=== PATIENT | female | born 1955 | race Caucasian/White ===

== ENCOUNTER 2016-02-17 03:49 | Inpatient (IN) | payer MEDICARE, OTHER ==
[~2016-02-17] VITALS: Ht 162.6 cm; Wt 79.1 kg
[~2016-02-17 03:49] MED LIST: ACET500T68 PO; ALBU0.63 IH; AMLO10TA2 PO; AMLO5TAB2 PO; ASPI-252 PO; ASPI325T82 PO; ASPI81TA2 PO; BACL10TA PO; BREO ELLIPTA 11 EACH IH; BUSP5TAB PO; Buspirone Hcl PO; CIPR500T PO; CIPR500T94 PO; DOXY100T PO; ERGO500012 PO; FLUT1DIS3 INH; FLUT1DIS5 IH; FURO-68 PO; GABA-586 PO; HYDR-2678 PO; HYDR-971 PO; IPRA14.7 IH; IRBE150T PO; LEVO125T PO; LEVO125T5 PO; LEVO175T5 PO; LEVO500T38 PO; LEVO500T8 PO; LEVO750T31 PO; LISI10TA2 PO; ONDA8TAB15 PO; OXYC-244 PO; OXYC-323 PO; Oxycodone Hcl/Acetaminophen PO; PANT40GR PO; PANT40TA3 PO; PARO25TA9 PO; POTA10TA12 PO; POTA10TA31 PO; POTA20TA82 PO; PRAM0.255 PO; PRAS10TA4 PO; PRED-220 PO; PRED20TA PO; TIOT18CA IH; TRIA1CAP3 PO; VENTOLIN HFA18 GM IH; [UNRECOGNIZED DRUG - CODE] PO
[2016-02-17 04:30] LABS: BASO # 0.1 x10^3/uL (0.0-0.2); BASO % 1 % (0-3); EOS % 4 % (0-3); HEMATOCRIT 38.3 % (36.0-47.0); HEMOGLOBIN 11.9 g/dL (12.0-15.5); LYMPH # 0.8 x10^3/uL (1.0-4.8); LYMPH % 17 % (24-48); MEAN CORPUSCULAR HEMOGLOBIN 23 pg (25-35); MEAN CORPUSCULAR HGB CONC 31 g/dL (31-37); MEAN CORPUSCULAR VOLUME 74 fL (79-100); MONO % 8 % (0-9); NEUT % 69 % (31-73); PLATELET COUNT 256 x10^3/uL (140-400); RED CELL DISTRIBUTION WIDTH 21.9 % (11.5-14.5); WHITE BLOOD COUNT 4.7 x10^3/uL (4.0-11.0)
--- NOTE | 2016-02-17 04:32 | PHYS DOC ---
Past Medical History Past Medical History: Angina, CAD, CHF, COPD, Heart Disease, [place] Additional Past Medical Histor: PAD, Chronic back pain, emphysema, MULTIPLE CODE BLUE, CARD. CATH Past Surgical History: Angioplasty, Cholecystectomy, Hysterectomy Additional Past Surgical Histo: bilat leg stents, trach, aortic stent, ivc filter, feeding tube w/ removal Alcohol Use: None Drug Use: None Adult General Chief Complaint Chief Complaint: LOWER EXTREMITY SWELLING [facility] HPI Patient is a 60 year old female who presents with gradually worsening bilateral lower extremity edema and now with bilateral lower extremity pain due to severe swelling. She saw her primary care doctor on 02/14/16 and has been increasing her Lasix dose over the past week from daily dosing to twice a day dosing. She does not have improvement in her swelling. She states she sits in a recliner most of the day with a pillow underneath her knees. She has not been wearing compressive leg stockings. She denies dyspnea, cough, chest pain, orthopnea, abdominal pain, palpitations, lightheadedness, fever or chills. States she feels well on her chronic 10 L trach shield. She states she has been able to ambulate throughout her household with her walker without difficulty other than leg pains. She notes a 12 lb weight gain over the past week. She also asked for a dose of pain medicine for chronic low back pain. Review of Systems Review of Systems Constitutional: Denies fever or chills [] Eyes: Denies change in visual acuity, redness, or eye pain [] HENT: Denies nasal congestion or sore throat [] Respiratory: Denies cough or shortness of breath [] Cardiovascular: No additional information not addressed in HPI [] GI: Denies abdominal pain, nausea, vomiting, bloody stools or diarrhea [] : Denies dysuria or hematuria [] Musculoskeletal: Denies back pain or joint pain [] Integument: Denies rash or skin lesions [] Neurologic: Denies headache, focal weakness or sensory changes [] Endocrine: Denies polyuria or polydipsia [] Current Medications Current Medications Current Medications Medications (Trade) Dose Ordered Sig/Emmett Start Time Stop Time Status Last Admin Dose Admin Albuterol/ Ipratropium (Duoneb) 3 ml RTQID 02/17/16 06:00 02/18/16 05:59 Morphine Sulfate 5 mg 1X ONCE 02/17/16 05:00 02/17/16 05:01 DC 02/17/16 04:48 5 MG Ondansetron HCl (Zofran) 4 mg PRN Q8HRS PRN 02/17/16 05:30 02/18/16 05:29 Allergies Allergies Allergies Coded Allergies Type Severity Reaction Last Updated Verified Penicillins Allergy Intermediate can tolerate cefepime 06/04/15 Yes barium sulfate Adverse Reaction Intermediate Nausea 06/04/15 Yes Physical Exam Physical Exam Constitutional: Well developed, well nourished, no acute distress, non-toxic appearance. [] HENT: Normocephalic, atraumatic, bilateral external ears normal, oropharynx moist, no oral exudates, nose normal. Trach in place with trach shield covering [] Eyes: PERRLA, EOMI. [] Neck: Normal range of motion, supple. [] Cardiovascular:Heart rate regular rhythm [] Lungs & Thorax: Bilateral breath sounds clear to auscultation [] Abdomen: Bowel sounds normal, soft, no tenderness. [] Skin: Warm, dry, no erythema, no rash. [] Back: Normal range of motion. [] Extremities: ROM intact, bilateral 3+ lower extremity edema, appropriate tenderness throughout right and left leg distal to the knee, no warmth/ crepitance/fluctuance/induration. [] Neurologic: Alert and oriented X 3, normal motor function, normal sensory function, no focal deficits noted. [] Psychologic: Affect normal, judgement normal, mood normal. [] Current Patient Data Vital Signs Vital Signs Date Time Temp Pulse Resp B/P Pulse Ox O2 Delivery O2 Flow Rate FiO2 02/17/16 04:48 30 87 Tracheal Collar 10.0 02/17/16 03:49 97.8 81 130/85 97.8 Lab Values Laboratory Tests Test 02/17/16 04:08 White Blood Count 4.7x10^3/uL (4.0-11.0) Red Blood Count 5.20x10^6/uL (3.50-5.40) Hemoglobin 11.9g/dL (12.0-15.5) L Hematocrit 38.3% (36.0-47.0) Mean Corpuscular Volume 74fL (79-100) L Mean Corpuscular Hemoglobin 23pg (25-35) L Mean Corpuscular Hemoglobin Concent 31g/dL (31-37) Red Cell Distribution Width 21.9% (11.5-14.5) H Platelet Count 256x10^3/uL (140-400) Neutrophils (%) (Auto) 69% (31-73) Lymphocytes (%) (Auto) 17% (24-48) L Monocytes (%) (Auto) 8% (0-9) Eosinophils (%) (Auto) 4% (0-3) H Basophils (%) (Auto) 1% (0-3) Neutrophils # (Auto) 3.3x10^3uL (1.8-7.7) Lymphocytes # (Auto) 0.8x10^3/uL (1.0-4.8) L Monocytes # (Auto) 0.4x10^3/uL (0.0-1.1) Eosinophils # (Auto) 0.2x10^3/uL (0.0-0.7) Basophils # (Auto) 0.1x10^3/uL (0.0-0.2) Platelet Estimate Pending Sodium Level 138mmol/L (136-145) Potassium Level 3.3mmol/L (3.5-5.1) L Chloride Level 99mmol/L (98-107) Carbon Dioxide Level 30mmol/L (21-32) Anion Gap 9 (6-14) Blood Urea Nitrogen 14mg/dL (7-20) Creatinine 1.0mg/dL (0.6-1.0) Estimated GFR (Cockcroft-Gault) 56.2 Glucose Level 103mg/dL (70-99) H Calcium Level 8.4mg/dL (8.5-10.1) L AG-[id number]-[id number]-Type Natriuretic Peptide 49473db/mL (0-124) H Laboratory Tests 02/17/16 04:08 Laboratory Tests 02/17/16 04:08 Radiology/Procedures Radiology/Procedures Chest x-ray as interpreted by me showing worsening bilateral pulmonary edema compared to prior studies Course & Med Decision Making Course & Med Decision Making Pertinent Labs and Imaging studies reviewed. (See chart for details) ProBNP is elevated from prior exam, but laboratory evaluation is otherwise unremarkable. She has O2 sat in low 80s on her chronic 10 L, so has a higher O2 requirement. Recommended admission for CHF exacerbation, and she agrees with plan. Discussed case with Dr. Blackburn, who agrees with plan. Cardiology and pulmonology consultations placed. Claudine Disclaimer Dragon Disclaimer This electronic medical record was generated, in whole or in part, using a voice recognition dictation system. Departure Departure Impression: Primary Impression: CHF exacerbation Disposition: ADMITTED INPATIENT Condition: STABLE Referrals: ALEK BLACKBURN MD (PCP) Problem Qualifiers Primary Impression: CHF exacerbation Congestive heart failure type: unspecified congestive heart failure type Qualified Code: I50.9 - Heart failure, unspecified Edilson KUMAR MD Feb 17, 2016 04:32
[2016-02-17 04:38] LABS: CALCIUM 8.4 mg/dL (8.5-10.1); GFR 56.2; POTASSIUM 3.3 mmol/L (3.5-5.1)
[2016-02-17] MEDS ORDERED: MORPHINE SULFATE 10 MG/ML VIAL. IV ONE (05:00)
[2016-02-17] MEDS ORDERED: ONDANSETRON PF 4 MG/2 ML VIAL. IV PRN (05:30)
[2016-02-17 05:36] LABS: ANISOCYTOSIS MOD; HYPOCHROMIA SLIGHT; MICROCYTOSIS SLIGHT; PLT ESTIMATE ADEQUATE (ADEQUATE); POIKILOCYTOSIS SLIGHT; SPHEROCYTES OCC
--- NOTE | 2016-02-17 05:36 | ACF ---
Admission Forms Criteria HEART FAILURE: COMMON COMPLICATIONS Clinical Indications for Inpatient Care (Place 'X' for any and all applicable criteria): Ongoing inpatient care may be indicated for heart failure with ANY ONE of the following (1)(2)(3)(4)(5): [ ]I. Ongoing need for care for primary condition requiring frequent therapy adjustments because of changes in cardiac function (eg, drug dosage changes for drugs that are renally metabolized) [ ]II. New-onset heart failure [ ]III. Heart failure with decreased urine output not responsive to attempts to optimize volume status [ ]IV. Acute cardiac ischemia causing or associated with failure [X]V. Complications of heart failure, including ANY ONE of the following: [ ]a) Pericardial effusion [ ]b) Symptomatic pleural effusion [X]c) O2 saturation <90% or PO2 < 60 mm Hg (8.0 kPa) on room air or require baseline supplemental O2 [ ]d) Tachypnea [ ]e) Dyspnea [ ]f) Syncope [ ]g) Change in mental status [ ]h) Acute renal insufficiency that is severe (reduction of more than 50% in estimated glomerular filtration rate from baseline) or progressive reduction of more than 25% in estimated glomerular filtration rate from baseline, with creatinine continuing to rise) [ ]i) Hemodynamic instability [ ]j) Anasarca [ ]k) Clinically significant metabolic abnormalities due to heart failure (eg, new-onset metabolic acidosis) Extended stay beyond goal length of stay for primary condition may be needed until ALL of the following are present(1)(3): [ ]a) Stable and effective diuretic regimen established (or patient on stable dialysis regimen if in chronic renal failure) [ ]b) Breathing comfortably at rest [ ]c) Saturation of arterial oxygen greater than 90% or at acceptable baseline [ ]d) Pulmonary edema absent or improved [ ]e) Hemodynamic stability [ ]f) Volume status acceptable on oral medication [ ]g) Peripheral or sacral edema absent or improved [ ]h) Renal function stable and manageable at a lower level of care [ ]i) Complications (eg, pleural effusion) resolved or manageable at a lower level of care [ ]j) Patient or caregiver has received written discharge instructions or educational material addressing activity level, diet, discharge medications, follow-up appointment, weight monitoring, and what to do if symptoms worsen The original [email or web address] content created by [employer] has been revised. The portions of the content which have been revised are identified through the use of italic text or in bold, and [facility] has neither reviewed nor approved the modified material.All other unmodified content is copyright [facility]. Please see references footnoted in the original [facility] edition 2016 Admission Criteria Met?: Yes LIONEL CHA Feb 17, 2016 05:36
[2016-02-17] MEDS: IPRATRPIUM/ALBUTEROL 0.5/2.5MG 3 ML NEBU. NEB SCH ×4 (05:48→19:50)
[2016-02-17] MEDS ORDERED: FUROSEMIDE 40 MG/4 ML VIAL IVP ONE (06:00)
[2016-02-17] MEDS ORDERED: OXYCODONE/APAP 7.5/325 TABLET. PO ONE (06:30)
--- NOTE | 2016-02-17 08:17 | RAD ---
EXAM: Chest, single view. HISTORY: Wheezing. COMPARISON: 01/25/2016. FINDINGS: A frontal view of the chest is obtained. There is increased interstitial opacity secondary to pulmonary congestion. There are small pleural effusions. There is stable cardiomegaly. There is a tracheostomy device overlying expected position. There is no pneumothorax. IMPRESSION: 1. Slight interval increase in pulmonary congestion. 2. Stable suspected trace to small pleural effusions or basilar pleural-parenchymal scarring. 3. Stable cardiomegaly.
[2016-02-17] MEDS ORDERED: LISINOPRIL 10 MG TABLET PO SCH (09:00)
[2016-02-17] MEDS ORDERED: FUROSEMIDE INJ 100 MG in IV NORMAL SALINE 100ML 100 ML IV PRN (09:00)
--- NOTE | 2016-02-17 09:00 | PDOC ---
Provider Note Provider Note [id number] ALEK HANLEY MD Feb 17, 2016 09:00
--- NOTE | 2016-02-17 10:46 | RAD ---
EXAM: Bilateral lower extremity venous Doppler sonogram. HISTORY: Swelling. TECHNIQUE: Grayscale and color Doppler sonographic imaging of the lower extremity veins was spectral waveform analysis was performed. COMPARISON: None. FINDINGS: The peroneal veins are not well seen. However, the peroneal veins compress normally. There is normal color flow, normal compressible the and there are normal spectral waveforms within the remainder of the lower extremity veins. There is a prominent right inguinal lymph node measuring 3.0 x 0.6 x 1.9 cm. There is bilateral calf soft tissue edema. IMPRESSION: 1. No Doppler evidence of lower extremity venous thrombosis, with limited evaluation of the bilateral peroneal veins. 2. Calf soft tissue edema. 3. Prominent right inguinal lymph node, possibly reactive in etiology.
[2016-02-17 11:00] VITALS: BP 125/82
[2016-02-17] MEDS: PANTOPRAZOLE 40 MG TABLET. PO SCH ×2 (11:15→21:30)
[2016-02-17] MEDS: LEVOTHYROXINE 100 MCG TABLET PO SCH (11:16)
[2016-02-17] MEDS: GABAPENTIN 300 MG CAPSULE. PO SCH ×2 (11:16→21:29)
[2016-02-17] MEDS: ASPIRIN 81 MG TAB.CHEW PO SCH (11:16)
[2016-02-17] MEDS: AMLODIPINE BESYLATE 10 MG TABLET PO SCH (11:17)
[2016-02-17] MEDS: ENOXAPARIN 40 MG/0.4 ML DISP.SYRIN. SQ SCH (11:17)
[2016-02-17] MEDS: PAROXETINE ER 12.5 MG TAB.ER.24H. PO SCH (11:17)
[2016-02-17] MEDS: POTASSIUM CHLORIDE 20 MEQ TABLET.ER. PO SCH ×2 (11:43→21:30)
[2016-02-17] MEDS: OXYCODONE/APAP 7.5/325 TABLET. PO PRN ×2 (11:44→21:34)
--- NOTE | 2016-02-17 13:39 | HP ---
ADMIT DATE: 02/17/2016 CHIEF COMPLAINT: Leg swelling. HISTORY OF PRESENT ILLNESS: A 60-year-old white female with end-stage COPD with tracheostomy and high flow oxygen, also has a history of coronary artery disease, status post stents placed about 2-3 months ago. She was seen in the office 3 days prior to admission with increasing leg edema, but no real orthopnea or much dyspnea, more than normal and no cough. Lasix was doubled to 40 twice a day, but continued to have swelling and shortness of breath, so came to the ER. Chest x-ray showed mild pulmonary vascular congestion. She received a dose of IV Lasix and is sleeping at this time. PAST MEDICAL HISTORY: Well documented in the old record. ALLERGIES: Listed to penicillins. MEDICATIONS: Multiple meds listed per the chart. SOCIAL HISTORY: Continues to smoke heavily, lives alone, has family in the area. Nondrinker, unemployed. FAMILY HISTORY: Unremarkable. REVIEW OF SYSTEMS: No other known problems. OBJECTIVE: ENT: All within normal limits. NECK: Tracheostomy in place. JVD is difficult to assess because of wrappings. No thyroid enlargement was palpable. LUNGS: Decreased breath sounds, bilateral coarse crackles. CARDIOVASCULAR: Regular rate, rate is about 100. No murmurs heard. No S3 is heard. ABDOMEN: Soft, obese, benign and nontender. EXTREMITIES: 3+ edema of the lower extremities below the knees bilaterally. Pedal pulses diminished, 3+ clubbing is noted. Mild cyanosis is noted. NEUROLOGIC: Physiologic and nonfocal. ASSESSMENT: Chronic lower extremity edema, multifactorial in nature. She has a history of severe coronary artery disease and severe chronic obstructive pulmonary disease with pulmonary hypertension, all of which could contribute. She still smokes heavily, moderate salt intake all contribute as well. PLAN: IV Lasix, echo and Doppler studies for the legs. ALEK HANLEY MD DR: LYNETTE/annie JOB#: [id number] / [id number]
[2016-02-17] MEDS: ALBUMIN HUMAN 25% 100 ML IV SCH ×2 (13:40→21:00)
--- NOTE | 2016-02-17 14:16 | PDOC2 ---
CONSULT Date of Consult Date of Consult DATE: 02/17/16 TIME: 14:01 Reason for Consult Reason for Consult: CHF exacerbation Referring Physician Referring Physician: Dr. Blackburn Identification/Chief Complaint Chief Complaint Bilateral leg swelling, CHF exacerbation History of Present Illness Reason for Visit: This patient is a very pleasant 60 year old female who presented with 4-5 days of bilateral lower extremity edema and pain. She also notes a 12 lb weight gain over the past week. Her PCP had increased her Lasix from once daily to twice daily on Wednesday, 02/13 in the office, of which she had done for 3 days. PCP also started Lisinopril 10mg daily but patient has not picked up that prescription yet. Thinks PCP also discontinued her Spironolactone 25mg daily. Noted having increased difficulty ambulating at home due to the swelling and pain. Usually sleeps with 2-3 pillows due to orthopnea. Denies previous hospitalizations for CHF or LE swelling. Denies dyspnea, cough, chest pain, or palpitations. Past Medical History Cardiovascular: CAD, CHF, HTN, Pulmonary hypertension Pulmonary: COPD GI: GERD Psych: Depression Endocrine: Diabetes, Hypothyroidism Past Surgical History Past Surgical History: Cholecystectomy, Hysterectomy, Other Family History Family History: Coronary Artery Disease, Heart Disease, Family History Unknown , Other Social History ALCOHOL: none Drugs: None Lives: with Family Domestic Violence: Neg Current Problem List Problem List Problems Medical Problems: (1) CHF exacerbation Status: Acute Current Medications Current Medications Current Medications Morphine Sulfate 5 mg 1X ONCE IV Last administered on 02/17/16 04:48; Start at 05:00; Stop 02/17/16 at 05:01; Status DC Ondansetron HCl (Zofran) 4 mg PRN Q8HRS PRN IV NAUSEA/VOMITING; Start 02/17/16 at 05:30; Stop 02/18/16 at 05:29 Albuterol/ Ipratropium (Duoneb) 3 ml RTQID NEB Last administered on 02/17/16 11 :28; Start 02/17/16 at 06:00; Stop 02/18/16 at 05:59 Furosemide (Lasix) 40 mg 1X ONCE IVP Last administered on 02/17/16 06:24; Start 02/17/16 at 06:00; Stop 02/17/16 at 06:01; Status DC Oxycodone/ Acetaminophen (Percocet 7.5/ 325) 1 tab 1X ONCE PO Last administered on 02/17/16 06:23; Start 02/17/16 at 06:30; Stop 02/17/16 at 06:31; Status DC Acetaminophen (Tylenol) 500 mg PRN Q6HRS PRN PO PAIN; Start 02/17/16 at 09:00 Amlodipine Besylate (Norvasc) 10 mg DAILY PO Last administered on 02/17/16 11: 17; Start 02/17/16 at 09:00 Aspirin (Children'S Aspirin) 81 mg DAILYWBKFT PO Last administered on 02/17/16 11:16; Start 02/17/16 at 09:00 Baclofen (Lioresal) 10 mg QHS PO ; Start 02/17/16 at 21:00 Gabapentin (Neurontin) 300 mg BID PO Last administered on 02/17/16 11:16; Start 02/17/16 at 09:00 Levothyroxine Sodium (Synthroid) 100 mcg DAILY07 PO Last administered on 11:16; Start 02/17/16 at 09:00 Lisinopril (Prinivil) 10 mg DAILY PO Last administered on 02/17/16 11:16; Start 02/17/16 at 09:00 Oxycodone/ Acetaminophen (Percocet 7.5/ 325) 1 tab PRN TID PRN PO PAIN Last administered on 02/17/16 11:44; Start 02/17/16 at 09:00 Pantoprazole Sodium (Protonix) 40 mg BIDAC PO Last administered on 02/17/16 11: 15; Start 02/17/16 at 09:00 Paroxetine HCl 25 mg 25 mg DAILY PO Last administered on 02/17/16 11:17; Start 02/17/16 at 09:00 Furosemide/Sodium Chloride (Lasix Drip/Iv Sodium Chloride 0.9% 100ml) 100 ml @ 0 mls/hr CONT PRN IV SEE I/O RECORD Last administered on 02/17/16 11:48; Start 02/17/16 at 09:00 Potassium Chloride (Klor-Con) 20 meq BIDAFTMEAL PO Last administered on 11:43; Start 02/17/16 at 09:00 Enoxaparin Sodium 40 mg 40 mg Q24H SQ Last administered on 02/17/16 11:17; Start 02/17/16 at 10:00 Albumin Human (Albuminar) 100 ml @ 100 mls/hr Q12HR IV Last administered on 13:40; Start 02/17/16 at 13:00; Stop 02/20/16 at 01:00 Furosemide (Lasix) 80 mg BID@10,22 IVP ; Start 02/17/16 at 14:00 Active Scripts Active Lortab 5-325 mg Tablet (Hydrocodone/Acetaminophen) 1 Each Tablet 1 Tab PO PRN Q6HRS PRN Levothyroxine Sodium 175 Mcg Tablet 1 Tab PO DAILY Paxil Cr (Paroxetine Hcl) 12.5 Mg Tab.er.24h 25 Mg PO DAILY Protonix (Pantoprazole Sodium) 40 Mg Tablet 40 Mg PO BIDAC Neurontin (Gabapentin) 300 Mg Capsule 300 Mg PO BID Vitamin D2 (Ergocalciferol (Vitamin D2)) 50,000 Unit Capsule 50,000 Unit PO FR [Buspirone Hcl] 5 MG Tablet 5 Mg PO TID Spiriva (Tiotropium Eldena) 18 Mcg Cap.w.dev 2 Inh IH DAILY Indication: shortness of breath Next dose: 09/20/14 am Reported Prednisone 20 Mg Tablet 20 Mg PO DAILY Aspirin 81 Mg Tab.chew 1 Tab PO DAILY Potassium Chloride 20 Meq Tablet.er 20 Meq PO DAILY Lisinopril 10 Mg Tablet 1 Tab PO DAILY Levofloxacin 500 Mg Tablet 1 Tab PO DAILY Amlodipine Besylate 10 Mg Tablet 10 Mg PO DAILY Acetaminophen 500 Mg Tablet 1 Tab PO PRN Q6HRS PRN Breo Ellipta 100-25 Mcg Inh (Fluticasone/Vilanterol) 1 Each Aer.pow.ba 1 Puff IH DAILY Percocet 7.5-325 Mg Tablet (Oxycodone/Acetaminophen) 1 Each Tablet 1 Tab PO PRN TID PRN Baclofen 10 Mg Tablet 10 Mg PO QHS Triamterene-Hctz 37.5-25 Mg Cp (Triamterene/Hydrochlorothiazid) 1 Each Capsule 1 Cap PO DAILY Allergies Allergies: Coded Allergies: Penicillins (Verified Allergy, Intermediate, can tolerate cefepime, ) barium sulfate (Verified Adverse Reaction, Intermediate, Nausea, 4/26/16) Physical Exam Physical Exam General: no acute distress, AAOx3 Lungs: mild crackles bilaterally, normal air movement Heart: regular rate, normal S1, normal S2 Abdomen: soft, bowel sounds present Extremities: +2 pitting edema bilateral lower extremities with chronic stasis skin changes, dorsalis pedis pulses +1/4 bilaterally Vitals VITALS Vital Signs Date Time Temp Pulse Resp B/P Pulse Ox O2 Delivery O2 Flow Rate FiO2 02/17/16 11:44 89 Tracheal Collar 10.0 02/17/16 11:17 88 136/82 02/17/16 11:00 97.6 20 97.6 Labs Labs Laboratory Tests Test 02/17/16 04:08 White Blood Count 4.7x10^3/uL (4.0-11.0) Red Blood Count 5.20x10^6/uL (3.50-5.40) Hemoglobin 11.9g/dL (12.0-15.5) Hematocrit 38.3% (36.0-47.0) Mean Corpuscular Volume 74fL (79-100) Mean Corpuscular Hemoglobin 23pg (25-35) Mean Corpuscular Hemoglobin Concent 31g/dL (31-37) Red Cell Distribution Width 21.9% (11.5-14.5) Platelet Count 256x10^3/uL (140-400) Neutrophils (%) (Auto) 69% (31-73) Lymphocytes (%) (Auto) 17% (24-48) Monocytes (%) (Auto) 8% (0-9) Eosinophils (%) (Auto) 4% (0-3) Basophils (%) (Auto) 1% (0-3) Neutrophils # (Auto) 3.3x10^3uL (1.8-7.7) Lymphocytes # (Auto) 0.8x10^3/uL (1.0-4.8) Monocytes # (Auto) 0.4x10^3/uL (0.0-1.1) Eosinophils # (Auto) 0.2x10^3/uL (0.0-0.7) Basophils # (Auto) 0.1x10^3/uL (0.0-0.2) Platelet Estimate Adequate (ADEQUATE) Hypochromasia Slight Poikilocytosis Slight Anisocytosis Mod Microcytosis Slight Spherocytes Occ Sodium Level 138mmol/L (136-145) Potassium Level 3.3mmol/L (3.5-5.1) Chloride Level 99mmol/L (98-107) Carbon Dioxide Level 30mmol/L (21-32) Anion Gap 9 (6-14) Blood Urea Nitrogen 14mg/dL (7-20) Creatinine 1.0mg/dL (0.6-1.0) Estimated GFR (Cockcroft-Gault) 56.2 Glucose Level 103mg/dL (70-99) Calcium Level 8.4mg/dL (8.5-10.1) MP-Kmg-Z-Type Natriuretic Peptide 72651kf/mL (0-124) Laboratory Tests Test 02/17/16 04:08 White Blood Count 4.7x10^3/uL (4.0-11.0) Red Blood Count 5.20x10^6/uL (3.50-5.40) Hemoglobin 11.9g/dL (12.0-15.5) Hematocrit 38.3% (36.0-47.0) Mean Corpuscular Volume 74fL (79-100) Mean Corpuscular Hemoglobin 23pg (25-35) Mean Corpuscular Hemoglobin Concent 31g/dL (31-37) Red Cell Distribution Width 21.9% (11.5-14.5) Platelet Count 256x10^3/uL (140-400) Neutrophils (%) (Auto) 69% (31-73) Lymphocytes (%) (Auto) 17% (24-48) Monocytes (%) (Auto) 8% (0-9) Eosinophils (%) (Auto) 4% (0-3) Basophils (%) (Auto) 1% (0-3) Neutrophils # (Auto) 3.3x10^3uL (1.8-7.7) Lymphocytes # (Auto) 0.8x10^3/uL (1.0-4.8) Monocytes # (Auto) 0.4x10^3/uL (0.0-1.1) Eosinophils # (Auto) 0.2x10^3/uL (0.0-0.7) Basophils # (Auto) 0.1x10^3/uL (0.0-0.2) Platelet Estimate Adequate (ADEQUATE) Hypochromasia Slight Poikilocytosis Slight Anisocytosis Mod Microcytosis Slight Spherocytes Occ Sodium Level 138mmol/L (136-145) Potassium Level 3.3mmol/L (3.5-5.1) Chloride Level 99mmol/L (98-107) Carbon Dioxide Level 30mmol/L (21-32) Anion Gap 9 (6-14) Blood Urea Nitrogen 14mg/dL (7-20) Creatinine 1.0mg/dL (0.6-1.0) Estimated GFR (Cockcroft-Gault) 56.2 Glucose Level 103mg/dL (70-99) Calcium Level 8.4mg/dL (8.5-10.1) ML-Yho-U-Type Natriuretic Peptide 04092he/mL (0-124) Assessment/Plan Assessment/Plan Patient in CHF exacerbation. Will continue diuresis. Discontinue Lasix drip. Infuse Albumin 25% 100cc/1 hour immediately followed by Lasix 80mg IV push every 12 hours for 5 doses for effective diuresis. Will consider Dobutamine drip if diuresis protocol is not sufficient. Thank you very much for allowing me to participate in the care of this patient. MELO LARIOS MD Feb 17, 2016 14:16
[2016-02-17 14:58] VITALS: BP 117/74
--- NOTE | 2016-02-17 15:40 | PDOC ---
Provider Note Provider Note dictated MARGOT MATTSON MD Feb 17, 2016 15:40
[2016-02-17 19:52] VITALS: BP 109/68
[2016-02-17] MEDS: BACLOFEN 10 MG TABLET PO SCH (21:30)
[2016-02-17 22:27] VITALS: BP 120/78
[2016-02-18] MEDS: FUROSEMIDE 20 MG/2 ML VIAL IVP SCH ×2 (01:30→01:32)
[2016-02-18 03:09] VITALS: BP 115/78
--- NOTE | 2016-02-18 03:31 | CONS ---
DATE OF CONSULTATION: ATTENDING PHYSICIAN: Dr. Prakash Blackburn. REASON FOR CONSULTATION: Acute on chronic respiratory failure, abnormal chest x-ray, leg edema. HISTORY OF PRESENT ILLNESS: The patient is very well-known to us. She is a 60-year-old female, who has history of end-stage COPD with tracheostomy and on home oxygen of 10 liters. She has history of coronary artery disease, history of a stent placed in the past. The patient was seen in the office, has increasing leg edema. She had no significant fever. She has a mild cough with light yellow sputum production. Oral Lasix was increased, but without any improvement, but she had increased shortness of breath. As a result, she was hospitalized. Her chest x-ray consistent with increased CHF than her baseline. She was seen by Cardiology and she was initially on Lasix. Now, she is getting Lasix and albumin. Her last echocardiogram has shown EF of 50% with left ventricular diastolic dysfunction grade 1. PAST MEDICAL HISTORY: Significant for: 1. History of end-stage COPD with still ongoing tobaccoism. 2. History of 10 liters of oxygen requirement chronic respiratory failure. 3. Tracheostomy. 4. History of diastolic dysfunction. PAST SURGICAL HISTORY: Tracheostomy. ALLERGIES: PENICILLIN AND BARIUM SULFATE. MEDICATIONS: Reviewed as listed in the MRAD. REVIEW OF SYSTEMS: Twelve-point system review was obtained. Pertinent positives discussed in my history of present illness, otherwise noncontributory. All systems that were negative were reviewed as well. SOCIAL HISTORY: Still smokes cigarettes, has been smoking for 40+ years. FAMILY HISTORY: Noncontributory to lungs. PHYSICAL EXAMINATION: VITAL SIGNS: Blood pressure 117/74, afebrile, pulse ox is 85% to 89% on 10 liters. HEENT: Sclerae nonicteric. NECK: Supple. LUNGS: With crackles posteriorly. CARDIOVASCULAR: Regular rate. ABDOMEN: Soft. EXTREMITIES: With 2+ pitting edema bilaterally. LABORATORY DATA: Reviewed. White cell count 4.7, hemoglobin 11.9, platelets are 256. BUN 14, creatinine 1.0. ProBNP is 20,000. IMPRESSION: 1. Acute on chronic hypoxic respiratory failure, now requiring up to 12 liters of oxygen. This is secondary to acute diastolic heart failure. 2. Increasing leg edema secondary to acute on chronic diastolic heart failure. 3. Underlying chronic obstructive pulmonary disease with chronic hypoxic respiratory failure, on home oxygen of 10 liters. 4. Chronic tracheostomy. 5. SEVERE copd RECOMMENDATIONS: 1. Continue with diuresis per Cardiology. 2. Repeat chest x-ray in few days. 3. Smoking cessation counseling provided. 4. Lovenox for DVT prophylaxis. 5. Continue nebulizer treatment. MARGOT MATTSON MD DR: NIDHI/annie JOB#: [id number] / [id number] MILENA
[2016-02-18 07:00] VITALS: BP 141/89
[2016-02-18] MEDS: IPRATRPIUM/ALBUTEROL 0.5/2.5MG 3 ML NEBU. NEB SCH ×4 (07:28→19:49)
--- NOTE | 2016-02-18 07:57 | PDOC ---
Provider Note Provider Note good diuresis, vss, no new sxs- K+ pending- echo 01/23 was 38 % ef, mod mitral regurg, - she is off aldactone in error, resumed, as she needs re chf/cad- follow K+ while on higher dose lasix- ALEK HANLEY MD Feb 18, 2016 07:57
[2016-02-18] MEDS: LEVOTHYROXINE 100 MCG TABLET PO SCH (09:02)
[2016-02-18] MEDS: PAROXETINE ER 12.5 MG TAB.ER.24H. PO SCH (09:03)
[2016-02-18] MEDS: POTASSIUM CHLORIDE 20 MEQ TABLET.ER. PO SCH ×2 (09:03→20:21)
[2016-02-18] MEDS: GABAPENTIN 300 MG CAPSULE. PO SCH ×2 (09:04→20:22)
[2016-02-18] MEDS: AMLODIPINE BESYLATE 10 MG TABLET PO SCH (09:04)
[2016-02-18] MEDS: PANTOPRAZOLE 40 MG TABLET. PO SCH ×2 (09:04→18:46)
[2016-02-18] MEDS: LISINOPRIL 20 MG TABLET PO SCH (09:04)
[2016-02-18] MEDS: ASPIRIN 81 MG TAB.CHEW PO SCH (09:04)
[2016-02-18] MEDS: SPIRONOLACTONE 25 MG TABLET PO SCH (09:04)
[2016-02-18] MEDS: OXYCODONE/APAP 7.5/325 TABLET. PO PRN ×2 (10:00→20:26)
[2016-02-18] MEDS: ALBUMIN HUMAN 25% 100 ML IV SCH ×2 (10:02→20:22)
[2016-02-18 10:43] VITALS: BP 129/81
--- NOTE | 2016-02-18 11:15 | PDOC ---
PROGRESS NOTES Subjective Subjective Patient feels better today and feels legs are less swollen. Denies dyspnea or chest pain. Objective Objective Vital Signs Date Time Temp Pulse Resp B/P Pulse Ox O2 Delivery O2 Flow Rate FiO2 02/18/16 11:03 100 11.0 02/18/16 10:43 97.5 98 16 129/81 Room Air 97.5 Intake and Output 02/18/16 07:00 Intake Total 900 ml Output Total 4900 ml Balance -4000 ml Intake Oral 900 ml Output Urine Total 4900 ml # Voids 2 Physical Exam Physical Exam No significant changes in cardiac exam. Less LE edema. Assessment Assessment Problems Medical Problems: (1) CHF exacerbation Status: Acute Plan Plan of Care Continue current regimen of diuresis with albumin and Lasix. Will consider Dobutamine if diuresis not sufficient. Comment Review of Relevant I have reviewed the following items jasmin (where applicable) has been applied. Labs Laboratory Tests Test 02/17/16 04:08 02/18/16 08:50 White Blood Count 4.7x10^3/uL (4.0-11.0) Red Blood Count 5.20x10^6/uL (3.50-5.40) Hemoglobin 11.9g/dL (12.0-15.5) Hematocrit 38.3% (36.0-47.0) Mean Corpuscular Volume 74fL (79-100) Mean Corpuscular Hemoglobin 23pg (25-35) Mean Corpuscular Hemoglobin Concent 31g/dL (31-37) Red Cell Distribution Width 21.9% (11.5-14.5) Platelet Count 256x10^3/uL (140-400) Neutrophils (%) (Auto) 69% (31-73) Lymphocytes (%) (Auto) 17% (24-48) Monocytes (%) (Auto) 8% (0-9) Eosinophils (%) (Auto) 4% (0-3) Basophils (%) (Auto) 1% (0-3) Neutrophils # (Auto) 3.3x10^3uL (1.8-7.7) Lymphocytes # (Auto) 0.8x10^3/uL (1.0-4.8) Monocytes # (Auto) 0.4x10^3/uL (0.0-1.1) Eosinophils # (Auto) 0.2x10^3/uL (0.0-0.7) Basophils # (Auto) 0.1x10^3/uL (0.0-0.2) Platelet Estimate Adequate (ADEQUATE) Hypochromasia Slight Poikilocytosis Slight Anisocytosis Mod Microcytosis Slight Spherocytes Occ Sodium Level 138mmol/L (136-145) Potassium Level 3.3mmol/L (3.5-5.1) 3.1mmol/L (3.5-5.1) Chloride Level 99mmol/L (98-107) Carbon Dioxide Level 30mmol/L (21-32) Anion Gap 9 (6-14) Blood Urea Nitrogen 14mg/dL (7-20) Creatinine 1.0mg/dL (0.6-1.0) Estimated GFR (Cockcroft-Gault) 56.2 Glucose Level 103mg/dL (70-99) Calcium Level 8.4mg/dL (8.5-10.1) QI-Vlv-Z-Type Natriuretic Peptide 38140sl/mL (0-124) Albumin 3.0g/dL (3.4-5.0) Laboratory Tests Test 02/18/16 08:50 Potassium Level 3.1mmol/L (3.5-5.1) Albumin 3.0g/dL (3.4-5.0) Medications Current Medications Morphine Sulfate 5 mg 1X ONCE IV Last administered on 02/17/16 04:48; Start at 05:00; Stop 02/17/16 at 05:01; Status DC Ondansetron HCl (Zofran) 4 mg PRN Q8HRS PRN IV NAUSEA/VOMITING; Start 02/17/16 at 05:30; Stop 02/18/16 at 05:29; Status DC Albuterol/ Ipratropium (Duoneb) 3 ml RTQID NEB Last administered on 02/18/16 07:28; Start 02/17/16 at 06:00; Stop 02/18/16 at 05:59; Status DC Furosemide (Lasix) 40 mg 1X ONCE IVP Last administered on 02/17/16 06:24; Start 02/17/16 at 06:00; Stop 02/17/16 at 06:01; Status DC Oxycodone/ Acetaminophen (Percocet 7.5/ 325) 1 tab 1X ONCE PO Last administered on 02/17/16 06:23; Start 02/17/16 at 06:30; Stop 02/17/16 at 06:31; Status DC Acetaminophen (Tylenol) 500 mg PRN Q6HRS PRN PO PAIN; Start 02/17/16 at 09:00 Amlodipine Besylate (Norvasc) 10 mg DAILY PO Last administered on 02/18/16 09: 04; Start 02/17/16 at 09:00 Aspirin (Children'S Aspirin) 81 mg DAILYWBKFT PO Last administered on 09:04; Start 02/17/16 at 09:00 Baclofen (Lioresal) 10 mg QHS PO Last administered on 02/17/16 21:30; Start 02/17/16 at 21:00 Gabapentin (Neurontin) 300 mg BID PO Last administered on 02/18/16 09:04; Start 02/17/16 at 09:00 Levothyroxine Sodium (Synthroid) 100 mcg DAILY07 PO Last administered on 09:02; Start 02/17/16 at 09:00 Lisinopril (Prinivil) 10 mg DAILY PO Last administered on 02/17/16 11:16; Start 02/17/16 at 09:00; Stop 02/18/16 at 08:00; Status DC Oxycodone/ Acetaminophen (Percocet 7.5/ 325) 1 tab PRN TID PRN PO PAIN Last administered on 02/18/16 10:00; Start 02/17/16 at 09:00 Pantoprazole Sodium (Protonix) 40 mg BIDAC PO Last administered on 02/18/16 09 :04; Start 02/17/16 at 09:00 Paroxetine HCl 25 mg 25 mg DAILY PO Last administered on 02/18/16 09:03; Start 02/17/16 at 09:00 Furosemide/Sodium Chloride (Lasix Drip/Iv Sodium Chloride 0.9% 100ml) 100 ml @ 0 mls/hr CONT PRN IV SEE I/O RECORD Last administered on 02/17/16 11:48; Start 02/17/16 at 09:00; Stop 02/17/16 at 21:47; Status DC Potassium Chloride (Klor-Con) 20 meq BIDAFTMEAL PO Last administered on 09:03; Start 02/17/16 at 09:00 Enoxaparin Sodium 40 mg 40 mg Q24H SQ Last administered on 02/17/16 11:17; Start 02/17/16 at 10:00 Albumin Human (Albuminar) 100 ml @ 100 mls/hr Q12HR IV Last administered on 10:02; Start 02/17/16 at 13:00; Stop 02/20/16 at 01:00 Furosemide (Lasix) 80 mg BID@10,22 IVP Last administered on 02/18/16 01:30; Start 02/17/16 at 14:00; Stop 02/18/16 at 10:55; Status DC Spironolactone (Aldactone) 25 mg DAILY PO Last administered on 02/18/16 09:04 ; Start 02/18/16 at 09:00 Lisinopril (Prinivil) 20 mg DAILY PO Last administered on 02/18/16 09:04; Start 02/18/16 at 09:00 Albuterol/ Ipratropium (Duoneb) 3 ml RTQID NEB ; Start 02/18/16 at 12:00 Furosemide (Lasix) 80 mg BID@10,22 IVP ; Start 02/18/16 at 22:00 Active Scripts Active Lortab 5-325 mg Tablet (Hydrocodone/Acetaminophen) 1 Each Tablet 1 Tab PO PRN Q6HRS PRN Levothyroxine Sodium 175 Mcg Tablet 1 Tab PO DAILY Paxil Cr (Paroxetine Hcl) 12.5 Mg Tab.er.24h 25 Mg PO DAILY Protonix (Pantoprazole Sodium) 40 Mg Tablet 40 Mg PO BIDAC Neurontin (Gabapentin) 300 Mg Capsule 300 Mg PO BID Vitamin D2 (Ergocalciferol (Vitamin D2)) 50,000 Unit Capsule 50,000 Unit PO FR [Buspirone Hcl] 5 MG Tablet 5 Mg PO TID Spiriva (Tiotropium [place]) 18 Mcg Cap.w.dev 2 Inh IH DAILY Indication: shortness of breath Next dose: 09/20/14 am Reported Prednisone 20 Mg Tablet 20 Mg PO DAILY Aspirin 81 Mg Tab.chew 1 Tab PO DAILY Potassium Chloride 20 Meq Tablet.er 20 Meq PO DAILY Lisinopril 10 Mg Tablet 1 Tab PO DAILY Levofloxacin 500 Mg Tablet 1 Tab PO DAILY Amlodipine Besylate 10 Mg Tablet 10 Mg PO DAILY Acetaminophen 500 Mg Tablet 1 Tab PO PRN Q6HRS PRN Breo Ellipta 100-25 Mcg Inh (Fluticasone/Vilanterol) 1 Each Aer.pow.ba 1 Puff IH DAILY Percocet 7.5-325 Mg Tablet (Oxycodone/Acetaminophen) 1 Each Tablet 1 Tab PO PRN TID PRN Baclofen 10 Mg Tablet 10 Mg PO QHS Triamterene-Hctz 37.5-25 Mg Cp (Triamterene/Hydrochlorothiazid) 1 Each Capsule 1 Cap PO DAILY Vitals/I & O Vital Sign - Last 24 Hours 02/17/16 02/17/16 02/17/16 02/17/16 11:16 11:17 11:28 11:44 Pulse 88 88 B/P 136/82 136/82 Pulse Ox 85 89 O2 Delivery AP NEB Tracheal Collar O2 Flow Rate 10.0 10.0 02/17/16 02/17/16 02/17/16 02/17/16 14:58 16:14 19:27 19:50 Temp 97.4 97.4 Pulse 84 Resp 20 B/P 117/74 Pulse Ox 85 86 O2 Delivery AP NEB Trach Collar AP NEB O2 Flow Rate 10.0 10.0 10.0 02/17/16 02/17/16 02/17/16 02/18/16 19:52 20:00 22:27 03:09 Temp 97.9 97.7 98.3 97.9 97.7 98.3 Pulse 80 81 81 Resp 14 16 18 B/P 109/68 120/78 115/78 Pulse Ox 85 85 83 O2 Delivery Tracheal Collar Trach Collar Tracheal Collar Tracheal Collar O2 Flow Rate 10.0 02/18/16 02/18/16 02/18/16 02/18/16 07:00 07:01 07:26 08:00 Temp 97.9 97.9 Pulse 93 B/P 141/89 Pulse Ox 85 92 93 O2 Delivery Tracheal Collar AP NEB Trach Collar O2 Flow Rate 10.0 10.0 11.0 02/18/16 02/18/16 02/18/16 02/18/16 09:04 09:04 10:00 10:43 Temp 97.5 97.5 Pulse 93 93 98 Resp 16 B/P 141/89 141/89 129/81 Pulse Ox 93 88 O2 Delivery Room Air O2 Flow Rate 10.0 02/18/16 11:03 Pulse Ox 100 O2 Flow Rate 11.0 Intake and Output 02/17/16 02/17/16 02/18/16 15:00 23:00 07:00 Intake Total 500 ml 400 ml Output Total 1000 ml 3900 ml Balance -500 ml -3500 ml MELO LARIOS MD Feb 18, 2016 11:15
[2016-02-18] MEDS: FUROSEMIDE 100 MG/10 ML VIAL IVP SCH ×2 (11:48→21:58)
[2016-02-18] MEDS: ENOXAPARIN 40 MG/0.4 ML DISP.SYRIN. SQ SCH (12:00)
--- NOTE | 2016-02-18 13:11 | PDOC ---
PULMONARY PROGRESS NOTES Subjective feels better Vitals Vital Signs Date Time Temp Pulse Resp B/P Pulse Ox O2 Delivery O2 Flow Rate FiO2 02/18/16 12:05 88 AP NEB 10.0 02/18/16 10:43 97.5 98 16 129/81 97.5 General: Alert, Oriented X4, No acute distress HEENT: Other Lungs: Other (decrease bs) Cardiovascular: S1, S2, Other Abdomen: Soft, Non-tender Extremities: Other (1+edema) Labs Laboratory Tests Test 02/17/16 04:08 02/18/16 08:50 White Blood Count 4.7x10^3/uL (4.0-11.0) Red Blood Count 5.20x10^6/uL (3.50-5.40) Hemoglobin 11.9g/dL (12.0-15.5) Hematocrit 38.3% (36.0-47.0) Mean Corpuscular Volume 74fL (79-100) Mean Corpuscular Hemoglobin 23pg (25-35) Mean Corpuscular Hemoglobin Concent 31g/dL (31-37) Red Cell Distribution Width 21.9% (11.5-14.5) Platelet Count 256x10^3/uL (140-400) Neutrophils (%) (Auto) 69% (31-73) Lymphocytes (%) (Auto) 17% (24-48) Monocytes (%) (Auto) 8% (0-9) Eosinophils (%) (Auto) 4% (0-3) Basophils (%) (Auto) 1% (0-3) Neutrophils # (Auto) 3.3x10^3uL (1.8-7.7) Lymphocytes # (Auto) 0.8x10^3/uL (1.0-4.8) Monocytes # (Auto) 0.4x10^3/uL (0.0-1.1) Eosinophils # (Auto) 0.2x10^3/uL (0.0-0.7) Basophils # (Auto) 0.1x10^3/uL (0.0-0.2) Platelet Estimate Adequate (ADEQUATE) Hypochromasia Slight Poikilocytosis Slight Anisocytosis Mod Microcytosis Slight Spherocytes Occ Sodium Level 138mmol/L (136-145) Potassium Level 3.3mmol/L (3.5-5.1) 3.1mmol/L (3.5-5.1) Chloride Level 99mmol/L (98-107) Carbon Dioxide Level 30mmol/L (21-32) Anion Gap 9 (6-14) Blood Urea Nitrogen 14mg/dL (7-20) Creatinine 1.0mg/dL (0.6-1.0) Estimated GFR (Cockcroft-Gault) 56.2 Glucose Level 103mg/dL (70-99) Calcium Level 8.4mg/dL (8.5-10.1) GC-Bch-Z-Type Natriuretic Peptide 43901ez/mL (0-124) Albumin 3.0g/dL (3.4-5.0) Laboratory Tests Test 02/18/16 08:50 Potassium Level 3.1mmol/L (3.5-5.1) Albumin 3.0g/dL (3.4-5.0) Medications Active Scripts Medications Dose Route/Sig Days Date Category Dose Instructions Prednisone 20 Mg Tablet 20 Mg PO DAILY 01/27/16 Reported Aspirin 81 Mg Tab.chew 1 Tab PO DAILY 01/27/16 Reported Potassium Chloride 20 Meq Tablet.er 20 Meq PO DAILY 01/27/16 Reported Lisinopril 10 Mg Tablet 1 Tab PO DAILY 01/27/16 Reported Levofloxacin 500 Mg Tablet 1 Tab PO DAILY 01/27/16 Reported Lortab 5-325 mg Tablet (Hydrocodone/Acetaminophen) 1 Each Tablet 1 Tab PO PRN Q6HRS PRN 01/17/16 Rx Amlodipine Besylate 10 Mg Tablet 10 Mg PO DAILY 09/22/15 Reported Acetaminophen 500 Mg Tablet 1 Tab PO PRN Q6HRS PRN 09/15/15 Reported Breo Ellipta 100-25 Mcg Inh (Fluticasone/Vilanterol) 1 Each Aer.pow.ba 1 Puff IH DAILY 09/15/15 Reported Percocet 7.5-325 Mg Tablet (Oxycodone/Acetaminophen) 1 Each Tablet 1 Tab PO PRN TID PRN 09/15/15 Reported Baclofen 10 Mg Tablet 10 Mg PO QHS 07/13/15 Reported Triamterene-Hctz 37.5-25 Mg Cp (Triamterene/Hydrochlorothiazid) 1 Each Capsule 1 Cap PO DAILY 07/13/15 Reported Levothyroxine Sodium 175 Mcg Tablet 1 Tab PO DAILY 03/03/15 Rx Paxil Cr (Paroxetine Hcl) 12.5 Mg Tab.er.24h 25 Mg PO DAILY 10/31/14 Rx Protonix (Pantoprazole Sodium) 40 Mg Tablet 40 Mg PO BIDAC 10/31/14 Rx Neurontin (Gabapentin) 300 Mg Capsule 300 Mg PO BID 10/31/14 Rx Vitamin D2 (Ergocalciferol (Vitamin D2)) 50,000 Unit Capsule 50,000 Unit PO FR 10/31/14 Rx [Buspirone Hcl] 5 MG Tablet 5 Mg PO TID 10/31/14 Rx Spiriva (Tiotropium [place]) 18 Mcg Cap.w.dev 2 Inh IH DAILY 10/31/14 Rx Indication: shortness of breath Next dose: 09/20/14 am Impression . . Acute on chronic hypoxic respiratory failure, now requiring up to 12 liters of oxygen. This is secondary to acute diastolic heart failure. 2. Increasing leg edema secondary to acute on chronic diastolic heart failure. 3. Underlying chronic obstructive pulmonary disease with chronic hypoxic respiratory failure, on home oxygen of 10 liters. 4. Chronic tracheostomy. 5. severe COPD Plan . 1. Continue with diuresis per Cardiology. 2. Repeat chest x-ray in few days. 3. Smoking cessation counseling provided. 4. Lovenox for DVT prophylaxis. 5. Continue nebulizer treatment. MARGOT MATTSON MD Feb 18, 2016 13:11
[2016-02-18 15:00] VITALS: BP 94/59
[2016-02-18] MEDS ORDERED: LOPERAMIDE 2 MG CAPSULE PO PRN (19:30)
[2016-02-18 19:57] VITALS: BP 123/73
[2016-02-18] MEDS: BACLOFEN 10 MG TABLET PO SCH (20:22)
[2016-02-18] MEDS ORDERED: FUROSEMIDE 100 MG/10 ML VIAL IVP SCH (22:00)
[2016-02-18 22:07] VITALS: BP 125/78
[2016-02-19] VITALS (7 sets, daily range): BP systolic 99–127; BP diastolic 65–91
[2016-02-19] MEDS: LEVOTHYROXINE 100 MCG TABLET PO SCH (05:41)
[2016-02-19] MEDS: IPRATRPIUM/ALBUTEROL 0.5/2.5MG 3 ML NEBU. NEB SCH ×4 (06:55→19:24)
[2016-02-19] MEDS: PANTOPRAZOLE 40 MG TABLET. PO SCH ×2 (07:56→16:57)
[2016-02-19] MEDS: ASPIRIN 81 MG TAB.CHEW PO SCH (07:56)
--- NOTE | 2016-02-19 08:35 | PDOC ---
Provider Note Provider Note vss, good output, K+ 3.0- edema less, no orthopnea, hr reg- back on aldactone for low ef, acei higher as she cannot tolerate beta johanna- likely dc in am ALEK AHNLEY MD Feb 19, 2016 08:35
[2016-02-19] MEDS: GABAPENTIN 300 MG CAPSULE. PO SCH ×2 (09:44→21:12)
[2016-02-19] MEDS: LISINOPRIL 20 MG TABLET PO SCH (09:44)
[2016-02-19] MEDS: ALBUMIN HUMAN 25% 100 ML IV SCH ×2 (09:44→21:12)
[2016-02-19] MEDS: PAROXETINE ER 12.5 MG TAB.ER.24H. PO SCH (09:44)
[2016-02-19] MEDS: AMLODIPINE BESYLATE 10 MG TABLET PO SCH (09:45)
[2016-02-19] MEDS: POTASSIUM CHLORIDE 20 MEQ TABLET.ER. PO SCH ×3 (09:45→19:14)
[2016-02-19] MEDS: SPIRONOLACTONE 25 MG TABLET PO SCH (09:45)
[2016-02-19] MEDS: ENOXAPARIN 40 MG/0.4 ML DISP.SYRIN. SQ SCH (09:46)
[2016-02-19] MEDS: FUROSEMIDE 100 MG/10 ML VIAL IVP SCH ×2 (09:46→22:42)
--- NOTE | 2016-02-19 10:31 | PDOC ---
PROGRESS NOTES Subjective Subjective denies chest pain or shortness of breath. Complains of 1+ edema bilat lower ext with pain on palpation Objective Objective Vital Signs Date Time Temp Pulse Resp B/P Pulse Ox O2 Delivery O2 Flow Rate FiO2 02/19/16 09:45 87 127/83 02/19/16 07:00 98.4 20 84 Tracheal Collar 98.4 02/19/16 06:56 10.0 Intake and Output 02/19/16 07:00 Intake Total 1320 ml Output Total 3500 ml Balance -2180 ml Intake Oral 1320 ml Output Urine Total 3500 ml Physical Exam Abdomen: Normal bowel sounds, Soft, No tenderness, No hepatosplenomegaly, No masses Heart: Regular rate, Normal S1, Normal S2, No murmurs, Gallops Extremities: Other (1+ bilat lower ext) General: Alert, Oriented X3, Cooperative, No acute distress Lungs: Clear to auscultation, Normal air movement Neck: Supple, No JVD, No thyromegaly Assessment Assessment Problems Medical Problems: (1) CHF exacerbation Status: Acute Plan Plan of Care Continue with current treatment plan. Pt stable at this time Comment Review of Relevant I have reviewed the following items jasmin (where applicable) has been applied. Labs Laboratory Tests Test 02/18/16 08:50 Potassium Level 3.1mmol/L (3.5-5.1) Albumin 3.0g/dL (3.4-5.0) Medications Current Medications Morphine Sulfate 5 mg 1X ONCE IV Last administered on 02/17/16 04:48; Start at 05:00; Stop 02/17/16 at 05:01; Status DC Ondansetron HCl (Zofran) 4 mg PRN Q8HRS PRN IV NAUSEA/VOMITING; Start 02/17/16 at 05:30; Stop 02/18/16 at 05:29; Status DC Albuterol/ Ipratropium (Duoneb) 3 ml RTQID NEB Last administered on 02/18/16 07:28; Start 02/17/16 at 06:00; Stop 02/18/16 at 05:59; Status DC Furosemide (Lasix) 40 mg 1X ONCE IVP Last administered on 02/17/16 06:24; Start 02/17/16 at 06:00; Stop 02/17/16 at 06:01; Status DC Oxycodone/ Acetaminophen (Percocet 7.5/ 325) 1 tab 1X ONCE PO Last administered on 02/17/16 06:23; Start 02/17/16 at 06:30; Stop 02/17/16 at 06:31; Status DC Acetaminophen (Tylenol) 500 mg PRN Q6HRS PRN PO PAIN; Start 02/17/16 at 09:00 Amlodipine Besylate (Norvasc) 10 mg DAILY PO Last administered on 02/19/16 09: 45; Start 02/17/16 at 09:00 Aspirin (Children'S Aspirin) 81 mg DAILYWBKFT PO Last administered on 07:56; Start 02/17/16 at 09:00 Baclofen (Lioresal) 10 mg QHS PO Last administered on 02/18/16 20:22; Start at 21:00 Gabapentin (Neurontin) 300 mg BID PO Last administered on 02/19/16 09:44; Start 02/17/16 at 09:00 Levothyroxine Sodium (Synthroid) 100 mcg DAILY07 PO Last administered on 05:41; Start 02/17/16 at 09:00 Lisinopril (Prinivil) 10 mg DAILY PO Last administered on 02/17/16 11:16; Start 02/17/16 at 09:00; Stop 02/18/16 at 08:00; Status DC Oxycodone/ Acetaminophen (Percocet 7.5/ 325) 1 tab PRN TID PRN PO PAIN Last administered on 02/18/16 20:26; Start 02/17/16 at 09:00 Pantoprazole Sodium (Protonix) 40 mg BIDAC PO Last administered on 02/19/16 07 :56; Start 02/17/16 at 09:00 Paroxetine HCl 25 mg 25 mg DAILY PO Last administered on 02/19/16 09:44; Start 02/17/16 at 09:00 Furosemide/Sodium Chloride (Lasix Drip/Iv Sodium Chloride 0.9% 100ml) 100 ml @ 0 mls/hr CONT PRN IV SEE I/O RECORD Last administered on 02/17/16 11:48; Start 02/17/16 at 09:00; Stop 02/17/16 at 21:47; Status DC Potassium Chloride (Klor-Con) 20 meq BIDAFTMEAL PO Last administered on 20:21; Start 02/17/16 at 09:00; Stop 02/19/16 at 08:31; Status DC Enoxaparin Sodium 40 mg 40 mg Q24H SQ Last administered on 02/19/16 09:46; Start 02/17/16 at 10:00 Albumin Human (Albuminar) 100 ml @ 100 mls/hr Q12HR IV Last administered on 09:44; Start 02/17/16 at 13:00; Stop 02/20/16 at 01:00 Furosemide (Lasix) 80 mg BID@,22 IVP Last administered on 02/18/16 01:30; Start 02/17/16 at 14:00; Stop 02/18/16 at 10:55; Status DC Spironolactone (Aldactone) 25 mg DAILY PO Last administered on 02/19/16 09:45 ; Start 02/18/16 at 09:00 Lisinopril (Prinivil) 20 mg DAILY PO Last administered on 02/19/16 09:44; Start 02/18/16 at 09:00 Albuterol/ Ipratropium (Duoneb) 3 ml RTQID NEB Last administered on 02/19/16 06:55; Start 02/18/16 at 12:00 Furosemide (Lasix) 80 mg BID@,22 IVP ; Start 02/18/16 at 22:00; Stop 02/18/16 at 22:00; Status DC Furosemide (Lasix) 80 mg BID@,22 IVP Last administered on 02/19/16 09:46; Start 02/18/16 at 11:41 Loperamide HCl (Imodium) 2 mg PRN Q15MIN PRN PO DIARRHEA Last administered on 20:21; Start 02/18/16 at 19:30 Potassium Chloride (Klor-Con) 20 meq TIDAFTMEAL PO Last administered on 09:45; Start 02/19/16 at 09:00 Active Scripts Active Lortab 5-325 mg Tablet (Hydrocodone/Acetaminophen) 1 Each Tablet 1 Tab PO PRN Q6HRS PRN Levothyroxine Sodium 175 Mcg Tablet 1 Tab PO DAILY Paxil Cr (Paroxetine Hcl) 12.5 Mg Tab.er.24h 25 Mg PO DAILY Protonix (Pantoprazole Sodium) 40 Mg Tablet 40 Mg PO BIDAC Neurontin (Gabapentin) 300 Mg Capsule 300 Mg PO BID Vitamin D2 (Ergocalciferol (Vitamin D2)) 50,000 Unit Capsule 50,000 Unit PO FR [Buspirone Hcl] 5 MG Tablet 5 Mg PO TID Spiriva (Tiotropium [place]) 18 Mcg Cap.w.dev 2 Inh IH DAILY Indication: shortness of breath Next dose: 09/20/14 am Reported Prednisone 20 Mg Tablet 20 Mg PO DAILY Aspirin 81 Mg Tab.chew 1 Tab PO DAILY Potassium Chloride 20 Meq Tablet.er 20 Meq PO DAILY Lisinopril 10 Mg Tablet 1 Tab PO DAILY Levofloxacin 500 Mg Tablet 1 Tab PO DAILY Amlodipine Besylate 10 Mg Tablet 10 Mg PO DAILY Acetaminophen 500 Mg Tablet 1 Tab PO PRN Q6HRS PRN Breo Ellipta 100-25 Mcg Inh (Fluticasone/Vilanterol) 1 Each Aer.pow.ba 1 Puff IH DAILY Percocet 7.5-325 Mg Tablet (Oxycodone/Acetaminophen) 1 Each Tablet 1 Tab PO PRN TID PRN Baclofen 10 Mg Tablet 10 Mg PO QHS Triamterene-Hctz 37.5-25 Mg Cp (Triamterene/Hydrochlorothiazid) 1 Each Capsule 1 Cap PO DAILY Vitals/I & O Vital Sign - Last 24 Hours 02/18/16 02/18/16 02/18/16 02/18/16 10:43 11:03 12:05 15:00 Temp 97.5 98.0 97.5 98.0 Pulse 98 87 Resp 16 16 B/P 129/81 94/59 Pulse Ox 88 100 88 82 O2 Delivery Room Air AP NEB Room Air O2 Flow Rate 11.0 10.0 02/18/16 02/18/16 02/18/16 02/18/16 15:58 19:47 19:57 20:00 Temp 98.3 98.3 Pulse 87 Resp 20 B/P 123/73 Pulse Ox 90 89 89 O2 Delivery AP NEB AP NEB Tracheal Collar Trach Collar O2 Flow Rate 10.0 10.0 11.0 02/18/16 02/19/16 02/19/1617 22:07 02:19 06:56 07:00 Temp 98.7 97.9 98.4 98.7 97.9 98.4 Pulse 90 80 87 Resp 18 20 20 B/P 125/78 122/75 127/83 Pulse Ox 89 90 89 84 O2 Delivery Tracheal Collar Tracheal Collar AP NEB Tracheal Collar O2 Flow Rate 10.0 02/19/16 02/19/16 09:44 09:45 Pulse 87 87 B/P 127/83 127/83 Intake and Output 02/18/16 02/18/16 02/19/16 15:00 23:00 07:00 Intake Total 400 ml 220 ml 700 ml Output Total 1000 ml 800 ml 1700 ml Balance -600 ml -580 ml -1000 ml MELO LARIOS MD Feb 19, 2016 10:31
[2016-02-19] MEDS: OXYCODONE/APAP 7.5/325 TABLET. PO PRN (11:16)
--- NOTE | 2016-02-19 12:11 | PDOC ---
PULMONARY PROGRESS NOTES Subjective feels better OXYGEN REQUIREMENT IMPROVING Vitals Vital Signs Date Time Temp Pulse Resp B/P Pulse Ox O2 Delivery O2 Flow Rate FiO2 02/19/16 11:44 91 AP NEB 10.0 02/19/16 11:16 20 02/19/16 11:00 98.6 85 122/72 98.6 General: Alert, Oriented X4, No acute distress HEENT: Other Lungs: Other (decrease bs) Cardiovascular: S1, S2, Other Abdomen: Soft, Non-tender Extremities: Other (1+edema, improving) Labs Laboratory Tests Test 02/18/16 08:50 Potassium Level 3.1mmol/L (3.5-5.1) Albumin 3.0g/dL (3.4-5.0) Medications Active Scripts Medications Dose Route/Sig Days Date Category Dose Instructions Prednisone 20 Mg Tablet 20 Mg PO DAILY 01/27/16 Reported Aspirin 81 Mg Tab.chew 1 Tab PO DAILY 01/27/16 Reported Potassium Chloride 20 Meq Tablet.er 20 Meq PO DAILY 01/27/16 Reported Lisinopril 10 Mg Tablet 1 Tab PO DAILY 01/27/16 Reported Levofloxacin 500 Mg Tablet 1 Tab PO DAILY 01/27/16 Reported Lortab 5-325 mg Tablet (Hydrocodone/Acetaminophen) 1 Each Tablet 1 Tab PO PRN Q6HRS PRN 01/17/16 Rx Amlodipine Besylate 10 Mg Tablet 10 Mg PO DAILY 09/22/15 Reported Acetaminophen 500 Mg Tablet 1 Tab PO PRN Q6HRS PRN 09/15/15 Reported Breo Ellipta 100-25 Mcg Inh (Fluticasone/Vilanterol) 1 Each Aer.pow.ba 1 Puff IH DAILY 09/15/15 Reported Percocet 7.5-325 Mg Tablet (Oxycodone/Acetaminophen) 1 Each Tablet 1 Tab PO PRN TID PRN 09/15/15 Reported Baclofen 10 Mg Tablet 10 Mg PO QHS 07/13/15 Reported Triamterene-Hctz 37.5-25 Mg Cp (Triamterene/Hydrochlorothiazid) 1 Each Capsule 1 Cap PO DAILY 07/13/15 Reported Levothyroxine Sodium 175 Mcg Tablet 1 Tab PO DAILY 03/03/15 Rx Paxil Cr (Paroxetine Hcl) 12.5 Mg Tab.er.24h 25 Mg PO DAILY 10/31/14 Rx Protonix (Pantoprazole Sodium) 40 Mg Tablet 40 Mg PO BIDAC 10/31/14 Rx Neurontin (Gabapentin) 300 Mg Capsule 300 Mg PO BID 10/31/14 Rx Vitamin D2 (Ergocalciferol (Vitamin D2)) 50,000 Unit Capsule 50,000 Unit PO FR 10/31/14 Rx [Buspirone Hcl] 5 MG Tablet 5 Mg PO TID 10/31/14 Rx Spiriva (Tiotropium [place]) 18 Mcg Cap.w.dev 2 Inh IH DAILY 10/31/14 Rx Indication: shortness of breath Next dose: 09/20/14 am Impression . . Acute on chronic hypoxic respiratory failure, This is secondary to acute diastolic heart failure. 2. Increasing leg edema secondary to acute on chronic diastolic heart failure. improving on lasix 3. Underlying chronic obstructive pulmonary disease with chronic hypoxic respiratory failure, on home oxygen of 10 liters. 4. Chronic tracheostomy. 5. severe COPD Plan . 1. Continue with diuresis per Cardiology. 2. Repeat chest x-ray in am. 3. Smoking cessation counseling provided. 4. Lovenox for DVT prophylaxis. 5. Continue nebulizer treatment. 6. replace K per PCP MARGOT MATTSON MD Feb 19, 2016 12:11
[2016-02-19] MEDS: ACETAMINOPHEN 500 MG TABLET PO PRN ×2 (15:04→22:49)
[2016-02-19] MEDS ORDERED: ALPRAZOLAM 0.25 MG TABLET PO PRN (15:45)
[2016-02-19] MEDS: BACLOFEN 10 MG TABLET PO SCH (21:12)
[2016-02-20] MEDS: OXYCODONE/APAP 7.5/325 TABLET. PO PRN ×2 (01:20→13:38)
[2016-02-20 03:30] VITALS: BP 110/73
[2016-02-20] MEDS: LEVOTHYROXINE 100 MCG TABLET PO SCH (06:03)
[2016-02-20] MEDS: IPRATRPIUM/ALBUTEROL 0.5/2.5MG 3 ML NEBU. NEB SCH ×2 (07:43→11:41)
[2016-02-20 07:55] VITALS: BP 125/86
--- NOTE | 2016-02-20 08:10 | RAD ---
EXAM: Chest, single view. HISTORY: Congestive heart failure. COMPARISON: 02/17/2016. FINDINGS: A frontal view of the chest is obtained. There is stable diffuse increased interstitial opacity likely due to congestion. There is stable hilar atelectasis. There are stable suspected trace pleural effusions. There is stable cardiomegaly. There is a tracheostomy device overlying expected position. There is no pneumothorax. IMPRESSION: 1. Stable suspected pulmonary congestion with basilar atelectasis and trace effusions. 2. Stable cardiomegaly.
[2016-02-20] MEDS: GABAPENTIN 300 MG CAPSULE. PO SCH (08:33)
[2016-02-20] MEDS: LISINOPRIL 20 MG TABLET PO SCH (08:34)
[2016-02-20] MEDS: POTASSIUM CHLORIDE 20 MEQ TABLET.ER. PO SCH ×2 (08:34→13:38)
[2016-02-20] MEDS: ASPIRIN 81 MG TAB.CHEW PO SCH (08:34)
[2016-02-20] MEDS: SPIRONOLACTONE 25 MG TABLET PO SCH (08:34)
[2016-02-20] MEDS: PANTOPRAZOLE 40 MG TABLET. PO SCH (08:34)
[2016-02-20] MEDS: ENOXAPARIN 40 MG/0.4 ML DISP.SYRIN. SQ SCH (08:35)
[2016-02-20] MEDS: FUROSEMIDE 100 MG/10 ML VIAL IVP SCH (08:35)
[2016-02-20] MEDS: AMLODIPINE BESYLATE 10 MG TABLET PO SCH (08:35)
[2016-02-20] MEDS: PAROXETINE ER 12.5 MG TAB.ER.24H. PO SCH (08:35)
--- NOTE | 2016-02-20 09:16 | DISCH ---
DISCHARGE INSTRUCTIONS Condition on Discharge Condition on Discharge: Stable Activity After Discharge Activity Instructions for Disc: No restrictions Diet after Discharge Diet after Discharge: Low Sodium 2 gm Follow-Up Follow up with: as scheduled ALEK HANLEY MD Feb 20, 2016 09:16
[2016-02-20] MEDS ORDERED: FURO80TA3 PO (09:19)
[2016-02-20] MEDS ORDERED: SPIR25TA3 PO (09:19)
[2016-02-20] MEDS ORDERED: LISI-334 PO (09:19)
--- NOTE | 2016-02-20 09:22 | PDOC ---
Provider Note Provider Note [id number] ALEK HANLEY MD Feb 20, 2016 09:22
[2016-02-20 10:46] VITALS: BP 98/69
--- NOTE | 2016-02-20 12:20 | PDOC ---
PROGRESS NOTES Subjective Subjective A & O X3, cooperative. Pt states that she is feeling good. Denies any chest pain or SOB. No concerns at this time Objective Objective Vital Signs Date Time Temp Pulse Resp B/P Pulse Ox O2 Delivery O2 Flow Rate FiO2 02/20/16 11:41 90 AP NEB 10.0 02/20/16 10:46 98.0 85 22 98/69 98.0 Intake and Output 02/20/16 07:00 Intake Total 1700 ml Output Total 7100 ml Balance -5400 ml Intake Oral 1700 ml Output Urine Total 7100 ml Physical Exam Abdomen: Normal bowel sounds, Soft, No tenderness, No hepatosplenomegaly, No masses Heart: Regular rate, Normal S1, Normal S2, No murmurs, Gallops General: Alert, Oriented X3, Cooperative, No acute distress Lungs: Other (Decreased breath sounds throughout) Assessment Assessment Problems Medical Problems: (1) CHF exacerbation Status: Acute Plan Plan of Care Patient may go home. Comment Review of Relevant I have reviewed the following items jasmin (where applicable) has been applied. Labs Laboratory Tests Test 02/20/16 10:15 Potassium Level 3.8mmol/L (3.5-5.1) Laboratory Tests Test 02/20/16 10:15 Potassium Level 3.8mmol/L (3.5-5.1) Medications Current Medications Morphine Sulfate 5 mg 1X ONCE IV Last administered on 02/17/16 04:48; Start at 05:00; Stop 02/17/16 at 05:01; Status DC Ondansetron HCl (Zofran) 4 mg PRN Q8HRS PRN IV NAUSEA/VOMITING; Start 02/17/16 at 05:30; Stop 02/18/16 at 05:29; Status DC Albuterol/ Ipratropium (Duoneb) 3 ml RTQID NEB Last administered on 02/18/16 07:28; Start 02/17/16 at 06:00; Stop 02/18/16 at 05:59; Status DC Furosemide (Lasix) 40 mg 1X ONCE IVP Last administered on 02/17/16 06:24; Start 02/17/16 at 06:00; Stop 02/17/16 at 06:01; Status DC Oxycodone/ Acetaminophen (Percocet 7.5/ 325) 1 tab 1X ONCE PO Last administered on 02/17/16 06:23; Start 02/17/16 at 06:30; Stop 02/17/16 at 06:31; Status DC Acetaminophen (Tylenol) 500 mg PRN Q6HRS PRN PO PAIN Last administered on 22:49; Start 02/17/16 at 09:00 Amlodipine Besylate (Norvasc) 10 mg DAILY PO Last administered on 02/20/16 08: 35; Start 02/17/16 at 09:00 Aspirin (Children'S Aspirin) 81 mg [id number] PO Last administered on 08:34; Start 02/17/16 at 09:00 Baclofen (Lioresal) 10 mg QHS PO Last administered on 02/19/16 21:12; Start at 21:00 Gabapentin (Neurontin) 300 mg BID PO Last administered on 02/20/16 08:33; Start 02/17/16 at 09:00 Levothyroxine Sodium (Synthroid) 100 mcg DAILY07 PO Last administered on 06:03; Start 02/17/16 at 09:00 Lisinopril (Prinivil) 10 mg DAILY PO Last administered on 02/17/16 11:16; Start 02/17/16 at 09:00; Stop 02/18/16 at 08:00; Status DC Oxycodone/ Acetaminophen (Percocet 7.5/ 325) 1 tab PRN TID PRN PO PAIN Last administered on 02/20/16 01:20; Start 02/17/16 at 09:00 Pantoprazole Sodium (Protonix) 40 mg BIDAC PO Last administered on 02/20/16 08 :34; Start 02/17/16 at 09:00 Paroxetine HCl 25 mg 25 mg DAILY PO Last administered on 02/20/16 08:35; Start 02/17/16 at 09:00 Furosemide/Sodium Chloride (Lasix Drip/Iv Sodium Chloride 0.9% 100ml) 100 ml @ 0 mls/hr CONT PRN IV SEE I/O RECORD Last administered on 02/17/16 11:48; Start 02/17/16 at 09:00; Stop 02/17/16 at 21:47; Status DC Potassium Chloride (Klor-Con) 20 meq BIDAFTMEAL PO Last administered on 20:21; Start 02/17/16 at 09:00; Stop 02/19/16 at 08:31; Status DC Enoxaparin Sodium 40 mg 40 mg Q24H SQ Last administered on 02/20/16 08:35; Start 02/17/16 at 10:00 Albumin Human (Albuminar) 100 ml @ 100 mls/hr Q12HR IV Last administered on 21:12; Start 02/17/16 at 13:00; Stop 02/20/16 at 01:00; Status DC Furosemide (Lasix) 80 mg BID@10,22 IVP Last administered on 02/18/16 01:30; Start 02/17/16 at 14:00; Stop 02/18/16 at 10:55; Status DC Spironolactone (Aldactone) 25 mg DAILY PO Last administered on 02/20/16 08:34 ; Start 02/18/16 at 09:00 Lisinopril (Prinivil) 20 mg DAILY PO Last administered on 02/20/16 08:34; Start 02/18/16 at 09:00 Albuterol/ Ipratropium (Duoneb) 3 ml RTQID NEB Last administered on 02/20/16 11:41; Start 02/18/16 at 12:00 Furosemide (Lasix) 80 mg BID@10,22 IVP ; Start 02/18/16 at 22:00; Stop 02/18/16 at 22:00; Status DC Furosemide (Lasix) 80 mg BID@10,22 IVP Last administered on 02/20/16 08:35; Start 02/18/16 at 11:41 Loperamide HCl (Imodium) 2 mg PRN Q15MIN PRN PO DIARRHEA Last administered on 20:21; Start 02/18/16 at 19:30 Potassium Chloride (Klor-Con) 20 meq TIDAFTMEAL PO Last administered on 08:34; Start 02/19/16 at 09:00 Alprazolam (Xanax) 0.25 mg PRN Q8HRS PRN PO ANXIETY / AGITATION Last administered on 1/11/17at 16:57; Start 02/19/16 at 15:45 Active Scripts Active Lortab 5-325 mg Tablet (Hydrocodone/Acetaminophen) 1 Each Tablet 1 Tab PO PRN Q6HRS PRN Levothyroxine Sodium 175 Mcg Tablet 1 Tab PO DAILY Paxil Cr (Paroxetine Hcl) 12.5 Mg Tab.er.24h 25 Mg PO DAILY Protonix (Pantoprazole Sodium) 40 Mg Tablet 40 Mg PO BIDAC Neurontin (Gabapentin) 300 Mg Capsule 300 Mg PO BID Vitamin D2 (Ergocalciferol (Vitamin D2)) 50,000 Unit Capsule 50,000 Unit PO FR [Buspirone Hcl] 5 MG Tablet 5 Mg PO TID Spiriva (Tiotropium [place]) 18 Mcg Cap.w.dev 2 Inh IH DAILY Indication: shortness of breath Next dose: 09/20/14 am Reported Prednisone 20 Mg Tablet 20 Mg PO DAILY Aspirin 81 Mg Tab.chew 1 Tab PO DAILY Potassium Chloride 20 Meq Tablet.er 20 Meq PO DAILY Lisinopril 10 Mg Tablet 1 Tab PO DAILY Levofloxacin 500 Mg Tablet 1 Tab PO DAILY Amlodipine Besylate 10 Mg Tablet 10 Mg PO DAILY Acetaminophen 500 Mg Tablet 1 Tab PO PRN Q6HRS PRN Breo Ellipta 100-25 Mcg Inh (Fluticasone/Vilanterol) 1 Each Aer.pow.ba 1 Puff IH DAILY Percocet 7.5-325 Mg Tablet (Oxycodone/Acetaminophen) 1 Each Tablet 1 Tab PO PRN TID PRN Baclofen 10 Mg Tablet 10 Mg PO QHS Triamterene-Hctz 37.5-25 Mg Cp (Triamterene/Hydrochlorothiazid) 1 Each Capsule 1 Cap PO DAILY Vitals/I & O Vital Sign - Last 24 Hours 02/19/16 02/19/16 02/19/16 02/19/16 15:00 15:21 19:25 19:55 Temp 98.1 98.1 98.1 98.1 Pulse 88 87 Resp 18 22 B/P 109/91 99/65 Pulse Ox 83 87 91 88 O2 Delivery Tracheal Collar AP NEB AP NEB Tracheal Collar O2 Flow Rate 10.0 10.0 10.0 02/19/16 02/19/16 02/19/16 02/20/16 20:00 21:11 23:41 01:20 Temp 98.1 98.1 Pulse 80 Resp 24 20 B/P 106/69 112/68 Pulse Ox 89 90 O2 Delivery Trach Collar Tracheal Collar Tracheal Collar O2 Flow Rate 11.0 11.0 11.0 02/20/16 02/20/16 02/20/16 02/20/16 02:20 03:30 07:43 07:54 Temp 97.4 97.4 Pulse 76 Resp 22 22 B/P 110/73 Pulse Ox 92 87 O2 Delivery Tracheal Collar AP NEB Trach Collar O2 Flow Rate 11.0 10.0 11.0 02/20/16 02/20/16 02/20/16 02/20/16 07:55 08:34 08:35 10:46 Temp 97.5 98.0 97.5 98.0 Pulse 82 76 76 85 Resp 22 B/P 125/86 110/73 98/69 Pulse Ox 84 85 O2 Delivery Tracheal Collar Tracheal Collar O2 Flow Rate 11.0 11.0 02/20/16 11:41 Pulse Ox 90 O2 Delivery AP NEB O2 Flow Rate 10.0 Intake and Output 02/19/16 02/19/16 02/20/16 15:00 23:00 07:00 Intake Total 1000 ml 700 ml Output Total 4400 ml 2700 ml Balance -3400 ml -2000 ml MELO LARIOS MD Feb 20, 2016 12:20
--- NOTE | 2016-02-20 12:33 | PDOC ---
PULMONARY PROGRESS NOTES Subjective feels better OXYGEN REQUIREMENT IMPROVING Vitals Vital Signs Date Time Temp Pulse Resp B/P Pulse Ox O2 Delivery O2 Flow Rate FiO2 02/20/16 11:41 90 AP NEB 10.0 02/20/16 10:46 98.0 85 22 98/69 98.0 General: Alert, Oriented X4, No acute distress HEENT: Other Lungs: Other (decrease bs) Cardiovascular: S1, S2, Other Abdomen: Soft, Non-tender Extremities: Other (1+edema, improving) Labs Laboratory Tests Test 02/20/16 10:15 Potassium Level 3.8mmol/L (3.5-5.1) Laboratory Tests Test 02/20/16 10:15 Potassium Level 3.8mmol/L (3.5-5.1) Medications Active Scripts Medications Dose Route/Sig Days Date Category Dose Instructions Prednisone 20 Mg Tablet 20 Mg PO DAILY 01/27/16 Reported Aspirin 81 Mg Tab.chew 1 Tab PO DAILY 01/27/16 Reported Potassium Chloride 20 Meq Tablet.er 20 Meq PO DAILY 01/27/16 Reported Lisinopril 10 Mg Tablet 1 Tab PO DAILY 01/27/16 Reported Levofloxacin 500 Mg Tablet 1 Tab PO DAILY 01/27/16 Reported Lortab 5-325 mg Tablet (Hydrocodone/Acetaminophen) 1 Each Tablet 1 Tab PO PRN Q6HRS PRN 01/17/16 Rx Amlodipine Besylate 10 Mg Tablet 10 Mg PO DAILY 09/22/15 Reported Acetaminophen 500 Mg Tablet 1 Tab PO PRN Q6HRS PRN 09/15/15 Reported Breo Ellipta 100-25 Mcg Inh (Fluticasone/Vilanterol) 1 Each Aer.pow.ba 1 Puff IH DAILY 09/15/15 Reported Percocet 7.5-325 Mg Tablet (Oxycodone/Acetaminophen) 1 Each Tablet 1 Tab PO PRN TID PRN 09/15/15 Reported Baclofen 10 Mg Tablet 10 Mg PO QHS 07/13/15 Reported Triamterene-Hctz 37.5-25 Mg Cp (Triamterene/Hydrochlorothiazid) 1 Each Capsule 1 Cap PO DAILY 07/13/15 Reported Levothyroxine Sodium 175 Mcg Tablet 1 Tab PO DAILY 03/03/15 Rx Paxil Cr (Paroxetine Hcl) 12.5 Mg Tab.er.24h 25 Mg PO DAILY 10/31/14 Rx Protonix (Pantoprazole Sodium) 40 Mg Tablet 40 Mg PO BIDAC 10/31/14 Rx Neurontin (Gabapentin) 300 Mg Capsule 300 Mg PO BID 10/31/14 Rx Vitamin D2 (Ergocalciferol (Vitamin D2)) 50,000 Unit Capsule 50,000 Unit PO FR 10/31/14 Rx [Buspirone Hcl] 5 MG Tablet 5 Mg PO TID 10/31/14 Rx Spiriva (Tiotropium [place] [address]) 18 Mcg Cap.w.dev 2 Inh IH DAILY 10/31/14 Rx Indication: shortness of breath Next dose: 09/20/14 am Impression . . Acute on chronic hypoxic respiratory failure, This is secondary to acute diastolic heart failure. 2. Increasing leg edema secondary to acute on chronic diastolic heart failure. improving on lasix 3. Underlying chronic obstructive pulmonary disease with chronic hypoxic respiratory failure, on home oxygen of 10 liters. 4. Chronic tracheostomy. 5. severe COPD Plan . 1. Continue with diuresis per Cardiology. 2. Repeat chest x-ray stable 3. Smoking cessation counseling provided. 4. Lovenox for DVT prophylaxis. 5. Continue nebulizer treatment. 6. ok with dc home on 10 litres MARGOT MATTSON MD Feb 20, 2016 12:33
--- NOTE | 2016-02-20 20:10 | DS ---
DATE OF DISCHARGE: 02/20/2016 HOSPITAL SUMMARY: A 60-year-old white female with an ischemic cardiomyopathy along with COPD, who came in with intractable edema, unresponsive to outpatient diuretic therapy. Chest x-ray showed minimal vascular congestion. CBC and chemistry profile show a potassium low at 3.3, otherwise unremarkable. BNP was high at 20,000, albumin mildly low at 3.0. Venous Doppler studies of both lower extremities were negative for clots. She was treated with IV Lasix 80 mg twice a day with diuresis, probably about 10 or more liters and loss of 15-20 pounds and significant subjective improvement. She is comfortable to be followed as an outpatient at this point. FINAL DIAGNOSES: 1. Congestive heart failure secondary to ischemic cardiomyopathy, ejection fraction 38%. 2. Hypokalemia secondary to diuretic use. OPERATIONS, PROCEDURES, COMPLICATIONS: None. CONSULTATIONS: Dr. Marte, Dr. Johnson. DISPOSITION: Note that echocardiogram from October had shown an ejection fraction of 38% with moderate mitral regurgitation. We will change her Lasix from 40 twice a day to 80 mg once a day, to resume the spironolactone 25 mg daily with potassium twice a day and increased lisinopril to 20 mg daily as she does not tolerate beta blockers regarding her lung disease. Low sodium diet. Complete tobacco avoidance. Her prognosis is extremely guarded given her severe lung and heart disease. ALEK HANLEY MD DR: LYNETTE/nts JOB#: [id number] / [id number]
== END 2016-02-20 15:14 | disposition home or self-care (01) | DRG 291 ==
LOC: ER 03:53 → 2 SOUTH 05:10
PROVIDERS: ADMIT Family Medicine; ATTEND Family Medicine
PROC: 05H933Z Insertion of Infusion Device into Right Brachial Vein, Percutaneous Approach (ICD-10-PCS; principal; 2016-02-17)
DX: I50.33 Acute on chronic diastolic (congestive) heart failure (principal); J96.21 Acute and chronic respiratory failure with hypoxia; E03.9 Hypothyroidism, unspecified; E11.9 Type 2 diabetes mellitus without complications; E87.6 Hypokalemia; F17.210 Nicotine dependence, cigarettes, uncomplicated; G89.29 Other chronic pain; I25.10 Atherosclerotic heart disease of native coronary artery without angina pectoris; I25.5 Ischemic cardiomyopathy; I11.0 Hypertensive heart disease with heart failure; I27.2 Other secondary pulmonary hypertension; J44.9 Chronic obstructive pulmonary disease, unspecified; K21.9 Gastro-esophageal reflux disease without esophagitis; T50.2X5A Adverse effect of carbonic-anhydrase inhibitors, benzothiadiazides and other diuretics, initial encounter; Z82.49 Family history of ischemic heart disease and other diseases of the circulatory system; Z93.0 Tracheostomy status; Z95.5 Presence of coronary angioplasty implant and graft; Z88.0 Allergy status to penicillin; Z88.8 Allergy status to other drugs, medicaments and biological substances; Z99.81 Dependence on supplemental oxygen
CPT/HCPCS: 36415; 71010; 80048; 82040; 83880; 84132; 85007; 85027; 93970; 94250; 94640; 94760; 96374; 96375; J1650; J1940; J2270; J7620; P9046; 99285-25

== ENCOUNTER 2016-03-02 15:48 | Inpatient (IN) | payer MEDICARE, OTHER ==
[~2016-03-02] VITALS: Ht 162.6 cm; Wt 86.8 kg
[~2016-03-02 15:48] MED LIST changes: +FURO80TA3 PO; +LISI-334 PO; +SPIR25TA3 PO
--- NOTE | 2016-03-02 16:19 | RAD ---
Indication: Correlation is made with prior chest from 02/20/2016. The heart is enlarged but stable. There are mild interstitial changes throughout both lungs. There is some more consolidative parenchymal density in the left base, similar to prior. No pleural fluid is seen. No pneumothorax. Impression: Cardiomegaly and interstitial changes as well as left basilar infiltrate. The overall appearance is similar to the exam from 02/20/2016.
--- NOTE | 2016-03-02 16:22 | PHYS DOC ---
Past Medical History Past Medical History: Angina, CAD, CHF, COPD, Heart Disease, [place] Additional Past Medical Histor: PAD, Chronic back pain, emphysema, MULT CODE BLUE, CARD. CATH Past Surgical History: Angioplasty, Cholecystectomy, Hysterectomy Additional Past Surgical Histo: bilat leg stents, trach, aortic stent, ivc filter, feeding tube w/ removal Alcohol Use: None Drug Use: None Adult General Chief Complaint Chief Complaint: CHEST PAIN HPI HPI Patient is a 60 year old female who presents with chest pain. Patient states Sx started 10 AM today , onset of right anterior chest pressure that does not radiate. Symptoms of been intermittent. No change in her chronic shortness of breath. She did not take any sublingual nitroglycerin at home. Patient has a past medical history of COPD for which she has a trach. Past medical history of coronary artery disease ([place] back in November 2016). Patient still smokes about half pack cigarettes a day. Review of Systems Review of Systems Constitutional: Denies fever or chills Eyes: Denies change in visual acuity, redness, or eye pain HENT: Denies nasal congestion or sore throat Respiratory: Positive cough and shortness of breath Cardiovascular: Right-sided chest pressure that is intermittent. GI: Denies abdominal pain, nausea, vomiting, bloody stools or diarrhea : Denies dysuria or hematuria Musculoskeletal: Denies new back pain or joint pain Integument: Erythema bilateral lower extremities and 1+ edema Neurologic: Denies focal weakness or sensory changes. Positive headache. Endocrine: Denies polyuria or polydipsia Current Medications Current Medications Current Medications Medications (Trade) Dose Ordered Sig/Emmett Start Time Stop Time Status Last Admin Dose Admin Nitroglycerin (Nitrostat) 0.4 mg PRN Q5MIN PRN 03/02/16 17:15 03/02/16 17:44 0.4 MG Ondansetron HCl (Zofran) 4 mg 1X ONCE 03/02/16 17:15 03/02/16 17:16 DC 03/02/16 17:15 4 MG Allergies Allergies Allergies Coded Allergies Type Severity Reaction Last Updated Verified Penicillins Allergy Intermediate can tolerate cefepime 06/04/15 Yes barium sulfate Adverse Reaction Intermediate Nausea 06/04/15 Yes Physical Exam Physical Exam Constitutional: Well developed, well nourished, mild acute distress, non-toxic appearance. HENT: Normocephalic, atraumatic, oropharynx dry, no oral exudates, nose normal. Eyes: PERRLA, EOMI. Neck: Normal range of motion, no tenderness, supple, trach in good position Cardiovascular:Heart rate regular rhythm, no murmur Lungs & Thorax:/Tarry wheezes and minimal bilateral basilar rales. Abdomen: Bowel sounds normal, soft, no tenderness, no masses, no pulsatile masses. Skin: Warm, dry, bilateral lower leg erythema, no rash. Extremities: No tenderness, no cyanosis, 1+ bilateral pedal edema. Neurologic: Alert and oriented X 3, normal motor function, normal sensory function, no focal deficits noted. Psychologic: Affect normal, judgement normal, mood normal. Current Patient Data Vital Signs Vital Signs Date Time Temp Pulse Resp B/P Pulse Ox O2 Delivery O2 Flow Rate FiO2 03/02/16 17:35 72 114/71 03/02/16 15:57 98.5 18 92 Tracheal Collar 98.5 Lab Values Laboratory Tests Test 03/02/16 16:35 White Blood Count 4.7x10^3/uL (4.0-11.0) Red Blood Count 5.38x10^6/uL (3.50-5.40) Hemoglobin 12.0g/dL (12.0-15.5) Hematocrit 39.0% (36.0-47.0) Mean Corpuscular Volume 72fL (79-100) L Mean Corpuscular Hemoglobin 22pg (25-35) L Mean Corpuscular Hemoglobin Concent 31g/dL (31-37) Red Cell Distribution Width 21.0% (11.5-14.5) H Platelet Count 332x10^3/uL (140-400) Neutrophils (%) (Auto) 55% (31-73) Lymphocytes (%) (Auto) 26% (24-48) Monocytes (%) (Auto) 12% (0-9) H Eosinophils (%) (Auto) 4% (0-3) H Basophils (%) (Auto) 3% (0-3) Neutrophils # (Auto) 2.6x10^3uL (1.8-7.7) Lymphocytes # (Auto) 1.2x10^3/uL (1.0-4.8) Monocytes # (Auto) 0.6x10^3/uL (0.0-1.1) Eosinophils # (Auto) 0.2x10^3/uL (0.0-0.7) Basophils # (Auto) 0.1x10^3/uL (0.0-0.2) Platelet Estimate Adequate (ADEQUATE) Hypochromasia Mod Poikilocytosis Slight Anisocytosis Mod Microcytosis Slight D-Dimer (Tete) 1.30ug/mlFEU (0.00-0.50) H Sodium Level 139mmol/L (136-145) Potassium Level 3.9mmol/L (3.5-5.1) Chloride Level 102mmol/L (98-107) Carbon Dioxide Level 28mmol/L (21-32) Anion Gap 9 (6-14) Blood Urea Nitrogen 11mg/dL (7-20) Creatinine 1.2mg/dL (0.6-1.0) H Estimated GFR (Cockcroft-Gault) 45.5 BUN/Creatinine Ratio 9 (6-20) Glucose Level 87mg/dL (70-99) Calcium Level 8.6mg/dL (8.5-10.1) Total Bilirubin 0.4mg/dL (0.2-1.0) Aspartate Amino Transferase (AST) 10U/L (15-37) L Alanine Aminotransferase (ALT) 12U/L (14-59) L Alkaline Phosphatase 66U/L (46-116) Troponin I Quantitative 0.091ng/mL (0.000-0.055) Total Protein 6.8g/dL (6.4-8.2) Albumin 3.2g/dL (3.4-5.0) L Albumin/Globulin Ratio 0.9 (1.0-1.7) L Laboratory Tests 03/02/16 16:35 Laboratory Tests 03/02/16 16:35 EKG EKG Sinus rhythm with a rate of 73. Left axis deviation. No ST segment elevations indicative of acute myocardial infarction Radiology/Procedures Radiology/Procedures [] Course & Med Decision Making Course & Med Decision Making Pertinent Labs and Imaging studies reviewed. (See chart for details) Discussed the patient with Dr. Johnson at 1729, and Dr. Blackburn at 2984. Decision was to admit under observation status. Dragon Disclaimer Dragon Disclaimer This electronic medical record was generated, in whole or in part, using a voice recognition dictation system. Departure Departure Impression: Primary Impression: Angina at rest Disposition: ADMITTED INPATIENT Admitting Physician: Alek Blackburn Condition: STABLE Referrals: ALEK BLACKBURN MD (PCP) CITLALLI CHOI MD Mar 02, 2016 16:22
[2016-03-02 17:02] LABS: BASO # 0.1 x10^3/uL (0.0-0.2); BASO % 3 % (0-3); EOS % 4 % (0-3); LYMPH # 1.2 x10^3/uL (1.0-4.8); LYMPH % 26 % (24-48); MEAN CORPUSCULAR HEMOGLOBIN 22 pg (25-35); MEAN CORPUSCULAR HGB CONC 31 g/dL (31-37); MEAN CORPUSCULAR VOLUME 72 fL (79-100); MONO % 12 % (0-9); NEUT % 55 % (31-73); PLATELET COUNT 332 x10^3/uL (140-400); RED BLOOD COUNT 5.38 x10^6/uL (3.50-5.40); WHITE BLOOD COUNT 4.7 x10^3/uL (4.0-11.0)
[2016-03-02 17:08] LABS: CALCIUM 8.6 mg/dL (8.5-10.1); CREATININE 1.2 mg/dL (0.6-1.0); GFR 45.5; POTASSIUM 3.9 mmol/L (3.5-5.1)
[2016-03-02 17:14] LABS: ALBUMIN 3.2 g/dL (3.4-5.0); ALBUMIN/GLOBULIN RATIO 0.9 (1.0-1.7); TOTAL BILIRUBIN 0.4 mg/dL (0.2-1.0); TOTAL PROTEIN 6.8 g/dL (6.4-8.2)
[2016-03-02] MEDS ORDERED: ONDANSETRON PF 4 MG/2 ML VIAL. IV ONE (17:15)
[2016-03-02 17:22] LABS: HYPOCHROMIA MOD; PLT ESTIMATE ADEQUATE (ADEQUATE)
[2016-03-02 17:23] LABS: ANISOCYTOSIS MOD; MICROCYTOSIS SLIGHT; POIKILOCYTOSIS SLIGHT
[2016-03-02] MEDS: NITROGLYCERIN SUBLINGUAL 0.4 MG BOTTLE OF 25. SL PRN ×3 (17:23→17:44)
[2016-03-02] MEDS ORDERED: HYDROCODONE/APAP 5/325MG TABLET. PO ONE (18:30)
[2016-03-02 18:46] VITALS: BP 113/72
[2016-03-02 19:00] VITALS: BP 112/72
[2016-03-02] MEDS ORDERED: LISI10TA2 (20:52)
[2016-03-02] MEDS ORDERED: PANT40TA5 (20:52)
[2016-03-02] MEDS ORDERED: AMIT25TA (20:52)
[2016-03-02] MEDS ORDERED: LEVO500T8 (20:52)
[2016-03-02] MEDS ORDERED: OXYC1TAB8 (20:52)
[2016-03-02] MEDS ORDERED: ALPR0.254 (20:52)
[2016-03-02] MEDS ORDERED: CYCL10TA2 (20:52)
[2016-03-02] MEDS ORDERED: TRAZ100T12 (20:52)
[2016-03-02] MEDS ORDERED: GABA300C8 (20:52)
[2016-03-02] MEDS ORDERED: ACETAMINOPHEN 500 MG TABLET PO PRN (21:15)
[2016-03-02] MEDS ORDERED: HYDROCODONE/APAP 5/325MG TABLET. PO PRN (21:15)
[2016-03-02] MEDS: BACLOFEN 10 MG TABLET PO SCH (22:34)
[2016-03-02] MEDS: OXYCODONE/APAP 7.5/325 TABLET. PO PRN (22:34)
[2016-03-02] MEDS: GUAIFENESIN DM 200MG/20MG 10 ML SYRUP. PO PRN (22:34)
[2016-03-02 23:08] VITALS: BP 118/77
[2016-03-03] VITALS (7 sets, daily range): BP systolic 85–137; BP diastolic 47–73
[2016-03-03] MEDS ORDERED: AMLO5TAB2 (04:28)
[2016-03-03] MEDS ORDERED: SERT100T8 (04:28)
--- NOTE | 2016-03-03 06:37 | EKG ---
[facility] [address] [place] [address] Test Date: 2016-03-02 Test Time: 15:51:45 Pat Name: RINKU MCCANN Department: Room: 556 1 Gender: Female Acquisition Associate: : [id number] Requested By: ALEK HANLEY Order Number: [id number] Reading MD: Jamey Cordero Measurements Intervals [place] Rate: 73 P: 46 MI: 188 QRS: -17 QRSD: 96 T: -13 QT: 432 QTc: 480 Interpretive Statements SINUS RHYTHM CONSISTENT WITH INFERIOR INFARCT AGE UNDETERMINED Electronically Signed On 03-09-2016 10:04:10 POURER by Jamey Cordero
[2016-03-03] MEDS ORDERED: PANTOPRAZOLE 40 MG TABLET. PO SCH (07:30)
[2016-03-03] MEDS ORDERED: OXYCODONE/APAP 7.5/325 TABLET. PO PRN (08:15)
[2016-03-03] MEDS ORDERED: ALPRAZOLAM 0.5 MG TABLET PO PRN (08:15)
--- NOTE | 2016-03-03 08:15 | PDOC ---
Provider Note Provider Note [id number] ALEK HANLEY MD Mar 03, 2016 08:15
[2016-03-03] MEDS: IPRATRPIUM/ALBUTEROL 0.5/2.5MG 3 ML NEBU. NEB SCH ×4 (08:30→19:36)
[2016-03-03] MEDS: ASPIRIN 81 MG TAB.CHEW PO SCH (08:56)
[2016-03-03] MEDS: LEVOTHYROXINE 175 MCG TABLET PO SCH (08:56)
[2016-03-03] MEDS: DOCUSATE SODIUM 100 MG CAPSULE PO SCH (08:56)
[2016-03-03] MEDS: PAROXETINE ER 12.5 MG TAB.ER.24H. PO SCH (08:56)
[2016-03-03] MEDS: busPIRone 5 MG TABLET. PO SCH ×3 (08:56→20:07)
[2016-03-03] MEDS: FUROSEMIDE 80 MG TABLET PO SCH (08:56)
[2016-03-03] MEDS: SPIRONOLACTONE 25 MG TABLET PO SCH (08:57)
[2016-03-03] MEDS: GABAPENTIN 300 MG CAPSULE. PO SCH ×2 (08:57→20:07)
[2016-03-03] MEDS: POTASSIUM CHLORIDE 20 MEQ TABLET.ER. PO SCH (08:57)
[2016-03-03] MEDS: POLYETHYLENE GLYCOL 3350 17 GM PACKET. PO SCH (08:57)
[2016-03-03] MEDS: traZODone 100 MG TABLET. PO SCH (08:57)
[2016-03-03] MEDS ORDERED: GABAPENTIN 300 MG CAPSULE. PO SCH (09:00)
[2016-03-03] MEDS ORDERED: LISINOPRIL 20 MG TABLET PO SCH (09:00)
[2016-03-03] MEDS ORDERED: AMLODIPINE BESYLATE 10 MG TABLET PO SCH (09:00)
--- NOTE | 2016-03-03 10:03 | HP ---
ADMIT DATE: 03/02/2016 CHIEF COMPLAINT: Right-sided chest pain and cough. HISTORY OF PRESENT ILLNESS: A 60-year-old white female known ischemic heart disease, cardiomyopathy and severe COPD with chronic tobacco use, came in with some right-sided chest pain. This was associated with ongoing nonproductive cough, not associated with diaphoresis, nausea or dyspnea. Chest x-ray was clear. EKG and troponins were unremarkable and she was admitted as she has a long cardiac history. She is feeling better at this time. PAST MEDICAL HISTORY: Well documented in the old records. ALLERGIES: PENICILLIN is noted. MEDICATIONS: Recent additions to medications have been lisinopril and spironolactone for heart benefit. IMMUNIZATIONS: Up-to-date. SOCIAL HISTORY: Ongoing smoker, lives at home. Nondrinker, not employed. FAMILY HISTORY: Unremarkable. REVIEW OF SYSTEMS: No other known problems. OBJECTIVE: ENT: All within normal limits. NECK: Tracheostomy in place. No neck nodes, masses, or thyroid enlargement. LUNGS: Coarse inspiratory crackles and few expiratory wheezes, no acute tachypnea. CARDIOVASCULAR: Regular rate. No irregular beat or murmur. Chest wall is nontender. ABDOMEN: Benign, soft, nontender. EXTREMITIES: 1+ edema only good pedal and radial pulses, 2+ clubbing is noted. NEUROLOGIC: Physiologic. ASSESSMENT: 1. Right-sided chest pain, I think this is structural in nature, perhaps from ongoing cough. No sign of ischemic event at this time. 2. History of coronary artery disease status post stents and some moderate cardiomyopathy. 3. Chronic obstructive pulmonary disease with ongoing tobacco use and high oxygen requirements. PLAN: We will observe further today with resumption of her normal medications. Ongoing cough with basic questionable lisinopril-induced cough, we will continue for now for benefit greater than risk. No steroids are needed at this time. ALEK HANLEY MD DR: LYNETTE/annie JOB#: [id number] / [id number]
[2016-03-03] MEDS: OXYCODONE/APAP 7.5/325 TABLET. PO PRN ×2 (12:08→20:07)
--- NOTE | 2016-03-03 14:55 | EKG ---
[facility] [address] [place] [address] Test Date: 2016-03-03 Test Time: 14:48:18 Pat Name: RINKU MCCANN Department: Room: 556 1 Gender: F Manager Digital: : 1955 Requested By: ALEK HANLEY Order Number: [id number] Reading MD: Shimon Mullins Measurements Intervals [place] Rate: 79 P: 42 [place]: 170 QRS: 3 QRSD: 96 T: -12 QT: 424 QTc: 487 Interpretive Statements SINUS RHYTHM QRS(T) CONTOUR ABNORMALITY CONSISTENT WITH INFERIOR INFARCT PROBABLY OLD ABNORMAL ECG RI6.01 No previous ECG available for comparison Electronically Signed On 03-03-2016 15:43:01 V GROOVE CUTTER by Shimon Mullins
[2016-03-03] MEDS: PANTOPRAZOLE 40 MG TABLET. PO SCH (16:52)
[2016-03-03] MEDS: AMITRIPTYLINE HCL 25 MG TABLET PO SCH (20:07)
[2016-03-03] MEDS: BACLOFEN 10 MG TABLET PO SCH (20:08)
[2016-03-04 02:54] VITALS: BP 92/58
[2016-03-04] MEDS: LEVOTHYROXINE 175 MCG TABLET PO SCH (05:48)
[2016-03-04] MEDS: PANTOPRAZOLE 40 MG TABLET. PO SCH ×2 (05:48→14:24)
[2016-03-04 07:00] VITALS: BP 116/73
[2016-03-04] MEDS: IPRATRPIUM/ALBUTEROL 0.5/2.5MG 3 ML NEBU. NEB SCH ×4 (07:07→20:13)
--- NOTE | 2016-03-04 07:59 | PDOC ---
Provider Note Provider Note EPISODE OF RESP DISTRESS 03/03, RESOLVED W/ SUCTIONING, BETTER SINCE- no temp, bp lower, exam same, cp better- will resume plavix, reduce lis re lower bp, culture sputum, maybe home 03/05 ALEK HANLEY MD Mar 04, 2016 07:59
[2016-03-04] MEDS: ASPIRIN 81 MG TAB.CHEW PO SCH (08:05)
[2016-03-04] MEDS: POLYETHYLENE GLYCOL 3350 17 GM PACKET. PO SCH (08:05)
[2016-03-04] MEDS: SPIRONOLACTONE 25 MG TABLET PO SCH (08:06)
[2016-03-04] MEDS: GABAPENTIN 300 MG CAPSULE. PO SCH ×2 (08:06→20:48)
[2016-03-04] MEDS: PAROXETINE ER 12.5 MG TAB.ER.24H. PO SCH (08:07)
[2016-03-04] MEDS: POTASSIUM CHLORIDE 20 MEQ TABLET.ER. PO SCH (08:08)
[2016-03-04] MEDS: FUROSEMIDE 80 MG TABLET PO SCH (08:08)
[2016-03-04] MEDS: busPIRone 5 MG TABLET. PO SCH ×3 (08:08→20:49)
[2016-03-04] MEDS: DOCUSATE SODIUM 100 MG CAPSULE PO SCH (08:09)
[2016-03-04] MEDS: CLOPIDOGREL BISULFATE 75 MG TABLET PO SCH (08:22)
[2016-03-04] MEDS: LISINOPRIL 10 MG TABLET PO SCH (09:00)
[2016-03-04] MEDS: traZODone 100 MG TABLET. PO SCH ×2 (09:00→20:48)
[2016-03-04 10:59] VITALS: BP 98/70
[2016-03-04 15:38] VITALS: BP 103/67
[2016-03-04] MEDS: OXYCODONE/APAP 7.5/325 TABLET. PO PRN (15:40)
[2016-03-04 19:24] VITALS: BP 93/60
[2016-03-04] MEDS: GUAIFENESIN DM 200MG/20MG 10 ML SYRUP. PO PRN (19:56)
[2016-03-04] MEDS: BACLOFEN 10 MG TABLET PO SCH (20:49)
[2016-03-04] MEDS: AMITRIPTYLINE HCL 25 MG TABLET PO SCH (20:49)
[2016-03-04 23:04] VITALS: BP 87/55
[2016-03-05] MEDS: LEVOTHYROXINE 175 MCG TABLET PO SCH (06:04)
[2016-03-05] MEDS: IPRATRPIUM/ALBUTEROL 0.5/2.5MG 3 ML NEBU. NEB SCH ×3 (06:53→20:38)
[2016-03-05 07:00] VITALS: BP 116/60
[2016-03-05] MEDS: POTASSIUM CHLORIDE 20 MEQ TABLET.ER. PO SCH (08:00)
--- NOTE | 2016-03-05 08:33 | PDOC ---
Provider Note Provider Note vss, no new sxs- labs same, bp still low on less lisinopril- she declines dc today , will see 03/06 ALEK HANLEY MD Mar 05, 2016 08:33
[2016-03-05] MEDS: PAROXETINE ER 12.5 MG TAB.ER.24H. PO SCH (09:01)
[2016-03-05] MEDS: POLYETHYLENE GLYCOL 3350 17 GM PACKET. PO SCH (09:01)
[2016-03-05] MEDS: DOCUSATE SODIUM 100 MG CAPSULE PO SCH (09:01)
[2016-03-05] MEDS: GABAPENTIN 300 MG CAPSULE. PO SCH ×2 (09:01→21:23)
[2016-03-05] MEDS: busPIRone 5 MG TABLET. PO SCH ×3 (09:02→21:24)
[2016-03-05] MEDS: CLOPIDOGREL BISULFATE 75 MG TABLET PO SCH (09:02)
[2016-03-05] MEDS: SPIRONOLACTONE 25 MG TABLET PO SCH (09:02)
[2016-03-05] MEDS: LISINOPRIL 10 MG TABLET PO SCH (09:02)
[2016-03-05] MEDS: FUROSEMIDE 80 MG TABLET PO SCH (09:03)
[2016-03-05] MEDS: ASPIRIN 81 MG TAB.CHEW PO SCH (09:03)
[2016-03-05] MEDS: PANTOPRAZOLE 40 MG TABLET. PO SCH ×2 (09:03→15:24)
[2016-03-05 11:00] VITALS: BP 108/74
[2016-03-05 14:52] VITALS: BP 120/50
[2016-03-05 19:00] VITALS: BP 88/55
[2016-03-05] MEDS: traZODone 100 MG TABLET. PO SCH (21:24)
[2016-03-05] MEDS: BACLOFEN 10 MG TABLET PO SCH (21:24)
[2016-03-05] MEDS: AMITRIPTYLINE HCL 25 MG TABLET PO SCH (21:24)
[2016-03-05 23:07] VITALS: BP 89/55
[2016-03-06 03:32] VITALS: BP 91/62
[2016-03-06] MEDS: LEVOTHYROXINE 175 MCG TABLET PO SCH (05:53)
[2016-03-06 07:00] VITALS: BP 103/72
--- NOTE | 2016-03-06 07:43 | DISCH ---
DISCHARGE INSTRUCTIONS Condition on Discharge Condition on Discharge: Stable Activity After Discharge Activity Instructions for Disc: No restrictions Diet after Discharge Diet after Discharge: Low Sodium 4 gm Follow-Up Follow up with: ALEK Pacheco MD Mar 06, 2016 07:42
--- NOTE | 2016-03-06 07:46 | PDOC ---
Provider Note Provider Note [id number] ALEK HANLEY MD Mar 06, 2016 07:46
[2016-03-06] MEDS: IPRATRPIUM/ALBUTEROL 0.5/2.5MG 3 ML NEBU. NEB SCH ×2 (07:51→11:33)
[2016-03-06] MEDS: POLYETHYLENE GLYCOL 3350 17 GM PACKET. PO SCH (08:45)
[2016-03-06] MEDS: POTASSIUM CHLORIDE 20 MEQ TABLET.ER. PO SCH (08:46)
[2016-03-06] MEDS: DOCUSATE SODIUM 100 MG CAPSULE PO SCH (08:46)
[2016-03-06] MEDS: FUROSEMIDE 80 MG TABLET PO SCH (08:46)
[2016-03-06] MEDS: PAROXETINE ER 12.5 MG TAB.ER.24H. PO SCH (08:46)
[2016-03-06] MEDS: SPIRONOLACTONE 25 MG TABLET PO SCH (08:46)
[2016-03-06] MEDS: CLOPIDOGREL BISULFATE 75 MG TABLET PO SCH (08:46)
[2016-03-06] MEDS: ASPIRIN 81 MG TAB.CHEW PO SCH (08:46)
[2016-03-06] MEDS: busPIRone 5 MG TABLET. PO SCH ×2 (08:46→13:01)
[2016-03-06] MEDS: LISINOPRIL 10 MG TABLET PO SCH (08:47)
[2016-03-06] MEDS: GABAPENTIN 300 MG CAPSULE. PO SCH (08:47)
[2016-03-06] MEDS: PANTOPRAZOLE 40 MG TABLET. PO SCH (08:47)
[2016-03-06 10:47] VITALS: BP 87/64
[2016-03-06] MEDS ORDERED: ERGOCALCIFEROL (VITAMIN D2) 50,000 UNIT CAPSULE PO SCH (16:00)
--- NOTE | 2016-03-06 17:20 | DS ---
DATE OF DISCHARGE: 03/06/2016 HOSPITAL SUMMARY: A 60-year-old white female with COPD and CAD, came in with right-sided atypical chest wall like chest pain. Chest x-ray was clear. CBC and chemistry profile unremarkable. Troponin normal and no other abnormalities on the lab. She was monitored in the hospital and aside from some mild low blood pressure related to lisinopril as well as her general medical state, she was stable and had no further problems. Lisinopril dose was dropped from 20 to 10 mg daily, which she seemed to tolerate a little better and which is still beneficial for coronary artery disease as she cannot tolerate beta-blockers given her COPD. She is comfortable to be discharged and follows as an outpatient. FINAL DIAGNOSES: 1. Chest wall pain. 2. Coronary artery disease. 3. End-stage chronic obstructive pulmonary disease. OPERATIONS, PROCEDURES, COMPLICATIONS, AND CONSULTATIONS: None. DISPOSITION: All meds remain the same except lisinopril dropped from 20 to 10 mg daily. She is still taking spironolactone 25 mg daily for heart benefit as well, but no other blood pressure meds. Prognosis is very guarded, ongoing tobacco use is her main problem. ALEK HANLEY MD DR: LYNETTE/annie JOB#: [id number] / [id number]
== END 2016-03-06 15:08 | disposition home health service (06) | DRG 189 ==
LOC: ER 15:53 → 5 SOUTH 17:41 → OBSVTOIN 03-04 08:20
PROVIDERS: ADMIT Family Medicine; ATTEND Family Medicine
DX: J96.20 Acute and chronic respiratory failure, unspecified whether with hypoxia or hypercapnia (principal); I42.9 Cardiomyopathy, unspecified; R07.89 Other chest pain; I25.119 Atherosclerotic heart disease of native coronary artery with unspecified angina pectoris; J44.9 Chronic obstructive pulmonary disease, unspecified; I50.9 Heart failure, unspecified; F17.210 Nicotine dependence, cigarettes, uncomplicated; Z95.5 Presence of coronary angioplasty implant and graft; Z90.49 Acquired absence of other specified parts of digestive tract; Z90.710 Acquired absence of both cervix and uterus; Z93.0 Tracheostomy status; Z88.0 Allergy status to penicillin; Z91.041 Radiographic dye allergy status
CPT/HCPCS: 31720; 36415; 71010; 80053; 84484; 85007; 85027; 85379; 87070; 87205; 87641; 93005; 94640; 94760; G0378; G0379; J2405; J7620

== ENCOUNTER 2016-03-18 18:37 | Inpatient (IN) | payer MEDICARE, OTHER ==
[~2016-03-18] VITALS: Ht 162.6 cm; Wt 83.0 kg
[~2016-03-18 18:37] MED LIST changes: +ALPR0.254 PO; +AMIT25TA PO; +AMLO5TAB2; +CYCL10TA2 PO; +GABA300C8; +LEVO500T8; +OXYC1TAB8; +PANT40TA5; +SERT100T8; +TRAZ100T12 PO
[2016-03-18] MEDS ORDERED: ONDANSETRON PF 4 MG/2 ML VIAL. IV ONE (20:00)
[2016-03-18] MEDS: MORPHINE SULFATE 4 MG/ML DISP.SYRIN. IV/SQ PRN ×2 (20:13→22:08)
[2016-03-18 20:21] LABS: BASO # 0.1 x10^3/uL (0.0-0.2); BASO % 1 % (0-3); EOS % 6 % (0-3); HEMATOCRIT 37.9 % (36.0-47.0); HEMOGLOBIN 11.5 g/dL (12.0-15.5); LYMPH # 1.3 x10^3/uL (1.0-4.8); LYMPH % 24 % (24-48); MEAN CORPUSCULAR HEMOGLOBIN 22 pg (25-35); MEAN CORPUSCULAR HGB CONC 31 g/dL (31-37); MEAN CORPUSCULAR VOLUME 71 fL (79-100); MONO % 9 % (0-9); NEUT % 60 % (31-73); PLATELET COUNT 246 x10^3/uL (140-400); RED BLOOD COUNT 5.31 x10^6/uL (3.50-5.40); RED CELL DISTRIBUTION WIDTH 20.7 % (11.5-14.5); WHITE BLOOD COUNT 5.2 x10^3/uL (4.0-11.0)
[2016-03-18 20:38] LABS: CALCIUM 8.7 mg/dL (8.5-10.1); CREATININE 1.2 mg/dL (0.6-1.0); GFR 45.5; POTASSIUM 3.8 mmol/L (3.5-5.1)
[2016-03-18 20:44] LABS: ALBUMIN 3.2 g/dL (3.4-5.0); DIRECT BILIRUBIN 0.1 mg/dL (0.0-0.2); TOTAL BILIRUBIN 0.5 mg/dL (0.2-1.0); TOTAL PROTEIN 6.6 g/dL (6.4-8.2)
[2016-03-18 20:50] LABS: ANISOCYTOSIS MOD; HYPOCHROMIA SLIGHT; MICROCYTOSIS MOD; PLT ESTIMATE ADEQUATE (ADEQUATE); POLYCHROMASIA SLIGHT
[2016-03-18 20:53] LABS: CKMB INDEX 3.6 % (0-4); CKMB MASS 1.2 ng/mL (0.0-3.6)
--- NOTE | 2016-03-18 22:50 | PHYS DOC ---
Past Medical History Past Medical History: Angina, CAD, CHF, COPD, Heart Disease, SD Additional Past Medical Histor: PAD, Chronic back pain, emphysema, MULT CODE BLUE, CARD. CATH Past Surgical History: Angioplasty, Cholecystectomy, Hysterectomy Additional Past Surgical Histo: bilat leg stents, trach, aortic stent, ivc filter, feeding tube w/ removal Alcohol Use: None Drug Use: None Adult General Chief Complaint Chief Complaint: MECHANICAL FALL HPI HPI Patient is a 60 year old female who presents with complaint of left-sided pain after suffering a fall. Patient states that she stumbled in her home and fell into furniture, hitting the left side of her chest. Patient states that she has had severe pain ever since. Patient has history of severe peripheral vascular disease and myocardial infarction. The patient was admitted to the hospital in November 2015 where she underwent cardiac arrest on multiple occasions during her hospital stay. The patient states that she is also experiencing chest pain currently. Patient has not had any fevers. Patient has history of chronic respiratory failure and is currently on a trach mask. Patient denies productive cough currently. Patient rates her pain as 10 out of 10. Patient has history of chronic pain and is currently on Percocet therapy which she states is not helping. Review of Systems Review of Systems Constitutional: Denies fever or chills [] Eyes: Denies change in visual acuity, redness, or eye pain [] HENT: Denies nasal congestion or sore throat [] Respiratory: Denies cough or shortness of breath [] Cardiovascular: Chest pain GI: Denies abdominal pain, nausea, vomiting, bloody stools or diarrhea [] : Denies dysuria or hematuria [] Musculoskeletal: Left-sided rib pain [] Integument: Denies rash or skin lesions [] Neurologic: Denies headache, focal weakness or sensory changes [] Current Medications Current Medications Current Medications Medications (Trade) Dose Ordered Sig/Emmett Start Time Stop Time Status Last Admin Dose Admin Morphine Sulfate 4 mg PRN Q15MIN PRN 03/18/16 20:00 03/19/16 19:59 03/18/16 20:13 4 MG Ondansetron HCl (Zofran) 4 mg 1X ONCE 03/18/16 20:00 03/18/16 20:01 DC 03/18/16 20:11 4 MG Allergies Allergies Allergies Coded Allergies Type Severity Reaction Last Updated Verified Penicillins Allergy Intermediate can tolerate cefepime 06/04/15 Yes barium sulfate Adverse Reaction Intermediate Nausea 06/04/15 Yes Physical Exam Physical Exam Constitutional: Alert, afebrile, appears in moderate discomfort [] HENT: Normocephalic, atraumatic, bilateral external ears normal, oropharynx moist, no oral exudates, nose normal. [] Eyes: PERRLA, EOMI, conjunctiva normal, no discharge. [] Neck: Normal range of motion, midline tracheostomy present, no tenderness, supple, no stridor. [] Cardiovascular:Heart rate regular rhythm, no murmur [] Lungs & Thorax: Mild to moderate restriction of air movement bilaterally, no wheezes, no rales, left sided chest wall tenderness to palpation [] Abdomen: Bowel sounds normal, soft, no tenderness, no masses, no pulsatile masses. [] Skin: Warm, dry, no erythema, no rash. [] Back: No tenderness, no CVA tenderness. [] Extremities: No tenderness, no cyanosis, no clubbing, ROM intact, trace pedal edema bilaterally. [] Neurologic: Alert and oriented X 3, normal motor function, normal sensory function, no focal deficits noted. [] Current Patient Data Vital Signs Vital Signs Date Time Temp Pulse Resp B/P Pulse Ox O2 Delivery O2 Flow Rate FiO2 03/18/16 21:11 78 16 102/63 Tracheal Collar 10 03/18/16 20:13 93 03/18/16 18:37 99.0 99.0 Lab Values Laboratory Tests Test 03/18/16 20:10 White Blood Count 5.2x10^3/uL (4.0-11.0) Red Blood Count 5.31x10^6/uL (3.50-5.40) Hemoglobin 11.5g/dL (12.0-15.5) L Hematocrit 37.9% (36.0-47.0) Mean Corpuscular Volume 71fL (79-100) L Mean Corpuscular Hemoglobin 22pg (25-35) L Mean Corpuscular Hemoglobin Concent 31g/dL (31-37) Red Cell Distribution Width 20.7% (11.5-14.5) H Platelet Count 246x10^3/uL (140-400) Neutrophils (%) (Auto) 60% (31-73) Lymphocytes (%) (Auto) 24% (24-48) Monocytes (%) (Auto) 9% (0-9) Eosinophils (%) (Auto) 6% (0-3) H Basophils (%) (Auto) 1% (0-3) Neutrophils # (Auto) 3.1x10^3uL (1.8-7.7) Lymphocytes # (Auto) 1.3x10^3/uL (1.0-4.8) Monocytes # (Auto) 0.5x10^3/uL (0.0-1.1) Eosinophils # (Auto) 0.3x10^3/uL (0.0-0.7) Basophils # (Auto) 0.1x10^3/uL (0.0-0.2) Platelet Estimate Adequate (ADEQUATE) Polychromasia Slight Hypochromasia Slight Anisocytosis Mod Microcytosis Mod Sodium Level 140mmol/L (136-145) Potassium Level 3.8mmol/L (3.5-5.1) Chloride Level 102mmol/L (98-107) Carbon Dioxide Level 29mmol/L (21-32) Anion Gap 9 (6-14) Blood Urea Nitrogen 17mg/dL (7-20) Creatinine 1.2mg/dL (0.6-1.0) H Estimated GFR (Cockcroft-Gault) 45.5 Glucose Level 75mg/dL (70-99) Calcium Level 8.7mg/dL (8.5-10.1) Magnesium Level 2.0mg/dL (1.8-2.4) Total Bilirubin 0.5mg/dL (0.2-1.0) Direct Bilirubin 0.1mg/dL (0.0-0.2) Aspartate Amino Transferase (AST) 9U/L (15-37) L Alanine Aminotransferase (ALT) 9U/L (14-59) L Alkaline Phosphatase 59U/L (46-116) Creatine Kinase 33U/L (26-192) Creatine Kinase MB (Mass) 1.2ng/mL (0.0-3.6) Creatine Kinase MB Relative Index 3.6% (0-4) Troponin I Quantitative 0.023ng/mL (0.000-0.055) LH-Bze-A-Type Natriuretic Peptide 7351pg/mL (0-124) H Total Protein 6.6g/dL (6.4-8.2) Albumin 3.2g/dL (3.4-5.0) L Laboratory Tests 03/18/16 20:10 Laboratory Tests 03/18/16 20:10 EKG EKG Interpreted by me: Heart rate 74, sinus rhythm, leftward axis, no acute ST elevations or depressions [] Radiology/Procedures Radiology/Procedures One view AP chest x-ray interpreted by me: Stable left lower lobe volume loss, no infiltrates, normal cardiac silhouette [] Course & Med Decision Making Course & Med Decision Making Pertinent Labs and Imaging studies reviewed. (See chart for details) Patient was given 1 dose of IV morphine in the emergency department. The patient 's oxygen saturations decreased to 85%. The patient states that she does not feel any better at this time. Patient's oxygen saturation saturations have since improved to 91%. Patient also continues to complain of chest pain. Due to patient's significant past medical history and intractable pain, the patient will be admitted to the hospital for further treatment. I spoke with Dr. Johnson, patient's fitness instructor, and he agreed consult on patient in hospital. Patient was admitted to Dr. James. Dragon Disclaimer Dragon Disclaimer This electronic medical record was generated, in whole or in part, using a voice recognition dictation system. Departure Departure Impression: Primary Impression: Intractable pain Additional Impressions: Chest pain Chronic respiratory failure Peripheral vascular disease Disposition: ADMITTED INPATIENT Admitting Physician: Ann James Condition: STABLE Referrals: ALEK HANLEY MD (PCP) Problem Qualifiers Additional Impressions: Chest pain Chest pain type: unspecified Qualified Code: R07.9 - Chest pain, unspecified Chronic respiratory failure Respiratory failure complication: unspecified whether with hypoxia or hypercapnia Qualified Code: J96.10 - Chronic respiratory failure, unspecified whether with hypoxia or hypercapnia GABRIELLA LOPEZ MD Mar 18, 2016 22:50
[2016-03-18] MEDS ORDERED: ACETAMINOPHEN 325 MG TABLET. PO PRN (23:15)
[2016-03-18] MEDS ORDERED: IV NORMAL SALINE 1000ML BAG 1,000 ML IV SCH (23:30)
[2016-03-18] MEDS ORDERED: ONDANSETRON PF 4 MG/2 ML VIAL. IV PRN (23:30)
[2016-03-18] MEDS ORDERED: IV NORMAL SALINE 500ML BAG 500 ML IV ONE (23:30)
[2016-03-18] MEDS: FENTANYL PF 100 MCG/2 ML VIAL. IV PRN (23:37)
[2016-03-19] VITALS (7 sets, daily range): BP systolic 78–100; BP diastolic 47–70
[2016-03-19] MEDS: FENTANYL PF 100 MCG/2 ML VIAL. IV PRN (05:37)
[2016-03-19 05:54] LABS: BASO # 0.1 x10^3/uL (0.0-0.2); BASO % 2 % (0-3); EOS % 9 % (0-3); HEMATOCRIT 36.9 % (36.0-47.0); LYMPH # 1.1 x10^3/uL (1.0-4.8); LYMPH % 28 % (24-48); MEAN CORPUSCULAR HEMOGLOBIN 22 pg (25-35); MEAN CORPUSCULAR HGB CONC 30 g/dL (31-37); MEAN CORPUSCULAR VOLUME 72 fL (79-100); MONO % 10 % (0-9); NEUT % 52 % (31-73); PLATELET COUNT 228 x10^3/uL (140-400); RED CELL DISTRIBUTION WIDTH 20.8 % (11.5-14.5)
[2016-03-19 06:18] LABS: ALBUMIN 2.7 g/dL (3.4-5.0); ALBUMIN/GLOBULIN RATIO 0.8 (1.0-1.7); CALCIUM 8.5 mg/dL (8.5-10.1); CREATININE 1.1 mg/dL (0.6-1.0); GFR 50.3; POTASSIUM 3.9 mmol/L (3.5-5.1); TOTAL BILIRUBIN 0.6 mg/dL (0.2-1.0); TOTAL PROTEIN 6.3 g/dL (6.4-8.2)
--- NOTE | 2016-03-19 06:24 | EKG ---
[facility] [address] [place] [address] Test Date: 2016-03-18 Test Time: 19:05:21 Pat Name: RINKU MCCANN Department: Room: 526 1 Gender: F Miner: : 1955 Requested By: GABRIELLA LOPEZ Order Number: [id number] Reading MD: Umu Tolliver Measurements Intervals [place] Rate: 74 P: 167 [place]: 154 QRS: -28 QRSD: 94 T: 55 QT: 408 QTc: 453 Interpretive Statements SINUS RHYTHM LEFTWARD AXIS QRS(T) CONTOUR ABNORMALITY CONSISTENT WITH INFERIOR INFARCT PROBABLY OLD Electronically Signed On 03-22-2016 15:40:30 CUSTOMER SERVICE PROFESSIONAL by Umu Tolliver
--- NOTE | 2016-03-19 07:49 | RAD ---
Portable AP upright view CXR: Clinical indications: Fall resulting in left-sided chest pain. Comparison: March 02, 2016.. Findings: Again seen are bilateral interstitial lung infiltrates and left lung base infiltrate. There has been improvement in the left lung base infiltrate. No new lung infiltrate or pleural effusion or pneumothorax is seen. Hiatal hernia is evident. The heart size and mediastinum are stable. Tracheostomy is again noted. Impression: Improvement of left lung base infiltrate. No new finding..
--- NOTE | 2016-03-19 08:08 | EKG ---
[facility] [address] [place] [address] Test Date: 2016-03-19 Test Time: 08:02:30 Pat Name: RINKU MCCANN Department: Room: 526 1 Gender: F Teletype Installer: SR3 : 1955 Requested By: JAZMYN RICK Order Number: [id number] Reading MD: Umu Tolliver Measurements Intervals [place] Rate: 84 P: 57 [place]: 174 QRS: 11 QRSD: 96 T: 29 QT: 408 QTc: 486 Interpretive Statements SINUS RHYTHM QRS(T) CONTOUR ABNORMALITY CONSISTENT WITH INFERIOR INFARCT PROBABLY OLD ABNORMAL ECG RI6.01 Compared to ECG 03/03/2016 14:48:18 No significant changes Electronically Signed On 03-20-2016 9:52:15 BACKPACKERS MANAGER by Umu Tolliver
[2016-03-19] MEDS ORDERED: IPRATRPIUM/ALBUTEROL 0.5/2.5MG 3 ML NEBU. NEB ONE (08:15)
[2016-03-19] MEDS ORDERED: ACETAMINOPHEN 325 MG TABLET. PO PRN (10:45)
[2016-03-19] MEDS ORDERED: SPIRONOLACTONE 25 MG TABLET PO SCH (11:00)
[2016-03-19] MEDS ORDERED: LISINOPRIL 10 MG TABLET PO SCH (11:00)
[2016-03-19] MEDS: LEVOTHYROXINE 175 MCG TABLET PO SCH (11:26)
[2016-03-19] MEDS: PAROXETINE ER 12.5 MG TAB.ER.24H. PO SCH (11:26)
[2016-03-19] MEDS: GABAPENTIN 300 MG CAPSULE. PO SCH ×2 (11:27→21:13)
[2016-03-19] MEDS: PANTOPRAZOLE 40 MG TABLET. PO SCH ×2 (11:27→16:37)
[2016-03-19] MEDS: ASPIRIN 81 MG TAB.CHEW PO SCH (11:27)
[2016-03-19] MEDS: OXYCODONE/APAP 7.5/325 TABLET. PO PRN ×2 (11:28→16:40)
[2016-03-19] MEDS: IPRATRPIUM/ALBUTEROL 0.5/2.5MG 3 ML NEBU. NEB SCH ×3 (11:52→20:12)
--- NOTE | 2016-03-19 12:46 | PDOC ---
OBJECTIVE Vital Signs Vital Signs Date Time Temp Pulse Resp B/P Pulse Ox O2 Delivery O2 Flow Rate FiO2 03/19/16 11:56 96 Tracheal Collar 15.0 03/19/16 11:28 85 Tracheal Collar 13.0 03/19/16 11:00 97.5 80 20 95/61 84 Tracheal Collar 97.5 03/19/16 08:17 96 Tracheal Collar 15.0 03/19/16 07:55 Trach Collar 10.0 03/19/16 07:00 98.1 87 20 80/57 24 Tracheal Collar 98.1 03/19/16 06:03 16 90 Tracheal Collar 10.0 03/19/16 05:37 18 90 Tracheal Collar 10.0 03/19/16 01:09 97.7 77 20 100/70 90 Tracheal Collar 97.7 03/19/16 00:45 Trach Collar 10.0 03/18/16 23:41 73 94/66 90 Tracheal Collar 10 03/18/16 23:37 16 03/18/16 23:11 74 106/71 89 10 03/18/16 22:41 75 96/77 88 Tracheal Collar 10 03/18/16 22:11 77 105/65 89 Tracheal Collar 10 03/18/16 21:41 79 106/64 Tracheal Collar 10 03/18/16 21:11 78 16 102/63 Tracheal Collar 10 03/18/16 20:13 17 93 Tracheal Collar 10.0 03/18/16 20:11 78 21 121/84 94 Tracheal Collar 10 03/18/16 19:11 76 19 125/77 92 Tracheal Collar 10 03/18/16 18:37 99.0 80 19 119/75 92 Tracheal Collar 10 99.0 I & O Intake and Output 03/19/16 07:00 Intake Total 500 ml Balance 500 ml Intake Oral 0 ml IV Total 500 ml ASSESSMENT/PLAN Assessment/Plan [id number] H&P dictated Problems: COMMENT Lab Laboratory Tests Test 03/18/16 20:10 03/19/16 05:10 03/19/16 05:40 White Blood Count 5.2x10^3/uL (4.0-11.0) 4.0x10^3/uL (4.0-11.0) Red Blood Count 5.31x10^6/uL (3.50-5.40) 5.10x10^6/uL (3.50-5.40) Hemoglobin 11.5g/dL (12.0-15.5) 11.0g/dL (12.0-15.5) Hematocrit 37.9% (36.0-47.0) 36.9% (36.0-47.0) Mean Corpuscular Volume 71fL (79-100) 72fL (79-100) Mean Corpuscular Hemoglobin 22pg (25-35) 22pg (25-35) Mean Corpuscular Hemoglobin Concent 31g/dL (31-37) 30g/dL (31-37) Red Cell Distribution Width 20.7% (11.5-14.5) 20.8% (11.5-14.5) Platelet Count 246x10^3/uL (140-400) 228x10^3/uL (140-400) Neutrophils (%) (Auto) 60% (31-73) 52% (31-73) Lymphocytes (%) (Auto) 24% (24-48) 28% (24-48) Monocytes (%) (Auto) 9% (0-9) 10% (0-9) Eosinophils (%) (Auto) 6% (0-3) 9% (0-3) Basophils (%) (Auto) 1% (0-3) 2% (0-3) Neutrophils # (Auto) 3.1x10^3uL (1.8-7.7) 2.1x10^3uL (1.8-7.7) Lymphocytes # (Auto) 1.3x10^3/uL (1.0-4.8) 1.1x10^3/uL (1.0-4.8) Monocytes # (Auto) 0.5x10^3/uL (0.0-1.1) 0.4x10^3/uL (0.0-1.1) Eosinophils # (Auto) 0.3x10^3/uL (0.0-0.7) 0.3x10^3/uL (0.0-0.7) Basophils # (Auto) 0.1x10^3/uL (0.0-0.2) 0.1x10^3/uL (0.0-0.2) Platelet Estimate Adequate (ADEQUATE) Polychromasia Slight Hypochromasia Slight Anisocytosis Mod Microcytosis Mod Sodium Level 140mmol/L (136-145) 141mmol/L (136-145) Potassium Level 3.8mmol/L (3.5-5.1) 3.9mmol/L (3.5-5.1) Chloride Level 102mmol/L (98-107) 105mmol/L (98-107) Carbon Dioxide Level 29mmol/L (21-32) 29mmol/L (21-32) Anion Gap 9 (6-14) 7 (6-14) Blood Urea Nitrogen 17mg/dL (7-20) 14mg/dL (7-20) Creatinine 1.2mg/dL (0.6-1.0) 1.1mg/dL (0.6-1.0) Estimated GFR (Cockcroft-Gault) 45.5 50.3 Glucose Level 75mg/dL (70-99) 72mg/dL (70-99) Calcium Level 8.7mg/dL (8.5-10.1) 8.5mg/dL (8.5-10.1) Magnesium Level 2.0mg/dL (1.8-2.4) Total Bilirubin 0.5mg/dL (0.2-1.0) 0.6mg/dL (0.2-1.0) Direct Bilirubin 0.1mg/dL (0.0-0.2) Aspartate Amino Transf (AST/SGOT) 9U/L (15-37) 14U/L (15-37) Alanine Aminotransferase (ALT/SGPT) 9U/L (14-59) 7U/L (14-59) Alkaline Phosphatase 59U/L (46-116) 48U/L (46-116) Creatine Kinase 33U/L (26-192) Creatine Kinase MB (Mass) 1.2ng/mL (0.0-3.6) Creatine Kinase MB Relative Index 3.6% (0-4) Troponin I Quantitative 0.023ng/mL (0.000-0.055) 0.026ng/mL (0.000-0.055) QE-Wep-Y-Type Natriuretic Peptide 7351pg/mL (0-124) Total Protein 6.6g/dL (6.4-8.2) 6.3g/dL (6.4-8.2) Albumin 3.2g/dL (3.4-5.0) 2.7g/dL (3.4-5.0) BUN/Creatinine Ratio 13 (6-20) Albumin/Globulin Ratio 0.8 (1.0-1.7) JAZMYN RICK MD Mar 19, 2016 12:45
[2016-03-19] MEDS: ALPRAZOLAM 0.25 MG TABLET PO SCH ×2 (13:57→21:13)
--- NOTE | 2016-03-19 14:39 | RAD ---
Chest CT without contrast Clinical indications: Fall last week. Chest wall pain. Comparison: November 18, 2015. Technique: Noncontrast helical CT scanning of the chest was performed. Multiplanar 2-D reconstructions were generated. PQRS Compliance Statement: One or more of the following individualized dose reduction techniques were utilized for this examination: 1. Automated exposure control 2. Adjustment of the mA and/or kV according to patient size 3. Use of iterative reconstruction technique Findings: Calcified atheromatous disease of the thoracic aorta is seen. There is a small saccular aneurysm involving the inferior wall of the aortic arch which measures 17 mm. This is unchanged. Calcified atheromatous disease of the coronary arteries is seen. The heart size is mildly enlarged. No pericardial effusion is seen. Small stable mediastinal lymph nodes are seen. A tracheostomy tube is in place. Tip is located 3 cm above the level of the vito. Bilateral emphysema and interstitial pulmonary fibrosis is seen. Right lower lobe lung infiltrate and left lower lobe lung infiltrate are seen along with peribronchial thickening or bronchitis. No pleural effusion or pneumothorax is seen. The proximal bronchial tree is patent. A small hiatal hernia is present. Small stable left adrenal adenoma is seen. No osteolytic process is seen. Old healed bilateral rib cage fractures are seen. No acute appearing rib fracture is evident. No thoracic spine compression fracture is seen. IMPRESSION: Bilateral lower lobe consolidative lung infiltrates with bilateral bronchitis. COPD and bilateral interstitial pulmonary fibrosis. Mild cardiomegaly with calcified atheromatous disease of the coronary arteries. 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 Small hiatal hernia.
[2016-03-19] MEDS: LIDOCAINE (700MG/PATCH) PATCH. TD SCH (15:17)
[2016-03-19] MEDS ORDERED: ALBUMIN HUMAN 5% 500 ML IV ONE (16:00)
--- NOTE | 2016-03-19 16:44 | PDOC2 ---
CONSULT Date of Consult Date of Consult DATE: 03/19/16 TIME: 16:32 Reason for Consult Reason for Consult: Chest Pain Referring Physician Referring Physician: Dr. James Identification/Chief Complaint Chief Complaint Chest Pain Source Source: Chart review, Patient History of Present Illness Reason for Visit: Patient was seen in the ER last night following a fall in her bathroom in which she says she fell into the wall. She had severe flank pain following this incident. While in the ER she was endorsing L-sided chest pain.This pain radiated to her L shoulder. She describes the pain as sharp and says it would come for 4 seconds and then disappear. She says this type of pain occurs 1-2x/ month and seems to happen particularly when she is stressed. She is also endorsing weakness at this time. She denies fevers, cough, and SOB. She denies chest pain at this time but rather says it was present yesterday while in the ER. 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 Cardiovascular: CAD, CHF, HTN, Pulmonary hypertension Pulmonary: COPD GI: GERD Psych: Depression Endocrine: Diabetes, Hypothyroidism Past Surgical History Past Surgical History Several stents placed in heart and peripherally. Patient most-recently was stented in November. Past Surgical History: Appendectomy, Cholecystectomy, Hysterectomy, Other Family History Family History Emphysema Family History: Coronary Artery Disease, Heart Disease, Family History Unknown Social History ALCOHOL: none Drugs: None Lives: with Family Domestic Violence: Neg Current Problem List Problem List Problems Medical Problems: (1) Chest pain Status: Acute (2) Chronic respiratory failure Status: Acute (3) Flank pain Status: Acute (4) Intractable pain Status: Acute (5) Peripheral vascular disease Status: Acute Current Medications Current Medications Current Medications Morphine Sulfate 4 mg PRN Q15MIN PRN IV/SQ PAIN GREATER THAN 3/10 Last administered on 03/18/16 20:13; Start 03/18/16 at 20:00; Stop 03/19/16 at 15:34; Status DC Ondansetron HCl 4 mg 4 mg 1X ONCE IV Last administered on 03/18/16 20:11; Start 03/18/16 at 20:00; Stop 03/18/16 at 20:01; Status DC Sodium Chloride (Iv Sodium Chloride 0.9% 500ml Bag) 500 ml @ 500 mls/hr 1X ONCE IV Last administered on 03/18/16 23:27; Start 03/18/16 at 23:30; Stop at 00:29; Status DC Ondansetron HCl (Zofran) 4 mg PRN Q8HRS PRN IV NAUSEA/VOMITING; Start 03/18/16 at 23:30; Stop 03/19/16 at 23:29 Fentanyl Citrate 25 mcg 25 mcg PRN Q1HR PRN IV PAIN Last administered on 05:37; Start 03/18/16 at 23:30; Stop 03/19/16 at 23:29 Sodium Chloride (Iv Sodium Chloride 0.9% 1000ml Bag) 1,000 ml @ 0 mls/hr Q0M IV ; Start 03/18/16 at 23:30; Stop 03/19/16 at 23:29 Acetaminophen (Tylenol) 650 mg PRN Q4HRS PRN PO FEVER; Start 03/18/16 at 23:15; Stop 03/19/16 at 15:35; Status DC Albuterol/ Ipratropium (Duoneb) 3 ml 1X ONCE NEB Last administered on 08:17; Start 03/19/16 at 08:15; Stop 03/19/16 at 08:16; Status DC Albuterol/ Ipratropium (Duoneb) 3 ml Q4HRS NEB Last administered on 03/19/16 16 :20; Start 03/19/16 at 12:00 Acetaminophen (Tylenol) 325 mg PRN Q6HRS PRN PO PAIN; Start 03/19/16 at 10:45 Alprazolam (Xanax) 0.25 mg TID PO Last administered on 03/19/16 13:57; Start at 14:00 Amitriptyline HCl (Elavil) 25 mg HS PO ; Start 03/19/16 at 21:00 Aspirin (Children'S Aspirin) 81 mg DAILY PO Last administered on 03/19/16 11:27 ; Start 03/19/16 at 11:00 Baclofen (Lioresal) 10 mg QHS PO ; Start 03/19/16 at 21:00 Gabapentin (Neurontin) 300 mg BID PO Last administered on 03/19/16 11:27; Start 03/19/16 at 11:00 Levothyroxine Sodium (Synthroid) 175 mcg DAILY06 PO Last administered on 11:26; Start 03/19/16 at 11:00 Lisinopril (Prinivil) 10 mg DAILY PO ; Start 03/19/16 at 11:00; Stop 03/19/16 at 12:38; Status DC Oxycodone/ Acetaminophen (Percocet 7.5/ 325) 1 tab PRN TID PRN PO PAIN Last administered on 03/19/16 11:28; Start 03/19/16 at 10:45 Pantoprazole Sodium (Protonix) 40 mg BIDAC PO Last administered on 03/19/16 11: 27; Start 03/19/16 at 11:00 Paroxetine HCl (Paxil Cr) 25 mg DAILY PO Last administered on 03/19/16 11:26; Start 03/19/16 at 11:00 Spironolactone (Aldactone) 25 mg DAILY PO ; Start 03/19/16 at 11:00; Stop at 12:38; Status DC Trazodone HCl (Desyrel) 100 mg HS PO ; Start 03/19/16 at 21:00 Lidocaine 1 patch 1 patch DAILY TD Last administered on 03/19/16 15:17; Start 03/19/16 at 14:50 Albumin Human (Plasmanate) 500 ml @ 125 mls/hr 1X ONCE IV Last administered on 03/19/16 15:56; Start 03/19/16 at 16:00; Stop 03/19/16 at 19:59 Active Scripts Active Furosemide 80 Mg Tablet 1 Tab PO DAILY Spironolactone 25 Mg Tablet 1 Tab PO DAILY Levothyroxine Sodium 175 Mcg Tablet 1 Tab PO DAILY Paxil Cr (Paroxetine Hcl) 12.5 Mg Tab.er.24h 25 Mg PO DAILY Protonix (Pantoprazole Sodium) 40 Mg Tablet 40 Mg PO BIDAC Neurontin (Gabapentin) 300 Mg Capsule 300 Mg PO BID Vitamin D2 (Ergocalciferol (Vitamin D2)) 50,000 Unit Capsule 50,000 Unit PO FR [Buspirone Hcl] 5 MG Tablet 5 Mg PO TID Spiriva (Tiotropium [place]) 18 Mcg Cap.w.dev 2 Inh IH DAILY Indication: shortness of breath Next dose: 8/13/15 am Reported Alprazolam 0.25 Mg Tablet 0.25 Mg PO TID Cyclobenzaprine Hcl 10 Mg Tablet 10 Mg PO BID PRN Lisinopril 10 Mg Tablet 10 Mg PO DAILY Oxycodon-Acetaminophen 7.5-325 (Oxycodone Hcl/Acetaminophen) 1 Each Tablet Trazodone Hcl 100 Mg Tablet 100 Mg PO HS Amitriptyline Hcl 25 Mg Tablet 25 Mg PO HS Aspirin 81 Mg Tab.chew 1 Tab PO DAILY Potassium Chloride 20 Meq Tablet.er 20 Meq PO DAILY Acetaminophen 500 Mg Tablet 1 Tab PO PRN Q6HRS PRN Breo Ellipta 100-25 Mcg Inh (Fluticasone/Vilanterol) 1 Each Aer.pow.ba 1 Puff IH DAILY Percocet 7.5-325 Mg Tablet (Oxycodone/Acetaminophen) 1 Each Tablet 1 Tab PO PRN TID PRN Baclofen 10 Mg Tablet 10 Mg PO QHS Allergies Allergies: Coded Allergies: Penicillins (Verified Allergy, Intermediate, can tolerate cefepime, ) barium sulfate (Verified Adverse Reaction, Intermediate, Nausea, 06/04/15) ROS Review of System Patient endorses generalized weakness at this time. Physical Exam Physical Exam Diffuse crackles b/l on auscultation. Heart: Regular rate, Normal S1, Normal S2, No murmurs Vitals VITALS Vital Signs Date Time Temp Pulse Resp B/P Pulse Ox O2 Delivery O2 Flow Rate FiO2 03/19/16 16:20 90 Tracheal Collar 15.0 03/19/16 15:00 98.0 75 18 80/52 98.0 Labs Labs Laboratory Tests Test 03/18/16 20:10 03/19/16 05:10 03/19/16 05:40 03/19/16 14:45 White Blood Count 5.2x10^3/uL (4.0-11.0) 4.0x10^3/uL (4.0-11.0) Red Blood Count 5.31x10^6/uL (3.50-5.40) 5.10x10^6/uL (3.50-5.40) Hemoglobin 11.5g/dL (12.0-15.5) 11.0g/dL (12.0-15.5) Hematocrit 37.9% (36.0-47.0) 36.9% (36.0-47.0) Mean Corpuscular Volume 71fL (79-100) 72fL (79-100) Mean Corpuscular Hemoglobin 22pg (25-35) 22pg (25-35) Mean Corpuscular Hemoglobin Concent 31g/dL (31-37) 30g/dL (31-37) Red Cell Distribution Width 20.7% (11.5-14.5) 20.8% (11.5-14.5) Platelet Count 246x10^3/uL (140-400) 228x10^3/uL (140-400) Neutrophils (%) (Auto) 60% (31-73) 52% (31-73) Lymphocytes (%) (Auto) 24% (24-48) 28% (24-48) Monocytes (%) (Auto) 9% (0-9) 10% (0-9) Eosinophils (%) (Auto) 6% (0-3) 9% (0-3) Basophils (%) (Auto) 1% (0-3) 2% (0-3) Neutrophils # (Auto) 3.1x10^3uL (1.8-7.7) 2.1x10^3uL (1.8-7.7) Lymphocytes # (Auto) 1.3x10^3/uL (1.0-4.8) 1.1x10^3/uL (1.0-4.8) Monocytes # (Auto) 0.5x10^3/uL (0.0-1.1) 0.4x10^3/uL (0.0-1.1) Eosinophils # (Auto) 0.3x10^3/uL (0.0-0.7) 0.3x10^3/uL (0.0-0.7) Basophils # (Auto) 0.1x10^3/uL (0.0-0.2) 0.1x10^3/uL (0.0-0.2) Platelet Estimate Adequate (ADEQUATE) Polychromasia Slight Hypochromasia Slight Anisocytosis Mod Microcytosis Mod Sodium Level 140mmol/L (136-145) 141mmol/L (136-145) Potassium Level 3.8mmol/L (3.5-5.1) 3.9mmol/L (3.5-5.1) Chloride Level 102mmol/L (98-107) 105mmol/L (98-107) Carbon Dioxide Level 29mmol/L (21-32) 29mmol/L (21-32) Anion Gap 9 (6-14) 7 (6-14) Blood Urea Nitrogen 17mg/dL (7-20) 14mg/dL (7-20) Creatinine 1.2mg/dL (0.6-1.0) 1.1mg/dL (0.6-1.0) Estimated GFR (Cockcroft-Gault) 45.5 50.3 Glucose Level 75mg/dL (70-99) 72mg/dL (70-99) Calcium Level 8.7mg/dL (8.5-10.1) 8.5mg/dL (8.5-10.1) Magnesium Level 2.0mg/dL (1.8-2.4) Total Bilirubin 0.5mg/dL (0.2-1.0) 0.6mg/dL (0.2-1.0) Direct Bilirubin 0.1mg/dL (0.0-0.2) Aspartate Amino Transf (AST/SGOT) 9U/L (15-37) 14U/L (15-37) Alanine Aminotransferase (ALT/SGPT) 9U/L (14-59) 7U/L (14-59) Alkaline Phosphatase 59U/L (46-116) 48U/L (46-116) Creatine Kinase 33U/L (26-192) Creatine Kinase MB (Mass) 1.2ng/mL (0.0-3.6) Creatine Kinase MB Relative Index 3.6% (0-4) Troponin I Quantitative 0.023ng/mL (0.000-0.055) 0.026ng/mL (0.000-0.055) 0.028ng/mL (0.000-0.055) HL-Lvd-M-Type Natriuretic Peptide 7351pg/mL (0-124) Total Protein 6.6g/dL (6.4-8.2) 6.3g/dL (6.4-8.2) Albumin 3.2g/dL (3.4-5.0) 2.7g/dL (3.4-5.0) BUN/Creatinine Ratio 13 (6-20) Albumin/Globulin Ratio 0.8 (1.0-1.7) Laboratory Tests Test 03/18/16 20:10 03/19/16 05:10 03/19/16 05:40 03/19/16 14:45 White Blood Count 5.2x10^3/uL (4.0-11.0) 4.0x10^3/uL (4.0-11.0) Red Blood Count 5.31x10^6/uL (3.50-5.40) 5.10x10^6/uL (3.50-5.40) Hemoglobin 11.5g/dL (12.0-15.5) 11.0g/dL (12.0-15.5) Hematocrit 37.9% (36.0-47.0) 36.9% (36.0-47.0) Mean Corpuscular Volume 71fL (79-100) 72fL (79-100) Mean Corpuscular Hemoglobin 22pg (25-35) 22pg (25-35) Mean Corpuscular Hemoglobin Concent 31g/dL (31-37) 30g/dL (31-37) Red Cell Distribution Width 20.7% (11.5-14.5) 20.8% (11.5-14.5) Platelet Count 246x10^3/uL (140-400) 228x10^3/uL (140-400) Neutrophils (%) (Auto) 60% (31-73) 52% (31-73) Lymphocytes (%) (Auto) 24% (24-48) 28% (24-48) Monocytes (%) (Auto) 9% (0-9) 10% (0-9) Eosinophils (%) (Auto) 6% (0-3) 9% (0-3) Basophils (%) (Auto) 1% (0-3) 2% (0-3) Neutrophils # (Auto) 3.1x10^3uL (1.8-7.7) 2.1x10^3uL (1.8-7.7) Lymphocytes # (Auto) 1.3x10^3/uL (1.0-4.8) 1.1x10^3/uL (1.0-4.8) Monocytes # (Auto) 0.5x10^3/uL (0.0-1.1) 0.4x10^3/uL (0.0-1.1) Eosinophils # (Auto) 0.3x10^3/uL (0.0-0.7) 0.3x10^3/uL (0.0-0.7) Basophils # (Auto) 0.1x10^3/uL (0.0-0.2) 0.1x10^3/uL (0.0-0.2) Platelet Estimate Adequate (ADEQUATE) Polychromasia Slight Hypochromasia Slight Anisocytosis Mod Microcytosis Mod Sodium Level 140mmol/L (136-145) 141mmol/L (136-145) Potassium Level 3.8mmol/L (3.5-5.1) 3.9mmol/L (3.5-5.1) Chloride Level 102mmol/L (98-107) 105mmol/L (98-107) Carbon Dioxide Level 29mmol/L (21-32) 29mmol/L (21-32) Anion Gap 9 (6-14) 7 (6-14) Blood Urea Nitrogen 17mg/dL (7-20) 14mg/dL (7-20) Creatinine 1.2mg/dL (0.6-1.0) 1.1mg/dL (0.6-1.0) Estimated GFR (Cockcroft-Gault) 45.5 50.3 Glucose Level 75mg/dL (70-99) 72mg/dL (70-99) Calcium Level 8.7mg/dL (8.5-10.1) 8.5mg/dL (8.5-10.1) Magnesium Level 2.0mg/dL (1.8-2.4) Total Bilirubin 0.5mg/dL (0.2-1.0) 0.6mg/dL (0.2-1.0) Direct Bilirubin 0.1mg/dL (0.0-0.2) Aspartate Amino Transf (AST/SGOT) 9U/L (15-37) 14U/L (15-37) Alanine Aminotransferase (ALT/SGPT) 9U/L (14-59) 7U/L (14-59) Alkaline Phosphatase 59U/L (46-116) 48U/L (46-116) Creatine Kinase 33U/L (26-192) Creatine Kinase MB (Mass) 1.2ng/mL (0.0-3.6) Creatine Kinase MB Relative Index 3.6% (0-4) Troponin I Quantitative 0.023ng/mL (0.000-0.055) 0.026ng/mL (0.000-0.055) 0.028ng/mL (0.000-0.055) AW-Yjd-T-Type Natriuretic Peptide 7351pg/mL (0-124) Total Protein 6.6g/dL (6.4-8.2) 6.3g/dL (6.4-8.2) Albumin 3.2g/dL (3.4-5.0) 2.7g/dL (3.4-5.0) BUN/Creatinine Ratio 13 (6-20) Albumin/Globulin Ratio 0.8 (1.0-1.7) Assessment/Plan Assessment/Plan 1. CAD 2. S/P stent placement -Recommend that patient continue ASA 81mg PO daily, continue Lisinopril 10mg PO daily, and continue Spironolactone 25mg PO daily. -Will continue to follow. Thank you for giving me the privilege in taking part in the care of this patient. MELO LARIOS MD Mar 19, 2016 16:44
[2016-03-19] MEDS: BACLOFEN 10 MG TABLET PO SCH (21:13)
[2016-03-19] MEDS: AMITRIPTYLINE HCL 25 MG TABLET PO SCH (21:13)
[2016-03-19] MEDS: traZODone 100 MG TABLET. PO SCH (21:13)
[2016-03-20] VITALS (7 sets, daily range): BP systolic 95–129; BP diastolic 61–78
[2016-03-20] MEDS: IPRATRPIUM/ALBUTEROL 0.5/2.5MG 3 ML NEBU. NEB SCH ×6 (00:07→20:22)
[2016-03-20] MEDS: OXYCODONE/APAP 7.5/325 TABLET. PO PRN ×3 (00:18→21:17)
--- NOTE | 2016-03-20 05:41 | PREOP HP ---
DATE OF SERVICE: HISTORY OF PRESENT ILLNESS: The patient is a 60-year-old. Her room number is 526. She presented to the Emergency Room after having a fall. She stated that she was going to the bathroom where she lost her balance and fell against the wall, hitting the left side of her chest. She is complaining of chest pain when she arrived in the Emergency Room. She did not hit the floor and was able to stop herself from falling to the floor. She was complaining of severe pain and required IV fentanyl to help her pain in the Emergency Room. Her x-rays in the Emergency Room did not show any fracture. She was admitted for further evaluation and pain control. She continues to have chest wall pain, rated as 10 on a scale of 10 upon her arrival to the floor. PAST MEDICAL HISTORY: Significant for coronary artery disease, angina, heart murmur, congestive heart failure, cardiomyopathy, even though her last ejection fraction in July 2015 was 55-60%. She does have a history of peripheral vascular disease, history of stents in her lower extremities for peripheral vascular disease. She does have a previous history of DVTs and has inferior vena cava filter. She has history of hypertension, hyperlipidemia, COPD, emphysema. She does have a tracheostomy in place, history of sleep apnea, Mcmahon esophagus, diverticulitis, history of cholecystectomy, appendectomy, gastroesophageal reflux disease, hysterectomy, lumpectomy, UTIs, urinary incontinence, osteoarthritis, chronic back pain, anxiety, hypothyroidism, depression, peripheral neuropathy, and history of TIAs. FAMILY HISTORY: Positive for COPD, heart disease, and heart murmur. SOCIAL HISTORY: She is a smoker. She drinks alcohol occasionally. REVIEW OF SYSTEMS: CONSTITUTIONAL: Denies fever or chills. EYES: Denies visual changes. HENT: Denies nasal congestion or sore throat. RESPIRATORY: She does have a chronic tracheostomy. Denies increasing shortness of breath. CARDIOVASCULAR: She does have chest wall pain mostly on the left side. GASTROINTESTINAL: Denies abdominal pain, nausea, vomiting. GENITOURINARY: She does have incontinence, but no dysuria. MUSCULOSKELETAL: Left-sided chest pain. DERMATOLOGY: No rash. NEUROLOGY: No sensory deficits. PHYSICAL EXAMINATION: GENERAL: She is alert and oriented, in no acute distress, cooperative. HEENT: Tympanic membranes clear. Pharynx clear. No sinus tenderness. NECK: Supple. LUNGS: With a few scattered rales. HEART: Regular rate and rhythm. ABDOMEN: Soft, nontender, no organomegaly. EXTREMITIES: She has no edema at the present time. SKIN: Looks shrunk, although she usually does have more edema. NEUROLOGIC: She denies headaches. No focal deficits. She is alert and oriented x 3. IMPRESSION AND PLAN: 1. Fall with severe chest wall pain. Her x-rays were negative for any fracture. We will obtain CT to rule out hip fracture. The patient is admitted for pain control. 2. Hypotension and probable hypovolemia. We will hold her Lasix, blood pressure medication. She was given some IV fluids in the Emergency Room. Carefully, we will continue to monitor. 3. History of coronary artery disease and angina. Her pain does not seem to be cardiac. Cardiology has been consulted. 4. Chronic respiratory failure. 5. Peripheral vascular disease. JAZMYN RICK MD DR: CECE/annie JOB#: [id number] / [id number]
[2016-03-20] MEDS: LEVOTHYROXINE 175 MCG TABLET PO SCH (05:48)
[2016-03-20] MEDS: PANTOPRAZOLE 40 MG TABLET. PO SCH ×2 (05:48→16:58)
[2016-03-20 07:25] LABS: HEMATOCRIT 35.1 % (36.0-47.0); HEMOGLOBIN 10.4 g/dL (12.0-15.5); RED BLOOD COUNT 4.85 x10^6/uL (3.50-5.40); WHITE BLOOD COUNT 5.5 x10^3/uL (4.0-11.0)
[2016-03-20 07:42] LABS: CALCIUM 8.3 mg/dL (8.5-10.1); CREATININE 1.5 mg/dL (0.6-1.0); GFR 35.2; POTASSIUM 4.3 mmol/L (3.5-5.1)
[2016-03-20] MEDS: GABAPENTIN 300 MG CAPSULE. PO SCH ×2 (08:19→21:15)
[2016-03-20] MEDS: LIDOCAINE (700MG/PATCH) PATCH. TD SCH (08:19)
[2016-03-20] MEDS: ASPIRIN 81 MG TAB.CHEW PO SCH (08:19)
[2016-03-20] MEDS: ALPRAZOLAM 0.25 MG TABLET PO SCH ×3 (08:19→21:15)
[2016-03-20] MEDS: PAROXETINE ER 12.5 MG TAB.ER.24H. PO SCH (08:19)
--- NOTE | 2016-03-20 10:06 | PDOC ---
PROGRESS NOTES Subjective Subjective Patient seen this morning and feeling a little better. She says her pain is currently in her L. flank and L. upper back. She denies chest pain and shortness of breath at this time. She denies any new cardiac complaints. Objective Objective Vital Signs Date Time Temp Pulse Resp B/P Pulse Ox O2 Delivery O2 Flow Rate FiO2 03/20/16 07:56 92 Tracheal Collar 15.0 03/20/16 07:00 98.1 64 18 98/67 98.1 Intake and Output 03/20/16 07:00 Intake Total 700 ml Output Total 350 ml Balance 350 ml Intake Oral 700 ml Output Urine Total 350 ml Physical Exam Physical Exam No change from previous cardiac exam, mild wheezing b/l on auscultation, +edema of b/l lower extremities. Assessment Assessment Problems Medical Problems: (1) Chest pain Status: Acute (2) Chronic respiratory failure Status: Acute (3) Flank pain Status: Acute (4) Intractable pain Status: Acute (5) Peripheral vascular disease Status: Acute Plan Plan of Care Will continue home meds and continue to follow in care of patient. Will defer tx of bronchitis found on CT to recommendations of primary team. Comment Review of Relevant I have reviewed the following items jasmin (where applicable) has been applied. Labs Laboratory Tests Test 03/18/16 20:10 03/19/16 05:10 03/19/16 05:40 03/19/16 14:45 White Blood Count 5.2x10^3/uL (4.0-11.0) 4.0x10^3/uL (4.0-11.0) Red Blood Count 5.31x10^6/uL (3.50-5.40) 5.10x10^6/uL (3.50-5.40) Hemoglobin 11.5g/dL (12.0-15.5) 11.0g/dL (12.0-15.5) Hematocrit 37.9% (36.0-47.0) 36.9% (36.0-47.0) Mean Corpuscular Volume 71fL (79-100) 72fL (79-100) Mean Corpuscular Hemoglobin 22pg (25-35) 22pg (25-35) Mean Corpuscular Hemoglobin Concent 31g/dL (31-37) 30g/dL (31-37) Red Cell Distribution Width 20.7% (11.5-14.5) 20.8% (11.5-14.5) Platelet Count 246x10^3/uL (140-400) 228x10^3/uL (140-400) Neutrophils (%) (Auto) 60% (31-73) 52% (31-73) Lymphocytes (%) (Auto) 24% (24-48) 28% (24-48) Monocytes (%) (Auto) 9% (0-9) 10% (0-9) Eosinophils (%) (Auto) 6% (0-3) 9% (0-3) Basophils (%) (Auto) 1% (0-3) 2% (0-3) Neutrophils # (Auto) 3.1x10^3uL (1.8-7.7) 2.1x10^3uL (1.8-7.7) Lymphocytes # (Auto) 1.3x10^3/uL (1.0-4.8) 1.1x10^3/uL (1.0-4.8) Monocytes # (Auto) 0.5x10^3/uL (0.0-1.1) 0.4x10^3/uL (0.0-1.1) Eosinophils # (Auto) 0.3x10^3/uL (0.0-0.7) 0.3x10^3/uL (0.0-0.7) Basophils # (Auto) 0.1x10^3/uL (0.0-0.2) 0.1x10^3/uL (0.0-0.2) Platelet Estimate Adequate (ADEQUATE) Polychromasia Slight Hypochromasia Slight Anisocytosis Mod Microcytosis Mod Sodium Level 140mmol/L (136-145) 141mmol/L (136-145) Potassium Level 3.8mmol/L (3.5-5.1) 3.9mmol/L (3.5-5.1) Chloride Level 102mmol/L (98-107) 105mmol/L (98-107) Carbon Dioxide Level 29mmol/L (21-32) 29mmol/L (21-32) Anion Gap 9 (6-14) 7 (6-14) Blood Urea Nitrogen 17mg/dL (7-20) 14mg/dL (7-20) Creatinine 1.2mg/dL (0.6-1.0) 1.1mg/dL (0.6-1.0) Estimated GFR (Cockcroft-Gault) 45.5 50.3 Glucose Level 75mg/dL (70-99) 72mg/dL (70-99) Calcium Level 8.7mg/dL (8.5-10.1) 8.5mg/dL (8.5-10.1) Magnesium Level 2.0mg/dL (1.8-2.4) Total Bilirubin 0.5mg/dL (0.2-1.0) 0.6mg/dL (0.2-1.0) Direct Bilirubin 0.1mg/dL (0.0-0.2) Aspartate Amino Transf (AST/SGOT) 9U/L (15-37) 14U/L (15-37) Alanine Aminotransferase (ALT/SGPT) 9U/L (14-59) 7U/L (14-59) Alkaline Phosphatase 59U/L (46-116) 48U/L (46-116) Creatine Kinase 33U/L (26-192) Creatine Kinase MB (Mass) 1.2ng/mL (0.0-3.6) Creatine Kinase MB Relative Index 3.6% (0-4) Troponin I Quantitative 0.023ng/mL (0.000-0.055) 0.026ng/mL (0.000-0.055) 0.028ng/mL (0.000-0.055) RN-Cxi-R-Type Natriuretic Peptide 7351pg/mL (0-124) Total Protein 6.6g/dL (6.4-8.2) 6.3g/dL (6.4-8.2) Albumin 3.2g/dL (3.4-5.0) 2.7g/dL (3.4-5.0) BUN/Creatinine Ratio 13 (6-20) Albumin/Globulin Ratio 0.8 (1.0-1.7) Test 03/20/16 06:58 White Blood Count 5.5x10^3/uL (4.0-11.0) Red Blood Count 4.85x10^6/uL (3.50-5.40) Hemoglobin 10.4g/dL (12.0-15.5) Hematocrit 35.1% (36.0-47.0) Mean Corpuscular Volume 73fL (79-100) Mean Corpuscular Hemoglobin 22pg (25-35) Mean Corpuscular Hemoglobin Concent 30g/dL (31-37) Red Cell Distribution Width 21.0% (11.5-14.5) Platelet Count 217x10^3/uL (140-400) Sodium Level 140mmol/L (136-145) Potassium Level 4.3mmol/L (3.5-5.1) Chloride Level 104mmol/L (98-107) Carbon Dioxide Level 30mmol/L (21-32) Anion Gap 6 (6-14) Blood Urea Nitrogen 20mg/dL (7-20) Creatinine 1.5mg/dL (0.6-1.0) Estimated GFR (Cockcroft-Gault) 35.2 Glucose Level 74mg/dL (70-99) Calcium Level 8.3mg/dL (8.5-10.1) Laboratory Tests Test 03/19/16 14:45 03/20/16 06:58 Troponin I Quantitative 0.028ng/mL (0.000-0.055) White Blood Count 5.5x10^3/uL (4.0-11.0) Red Blood Count 4.85x10^6/uL (3.50-5.40) Hemoglobin 10.4g/dL (12.0-15.5) Hematocrit 35.1% (36.0-47.0) Mean Corpuscular Volume 73fL (79-100) Mean Corpuscular Hemoglobin 22pg (25-35) Mean Corpuscular Hemoglobin Concent 30g/dL (31-37) Red Cell Distribution Width 21.0% (11.5-14.5) Platelet Count 217x10^3/uL (140-400) Sodium Level 140mmol/L (136-145) Potassium Level 4.3mmol/L (3.5-5.1) Chloride Level 104mmol/L (98-107) Carbon Dioxide Level 30mmol/L (21-32) Anion Gap 6 (6-14) Blood Urea Nitrogen 20mg/dL (7-20) Creatinine 1.5mg/dL (0.6-1.0) Estimated GFR (Cockcroft-Gault) 35.2 Glucose Level 74mg/dL (70-99) Calcium Level 8.3mg/dL (8.5-10.1) Medications Current Medications Morphine Sulfate 4 mg PRN Q15MIN PRN IV/SQ PAIN GREATER THAN 3/10 Last administered on 03/18/16 20:13; Start 03/18/16 at 20:00; Stop 03/19/16 at 15:34; Status DC Ondansetron HCl 4 mg 4 mg 1X ONCE IV Last administered on 03/18/16 20:11; Start 03/18/16 at 20:00; Stop 03/18/16 at 20:01; Status DC Sodium Chloride (Iv Sodium Chloride 0.9% 500ml Bag) 500 ml @ 500 mls/hr 1X ONCE IV Last administered on 03/18/16 23:27; Start 03/18/16 at 23:30; Stop at 00:29; Status DC Ondansetron HCl (Zofran) 4 mg PRN Q8HRS PRN IV NAUSEA/VOMITING; Start 03/18/16 at 23:30; Stop 03/19/16 at 23:29; Status DC Fentanyl Citrate 25 mcg 25 mcg PRN Q1HR PRN IV PAIN Last administered on 05:37; Start 03/18/16 at 23:30; Stop 03/19/16 at 23:29; Status DC Sodium Chloride (Iv Sodium Chloride 0.9% 1000ml Bag) 1,000 ml @ 0 mls/hr Q0M IV ; Start 03/18/16 at 23:30; Stop 03/19/16 at 23:29; Status DC Acetaminophen (Tylenol) 650 mg PRN Q4HRS PRN PO FEVER; Start 03/18/16 at 23:15; Stop 03/19/16 at 15:35; Status DC Albuterol/ Ipratropium (Duoneb) 3 ml 1X ONCE NEB Last administered on 08:17; Start 03/19/16 at 08:15; Stop 03/19/16 at 08:16; Status DC Albuterol/ Ipratropium (Duoneb) 3 ml Q4HRS NEB Last administered on 03/20/16 07:56; Start 03/19/16 at 12:00 Acetaminophen (Tylenol) 325 mg PRN Q6HRS PRN PO PAIN; Start 03/19/16 at 10:45 Alprazolam (Xanax) 0.25 mg TID PO Last administered on 03/20/16 08:19; Start 03/19/16 at 14:00 Amitriptyline HCl (Elavil) 25 mg HS PO Last administered on 03/19/16 21:13; Start 03/19/16 at 21:00 Aspirin (Children'S Aspirin) 81 mg DAILY PO Last administered on 03/20/16 08: 19; Start 03/19/16 at 11:00 Baclofen (Lioresal) 10 mg QHS PO Last administered on 03/19/16 21:13; Start 03/19/16 at 21:00 Gabapentin (Neurontin) 300 mg BID PO Last administered on 03/20/16 08:19; Start 03/19/16 at 11:00 Levothyroxine Sodium (Synthroid) 175 mcg DAILY06 PO Last administered on 05:48; Start 03/19/16 at 11:00 Lisinopril (Prinivil) 10 mg DAILY PO ; Start 03/19/16 at 11:00; Stop 03/19/16 at 12:38; Status DC Oxycodone/ Acetaminophen (Percocet 7.5/ 325) 1 tab PRN TID PRN PO PAIN Last administered on 03/20/16 00:18; Start 03/19/16 at 10:45 Pantoprazole Sodium (Protonix) 40 mg BIDAC PO Last administered on 03/20/16 05 :48; Start 03/19/16 at 11:00 Paroxetine HCl (Paxil Cr) 25 mg DAILY PO Last administered on 03/20/16 08:19; Start 03/19/16 at 11:00 Spironolactone (Aldactone) 25 mg DAILY PO ; Start 03/19/16 at 11:00; Stop at 12:38; Status DC Trazodone HCl (Desyrel) 100 mg HS PO Last administered on 03/19/16 21:13; Start 03/19/16 at 21:00 Lidocaine 1 patch 1 patch DAILY TD Last administered on 03/20/16 08:19; Start 03/19/16 at 14:50 Albumin Human (Plasmanate) 500 ml @ 125 mls/hr 1X ONCE IV Last administered on 03/19/16 15:56; Start 03/19/16 at 16:00; Stop 03/19/16 at 19:59; Status DC Active Scripts Active Furosemide 80 Mg Tablet 1 Tab PO DAILY Spironolactone 25 Mg Tablet 1 Tab PO DAILY Levothyroxine Sodium 175 Mcg Tablet 1 Tab PO DAILY Paxil Cr (Paroxetine Hcl) 12.5 Mg Tab.er.24h 25 Mg PO DAILY Protonix (Pantoprazole Sodium) 40 Mg Tablet 40 Mg PO BIDAC Neurontin (Gabapentin) 300 Mg Capsule 300 Mg PO BID Vitamin D2 (Ergocalciferol (Vitamin D2)) 50,000 Unit Capsule 50,000 Unit PO FR [Buspirone Hcl] 5 MG Tablet 5 Mg PO TID Spiriva (Tiotropium [place]) 18 Mcg Cap.w.dev 2 Inh IH DAILY Indication: shortness of breath Next dose: 09/20/14 am Reported Alprazolam 0.25 Mg Tablet 0.25 Mg PO TID Cyclobenzaprine Hcl 10 Mg Tablet 10 Mg PO BID PRN Lisinopril 10 Mg Tablet 10 Mg PO DAILY Oxycodon-Acetaminophen 7.5-325 (Oxycodone Hcl/Acetaminophen) 1 Each Tablet Trazodone Hcl 100 Mg Tablet 100 Mg PO HS Amitriptyline Hcl 25 Mg Tablet 25 Mg PO HS Aspirin 81 Mg Tab.chew 1 Tab PO DAILY Potassium Chloride 20 Meq Tablet.er 20 Meq PO DAILY Acetaminophen 500 Mg Tablet 1 Tab PO PRN Q6HRS PRN Breo Ellipta 100-25 Mcg Inh (Fluticasone/Vilanterol) 1 Each Aer.pow.ba 1 Puff IH DAILY Percocet 7.5-325 Mg Tablet (Oxycodone/Acetaminophen) 1 Each Tablet 1 Tab PO PRN TID PRN Baclofen 10 Mg Tablet 10 Mg PO QHS Vitals/I & O Vital Sign - Last 24 Hours 03/19/16 03/19/16 03/19/16 03/19/16 11:00 11:28 11:56 15:00 Temp 97.5 98.0 97.5 98.0 Pulse 80 75 Resp 20 18 B/P 95/61 80/52 Pulse Ox 84 85 96 87 O2 Delivery Tracheal Collar Tracheal Collar Tracheal Collar Tracheal Collar O2 Flow Rate 13.0 15.0 03/19/16 03/19/16 03/19/16 03/19/16 16:20 16:40 17:48 19:00 Temp 96.8 96.8 Pulse 75 Resp 18 B/P 78/47 Pulse Ox 90 88 O2 Delivery Tracheal Collar Tracheal Collar Tracheal Collar O2 Flow Rate 15.0 13.0 13.0 03/19/16 03/19/16 03/19/16 03/19/16 20:00 20:13 21:10 23:00 Temp 96.8 96.8 Pulse 70 64 Resp 18 B/P 85/57 95/61 Pulse Ox 94 90 O2 Delivery Trach Collar Tracheal Collar Tracheal Collar O2 Flow Rate 10.0 15.0 03/20/16 03/20/16 03/20/16 03/20/16 00:06 00:14 00:18 01:18 Temp 96.8 96.8 Pulse 64 Resp 18 18 18 B/P 95/61 Pulse Ox 90 90 O2 Delivery Tracheal Collar Tracheal Collar Tracheal Collar Tracheal Collar O2 Flow Rate 15.0 15.0 03/20/16 03/20/16 03/20/16 03:00 07:00 07:56 Temp 98.5 98.1 98.5 98.1 Pulse 51 64 Resp 18 18 B/P 129/63 98/67 Pulse Ox 94 90 92 O2 Delivery Tracheal Collar Tracheal Collar Tracheal Collar O2 Flow Rate 15.0 Intake and Output 03/19/16 03/19/16 03/20/16 15:00 23:00 07:00 Intake Total 400 ml 300 ml Output Total 350 ml Balance 50 ml 300 ml MELO LARIOS MD Mar 20, 2016 10:06
--- NOTE | 2016-03-20 10:56 | PDOC ---
SUBJECTIVE Subjective feels better, pain controlled OBJECTIVE Objective Bp low Vital Signs Vital Signs Date Time Temp Pulse Resp B/P Pulse Ox O2 Delivery O2 Flow Rate FiO2 03/20/16 10:40 98.1 74 18 96/61 82 Tracheal Collar 98.1 03/20/16 07:56 92 Tracheal Collar 15.0 03/20/16 07:50 Trach Collar 15.0 03/20/16 07:00 98.1 64 18 98/67 90 Tracheal Collar 98.1 03/20/16 03:00 98.5 51 18 129/63 94 Tracheal Collar 98.5 03/20/16 01:18 18 Tracheal Collar 03/20/16 00:18 18 90 Tracheal Collar 15.0 03/20/16 00:14 96.8 64 18 95/61 90 Tracheal Collar 96.8 03/20/16 00:06 Tracheal Collar 15.0 03/19/16 23:00 96.8 64 18 95/61 90 Tracheal Collar 96.8 03/19/16 21:10 70 85/57 03/19/16 20:13 94 Tracheal Collar 15.0 03/19/16 20:00 Trach Collar 10.0 03/19/16 19:00 96.8 75 18 78/47 88 Tracheal Collar 96.8 03/19/16 17:48 13.0 03/19/16 16:40 Tracheal Collar 13.0 03/19/16 16:20 90 Tracheal Collar 15.0 03/19/16 15:00 98.0 75 18 80/52 87 Tracheal Collar 98.0 03/19/16 11:56 96 Tracheal Collar 15.0 03/19/16 11:28 85 Tracheal Collar 13.0 03/19/16 11:00 97.5 80 20 95/61 84 Tracheal Collar 97.5 I & O Intake and Output 03/20/16 07:00 Intake Total 700 ml Output Total 350 ml Balance 350 ml Intake Oral 700 ml Output Urine Total 350 ml PHYSICAL EXAM Physical Exam no change ASSESSMENT/PLAN Assessment/Plan continue to hold Bp meds and dueretic , home in AM on lower dose dueretic if better Problems: COMMENT Lab Laboratory Tests Test 03/19/16 14:45 03/20/16 06:58 Troponin I Quantitative 0.028ng/mL (0.000-0.055) White Blood Count 5.5x10^3/uL (4.0-11.0) Red Blood Count 4.85x10^6/uL (3.50-5.40) Hemoglobin 10.4g/dL (12.0-15.5) Hematocrit 35.1% (36.0-47.0) Mean Corpuscular Volume 73fL (79-100) Mean Corpuscular Hemoglobin 22pg (25-35) Mean Corpuscular Hemoglobin Concent 30g/dL (31-37) Red Cell Distribution Width 21.0% (11.5-14.5) Platelet Count 217x10^3/uL (140-400) Sodium Level 140mmol/L (136-145) Potassium Level 4.3mmol/L (3.5-5.1) Chloride Level 104mmol/L (98-107) Carbon Dioxide Level 30mmol/L (21-32) Anion Gap 6 (6-14) Blood Urea Nitrogen 20mg/dL (7-20) Creatinine 1.5mg/dL (0.6-1.0) Estimated GFR (Cockcroft-Gault) 35.2 Glucose Level 74mg/dL (70-99) Calcium Level 8.3mg/dL (8.5-10.1) JAZMYN RICK MD Mar 20, 2016 10:56
[2016-03-20] MEDS: GUAIFENESIN/CODEINE 100mg/10mg 5 ML LIQUID. PO PRN (21:15)
[2016-03-20] MEDS: AMITRIPTYLINE HCL 25 MG TABLET PO SCH (21:15)
[2016-03-20] MEDS: traZODone 100 MG TABLET. PO SCH (21:15)
[2016-03-20] MEDS: BACLOFEN 10 MG TABLET PO SCH (21:15)
[2016-03-20] MEDS: IV DEXTROSE 5% - 0.9 % NACL 1,000 ML IV SCH (23:20)
[2016-03-21 03:00] VITALS: BP 124/70
[2016-03-21 06:12] LABS: HEMATOCRIT 33.9 % (36.0-47.0); HEMOGLOBIN 10.2 g/dL (12.0-15.5); RED BLOOD COUNT 4.68 x10^6/uL (3.50-5.40); RED CELL DISTRIBUTION WIDTH 20.3 % (11.5-14.5); WHITE BLOOD COUNT 4.8 x10^3/uL (4.0-11.0)
[2016-03-21] MEDS: LEVOTHYROXINE 175 MCG TABLET PO SCH (06:16)
[2016-03-21] MEDS: PANTOPRAZOLE 40 MG TABLET. PO SCH (06:16)
[2016-03-21 06:34] LABS: ALBUMIN 2.9 g/dL (3.4-5.0); ALK PHOS 43 U/L (46-116); ANION GAP 7 (6-14); BLOOD UREA NITROGEN 20 mg/dL (7-20); BUN/CREATININE RATIO 17 (6-20); CALCIUM 8.5 mg/dL (8.5-10.1); CARBON DIOXIDE 29 mmol/L (21-32); CHLORIDE 105 mmol/L (98-107); CREATINE KINASE 38 U/L (26-192); CREATININE 1.2 mg/dL (0.6-1.0); GFR 45.5; GLUCOSE 103 mg/dL (70-99); POTASSIUM 4.2 mmol/L (3.5-5.1); SODIUM 141 mmol/L (136-145); TOTAL BILIRUBIN 0.4 mg/dL (0.2-1.0); TOTAL PROTEIN 5.9 g/dL (6.4-8.2)
[2016-03-21 06:45] LABS: ALT (SGPT) < 6 U/L (14-59); AST (SGOT) 7 U/L (15-37)
[2016-03-21] MEDS: IPRATRPIUM/ALBUTEROL 0.5/2.5MG 3 ML NEBU. NEB SCH ×2 (07:44→12:17)
[2016-03-21] MEDS: IV DEXTROSE 5% - 0.9 % NACL 1,000 ML IV SCH (08:20)
[2016-03-21 08:30] VITALS: BP 135/85
[2016-03-21] MEDS: GUAIFENESIN/CODEINE 100mg/10mg 5 ML LIQUID. PO PRN (09:20)
[2016-03-21] MEDS: LIDOCAINE (700MG/PATCH) PATCH. TD SCH (09:20)
[2016-03-21] MEDS: OXYCODONE/APAP 7.5/325 TABLET. PO PRN (09:22)
[2016-03-21] MEDS: ASPIRIN 81 MG TAB.CHEW PO SCH (09:22)
[2016-03-21] MEDS: ALPRAZOLAM 0.25 MG TABLET PO SCH ×2 (09:22→13:18)
[2016-03-21] MEDS: GABAPENTIN 300 MG CAPSULE. PO SCH (09:22)
[2016-03-21] MEDS: PAROXETINE ER 12.5 MG TAB.ER.24H. PO SCH (09:22)
[2016-03-21] MEDS ORDERED: FURO80TA3 PO (10:43)
[2016-03-21] MEDS ORDERED: LIDO700A4 TP (10:43)
[2016-03-21] MEDS ORDERED: POTA20TA82 PO (10:43)
--- NOTE | 2016-03-21 10:49 | PDOC ---
SUBJECTIVE Subjective pain controlled , feels better, Bp better OBJECTIVE Vital Signs Vital Signs Date Time Temp Pulse Resp B/P Pulse Ox O2 Delivery O2 Flow Rate FiO2 03/21/16 09:22 trach maskn 15 L 03/21/16 08:30 98.1 85 17 135/85 88 Tracheal Collar 14.0 98.1 03/21/16 08:00 Trach Collar 15.0 03/21/16 07:48 Tracheal Collar 15.0 03/21/16 03:00 98.6 67 18 124/70 94 Tracheal Collar 14.0 98.6 03/20/16 23:00 98.6 79 18 126/75 90 Tracheal Collar 14.0 98.6 03/20/16 22:17 84 Tracheal Collar 14.0 03/20/16 21:17 84 Tracheal Collar 14.0 03/20/16 20:23 Tracheal Collar 15.0 03/20/16 20:00 Trach Collar 14.0 03/20/16 19:00 98.8 80 18 128/78 88 Tracheal Collar 14.0 98.8 03/20/16 16:42 Tracheal Collar 15.0 03/20/16 15:41 97.7 84 18 105/68 84 Tracheal Collar 14.0 97.7 03/20/16 13:41 Tracheal Collar 15.0 03/20/16 12:33 90 Tracheal Collar 15.0 I & O Intake and Output 03/21/16 07:00 Intake Total 980 ml Output Total 2550 ml Balance -1570 ml Intake Oral 980 ml Output Urine Total 2550 ml PHYSICAL EXAM Physical Exam llungs chronid decrease BS heart RRR abd soft chest wall pain better with lidoderm patch ASSESSMENT/PLAN Assessment/Plan home today, decrease dose lasix and K-Dur , continue other meds, lidoderm patch for ribs pain Problems: COMMENT Lab Laboratory Tests Test 03/21/16 05:00 White Blood Count 4.8x10^3/uL (4.0-11.0) Red Blood Count 4.68x10^6/uL (3.50-5.40) Hemoglobin 10.2g/dL (12.0-15.5) Hematocrit 33.9% (36.0-47.0) Mean Corpuscular Volume 72fL (79-100) Mean Corpuscular Hemoglobin 22pg (25-35) Mean Corpuscular Hemoglobin Concent 30g/dL (31-37) Red Cell Distribution Width 20.3% (11.5-14.5) Platelet Count 215x10^3/uL (140-400) Sodium Level 141mmol/L (136-145) Potassium Level 4.2mmol/L (3.5-5.1) Chloride Level 105mmol/L (98-107) Carbon Dioxide Level 29mmol/L (21-32) Anion Gap 7 (6-14) Blood Urea Nitrogen 20mg/dL (7-20) Creatinine 1.2mg/dL (0.6-1.0) Estimated GFR (Cockcroft-Gault) 45.5 BUN/Creatinine Ratio 17 (6-20) Glucose Level 103mg/dL (70-99) Calcium Level 8.5mg/dL (8.5-10.1) Total Bilirubin 0.4mg/dL (0.2-1.0) Aspartate Amino Transf (AST/SGOT) 7U/L (15-37) Alanine Aminotransferase (ALT/SGPT) < 6U/L (14-59) Alkaline Phosphatase 43U/L (46-116) Creatine Kinase 38U/L (26-192) Total Protein 5.9g/dL (6.4-8.2) Albumin 2.9g/dL (3.4-5.0) Albumin/Globulin Ratio 1.0 (1.0-1.7) JAZMYN RICK MD Mar 21, 2016 10:49
--- NOTE | 2016-03-21 10:52 | PDOC3 ---
Discharge Summary* Date of Admission: Mar 18, 2016 Date of Discharge: Mar 21, 2016 Admitting Diagnosis Problems Medical Problems: (1) Chest pain Status: Acute (2) Chronic respiratory failure Status: Acute (3) Flank pain Status: Acute (4) Intractable pain Status: Acute (5) Peripheral vascular disease Status: Acute Final Diagnosis 1. Fall with severe chest wall pain. Her x-rays were negative as well as CT chest , no rib Fx , chronic infiltrate is better 2. hypovolemia. decreased lasix and K-Dur dose to half, resume rest of meds same 3. History of coronary artery disease and angina. 4. Chronic respiratory failure. 5. Peripheral vascular disease. Problems Medical Problems: (1) Chest pain Status: Acute (2) Chronic respiratory failure Status: Acute (3) Flank pain Status: Acute (4) Intractable pain Status: Acute (5) Peripheral vascular disease Status: Acute CONSULTS Cardiology Dr. Patel Procedures CXR CT chest Brief Hospital Course Ms. Verdugo is a 60 old [sex] who presented with [ ] Disposition/Orders: D/C to Home CONDITION AT DISCHARGE: Improved Diet: Cardiac Scheduled ([Buspirone Hcl]) 5 MG PO TID Alprazolam (Alprazolam) 0.25 MG PO TID (Reported) Amitriptyline Hcl (Amitriptyline Hcl) 25 MG PO HS (Reported) Aspirin (Aspirin) 1 TAB PO DAILY (Reported) Baclofen (Baclofen) 10 MG PO QHS (Reported) Ergocalciferol (Vitamin D2) (Vitamin D2) 50,000 UNIT PO Fr Fluticasone/Vilanterol (Breo Ellipta 100-25 Mcg Inh) 1 PUFF IH DAILY (Reported) Furosemide (Furosemide) 0.5 TAB PO DAILY Gabapentin (Neurontin) 300 MG PO BID Levothyroxine Sodium (Levothyroxine Sodium) 1 TAB PO DAILY Lidocaine (Lidoderm) 1 PATCH TP DAILY Lisinopril (Lisinopril) 10 MG PO DAILY (Reported) Pantoprazole Sodium (Protonix) 40 MG PO BIDAC Paroxetine Hcl (Paxil Cr) 25 MG PO DAILY Potassium Chloride (Potassium Chloride) 10 MEQ PO DAILY Spironolactone (Spironolactone) 1 TAB PO DAILY Tiotropium [place] (Spiriva) 2 INH IH DAILY Trazodone Hcl (Trazodone Hcl) 100 MG PO HS (Reported) Scheduled PRN Acetaminophen (Acetaminophen) 1 TAB PO PRN Q6HRS PRN PRN PAIN (Reported) Cyclobenzaprine Hcl (Cyclobenzaprine Hcl) 10 MG PO BID PRN PRN MUSCLE SPASMS ( Reported) Oxycodone/Apap 7.5-325 (Percocet 7.5-325 Mg Tablet) 1 TAB PO PRN TID PRN PRN PAIN (Reported) Miscellaneous Medications Oxycodone Hcl/Acetaminophen (Oxycodon-Acetaminophen 7.5-325) (Reported) Discontinued Medications Gabapentin (Gabapentin) (Reported) Pantoprazole Sodium (Pantoprazole Sodium) (Reported) FOLLOW UP APPOINTMENT: decrease lasix dose Dr. Blackburn 2 weeks Time Spent Total time spent with patient [] minutes for coordination of care, counseling, and education. JAZMYN RICK MD Mar 21, 2016 10:52
[2016-03-21 11:35] VITALS: BP 113/63
== END 2016-03-21 14:15 | disposition home health service (06) | DRG 313 ==
LOC: ER 18:37 → 5 NORTH 22:27
PROVIDERS: ADMIT Internal Medicine; ATTEND Internal Medicine
DX: R07.9 Chest pain, unspecified (principal); J96.10 Chronic respiratory failure, unspecified whether with hypoxia or hypercapnia; I42.9 Cardiomyopathy, unspecified; K22.70 Barrett's esophagus without dysplasia; K21.9 Gastro-esophageal reflux disease without esophagitis; J44.9 Chronic obstructive pulmonary disease, unspecified; I73.9 Peripheral vascular disease, unspecified; I50.9 Heart failure, unspecified; I27.2 Other secondary pulmonary hypertension; I25.2 Old myocardial infarction; I25.10 Atherosclerotic heart disease of native coronary artery without angina pectoris; I11.0 Hypertensive heart disease with heart failure; G47.30 Sleep apnea, unspecified; F17.200 Nicotine dependence, unspecified, uncomplicated; E86.1 Hypovolemia; G89.29 Other chronic pain; F41.9 Anxiety disorder, unspecified; F32.9 Major depressive disorder, single episode, unspecified; E78.5 Hyperlipidemia, unspecified; E11.9 Type 2 diabetes mellitus without complications; E03.9 Hypothyroidism, unspecified; W01.0XXA Fall on same level from slipping, tripping and stumbling without subsequent striking against object, initial encounter; Z79.82 Long term (current) use of aspirin; Z82.49 Family history of ischemic heart disease and other diseases of the circulatory system; Z82.5 Family history of asthma and other chronic lower respiratory diseases; Z86.718 Personal history of other venous thrombosis and embolism; Z86.73 Personal history of transient ischemic attack (TIA), and cerebral infarction without residual deficits; Z90.49 Acquired absence of other specified parts of digestive tract; Z93.0 Tracheostomy status; Z88.0 Allergy status to penicillin; Z88.8 Allergy status to other drugs, medicaments and biological substances; Z90.710 Acquired absence of both cervix and uterus
CPT/HCPCS: 36415; 71010; 71250; 80048; 80053; 80076; 82550; 82553; 83735; 83880; 84484; 85007; 85027; 93005; 94640; 94760; 96361; 96374; 96375; 96376; J2270; J2405; J3010; J7040; J7042; J7620; P9045; 99285-25

== ENCOUNTER 2016-03-22 09:21 | Emergency (ER) | payer MEDICARE, OTHER ==
[~2016-03-22 09:21] MED LIST changes: +LIDO700A4 TP
[2016-03-22 09:33] VITALS: BP 113/63
--- NOTE | 2016-03-22 09:38 | PHYS DOC ---
Past Medical History Past Medical History: Angina, CAD, CHF, COPD, Heart Disease, [place] Additional Past Medical Histor: PAD, Chronic back pain, emphysema, MULT CODE BLUE, CARD. CATH Past Surgical History: Angioplasty, Cholecystectomy, Hysterectomy Additional Past Surgical Histo: bilat leg stents, trach, aortic stent, ivc filter, feeding tube w/ removal Alcohol Use: None Drug Use: None Adult General Chief Complaint Chief Complaint: coughed out trach HPI HPI Patient is a 60 year old female who presents with complaint of loss of tracheostomy. Patient states that she was coughing this morning and actually coughed out her tracheostomy tube. Patient notified EMS who brought the patient to the emergency department for further evaluation. Patient brought her tracheostomy with her however she did not bring the reinsertion stylette. Patient was placed on supplemental oxygen after her oxygen sats decreased to 70% . Patient is currently on a trach mask satting 94%. Patient denies any fevers. The patient was recently admitted to the hospital for treatment of left flank pain. Review of Systems Review of Systems Constitutional: Denies fever or chills [] Eyes: Denies change in visual acuity, redness, or eye pain [] HENT: Denies nasal congestion or sore throat [] Respiratory: Difficulty breathing [] Cardiovascular: Denies chest pain or edema [] GI: Denies abdominal pain, nausea, vomiting, bloody stools or diarrhea [] : Denies dysuria or hematuria [] Musculoskeletal: Denies back pain or joint pain [] Integument: Denies rash or skin lesions [] Neurologic: Denies headache, focal weakness or sensory changes [] Allergies Allergies Allergies Coded Allergies Type Severity Reaction Last Updated Verified Penicillins Allergy Intermediate can tolerate cefepime 06/04/15 Yes barium sulfate Adverse Reaction Intermediate Nausea 06/04/15 Yes Physical Exam Physical Exam Constitutional: Alert, afebrile, appears in moderate respiratory distress. [] HENT: Normocephalic, atraumatic, bilateral external ears normal, oropharynx moist, no oral exudates, nose normal. [] Eyes: PERRLA, EOMI, conjunctiva normal, no discharge. [] Neck: Normal range of motion, tracheostomy site with mild to moderate edema, no bleeding, supple, no stridor. [] Cardiovascular: Tachycardia, regular rhythm, no murmur [] Lungs & Thorax: Bilateral breath sounds clear to auscultation [] Abdomen: Bowel sounds normal, soft, no tenderness, no masses, no pulsatile masses. [] Skin: Warm, dry, no erythema, no rash. [] Back: No tenderness, no CVA tenderness. [] Extremities: No tenderness, no cyanosis, no clubbing, ROM intact, trace pedal edema. [] Neurologic: Alert and oriented X 3, normal motor function, normal sensory function, no focal deficits noted. [] Current Patient Data Vital Signs Vital Signs Date Time Temp Pulse Resp B/P Pulse Ox O2 Delivery O2 Flow Rate FiO2 03/22/16 09:33 98.1 82 113/63 NonRebreather Mask 98.1 EKG EKG Not performed [] Radiology/Procedures Radiology/Procedures Not performed [] Course & Med Decision Making Course & Med Decision Making Pertinent Labs and Imaging studies reviewed. (See chart for details) Tracheostomy replacement procedure note: Indication: self extubated tracheostomy Procedure: The patient was placed in the appropriate position and the tracheostomy tube was replaced with a 6 Shiley extra long uncuffed tracheostomy. The tube was secured appropriately. The patient tolerated the procedure without difficulty. Complications: None The patient successfully had her tracheostomy replaced in the emergency department as outlined in the procedure note. Patient no longer in acute respiratory distress. The patient was discharged with recommended follow-up with Dr. Blackburn in the next 3 days and return to emergency department for any worsening symptoms. Patient voiced understanding and in agreement with treatment plan. Dragon Disclaimer Dragon Disclaimer This electronic medical record was generated, in whole or in part, using a voice recognition dictation system. Departure Departure Impression: Primary Impression: Acute tracheostomy management Disposition: 01 HOME, SELF-CARE Condition: IMPROVED Referrals: ALEK BLACKBURN MD (PCP) Patient Instructions: Care of a Tracheostomy Tube Additional Instructions: Follow-up with Dr. Blackburn in the next 2-3 days. Return to the emergency department for any worsening symptoms. GABRIELLA LOPEZ MD Mar 22, 2016 09:37
== END 2016-03-22 11:31 | disposition home or self-care (01) ==
LOC: ER 09:21
DX: J95.09 Other tracheostomy complication (principal); G89.29 Other chronic pain; I25.10 Atherosclerotic heart disease of native coronary artery without angina pectoris; J44.9 Chronic obstructive pulmonary disease, unspecified; I50.9 Heart failure, unspecified; I25.2 Old myocardial infarction; Z88.0 Allergy status to penicillin; Z88.8 Allergy status to other drugs, medicaments and biological substances; Z90.49 Acquired absence of other specified parts of digestive tract; Z90.710 Acquired absence of both cervix and uterus; Z95.5 Presence of coronary angioplasty implant and graft
CPT/HCPCS: 31502; 99284-25

== ENCOUNTER 2016-03-22 23:57 | Inpatient (IN) | payer MEDICARE, OTHER ==
[~2016-03-22] VITALS: Ht 162.6 cm; Wt 84.6 kg
[2016-03-23] MEDS ORDERED: IPRATRPIUM/ALBUTEROL 0.5/2.5MG 3 ML NEBU. NEB ONE (00:30)
[2016-03-23] MEDS ORDERED: ONDANSETRON PF 4 MG/2 ML VIAL. IV ONE (00:30)
--- NOTE | 2016-03-23 00:39 | PHYS DOC ---
Past Medical History Past Medical History: Angina, CAD, CHF, COPD, Heart Disease, [place] Additional Past Medical Histor: PAD, Chronic back pain, emphysema, MULT CODE BLUE, CARD. CATH Past Surgical History: Angioplasty, Cholecystectomy, Hysterectomy Additional Past Surgical Histo: bilat leg stents, trach, aortic stent, ivc filter, feeding tube w/ removal Alcohol Use: None Drug Use: None Adult General Chief Complaint Chief Complaint: SHORTNESS OF BREATH HPI HPI 60-year-old trach dependent female that is presenting with worsening shortness of breath and several episodes of nausea and vomiting prior to arrival. Patient was seen earlier today in our department after having a coughing spell in which she coughed out her trach. Trach was then replaced and she was successfully sent back home but then became symptomatic prior to arrival. Currently she is able to speak in complete sentences but does have some significant shortness of breath. She denies any chest pain. She denies any fever or chills. Review of Systems Review of Systems Constitutional: Denies fever or chills [] Eyes: Denies change in visual acuity, redness, or eye pain [] HENT: Denies nasal congestion or sore throat [] Respiratory: Has cough, has shortness of breath [] Cardiovascular: No additional information not addressed in HPI [] GI: Denies abdominal pain, nausea, vomiting, bloody stools or diarrhea [] : Denies dysuria or hematuria [] Musculoskeletal: Denies back pain or joint pain [] Integument: Denies rash or skin lesions [] Neurologic: Denies headache, focal weakness or sensory changes [] Endocrine: Denies polyuria or polydipsia [] Current Medications Current Medications Current Medications Medications (Trade) Dose Ordered Sig/Emmett Start Time Stop Time Status Last Admin Dose Admin Albuterol/ Ipratropium (Duoneb) 3 ml 1X ONCE 03/23/16 00:30 03/23/16 01:02 DC 03/23/16 00:52 3 ML Levofloxacin (Levaquin) 500 mg 1X ONCE 03/23/16 01:00 03/23/16 01:02 DC 03/23/16 02:00 500 MG Ondansetron HCl (Zofran) 4 mg PRN Q8HRS PRN 03/23/16 01:00 03/24/16 00:59 Allergies Allergies Allergies Coded Allergies Type Severity Reaction Last Updated Verified Penicillins Allergy Intermediate can tolerate cefepime 06/04/15 Yes barium sulfate Adverse Reaction Intermediate Nausea 06/04/15 Yes Physical Exam Physical Exam Constitutional: Well developed, well nourished, no acute distress, non-toxic appearance. [] HENT: Normocephalic, atraumatic, bilateral external ears normal, oropharynx moist, no oral exudates, nose normal. [] Eyes: PERRLA, EOMI, conjunctiva normal, no discharge. [] Neck: Normal range of motion, no tenderness, supple, no stridor. [] Cardiovascular:Heart rate regular rhythm, no murmur [] Lungs & Thorax: Rhonchi bilaterally with mild respiratory distress [] Abdomen: Bowel sounds normal, soft, no tenderness, no masses, no pulsatile masses. [] Skin: Warm, dry, no erythema, no rash. [] Back: No tenderness, no CVA tenderness. [] Extremities: No tenderness, no cyanosis, no clubbing, ROM intact, no edema. [] Neurologic: Alert and oriented X 3, normal motor function, normal sensory function, no focal deficits noted. [] Psychologic: Affect normal, judgement normal, mood normal. [] Current Patient Data Vital Signs Vital Signs Date Time Temp Pulse Resp B/P Pulse Ox O2 Delivery O2 Flow Rate FiO2 03/23/16 00:47 94 Tracheal Collar 9.0 03/23/16 00:05 97.9 93 22 113/63 97.9 Lab Values Laboratory Tests Test 03/23/16 00:30 White Blood Count 4.5x10^3/uL (4.0-11.0) Red Blood Count 5.51x10^6/uL (3.50-5.40) H Hemoglobin 11.9g/dL (12.0-15.5) L Hematocrit 39.3% (36.0-47.0) Mean Corpuscular Volume 71fL (79-100) L Mean Corpuscular Hemoglobin 22pg (25-35) L Mean Corpuscular Hemoglobin Concent 30g/dL (31-37) L Red Cell Distribution Width 20.9% (11.5-14.5) H Platelet Count 263x10^3/uL (140-400) Neutrophils (%) (Auto) 53% (31-73) Lymphocytes (%) (Auto) 24% (24-48) Monocytes (%) (Auto) 8% (0-9) Eosinophils (%) (Auto) 13% (0-3) H Basophils (%) (Auto) 2% (0-3) Neutrophils # (Auto) 2.4x10^3uL (1.8-7.7) Lymphocytes # (Auto) 1.1x10^3/uL (1.0-4.8) Monocytes # (Auto) 0.4x10^3/uL (0.0-1.1) Eosinophils # (Auto) 0.6x10^3/uL (0.0-0.7) Basophils # (Auto) 0.1x10^3/uL (0.0-0.2) Platelet Estimate Adequate (ADEQUATE) Giant Platelets Present Hypochromasia Mod Poikilocytosis Present Anisocytosis Mod Microcytosis Mod Ovalocytes Present Influenza Type A Antigen Negative (NEGATIVE) Influenza Type B Antigen Negative (NEGATIVE) Laboratory Tests 03/23/16 00:30 EKG EKG EKG as interpreted by me shows a sinus rhythm with rate of 73 bpm. There is a leftward axis but no other obvious findings. There is some mild t-wave flattening in V2, V3, V5. Radiology/Procedures Radiology/Procedures Portable one view of the chest as interpreted by me does show some haziness in the right lower lung field that could be a pneumonia Course & Med Decision Making Course & Med Decision Making Pertinent Labs and Imaging studies reviewed. (See chart for details) 60-year-old female who is trach dependent will be admitted to the hospital for her increased shortness of breath. I discussed the need for admission with the hospitalist, Dr. Blackubrn, who agreed to admit and to give the dose of Levaquin by mouth in the department and to consult pulmonology as well. After workup was fairly unremarkable. Her influenza swabs were negative. She was admitted without incident. Dragon Disclaimer Dragon Disclaimer This electronic medical record was generated, in whole or in part, using a voice recognition dictation system. Departure Departure Impression: Primary Impression: Dyspnea Additional Impression: Nausea & vomiting Disposition: ADMITTED INPATIENT Condition: STABLE Referrals: ALEK BLACKBURN MD (PCP) Problem Qualifiers LORI XIE DO Mar 23, 2016 00:39
[2016-03-23] MEDS ORDERED: LEVOFLOXACIN 500 MG TABLET PO ONE (01:00)
[2016-03-23] MEDS ORDERED: ONDANSETRON PF 4 MG/2 ML VIAL. IV PRN (01:00)
[2016-03-23 01:07] LABS: BASO # 0.1 x10^3/uL (0.0-0.2); BASO % 2 % (0-3); EOS % 13 % (0-3); HEMATOCRIT 39.3 % (36.0-47.0); HEMOGLOBIN 11.9 g/dL (12.0-15.5); LYMPH # 1.1 x10^3/uL (1.0-4.8); LYMPH % 24 % (24-48); MEAN CORPUSCULAR HEMOGLOBIN 22 pg (25-35); MEAN CORPUSCULAR HGB CONC 30 g/dL (31-37); MEAN CORPUSCULAR VOLUME 71 fL (79-100); MONO % 8 % (0-9); NEUT % 53 % (31-73); PLATELET COUNT 263 x10^3/uL (140-400); RED BLOOD COUNT 5.51 x10^6/uL (3.50-5.40); RED CELL DISTRIBUTION WIDTH 20.9 % (11.5-14.5); WHITE BLOOD COUNT 4.5 x10^3/uL (4.0-11.0)
[2016-03-23 01:20] LABS: OBC FLU VALID
[2016-03-23 01:45] LABS: CALCIUM 9.2 mg/dL (8.5-10.1); GFR 56.2; POTASSIUM 3.8 mmol/L (3.5-5.1)
[2016-03-23] MEDS ORDERED: OXYCODONE/APAP 7.5/325 TABLET. PO ONE (02:15)
--- NOTE | 2016-03-23 02:15 | ACF ---
Admission Forms Criteria GENERAL ADMISSION CRITERIA (Place 'X' for any and all applicable criteria): Admission is indicated for ANY ONE of the following: [ ]I. Hemodynamic instability as indicated by ANY ONE of the following(1)(2) (3)(4)(5): [ ]a) Vital sign abnormality not readily corrected by appropriate treatment within 12 to 24 hours indicated by ANY ONE of the following: [ ]i) Hypotension [ ]ii) Symptomatic Tachycardia unresponsive to treatment (eg , analgesia, fluids, sedation as indicated) [ ]iii) Orthostatic vital sign changes unresponsive to treatment (eg, fluids) [ ]b) Vital sign abnormality that is severe indicated by ANY ONE of the following: [ ]i) Inadequate perfusion indicated by ANY ONE of the following: [ ]1) Lactic acidosis (greater than 2 mmol/L) [ ]2) New abnormal capillary refill (greater than 3 seconds) [ ]3) Other metabolic acidosis (arterial pH less than 7.35) not otherwise explained [ ]4) Reduced urine output [ ]5) Altered mental status [ ]6) Myocardial Ischemia [ ]v) Mean arterial pressure[A] less than 60 mm Hg [ ]vi) Mean arterial pressure[A] less than 70 mm Hg after 30 minutes of appropriate treatment (eg, fluid resuscitation) [ ]vii) IV inotropic or vasopressor medication required to maintain adequate blood pressure or perfusion [ ]viii) Sustained heart rate greater than 120 beats per minute in adult or child 6 years or older[B]] [ ]II. Hypertension requiring inpatient treatment as indicated by ANY ONE of the following(6)(7)(8): [ ]a) SBP greater than 220 mm Hg or DBP greater than 120 mm Hg despite treatment [ ]b) SBP greater than 140 mm Hg or DBP greater than 100 mm Hg with evidence of acute end organ damage as indicated by ANY ONE of the following: [ ]i) Encephalopathy [ ]ii) Acute renal failure as indicated by new onset of ANY ONE of the following(9)(10)(11)(12)(13): [ ]1) A 3-fold rise in serum creatinine from baseline [ ]2) Serum creatinine greater than 4 mg/dL ( 354 micromoles/L) with acute rise greater than 0.5 mg/dL (44.2 micromoles/L) [ ]3) Reduction of more than 75% in estimated glomerular filtration rate from baseline [ ]4) Estimated glomerular filtration rate less than 35 mL/min/1.73m2 (0.59 mL/sec/1.73m2) in child up to 18 years of age [ ]5) Cessation of urine output indicated by ALL of the following: [ ]A. Adequate volume status [ ]B. Inadequate urine output as indicated by ANY ONE of the following: [ ]a. Urine output less than 0.3 mL/kg/hr for 24 hours [ ]b. Anuria (urine output less than 0.1 mL/kg/hr) for 12 hours [ ]iii) Aortic dissection [ ]iv) Myocardial ischemia [ ]v) Left ventricular heart failure [ ]vi) Retinal hemorrhage [ ]vii) Other significant finding [ ]c) Hypertension in child requiring inpatient treatment as indicated by ALL of the following(14)(15)(16): [ ]i) Outpatient treatment not effective, not available, or not appropriate [ ]ii) SBP or DBP greater than 95th percentile for age [ ]iii) Evidence of acute end organ damage as indicated by ANY ONE of the following: [ ]1) Altered mental status [ ]2) Acute renal failure as indicated by new onset of ANY ONE of the following(9)(10)(11)(12)(13): [ ]A. A 3-fold rise in serum creatinine from baseline [ ]B. Serum creatinine greater than 4 mg/dL (354 micromoles/L) with acute rise greater than 0.5 mg/dL (44.2 micromoles/L) [ ]C. Reduction of more than 75% in estimated glomerular filtration rate from baseline [ ]D. Estimated glomerular filtration rate less than 35 mL/min/1.73m2 (0.59 mL/sec/1.73m2)in child up to 18 years of age [ ]E. Cessation of urine output indicated by ALL of the following: [ ]a. Adequate volume status [ ]b. Inadequate urine output as indicated by ANY ONE of the following: [ ]1) Urine output less than 0.3 mL/kg/hr for 24 hours [ ]2) Anuria (urine output less than 0.1 mL/kg/hr) for 12 hours [ ]3) Severe headache [ ]4) Visual disturbance [ ]5) Retinal hemorrhage [ ]6) Other significant finding [ ]III. Acute cardiac or peripheral ischemia as indicated by ANY ONE of the following: [ ]a) Acute coronary syndrome(17)(18) [ ]b) Acute peripheral ischemia (eg, pulseless, cool, mottled, or cyanotic extremity)(19) [ ]IV. Cardiac arrhythmias or findings of immediate concern indicated by ANY ONE of the following(20)(21): [ ]a) Heart rhythms that are inherently dangerous or unstable indicated by ANY ONE of the following(22)(23)(24): [ ]i) Resuscitated ventricular fibrillation or cardiac arrest [ ]ii) Ventricular escape rhythm [ ]iii) Sustained ventricular tachycardia (30 seconds or more of ventricular rhythm at greater than 100 beats per minute) [ ]iv) Nonsustained ventricular tachycardia and ANY ONE of the following: [ ]1) Suspected cardiac ischemia as cause or consequence of ventricular tachycardia [ ]2) In setting of acute myocarditis [ ]b) Unstable cardiac conduction defects indicated by ANY ONE of the following(24)(25)(26): [ ]i) Type II second-degree atrioventricular block [ ]ii) Third-degree atrioventricular block [ ]iii) New-onset left bundle branch block with suspected myocardial ischemia [ ]c) Any heart rhythm and ANY ONE of the following(22)(23)(27)(28)( 29): [ ] i) Continuous long-term ECG monitoring needed (eg, initiation of drug requiring monitoring for more than 24 hours) [ ] ii) Patient has automatic implanted cardioverter defibrillator that is repeatedly firing, malfunctioning, or in need of immediate adjustment of settings beyond the scope of ambulatory or observation care. [ ]d) Heart rhythms of concern due to ANY ONE of the following: [ ]i) Hypotension [ ]ii) Respiratory distress [ ]iii) Association with other significant symptoms (eg, bradycardia with syncope or ongoing dizziness, supraventricular tachycardia with chest pain) (27)(28) (30) [ ] V. Severe heart failure as indicated by ANY ONE of the following ( 31)(32): [ ]a) Respiratory distress [ ]b) Hypotension [ ]c) Anasarca (refractory to outpatient therapy) [ ]d) Cardiac arrhythmias of immediate concern [ ]e) Myocardial ischemia [X]. Respiratory abnormalities, including ANY ONE of the following(33)(34) (35)(36): [ ]a) Respiratory rate greater than 30 breaths per minute unresponsive to treatment [A] [ ]b) New saturation of arterial oxygen less than 90% [ ]c) New partial pressure of carbon dioxide greater than 44 mm Hg ( 5.9 kPa) [X]d) Supplemental oxygen or respiratory treatments needed that are new or not performable at other levels of care [ ]e) New-onset cyanosis [ ]f) Inability to protect airway [ ]g) Chronic lung disease with severe deterioration (not responsive to emergency and observation care treatment as appropriate) as indicated by ANY ONE of the following(34)(36 ): [ ]i) SaO2 5% below baseline in patient with chronic hypoxemia [ ]ii) New requirement for supplemental oxygen to keep SaO2 at baseline or acceptable level [ ]iii) Required supplemental oxygen performable only in acute inpatient setting [ ]iv) Severe airflow or ventilation abnormalities [ ]v) Previously mobile patient unable to walk between rooms [ ]vi Inability to eat or sleep due to dyspnea [ ]vii) Rapid rate of exacerbation onset [ ]viii) Altered mental status ]VII. Severe airflow or ventilation abnormalities (not responsive to emergency and observation care treatment as appropriate) as indicated by ANY ONE of the following(33)(34)(35)(37): [ ]a) PCO2 greater than 42 mm Hg (5.6 kPa) and pH less than 7.35 (new ) [ ]b) Documented PCO2 increased more than 5 mm Hg (0.7 kPa) from disease baseline [ ]c) Airflow measurements [B] less than 60% of previous best or predicted (eg, peak expiratory flow rate less than 300 L/minute) despite intensive emergent treatment [C] [ ]d) Required respiratory treatments that are performable only in acute inpatient setting [ ]VIII. Impending or actual respiratory arrest ( Also use Respiratory Failure GRG for severe respiratory disease and long-term mechanical ventilation patients) [ ]IX. Neurologic abnormalities, including ANY ONE of the following: [ ]a) New findings that suggest ANY ONE of the following: [ ]i) [employer] infection(38) [ ]ii) Cerebral bleeding, ischemia, or vasospasm(39)(40) [ ]iii) Increased intracranial pressure, hydrocephalus, or cerebral edema(41)(42)(43) [ ]iv) Spinal cord injury(44) [ ]b) Uncontrolled seizures(45) [ ]c) New-onset coma (eg, Gerardo coma scale score less than 9) or unexplained abnormal mental status (eg, Gerardo coma scale score less than 14) [D](41)(46)(47) [ ]X. New-onset severe neurologic findings requiring inpatient care; examples include(42)(48)(49): [ ]a) Papilledema [ ]b) Cerebral edema [ ]c) Mass effect on CT scan [ ]XI. Suspected acute intra-abdominal process with peritoneal signs, abdominal mass, or similar findings (50)(51)(52) [ ]XII. Severe physiologic disorder remaining after emergency or observation level care (as appropriate) as indicated by ANY ONE of the following (53): [ ]a) Significant dehydration [ ]b) Diabetic ketoacidosis [ ]c) Hyperglycemic hyperosmolar state (eg, osmolality greater than 320 mOsm/kg (mmol/kg) [ ]d) Hypoglycemia [ ]e) Other (new) acid-base disorder with pH less than 7.35 or greater than 7.5(54) [ ]f) Thyroid storm (55) [ ]g) Myxedema coma (55) [ ]XIII. Abdominal abnormalities with ANY ONE of the following(56)(57): [ ]a) Absent bowel sounds with complete ileus [ ]b) Signs of intestinal obstruction or peritonitis [E] [ ]c) Nausea and vomiting that cannot be controlled with outpatient or observation care [ ]XIV. Acute renal failure as indicated by new onset of ANY ONE of the following(9)(10)(11)(12)(13): [ ]a) A 3-fold rise in serum creatinine from baseline [ ]b) Serum creatinine greater than 4 mg/dL (354 micromoles/L) with acute rise greater than 0.5 mg/dL (44.2 micromoles/L) [ ]c) Reduction of more than 75% in estimated glomerular filtration rate from baseline [ ]d) Estimated glomerular filtration rate less than 35 mL/min/ 1.73m2 (0.59 mL/sec/1.73m2) in child up to 18 years of age [ ]e) Cessation of urine output indicated by ALL of the following: [ ]i) Adequate volume status [ ]ii) Inadequate urine output as indicated by ANY ONE of the following: [ ]1) Urine output less than 0.3 mL/kg/hr for 24 hours [ ]2) Anuria (urine output less than 0.1 mL/kg/hr) for 12 hours [ ]XV. Significant uremic complications as indicated by ANY ONE of the following(58)(59)(60): [ ]a) Outpatient therapy is ineffective or not feasible for ANY ONE of the following: [ ]i) Severe heart failure [ ]ii) Severehypertension [ ]iii) Pleural effusion [ ]iv) Pericarditis or pericardial effusion [ ]b) Cardiac arrhythmias of immediate concern [ ]c) Intractable nausea or vomiting [ ]d) Recurrent seizures [ ]e) Encephalopathy [ ]f) Bleeding abnormalities (eg, platelet dysfunction) with active (eg, gastrointestinal) bleeding [ ]g) Dialysis indicated before long-term access or ambulatory arrangements can be made [ ]h) Significant metabolic or electrolyte abnormalities (eg, severe acidosis or hyperkalemia) [ ]XVI. High fever or other high-risk infection situation as indicated by ANY ONE of the following(61)(62)(63)(64): [ ]a) Outpatient and observation care antimicrobial treatment unavailable, not effective, or not appropriate [ ]b) Documented bacteremia [ ]c) Temperature greater than 40.5 degrees C (104.9 degrees F) ( oral) [ ]d) Temperature greater than 39.5 degrees C (103.1 degrees F) ( oral) or less than 36 degrees C (96.8 degrees F) (rectal) that does not respond to e treatment and observation care [ ] XVII. Temperature less than 95 degrees F (35 degrees C)(rectal)(65) [ ] XVIII. Severe nutritional abnormalities as indicated by ALL of the following (66)(67): [ ]a) Inability to tolerate or establish sufficient oral or other enteral nutrition in outpatient setting [ ]b) Parenteral nutrition regimen need that must be implemented on inpatient basis [ ] XIX. Severe electrolyte abnormalities indicated by ALL of the following(68) (69)(70): [ ]a) Electrolytes and associated findings are not as expected for patient baseline or acceptable treatment effects. [ ]b) Severe abnormalities indicated by ANY ONE of the following: [ ]i) Sodium less than 130 mEq/L (mmol/L) (new) [ ]ii)Sodium less than 135 mEq/L (mmol/L) with ANY ONE of the following: [ ]1) Uncorrectable (to near normal or chronic baseline) after trial of outpatient and emergency treatment [ ]2) Altered mental status [ ]3) Seizures [ ]4) Severe medical etiology requiring inpatient management (eg, heart failure, hypovolemia) [ ]iii) Sodium greater than 155 mEq/L (mmol/L) [ ]iv) Sodium greater than 150 mEq/L (mmol/L) with ANY ONE of the following: [ ]1) Uncorrectable (to near normal or chronic baseline) with outpatient and emergency treatment [ ]2) Altered mental status [ ]3) Seizures [ ]4) Severe medical etiology (eg, hypovolemia, diabetes insipidus) [ ]v) Potassium less than 2.5 mEq/L (mmol/L) despite outpatient and emergency treatment [ ]vi) Potassium less than 3 mEq/L (mmol/L) with ANY ONE of the following: [ ]1) Weakness [ ]2) Cardiac abnormality (eg, arrhythmia, conduction disturbance) [ ]3) Cardiac ischemia [ ]4) Ileus [ ]5) Ongoing medical cause requiring inpatient management (eg, acute renal wasting or SIADH) [ ]6) Other severe symptoms [ ]vii) Potassium greater than 6.5 mEq/L (mmol/L) [ ]viii) Potassium greater than 5 mEq/L (mmol/L) with ANY ONE of the following: [ ]1) Uncorrectable (to near normal or chronic baseline) with outpatient and emergency treatment [ ]2) Severe ECG findings [F] [ ]3) Acute worsening of renal failure (creatinine greater than 2.5 mg/dL (221 micromoles/L) or significant elevation for age and size) [ ]4) Severe weakness [ ]5) Severe medical etiology (eg, hemolysis, infection, drug overdose) [ ]ix) Calcium less than 7 mg/dL (1.75 mmol/L) despite outpatient and emergency treatment (72) [ ]x) Calcium less than 8 mg/dL (2 mmol/L) with significant symptoms or findings; examples include(72): [ ]1) Altered mental status [ ]2) Muscle spasms [ ]3) Seizures [ ]4) Breathing difficulty [ ]5) Cardiac abnormality (eg, arrhythmia or conduction disturbance) [ ]xi) Calcium greater than 14 mg/dL (3.5 mmol/L)(72) [ ]xii) Calcium greater than 12 mg/dL (3 mmol/L) with ANY ONE of the following(72): [ ]1) Uncorrectable (to near normal or chronic baseline) with outpatient and emergency treatment [ ]2) Significant dehydration or hypovolemia as indicated by ALL of the following(70)(73)(74): [ ]A. Not resolved with initial treatments [ ]B. Clinically significant dehydration as indicated by ANY ONE of the following: [ ]a. Vomiting refractory to outpatient treatment (ie, precluding oral rehydration) [ ]b. Inability to drink [ ]c. Hypernatremia or other electrolyte abnormality unable to be corrected with outpatient and emergency treatment [ ]d. Failure to remain hydrated with outpatient therapy [ ]e. Reduced urine output [ ]f. Hypotension [ ]g. Serious cause for dehydration requiring acute hospitalization (eg, bowel obstruction, increased intracranial pressure, infectious cause) [ ]h. Child with ANY ONE of the following(75): [ ]1) Severe abdominal tenderness [ ]2) Adequate care not available at home [ ]3) Severe dehydration ( greater than 9% loss of body weight) [ ]4) Significant symptoms or findings; examples include: [ ]A. Altered mental status [ ]B. Cardiac abnormality (eg, arrhythmia, conduction disturbance) [ ]C. Malignant etiology requiring inpatient treatment [ ]xiii) Phosphorus less than 1 mg/dL (0.32 mmol/L) [ ]xiv) Phosphorus less than 1.5 mg/dL (0.48 mmol/L) with ANY ONE of the following: [ ]1) Patient unresponsive to outpatient and emergency treatment [ ]2) Significant symptoms or findings; examples include: [ ]A. Weakness [ ]B. Altered mental status [ ]C. Breathing difficulty [ ]D. Seizures [ ]E. Rhabdomyolysis [ ]xv) Phosphorus greater than 10 mg/dL (3.2 mmol/L) [ ]xvi) Phosphorus greater than 4.5 mg/dL (1.45 mmol/L) (new) with ANY ONE of the following: [ ]1) Severe medical etiology (eg, crush injury, acute renal failure) [ ]2) Associated hypocalcemia with significant findings; examples include: [ ]A. Neurologic symptoms [ ]B. Altered mental status [ ]C. Muscle spasms [ ]D. Seizures [ ]E. Breathing difficulty [ ]F. Cardiac abnormality (eg, arrhythmia, conduction disturbance) [ ]xvii) Magnesium less than 1 mg/dL (0.41 mmol/L) [ ]xviii) Magnesium less than 1.5 mg/dL (0.62 mmol/L) with ANY ONE of the following: [ ]1) Patient unresponsive to outpatient and emergency treatment [ ]2) Associated hypocalcemia with significant findings; examples include: [ ]A. Altered mental status [ ]B. Muscle spasms [ ]C. Seizures [ ]D. Breathing difficulty [ ]E. Cardiac abnormality (eg, arrhythmia , conduction disturbance) [ ]3) Associated hypokalemia (potassium less than 3 mEq/L (mmol/L)) with risk of arrhythmia [ ]xix) Magnesium greater than 4 mEq/L (2 mmol/L) [ ]xx) Magnesium greater than 2.5 mEq/L (1.25 mmol/L) with significant symptoms or findings; examples include: [ ]1) Weakness [ ]2) Altered mental status [ ]3) Cardiac abnormality (eg, arrhythmia, conduction disturbance) [ ]4) Breathing difficulty [ ]5) Severe medical etiology (eg, renal failure, hypovolemia) [ ]xxi) Uric acid greater than 20 mg/dL (1190 micromoles/L)(76) [ ]xxii) Uric acid greater than 8 mg/dL (476 micromoles/L) with significant symptoms or findings of tumor lysis syndrome; examples include(76): [ ]1) Creatinine greater than 1.5 times upper limit of normal [ ]2) Cardiac abnormality (eg, arrhythmia, conduction disturbance) [ ]3) Seizure [ ]XX. Acute blood loss causing significant abnormality as indicated by ANY ONE of the following(77)(78): [ ]a) Hemoglobin less than 10 g/dL (100 g/L) (not baseline) [ ]b) Hematocrit less than 30% (0.30) (not baseline) [ ]c) Repeat hematocrit decreased more than 2% (0.02) [ ]d) Uncontrolled bleeding [ ]XXI. Severe anemia indicated by ANY ONE of the following(78)(79): [ ]a) Altered mental status [ ]b) Chest pain [ ]c) Exertional dyspnea [ ]d) Syncope [ ]e) Other findings suggesting inadequate perfusion [ ]f) Treatment with transfusion or volume replacement is ineffective at resolving ANY ONE of the following [G]: [ ]i) Tachycardia for age [ ]ii) Orthostatic vital sign changes as indicated by ANY ONE of the following(80): [ ]1) Fall in SBP of 20 mm Hg or more 1 to 3 minutes after patient sits or stands from recumbent position [ ]2) Fall in DBP of 10 mm Hg or more 1 to 3 minutes after patient sits or stands from recumbent position [ ]XXII. High-risk low platelet count as indicated by ANY ONE of the following( 81)(82): [ ]a) Severe or life-threatening bleeding (eg, intracranial, major gastrointestinal, or extensive mucosal bleeding), with any reduced platelet count [ ]b) Platelet count less than 20,000/mm3 (20 x109/L) with any active bleeding [ ]c) Platelet count less than 10,000/mm3 (10 x109/L) with minor purpura or petechiae [ ]d) Platelet count less than 5000/mm3 (5 x109/L) [ ]e) Low platelet count with hemolytic anemia [ ]XXIII. Disseminated intravascular coagulation(77)(83) [ ]XXIV. Severe adverse drug or systemic toxin reaction requiring inpatient treatment; examples include(84)(85): [ ]a) Serotonin syndrome(86) [ ]b) Neuroleptic malignant syndrome(86) [ ]c) Cholinergic syndrome with severe symptoms (eg, bronchorrhea, weakness, mental status changes, seizures) [ ]d) Sympathetic syndrome with severe symptoms (eg, seizures, mental status changes, cardiac dysrhythmias) [ ]e) Anticholinergic syndrome [ ]XXV. Severe pain requiring acute inpatient management as indicated by ALL of the following (87)(88)(89): [ ]a) Continuous or frequent (eg, every 2 to 4 hours) parenteral analgesics required [H] [ ]b) Rapid improvement expected from treatment or acute intervention (eg, surgery, anesthesia procedure) [ ]XXVI.Severe behavioral health issues judged unmanageable at a lower level of care (eg, residential) in a patient who is ANY ONE of the following(91) [ ]a) Acutely suicidal [ ]b) A danger to self (eg, self-mutilating or suicidal behavior) [ ]c) A danger to others (eg, assaultive or homicidal behavior) [ ]d) Incapacitated because of grave disability (eg, inability to provide for self at lower level of care) (92) [ ]XXVII. Inpatient monitoring needed; examples include(1)(3)(87)(93)(94)(95)(96 ): [ ]a) Vital signs, neurologic signs, or vascular checks more frequently than every 4 hours [ ]b) Cardiac or respiratory monitoring beyond the scope (eg, over 24 hours) of observation care [ ]c) Pulmonary artery catheter monitoring [ ]d) Suspected compartment syndrome(97) (98) [ ]e) Cerebral bleeding, hydrocephalus, or vasospasm monitoring [ ]f) Increased intracranial pressure or cerebral edema monitoring [ ]g) monitoring [ ]XXVIII. Treatment requiring inpatient care; examples include: [ ]a) IV fluid to replace significant ongoing losses (greater than 3 L/m2 per day)(53) [ ]b) High concentration oxygen (greater than 40%)(33)(99)(100) [ ]c) Frequent respiratory therapy (more frequently than every 4 hours) to maintain airflow rates greater than 60% of baseline(33)(99)(100) [ ]d) Epidural analgesia(87) [ ]e) IV anticoagulation, vasoactive, or antiarrhythmic medication(19 )(23) [ ]f) Acute thrombolytics (generally require 24 hours of observation )(101)(102) [ ]XXIX. Emergency procedures needed; examples include: [ ]a) Emergency inpatient surgery [ ]b) Temporary pacemaker placement(103) [ ]c) Chest tube placement with active evacuation (eg, suction, drainage)(104) [ ]d) Emergent cardioversion(105) [ ]e) Emergent cardiac or vascular procedures (eg, cardiac catheterization, angioplasty) (17)(18) [ ]f) Emergent dialysis access placement and institution(10)(106) [ ]g) Emergent pericardiocentesis(107) [ ]h) Emergent plasmapheresis or leukapheresis(83) [ ]i) Emergent tracheostomy The original [employer] content created by [employer] has been revised. The portions of the content which have been revised are identified through the use of italic text or in bold, and [facility] has neither reviewed nor approved the modified material. All other unmodified content is copyright [employer]. Please see references footnoted in the original [employer] [facility] edition 2016 Admission Criteria Met?: Yes SUNNY ROMO Mar 23, 2016 02:15
[2016-03-23 02:25] VITALS: BP 137/83
[2016-03-23 05:51] LABS: ANISOCYTOSIS MOD; HYPOCHROMIA MOD; MICROCYTOSIS MOD; OVALOCYTES PRESENT; PLT ESTIMATE ADEQUATE (ADEQUATE); POIKILOCYTOSIS PRESENT
--- NOTE | 2016-03-23 06:59 | EKG ---
[facility] [address] [place] [address] Test Date: 2016-03-23 Test Time: 00:15:33 Pat Name: RINKU MCCANN Department: Room: 200 1 Gender: F Refractory Specialist: : [id number] Requested By: LORI XIE Order Number: [id number] Reading MD: Shimon Mullins Measurements Intervals [place] Rate: 73 P: 42 ME: 182 QRS: -18 QRSD: 92 T: -13 QT: 414 QTc: 460 Interpretive Statements SINUS RHYTHM LEFTWARD AXIS QRS(T) CONTOUR ABNORMALITY CONSISTENT WITH ANTEROLATERAL INFARCT AGE UNDETERMINED CONSISTENT WITH INFERIOR INFARCT AGE UNDETERMINED T ABNORMALITY IN ANTEROSEPTAL LEADS ABNORMAL ECG RI6.01 Electronically Signed On 04-09-2016 14:25:57 [employer] by Shimon Mullins
[2016-03-23 07:00] VITALS: BP 128/86
[2016-03-23] MEDS ORDERED: CYCLOBENZAPRINE 10 MG TABLET. PO PRN (09:00)
[2016-03-23] MEDS ORDERED: ACETAMINOPHEN 500 MG TABLET PO PRN (09:00)
--- NOTE | 2016-03-23 09:05 | PDOC ---
Provider Note Provider Note [id number] ALEK HANLEY MD Mar 23, 2016 09:05
[2016-03-23] MEDS: IPRATRPIUM/ALBUTEROL 0.5/2.5MG 3 ML NEBU. NEB SCH ×4 (09:08→19:17)
--- NOTE | 2016-03-23 09:12 | RAD ---
INDICATION: SHORT OF BREATH COMPARISON: 03/18/2016 FINDINGS: Single view of chest obtained. Tracheostomy tube is identified. Enlarged cardiac silhouette with calcific atherosclerosis. Mild coarsening of the lung markings again seen. IMPRESSION: Repeat demonstration of mild interstitial opacities throughout the bilateral lungs. Could be a chronic finding from chronic lung disease or from mild interstitial edema or interstitial infiltrate. Cardiac silhouette again enlarged with calcific atherosclerosis.
[2016-03-23 10:49] VITALS: BP 134/87
[2016-03-23] MEDS: ALPRAZOLAM 0.25 MG TABLET PO SCH ×3 (11:32→20:50)
[2016-03-23] MEDS: PAROXETINE ER 12.5 MG TAB.ER.24H. PO SCH (11:32)
[2016-03-23] MEDS: GABAPENTIN 300 MG CAPSULE. PO SCH ×2 (11:33→20:49)
[2016-03-23] MEDS: LISINOPRIL 10 MG TABLET PO SCH (11:33)
[2016-03-23] MEDS: OXYCODONE/APAP 7.5/325 TABLET. PO PRN ×2 (11:34→22:57)
[2016-03-23] MEDS: SPIRONOLACTONE 25 MG TABLET PO SCH (11:34)
[2016-03-23] MEDS: FUROSEMIDE 40 MG TABLET PO SCH (11:35)
[2016-03-23] MEDS: LEVOTHYROXINE 175 MCG TABLET PO SCH (11:35)
[2016-03-23] MEDS: PANTOPRAZOLE 40 MG TABLET. PO SCH ×2 (11:35→17:10)
[2016-03-23] MEDS: ASPIRIN 81 MG TAB.CHEW PO SCH (11:35)
--- NOTE | 2016-03-23 13:15 | HP ---
ADMIT DATE: 03/23/2016 CHIEF COMPLAINT: Cough and fatigue and shortness of breath. HISTORY OF PRESENT ILLNESS: A 60-year-old ____ tracheostomy, COPD. The patient just left the hospital two days ago after chest wall injury. The CT scan showed no fractures, but there was bilateral lower lobe infiltrates seen. Despite outpatient antibiotics, she came back in with increasing cough, shortness of breath and fatigue. PAST MEDICAL HISTORY: Well documented in the old record. ALLERGIES: PENICILLIN. SOCIAL HISTORY: Heavy smoker, ____, lives at home alone. Nondrinker. FAMILY HISTORY: Unremarkable. REVIEW OF SYSTEMS: No other problems. OBJECTIVE: ENT: All within normal limits. NECK: Tracheostomy site is good. No other masses are seen. LUNGS: Decreased breath sounds with bilateral coarse rhonchi and wheezing. CARDIOVASCULAR: Regular rate. No irregular beat or murmur. ABDOMEN: Benign, soft and nontender. EXTREMITIES: Decreased pedal pulses, no edema. No joint or skin lesions. NEUROLOGIC: Physiologic. ASSESSMENT: 1. Bilateral lower lobe infiltrates per CT scan. 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 2. Moderate to severe cardiomyopathy, stable. 3. Chronic tobacco abuse. PLAN: She wishes to be full code. Continue Levaquin and adjust meds accordingly. Respiratory therapy and respiratory consultation as well. ALEK HANLEY MD DR: LYNETTE/annie JOB#: [id number] / [id number]
[2016-03-23 15:59] VITALS: BP 106/68
--- NOTE | 2016-03-23 16:58 | PDOC ---
PULMONARY PROGRESS NOTES Vitals Vital Signs Date Time Temp Pulse Resp B/P Pulse Ox O2 Delivery O2 Flow Rate FiO2 03/23/16 16:03 90 Tracheal Collar 9.0 03/23/16 12:35 17 03/23/16 11:33 81 134/87 03/23/16 10:49 98.0 98.0 General: Alert, Oriented X4, No acute distress HEENT: Other Lungs: Other Cardiovascular: S1, S2, Other Abdomen: Soft, Non-tender Extremities: Other Labs Laboratory Tests Test 03/23/16 00:30 03/23/16 01:18 White Blood Count 4.5x10^3/uL (4.0-11.0) Red Blood Count 5.51x10^6/uL (3.50-5.40) Hemoglobin 11.9g/dL (12.0-15.5) Hematocrit 39.3% (36.0-47.0) Mean Corpuscular Volume 71fL (79-100) Mean Corpuscular Hemoglobin 22pg (25-35) Mean Corpuscular Hemoglobin Concent 30g/dL (31-37) Red Cell Distribution Width 20.9% (11.5-14.5) Platelet Count 263x10^3/uL (140-400) Neutrophils (%) (Auto) 53% (31-73) Lymphocytes (%) (Auto) 24% (24-48) Monocytes (%) (Auto) 8% (0-9) Eosinophils (%) (Auto) 13% (0-3) Basophils (%) (Auto) 2% (0-3) Neutrophils # (Auto) 2.4x10^3uL (1.8-7.7) Lymphocytes # (Auto) 1.1x10^3/uL (1.0-4.8) Monocytes # (Auto) 0.4x10^3/uL (0.0-1.1) Eosinophils # (Auto) 0.6x10^3/uL (0.0-0.7) Basophils # (Auto) 0.1x10^3/uL (0.0-0.2) Platelet Estimate Adequate (ADEQUATE) Giant Platelets Present Hypochromasia Mod Poikilocytosis Present Anisocytosis Mod Microcytosis Mod Ovalocytes Present Influenza Type A Antigen Negative (NEGATIVE) Influenza Type B Antigen Negative (NEGATIVE) Sodium Level 139mmol/L (136-145) Potassium Level 3.8mmol/L (3.5-5.1) Chloride Level 105mmol/L (98-107) Carbon Dioxide Level 25mmol/L (21-32) Anion Gap 9 (6-14) Blood Urea Nitrogen 17mg/dL (7-20) Creatinine 1.0mg/dL (0.6-1.0) Estimated GFR (Cockcroft-Gault) 56.2 Glucose Level 89mg/dL (70-99) Calcium Level 9.2mg/dL (8.5-10.1) Troponin I Quantitative 0.026ng/mL (0.000-0.055) Laboratory Tests Test 03/23/16 00:30 03/23/16 01:18 White Blood Count 4.5x10^3/uL (4.0-11.0) Red Blood Count 5.51x10^6/uL (3.50-5.40) Hemoglobin 11.9g/dL (12.0-15.5) Hematocrit 39.3% (36.0-47.0) Mean Corpuscular Volume 71fL (79-100) Mean Corpuscular Hemoglobin 22pg (25-35) Mean Corpuscular Hemoglobin Concent 30g/dL (31-37) Red Cell Distribution Width 20.9% (11.5-14.5) Platelet Count 263x10^3/uL (140-400) Neutrophils (%) (Auto) 53% (31-73) Lymphocytes (%) (Auto) 24% (24-48) Monocytes (%) (Auto) 8% (0-9) Eosinophils (%) (Auto) 13% (0-3) Basophils (%) (Auto) 2% (0-3) Neutrophils # (Auto) 2.4x10^3uL (1.8-7.7) Lymphocytes # (Auto) 1.1x10^3/uL (1.0-4.8) Monocytes # (Auto) 0.4x10^3/uL (0.0-1.1) Eosinophils # (Auto) 0.6x10^3/uL (0.0-0.7) Basophils # (Auto) 0.1x10^3/uL (0.0-0.2) Platelet Estimate Adequate (ADEQUATE) Giant Platelets Present Hypochromasia Mod Poikilocytosis Present Anisocytosis Mod Microcytosis Mod Ovalocytes Present Influenza Type A Antigen Negative (NEGATIVE) Influenza Type B Antigen Negative (NEGATIVE) Sodium Level 139mmol/L (136-145) Potassium Level 3.8mmol/L (3.5-5.1) Chloride Level 105mmol/L (98-107) Carbon Dioxide Level 25mmol/L (21-32) Anion Gap 9 (6-14) Blood Urea Nitrogen 17mg/dL (7-20) Creatinine 1.0mg/dL (0.6-1.0) Estimated GFR (Cockcroft-Gault) 56.2 Glucose Level 89mg/dL (70-99) Calcium Level 9.2mg/dL (8.5-10.1) Troponin I Quantitative 0.026ng/mL (0.000-0.055) Medications Active Scripts Medications Dose Route/Sig Days Date Category Dose Instructions Lidoderm (Lidocaine) 700 Mg Adh..patch 1 Patch TP DAILY 03/21/16 Rx Furosemide 80 Mg Tablet 0.5 Tab PO DAILY 60 03/21/16 Rx Potassium Chloride 20 Meq Tablet.er 10 Meq PO DAILY 30 03/21/16 Rx Alprazolam 0.25 Mg Tablet 0.25 Mg PO TID 03/02/16 Reported Cyclobenzaprine Hcl 10 Mg Tablet 10 Mg PO BID PRN 03/02/16 Reported Lisinopril 10 Mg Tablet 10 Mg PO DAILY 03/02/16 Reported Oxycodon-Acetaminophen 7.5-325 (Oxycodone Hcl/Acetaminophen) 1 Each Tablet 03/02/16 Reported Trazodone Hcl 100 Mg Tablet 100 Mg PO HS 03/02/16 Reported Amitriptyline Hcl 25 Mg Tablet 25 Mg PO HS 03/02/16 Reported Spironolactone 25 Mg Tablet 1 Tab PO DAILY 02/20/16 Rx Aspirin 81 Mg Tab.chew 1 Tab PO DAILY 01/27/16 Reported Acetaminophen 500 Mg Tablet 1 Tab PO PRN Q6HRS PRN 09/15/15 Reported Breo Ellipta 100-25 Mcg Inh (Fluticasone/Vilanterol) 1 Each Aer.pow.ba 1 Puff IH DAILY 09/15/15 Reported Percocet 7.5-325 Mg Tablet (Oxycodone/Acetaminophen) 1 Each Tablet 1 Tab PO PRN TID PRN 09/15/15 Reported Baclofen 10 Mg Tablet 10 Mg PO QHS 07/13/15 Reported Levothyroxine Sodium 175 Mcg Tablet 1 Tab PO DAILY 03/03/15 Rx Paxil Cr (Paroxetine Hcl) 12.5 Mg Tab.er.24h 25 Mg PO DAILY 10/31/14 Rx Protonix (Pantoprazole Sodium) 40 Mg Tablet 40 Mg PO BIDAC 10/31/14 Rx Neurontin (Gabapentin) 300 Mg Capsule 300 Mg PO BID 10/31/14 Rx Vitamin D2 (Ergocalciferol (Vitamin D2)) 50,000 Unit Capsule 50,000 Unit PO FR 10/31/14 Rx [Buspirone Hcl] 5 MG Tablet 5 Mg PO TID 10/31/14 Rx Spiriva (Tiotropium [place]) 18 Mcg Cap.w.dev 2 Inh IH DAILY 10/31/14 Rx Indication: shortness of breath Next dose: 09/20/14 am Impression . FULL NOTE DICTATED A/C RESP FAILURE A/C HEART FAILURE DOUBT PNEUMONIA THANKS CHRYSTAL NORMAN MD Mar 23, 2016 16:58
[2016-03-23 19:15] VITALS: BP 103/65
[2016-03-23] MEDS: AMITRIPTYLINE HCL 25 MG TABLET PO SCH (20:49)
[2016-03-23] MEDS: BACLOFEN 10 MG TABLET PO SCH (20:49)
[2016-03-23] MEDS: traZODone 100 MG TABLET. PO SCH ×2 (20:50→20:53)
[2016-03-23 22:50] VITALS: BP 126/90
[2016-03-24] VITALS (8 sets, daily range): BP systolic 107–133; BP diastolic 68–86
[2016-03-24 04:36] LABS: BASO # 0.1 x10^3/uL (0.0-0.2); BASO % 1 % (0-3); EOS % 9 % (0-3); HEMATOCRIT 34.2 % (36.0-47.0); HEMOGLOBIN 10.5 g/dL (12.0-15.5); LYMPH # 1.2 x10^3/uL (1.0-4.8); LYMPH % 23 % (24-48); MEAN CORPUSCULAR HEMOGLOBIN 22 pg (25-35); MEAN CORPUSCULAR HGB CONC 31 g/dL (31-37); MEAN CORPUSCULAR VOLUME 71 fL (79-100); MONO % 7 % (0-9); NEUT % 60 % (31-73); PLATELET COUNT 230 x10^3/uL (140-400); RED BLOOD COUNT 4.84 x10^6/uL (3.50-5.40); RED CELL DISTRIBUTION WIDTH 20.5 % (11.5-14.5); WHITE BLOOD COUNT 5.2 x10^3/uL (4.0-11.0)
[2016-03-24 05:13] LABS: CALCIUM 8.5 mg/dL (8.5-10.1); CREATININE 1.1 mg/dL (0.6-1.0); GFR 50.3; POTASSIUM 3.6 mmol/L (3.5-5.1)
--- NOTE | 2016-03-24 05:44 | CONS ---
DATE OF CONSULTATION: 03/23/2016 ATTENDING PHYSICIAN: Dr. Prakash Blackburn. REASON FOR CONSULTATION: The patient seen in pulmonary consultation at the request of Dr. Blackburn for acute on chronic respiratory failure. HISTORY OF PRESENT ILLNESS: The patient is a 60-year-old that has been short of breath now for 2-3 days with some chest discomfort. Low grade fever. Cough mostly nonproductive. She has a chronic trach in place and wears a trach shield. She is not on CPAP or BiPAP. Denies any nausea, vomiting, diarrhea. No chills. Chest x-ray was obtained. There is minimal vascular congestion. I was asked to see her in consultation for further evaluation and management now. PAST MEDICAL HISTORY: 1. Chronic respiratory failure, normally on 10 liters of oxygen supplementation at home through a tracheostomy tube and trach shield. 2. Severe cardiomyopathy, ejection fraction 38%. 3. Diastolic dysfunction. 4. Obesity. 5. COPD, moderate to severe. PAST SURGICAL HISTORY: Status post tracheotomy. ALLERGIES: PENICILLIN and BARIUM SULFATE. REVIEW OF SYSTEMS: As indicated above, otherwise, a 10-point system was reviewed and negative. MEDICATIONS: List was reviewed. Please see the MRAD. SOCIAL HISTORY: Longstanding history of tobacco, quit for now. PHYSICAL EXAMINATION: GENERAL: The patient was in no respiratory distress, able to complete full sentences. VITAL SIGNS: Noted. HEENT: Eyes, the sclerae were nonicteric. NECK: Jugular venous distention was not elevated. No lymphadenopathy. CHEST: Full expansion. LUNGS: Adequate airway flow with crackles in the bases. CARDIOVASCULAR: Regular rate and rhythm with S1, S2, no S3. ABDOMEN: Soft, nontender, nondistended. EXTREMITIES: No clubbing, cyanosis. Minimal edema. NEUROLOGIC: The patient was awake, alert, following command. She was sitting up in the chair. A detailed neuro exam was not performed. IMPRESSION: 1. Acute on chronic respiratory failure. 2. Acute on chronic systolic heart failure. 3. Abnormal x-ray compatible with heart failure. 4. Chronic obstructive pulmonary disease. 5. Obesity. PLAN: 1. Recommend diuresis. 2. No need for steroids or antibiotics. 3. Continue oxygen supplementation. I do appreciate the privilege in sharing this patient's care. CHRYSTAL NORMAN MD DR: JENNIFER/annie JOB#: [id number] / [id number]
--- NOTE | 2016-03-24 06:22 | PDOC ---
PULMONARY PROGRESS NOTES Subjective Pt less soa at times sat drop at times Vitals Vital Signs Date Time Temp Pulse Resp B/P Pulse Ox O2 Delivery O2 Flow Rate FiO2 03/24/16 03:00 97.9 68 22 107/69 89 Tracheal Collar 10.0 97.9 ROS: No Nausea, No Chest Pain, No Abdominal Pain General: Alert, No acute distress HEENT: Other Lungs: Other Cardiovascular: S1, S2, Other Abdomen: Soft, Non-tender Neuro Exam: Alert Extremities: No Edema, Other Labs Laboratory Tests Test 03/23/16 00:30 03/23/16 01:18 03/24/16 03:00 White Blood Count 4.5x10^3/uL (4.0-11.0) 5.2x10^3/uL (4.0-11.0) Red Blood Count 5.51x10^6/uL (3.50-5.40) 4.84x10^6/uL (3.50-5.40) Hemoglobin 11.9g/dL (12.0-15.5) 10.5g/dL (12.0-15.5) Hematocrit 39.3% (36.0-47.0) 34.2% (36.0-47.0) Mean Corpuscular Volume 71fL (79-100) 71fL (79-100) Mean Corpuscular Hemoglobin 22pg (25-35) 22pg (25-35) Mean Corpuscular Hemoglobin Concent 30g/dL (31-37) 31g/dL (31-37) Red Cell Distribution Width 20.9% (11.5-14.5) 20.5% (11.5-14.5) Platelet Count 263x10^3/uL (140-400) 230x10^3/uL (140-400) Neutrophils (%) (Auto) 53% (31-73) 60% (31-73) Lymphocytes (%) (Auto) 24% (24-48) 23% (24-48) Monocytes (%) (Auto) 8% (0-9) 7% (0-9) Eosinophils (%) (Auto) 13% (0-3) 9% (0-3) Basophils (%) (Auto) 2% (0-3) 1% (0-3) Neutrophils # (Auto) 2.4x10^3uL (1.8-7.7) 3.1x10^3uL (1.8-7.7) Lymphocytes # (Auto) 1.1x10^3/uL (1.0-4.8) 1.2x10^3/uL (1.0-4.8) Monocytes # (Auto) 0.4x10^3/uL (0.0-1.1) 0.3x10^3/uL (0.0-1.1) Eosinophils # (Auto) 0.6x10^3/uL (0.0-0.7) 0.4x10^3/uL (0.0-0.7) Basophils # (Auto) 0.1x10^3/uL (0.0-0.2) 0.1x10^3/uL (0.0-0.2) Platelet Estimate Adequate (ADEQUATE) Giant Platelets Present Hypochromasia Mod Poikilocytosis Present Anisocytosis Mod Microcytosis Mod Ovalocytes Present Influenza Type A Antigen Negative (NEGATIVE) Influenza Type B Antigen Negative (NEGATIVE) Sodium Level 139mmol/L (136-145) 142mmol/L (136-145) Potassium Level 3.8mmol/L (3.5-5.1) 3.6mmol/L (3.5-5.1) Chloride Level 105mmol/L (98-107) 105mmol/L (98-107) Carbon Dioxide Level 25mmol/L (21-32) 26mmol/L (21-32) Anion Gap 9 (6-14) 11 (6-14) Blood Urea Nitrogen 17mg/dL (7-20) 15mg/dL (7-20) Creatinine 1.0mg/dL (0.6-1.0) 1.1mg/dL (0.6-1.0) Estimated GFR (Cockcroft-Gault) 56.2 50.3 Glucose Level 89mg/dL (70-99) 77mg/dL (70-99) Calcium Level 9.2mg/dL (8.5-10.1) 8.5mg/dL (8.5-10.1) Troponin I Quantitative 0.026ng/mL (0.000-0.055) Laboratory Tests Test 03/24/16 03:00 White Blood Count 5.2x10^3/uL (4.0-11.0) Red Blood Count 4.84x10^6/uL (3.50-5.40) Hemoglobin 10.5g/dL (12.0-15.5) Hematocrit 34.2% (36.0-47.0) Mean Corpuscular Volume 71fL (79-100) Mean Corpuscular Hemoglobin 22pg (25-35) Mean Corpuscular Hemoglobin Concent 31g/dL (31-37) Red Cell Distribution Width 20.5% (11.5-14.5) Platelet Count 230x10^3/uL (140-400) Neutrophils (%) (Auto) 60% (31-73) Lymphocytes (%) (Auto) 23% (24-48) Monocytes (%) (Auto) 7% (0-9) Eosinophils (%) (Auto) 9% (0-3) Basophils (%) (Auto) 1% (0-3) Neutrophils # (Auto) 3.1x10^3uL (1.8-7.7) Lymphocytes # (Auto) 1.2x10^3/uL (1.0-4.8) Monocytes # (Auto) 0.3x10^3/uL (0.0-1.1) Eosinophils # (Auto) 0.4x10^3/uL (0.0-0.7) Basophils # (Auto) 0.1x10^3/uL (0.0-0.2) Sodium Level 142mmol/L (136-145) Potassium Level 3.6mmol/L (3.5-5.1) Chloride Level 105mmol/L (98-107) Carbon Dioxide Level 26mmol/L (21-32) Anion Gap 11 (6-14) Blood Urea Nitrogen 15mg/dL (7-20) Creatinine 1.1mg/dL (0.6-1.0) Estimated GFR (Cockcroft-Gault) 50.3 Glucose Level 77mg/dL (70-99) Calcium Level 8.5mg/dL (8.5-10.1) Medications Active Scripts Medications Dose Route/Sig Days Date Category Dose Instructions Lidoderm (Lidocaine) 700 Mg Adh..patch 1 Patch TP DAILY 03/21/16 Rx Furosemide 80 Mg Tablet 0.5 Tab PO DAILY 60 2/11/17 Rx Potassium Chloride 20 Meq Tablet.er 10 Meq PO DAILY 30 03/21/16 Rx Alprazolam 0.25 Mg Tablet 0.25 Mg PO TID 03/02/16 Reported Cyclobenzaprine Hcl 10 Mg Tablet 10 Mg PO BID PRN 03/02/16 Reported Lisinopril 10 Mg Tablet 10 Mg PO DAILY 03/02/16 Reported Oxycodon-Acetaminophen 7.5-325 (Oxycodone Hcl/Acetaminophen) 1 Each Tablet 03/02/16 Reported Trazodone Hcl 100 Mg Tablet 100 Mg PO HS 03/02/16 Reported Amitriptyline Hcl 25 Mg Tablet 25 Mg PO HS 03/02/16 Reported Spironolactone 25 Mg Tablet 1 Tab PO DAILY 02/20/16 Rx Aspirin 81 Mg Tab.chew 1 Tab PO DAILY 01/27/16 Reported Acetaminophen 500 Mg Tablet 1 Tab PO PRN Q6HRS PRN 09/15/15 Reported Breo Ellipta 100-25 Mcg Inh (Fluticasone/Vilanterol) 1 Each Aer.pow.ba 1 Puff IH DAILY 09/15/15 Reported Percocet 7.5-325 Mg Tablet (Oxycodone/Acetaminophen) 1 Each Tablet 1 Tab PO PRN TID PRN 09/15/15 Reported Baclofen 10 Mg Tablet 10 Mg PO QHS 07/13/15 Reported Levothyroxine Sodium 175 Mcg Tablet 1 Tab PO DAILY 03/03/15 Rx Paxil Cr (Paroxetine Hcl) 12.5 Mg Tab.er.24h 25 Mg PO DAILY 10/31/14 Rx Protonix (Pantoprazole Sodium) 40 Mg Tablet 40 Mg PO BIDAC 10/31/14 Rx Neurontin (Gabapentin) 300 Mg Capsule 300 Mg PO BID 10/31/14 Rx Vitamin D2 (Ergocalciferol (Vitamin D2)) 50,000 Unit Capsule 50,000 Unit PO FR 10/31/14 Rx [Buspirone Hcl] 5 MG Tablet 5 Mg PO TID 10/31/14 Rx Spiriva (Tiotropium [place]) 18 Mcg Cap.w.dev 2 Inh IH DAILY 10/31/14 Rx Indication: shortness of breath Next dose: 09/20/14 am Impression . 1. Acute on chronic respiratory failure. 2. Acute on chronic systolic heart failure. 3. Abnormal x-ray compatible with heart failure. 4. Chronic obstructive pulmonary disease. 5. Obesity Plan . continue to diurese prn suctioning 02 CHRYSTAL NORMAN MD Mar 24, 2016 06:22
[2016-03-24] MEDS: PAROXETINE ER 12.5 MG TAB.ER.24H. PO SCH (08:41)
[2016-03-24] MEDS: GABAPENTIN 300 MG CAPSULE. PO SCH ×2 (08:42→21:45)
[2016-03-24] MEDS: FUROSEMIDE 40 MG TABLET PO SCH (08:42)
[2016-03-24] MEDS: SPIRONOLACTONE 25 MG TABLET PO SCH (08:42)
[2016-03-24] MEDS: ASPIRIN 81 MG TAB.CHEW PO SCH (08:42)
[2016-03-24] MEDS: OXYCODONE/APAP 7.5/325 TABLET. PO PRN ×3 (08:45→21:43)
[2016-03-24] MEDS: LISINOPRIL 10 MG TABLET PO SCH (08:46)
[2016-03-24] MEDS: LEVOTHYROXINE 175 MCG TABLET PO SCH (08:46)
[2016-03-24] MEDS: PANTOPRAZOLE 40 MG TABLET. PO SCH ×2 (08:47→17:20)
[2016-03-24] MEDS: ALPRAZOLAM 0.25 MG TABLET PO SCH ×3 (08:47→21:40)
--- NOTE | 2016-03-24 08:58 | PDOC ---
Provider Note Provider Note vss, no new findings, cont same meds, bp ok on lisinopril for cv use ALEK HANLEY MD Mar 24, 2016 08:58
[2016-03-24] MEDS: IPRATRPIUM/ALBUTEROL 0.5/2.5MG 3 ML NEBU. NEB SCH ×3 (12:09→18:32)
[2016-03-24] MEDS: BACLOFEN 10 MG TABLET PO SCH (21:40)
[2016-03-24] MEDS: AMITRIPTYLINE HCL 25 MG TABLET PO SCH (21:40)
[2016-03-24] MEDS: traZODone 100 MG TABLET. PO SCH (21:41)
[2016-03-25 03:19] VITALS: BP 140/90
[2016-03-25] MEDS: LEVOTHYROXINE 175 MCG TABLET PO SCH (05:21)
[2016-03-25 07:00] VITALS: BP 126/90
[2016-03-25] MEDS: IPRATRPIUM/ALBUTEROL 0.5/2.5MG 3 ML NEBU. NEB SCH ×4 (07:16→19:03)
[2016-03-25] MEDS: PANTOPRAZOLE 40 MG TABLET. PO SCH ×2 (07:46→16:48)
--- NOTE | 2016-03-25 08:27 | PDOC ---
Provider Note Provider Note vss, no new sxs- feels her resp status is better- no edema- is supposed to be on lasix 80/ day from last admit re 38% ef, will inc lasix, check K+, last 3.6- likely dc in am ALEK HANLEY MD Mar 25, 2016 08:27
[2016-03-25] MEDS: OXYCODONE/APAP 7.5/325 TABLET. PO PRN ×3 (09:59→21:15)
[2016-03-25] MEDS: ALPRAZOLAM 0.25 MG TABLET PO SCH ×4 (09:59→21:15)
[2016-03-25] MEDS: SPIRONOLACTONE 25 MG TABLET PO SCH (10:00)
[2016-03-25] MEDS: ASPIRIN 81 MG TAB.CHEW PO SCH (10:00)
[2016-03-25] MEDS: PAROXETINE ER 12.5 MG TAB.ER.24H. PO SCH (10:00)
[2016-03-25] MEDS: LISINOPRIL 10 MG TABLET PO SCH (10:00)
[2016-03-25] MEDS: GABAPENTIN 300 MG CAPSULE. PO SCH ×2 (10:00→21:14)
[2016-03-25] MEDS: FUROSEMIDE 80 MG TABLET PO SCH (10:00)
[2016-03-25 11:00] VITALS: BP 107/87
--- NOTE | 2016-03-25 11:43 | PDOC ---
PULMONARY PROGRESS NOTES Subjective pt better Vitals Vital Signs Date Time Temp Pulse Resp B/P Pulse Ox O2 Delivery O2 Flow Rate FiO2 03/25/16 11:00 98.1 79 20 107/87 94 trach 13.0 98.1 ROS: No Nausea, No Chest Pain, No Abdominal Pain General: Alert, No acute distress HEENT: Other Lungs: Other Cardiovascular: S1, S2, Other Abdomen: Soft, Non-tender Neuro Exam: Alert Extremities: No Edema, Other Labs Laboratory Tests Test 03/24/16 03:00 03/25/16 08:54 White Blood Count 5.2x10^3/uL (4.0-11.0) Red Blood Count 4.84x10^6/uL (3.50-5.40) Hemoglobin 10.5g/dL (12.0-15.5) Hematocrit 34.2% (36.0-47.0) Mean Corpuscular Volume 71fL (79-100) Mean Corpuscular Hemoglobin 22pg (25-35) Mean Corpuscular Hemoglobin Concent 31g/dL (31-37) Red Cell Distribution Width 20.5% (11.5-14.5) Platelet Count 230x10^3/uL (140-400) Neutrophils (%) (Auto) 60% (31-73) Lymphocytes (%) (Auto) 23% (24-48) Monocytes (%) (Auto) 7% (0-9) Eosinophils (%) (Auto) 9% (0-3) Basophils (%) (Auto) 1% (0-3) Neutrophils # (Auto) 3.1x10^3uL (1.8-7.7) Lymphocytes # (Auto) 1.2x10^3/uL (1.0-4.8) Monocytes # (Auto) 0.3x10^3/uL (0.0-1.1) Eosinophils # (Auto) 0.4x10^3/uL (0.0-0.7) Basophils # (Auto) 0.1x10^3/uL (0.0-0.2) Sodium Level 142mmol/L (136-145) Potassium Level 3.6mmol/L (3.5-5.1) 4.1mmol/L (3.5-5.1) Chloride Level 105mmol/L (98-107) Carbon Dioxide Level 26mmol/L (21-32) Anion Gap 11 (6-14) Blood Urea Nitrogen 15mg/dL (7-20) Creatinine 1.1mg/dL (0.6-1.0) Estimated GFR (Cockcroft-Gault) 50.3 Glucose Level 77mg/dL (70-99) Calcium Level 8.5mg/dL (8.5-10.1) Laboratory Tests Test 03/25/16 08:54 Potassium Level 4.1mmol/L (3.5-5.1) Medications Active Scripts Medications Dose Route/Sig Days Date Category Dose Instructions Lidoderm (Lidocaine) 700 Mg Adh..patch 1 Patch TP DAILY 03/21/16 Rx Furosemide 80 Mg Tablet 0.5 Tab PO DAILY 60 03/21/16 Rx Potassium Chloride 20 Meq Tablet.er 10 Meq PO DAILY 30 03/21/16 Rx Alprazolam 0.25 Mg Tablet 0.25 Mg PO TID 03/02/16 Reported Cyclobenzaprine Hcl 10 Mg Tablet 10 Mg PO BID PRN 03/02/16 Reported Lisinopril 10 Mg Tablet 10 Mg PO DAILY 03/02/16 Reported Oxycodon-Acetaminophen 7.5-325 (Oxycodone Hcl/Acetaminophen) 1 Each Tablet 03/02/16 Reported Trazodone Hcl 100 Mg Tablet 100 Mg PO HS 03/02/16 Reported Amitriptyline Hcl 25 Mg Tablet 25 Mg PO HS 03/02/16 Reported Spironolactone 25 Mg Tablet 1 Tab PO DAILY 02/20/16 Rx Aspirin 81 Mg Tab.chew 1 Tab PO DAILY 01/27/16 Reported Acetaminophen 500 Mg Tablet 1 Tab PO PRN Q6HRS PRN 09/15/15 Reported Breo Ellipta 100-25 Mcg Inh (Fluticasone/Vilanterol) 1 Each Aer.pow.ba 1 Puff IH DAILY 09/15/15 Reported Percocet 7.5-325 Mg Tablet (Oxycodone/Acetaminophen) 1 Each Tablet 1 Tab PO PRN TID PRN 09/15/15 Reported Baclofen 10 Mg Tablet 10 Mg PO QHS 07/13/15 Reported Levothyroxine Sodium 175 Mcg Tablet 1 Tab PO DAILY 03/03/15 Rx Paxil Cr (Paroxetine Hcl) 12.5 Mg Tab.er.24h 25 Mg PO DAILY 9/23/15 Rx Protonix (Pantoprazole Sodium) 40 Mg Tablet 40 Mg PO BIDAC 10/31/14 Rx Neurontin (Gabapentin) 300 Mg Capsule 300 Mg PO BID 10/31/14 Rx Vitamin D2 (Ergocalciferol (Vitamin D2)) 50,000 Unit Capsule 50,000 Unit PO FR 10/31/14 Rx [Buspirone Hcl] 5 MG Tablet 5 Mg PO TID 10/31/14 Rx Spiriva (Tiotropium [place]) 18 Mcg Cap.w.dev 2 Inh IH DAILY 10/31/14 Rx Indication: shortness of breath Next dose: 09/20/14 am Impression . 1. Acute on chronic respiratory failure. 2. Acute on chronic systolic heart failure. 3. Abnormal x-ray compatible with heart failure. 4. Chronic obstructive pulmonary disease. 5. Obesity Plan . home in am ok continue to diurese prn suctioning 02 CHRYSTAL NORMAN MD Mar 25, 2016 11:43
[2016-03-25 15:00] VITALS: BP 129/88
[2016-03-25 19:00] VITALS: BP 99/78
[2016-03-25] MEDS: traZODone 100 MG TABLET. PO SCH (21:14)
[2016-03-25] MEDS: AMITRIPTYLINE HCL 25 MG TABLET PO SCH (21:15)
[2016-03-25] MEDS: BACLOFEN 10 MG TABLET PO SCH (21:15)
[2016-03-25 23:00] VITALS: BP 122/77
[2016-03-26] MEDS: OXYCODONE/APAP 7.5/325 TABLET. PO PRN ×2 (02:56→12:32)
[2016-03-26 03:00] VITALS: BP 115/80
[2016-03-26] MEDS: IPRATRPIUM/ALBUTEROL 0.5/2.5MG 3 ML NEBU. NEB SCH ×2 (07:19→11:20)
[2016-03-26 07:50] VITALS: BP 112/75
--- NOTE | 2016-03-26 09:32 | DISCH ---
DISCHARGE INSTRUCTIONS Condition on Discharge Condition on Discharge: Stable Activity After Discharge Activity Instructions for Disc: No restrictions Diet after Discharge Diet after Discharge: Low Sodium 4 gm Follow-Up Follow up with: as scheduled ALEK HANLEY MD Mar 26, 2016 09:32
--- NOTE | 2016-03-26 09:34 | PDOC ---
Provider Note Provider Note [id number] ALEK HANLEY MD Mar 26, 2016 09:34
[2016-03-26] MEDS: LISINOPRIL 10 MG TABLET PO SCH (09:35)
[2016-03-26] MEDS: FUROSEMIDE 80 MG TABLET PO SCH (09:35)
[2016-03-26] MEDS: ALPRAZOLAM 0.25 MG TABLET PO SCH (09:36)
[2016-03-26] MEDS: ASPIRIN 81 MG TAB.CHEW PO SCH (09:36)
[2016-03-26] MEDS: GABAPENTIN 300 MG CAPSULE. PO SCH (09:36)
[2016-03-26] MEDS: PAROXETINE ER 12.5 MG TAB.ER.24H. PO SCH (09:36)
[2016-03-26] MEDS: LEVOTHYROXINE 175 MCG TABLET PO SCH (09:36)
[2016-03-26] MEDS: PANTOPRAZOLE 40 MG TABLET. PO SCH (09:36)
[2016-03-26] MEDS: SPIRONOLACTONE 25 MG TABLET PO SCH (09:37)
--- NOTE | 2016-03-26 09:39 | PDOC ---
PULMONARY PROGRESS NOTES Subjective pt better Vitals Vital Signs Date Time Temp Pulse Resp B/P Pulse Ox O2 Delivery O2 Flow Rate FiO2 03/26/16 09:35 70 112/75 03/26/16 07:50 97.5 90 trach 13.0 97.5 03/26/16 03:00 20 ROS: No Nausea, No Chest Pain, No Abdominal Pain General: Alert, No acute distress HEENT: Other Lungs: Other Cardiovascular: S1, S2, Other Abdomen: Soft, Non-tender Neuro Exam: Alert Extremities: No Edema, Other Labs Laboratory Tests Test 03/25/16 08:54 Potassium Level 4.1mmol/L (3.5-5.1) Medications Active Scripts Medications Dose Route/Sig Days Date Category Dose Instructions Lidoderm (Lidocaine) 700 Mg Adh..patch 1 Patch TP DAILY 03/21/16 Rx Furosemide 80 Mg Tablet 0.5 Tab PO DAILY 60 03/21/16 Rx Potassium Chloride 20 Meq Tablet.er 10 Meq PO DAILY 30 03/21/16 Rx Alprazolam 0.25 Mg Tablet 0.25 Mg PO TID 03/02/16 Reported Cyclobenzaprine Hcl 10 Mg Tablet 10 Mg PO BID PRN 03/02/16 Reported Lisinopril 10 Mg Tablet 10 Mg PO DAILY 03/02/16 Reported Oxycodon-Acetaminophen 7.5-325 (Oxycodone Hcl/Acetaminophen) 1 Each Tablet 03/02/16 Reported Trazodone Hcl 100 Mg Tablet 100 Mg PO HS 03/02/16 Reported Amitriptyline Hcl 25 Mg Tablet 25 Mg PO HS 03/02/16 Reported Spironolactone 25 Mg Tablet 1 Tab PO DAILY 02/20/16 Rx Aspirin 81 Mg Tab.chew 1 Tab PO DAILY 01/27/16 Reported Acetaminophen 500 Mg Tablet 1 Tab PO PRN Q6HRS PRN 09/15/15 Reported Breo Ellipta 100-25 Mcg Inh (Fluticasone/Vilanterol) 1 Each Aer.pow.ba 1 Puff IH DAILY 09/15/15 Reported Percocet 7.5-325 Mg Tablet (Oxycodone/Acetaminophen) 1 Each Tablet 1 Tab PO PRN TID PRN 09/15/15 Reported Baclofen 10 Mg Tablet 10 Mg PO QHS 07/13/15 Reported Levothyroxine Sodium 175 Mcg Tablet 1 Tab PO DAILY 03/03/15 Rx Paxil Cr (Paroxetine Hcl) 12.5 Mg Tab.er.24h 25 Mg PO DAILY 10/31/14 Rx Protonix (Pantoprazole Sodium) 40 Mg Tablet 40 Mg PO BIDAC 10/31/14 Rx Neurontin (Gabapentin) 300 Mg Capsule 300 Mg PO BID 10/31/14 Rx Vitamin D2 (Ergocalciferol (Vitamin D2)) 50,000 Unit Capsule 50,000 Unit PO FR 10/31/14 Rx [Buspirone Hcl] 5 MG Tablet 5 Mg PO TID 10/31/14 Rx Spiriva (Tiotropium [place]) 18 Mcg Cap.w.dev 2 Inh IH DAILY 10/31/14 Rx Indication: shortness of breath Next dose: 09/20/14 am Impression . 1. Acute on chronic respiratory failure. 2. Acute on chronic systolic heart failure. 3. Abnormal x-ray compatible with heart failure. 4. Chronic obstructive pulmonary disease. 5. Obesity Plan . home in am ok continue to diurese prn suctioning 02 CHRYSTAL NORMAN MD Mar 26, 2016 09:39
[2016-03-26 10:05] VITALS: BP 117/82
--- NOTE | 2016-03-26 21:13 | DS ---
DATE OF DISCHARGE: 03/26/2016 HOSPITAL SUMMARY: A 60-year-old white female with end-stage COPD and moderate cardiomyopathy, came back in with increasing shortness of breath without specific complaints. Chemistry profile, CBC and ____ were negative. Chest x-ray just showed chronic changes without anything acute. She was simply basically given her own normal medication and vital signs remained stable. She has been afebrile. It feels like her dyspnea is better and is comfortable to be followed as an outpatient at this point. FINAL DIAGNOSES: Chronic dyspnea secondary to end-stage COPD and moderate cardiomyopathy with ongoing tobacco use. OPERATIONS, PROCEDURES, COMPLICATIONS: None. CONSULTATIONS: Dr. Ortiz. DISPOSITION: Continue all home meds the same including lisinopril 10 daily and Lasix 80 daily with spironolactone 25 mg daily. ACTIVITY: As tolerated, low salt intake. Complete tobacco avoidance encouraged but ongoing tobacco use is a problem for her. ALEK HANLEY MD DR: LYNETTE/annie JOB#: [id number] / [id number]
== END 2016-03-26 14:06 | disposition home health service (06) | DRG 291 ==
LOC: ER 23:57 → 2 NORTH 03-23 01:06
PROVIDERS: ADMIT Family Medicine; ATTEND Family Medicine
DX: I50.23 Acute on chronic systolic (congestive) heart failure (principal); J96.20 Acute and chronic respiratory failure, unspecified whether with hypoxia or hypercapnia; I42.9 Cardiomyopathy, unspecified; J44.9 Chronic obstructive pulmonary disease, unspecified; I25.10 Atherosclerotic heart disease of native coronary artery without angina pectoris; F17.200 Nicotine dependence, unspecified, uncomplicated; E66.9 Obesity, unspecified; Z68.32 Body mass index [BMI] 32.0-32.9, adult; Z88.0 Allergy status to penicillin; Z88.8 Allergy status to other drugs, medicaments and biological substances; Z93.0 Tracheostomy status
CPT/HCPCS: 36415; 71010; 80048; 84132; 84484; 85007; 85027; 87804; 93005; 94640; 94760; 96374; J2405; J7620; 99285-25

== ENCOUNTER 2016-04-13 06:51 | Emergency (ER) | payer MEDICARE, OTHER ==
[~2016-04-13] VITALS: Ht 162.6 cm; Wt 80.7 kg
[2016-04-13] MEDS ORDERED: ONDANSETRON PF 4 MG/2 ML VIAL. IV ONE (07:15)
[2016-04-13 07:24] LABS: BASO # 0.1 x10^3/uL (0.0-0.2); BASO % 1 % (0-3); EOS % 6 % (0-3); HEMATOCRIT 44.5 % (36.0-47.0); HEMOGLOBIN 13.8 g/dL (12.0-15.5); LYMPH # 1.1 x10^3/uL (1.0-4.8); LYMPH % 21 % (24-48); MEAN CORPUSCULAR HEMOGLOBIN 22 pg (25-35); MEAN CORPUSCULAR HGB CONC 31 g/dL (31-37); MEAN CORPUSCULAR VOLUME 72 fL (79-100); MONO % 8 % (0-9); NEUT % 64 % (31-73); PLATELET COUNT 270 x10^3/uL (140-400); RED BLOOD COUNT 6.21 x10^6/uL (3.50-5.40); RED CELL DISTRIBUTION WIDTH 22.8 % (11.5-14.5); WHITE BLOOD COUNT 5.3 x10^3/uL (4.0-11.0)
[2016-04-13 07:37] LABS: CALCIUM 9.5 mg/dL (8.5-10.1); CREATININE 1.1 mg/dL (0.6-1.0); GFR 50.3; POTASSIUM 3.6 mmol/L (3.5-5.1)
[2016-04-13 07:44] LABS: ALBUMIN 3.6 g/dL (3.4-5.0); DIRECT BILIRUBIN 0.1 mg/dL (0.0-0.2); TOTAL BILIRUBIN 0.8 mg/dL (0.2-1.0); TOTAL PROTEIN 7.3 g/dL (6.4-8.2)
[2016-04-13] MEDS ORDERED: FENTANYL PF 100 MCG/2 ML VIAL. IV ONE (07:45)
[2016-04-13 08:01] LABS: BILIRUBIN,URINE NEGATIVE (NEG); GLUCOSE,URINE NEGATIVE (NEG); NITRITE,URINE NEGATIVE (NEG); PH,URINE 7.5; PROTEIN,URINE NEGATIVE (NEG-TRACE); UROBILINOGEN,URINE 0.2 mg/dL (0.2 mg/dL)
[2016-04-13 08:02] LABS: ANISOCYTOSIS MOD; HYPOCHROMIA PRESENT; PLT ESTIMATE ADEQUATE (ADEQUATE)
[2016-04-13 08:03] LABS: MICROCYTOSIS MARKED; OVALOCYTES PRESENT
[2016-04-13 08:07] LABS: BACTERIA,URINE FEW /HPF (0-FEW); RBC,URINE OCC /HPF (0-2); SQUAMOUS EPITHELIAL CELL,UR FEW /LPF
--- NOTE | 2016-04-13 08:14 | PHYS DOC ---
Past Medical History Past Medical History: Angina, CAD, CHF, COPD, Heart Disease, [place] Additional Past Medical Histor: PAD, Chronic back pain, emphysema, MULT CODE BLUE, CARD. CATH Past Surgical History: Angioplasty, Cholecystectomy, Hysterectomy Additional Past Surgical Histo: bilat leg stents, trach, aortic stent, ivc filter, feeding tube w/ removal Alcohol Use: None Drug Use: None Adult General Chief Complaint Chief Complaint: ABDOMINAL PAIN HPI HPI Patient is a 60 year old female who presents with 3 days of nausea and vomiting of nonbloody nonbilious emesis and nonbloody diarrhea. States her symptoms are improving, but still has nausea. She has mild crampy, migratory abdominal pain. She denies dysuria, hematuria, back pain, fever or chills, chest pain, dyspnea. Review of Systems Review of Systems Constitutional: Denies fever or chills [] Eyes: Denies change in visual acuity, redness, or eye pain [] HENT: Denies nasal congestion or sore throat [] Respiratory: Denies cough or shortness of breath [] Cardiovascular: No additional information not addressed in HPI [] GI: Denies bloody stools or bloody emesis [] : Denies dysuria or hematuria [] Musculoskeletal: Denies back pain or joint pain [] Integument: Denies rash or skin lesions [] Neurologic: Denies headache, focal weakness or sensory changes [] Endocrine: Denies polyuria or polydipsia [] Current Medications Current Medications Current Medications Medications (Trade) Dose Ordered Sig/[facility] Start Time Stop Time Status Last Admin Dose Admin Fentanyl Citrate (Fentanyl 2ml Vial) 50 mcg 1X ONCE 04/13/16 07:45 04/13/16 07:46 DC 04/13/16 07:43 50 MCG Ondansetron HCl (Zofran) 4 mg 1X ONCE 04/13/16 07:15 04/13/16 07:16 DC 04/13/16 07:39 4 MG Allergies Allergies Allergies Coded Allergies Type Severity Reaction Last Updated Verified Penicillins Allergy Intermediate can tolerate cefepime 06/04/15 Yes barium sulfate Adverse Reaction Intermediate Nausea 06/04/15 Yes Physical Exam Physical Exam Constitutional: Well developed, well nourished, no acute distress, non-toxic appearance. [] HENT: Normocephalic, atraumatic, bilateral external ears normal, oropharynx moist, nose normal. [] Eyes: PERRLA, EOMI, conjunctiva normal, no discharge. [] Neck: Normal range of motion, supple. Trach in place [] Cardiovascular:Heart rate regular rhythm [] Lungs & Thorax: Bilateral breath sounds clear to auscultation [] Abdomen: Bowel sounds normal, soft, no tenderness. [] Skin: Warm, dry, no erythema, no rash. [] Back: No tenderness, no CVA tenderness. [] Extremities: No tenderness, ROM intact. [] Neurologic: Alert and oriented X 3, normal motor function, normal sensory function, no focal deficits noted. [] Psychologic: Affect normal, judgement normal, mood normal. [] Current Patient Data Vital Signs Vital Signs Date Time Temp Pulse Resp B/P Pulse Ox O2 Delivery O2 Flow Rate FiO2 04/13/16 07:51 78 24 145/101 93 Tracheal Collar 10 04/13/16 07:00 98.2 98.2 Lab Values Laboratory Tests Test 04/13/16 07:10 04/13/16 07:50 White Blood Count 5.3x10^3/uL (4.0-11.0) Red Blood Count 6.21x10^6/uL (3.50-5.40) H Hemoglobin 13.8g/dL (12.0-15.5) Hematocrit 44.5% (36.0-47.0) Mean Corpuscular Volume 72fL (79-100) L Mean Corpuscular Hemoglobin 22pg (25-35) L Mean Corpuscular Hemoglobin Concent 31g/dL (31-37) Red Cell Distribution Width 22.8% (11.5-14.5) H Platelet Count 270x10^3/uL (140-400) Neutrophils (%) (Auto) 64% (31-73) Lymphocytes (%) (Auto) 21% (24-48) L Monocytes (%) (Auto) 8% (0-9) Eosinophils (%) (Auto) 6% (0-3) H Basophils (%) (Auto) 1% (0-3) Neutrophils # (Auto) 3.4x10^3uL (1.8-7.7) Lymphocytes # (Auto) 1.1x10^3/uL (1.0-4.8) Monocytes # (Auto) 0.4x10^3/uL (0.0-1.1) Eosinophils # (Auto) 0.3x10^3/uL (0.0-0.7) Basophils # (Auto) 0.1x10^3/uL (0.0-0.2) Platelet Estimate Adequate (ADEQUATE) Hypochromasia Present Anisocytosis Mod Microcytosis Marked Ovalocytes Present Sodium Level 142mmol/L (136-145) Potassium Level 3.6mmol/L (3.5-5.1) Chloride Level 104mmol/L (98-107) Carbon Dioxide Level 26mmol/L (21-32) Anion Gap 12 (6-14) Blood Urea Nitrogen 10mg/dL (7-20) Creatinine 1.1mg/dL (0.6-1.0) H Estimated GFR (Cockcroft-Gault) 50.3 Glucose Level 93mg/dL (70-99) Calcium Level 9.5mg/dL (8.5-10.1) Total Bilirubin 0.8mg/dL (0.2-1.0) Direct Bilirubin 0.1mg/dL (0.0-0.2) Aspartate Amino Transferase (AST) 10U/L (15-37) L Alanine Aminotransferase (ALT) 9U/L (14-59) L Alkaline Phosphatase 53U/L (46-116) Total Protein 7.3g/dL (6.4-8.2) Albumin 3.6g/dL (3.4-5.0) Lipase 133U/L (73-393) Urine Collection Type U cath Urine Color Yellow Urine Clarity Clear Urine pH 7.5 Urine Specific [place] 1.015 Urine Protein Negativemg/dL (NEG-TRACE) Urine Glucose (UA) Negativemg/dL (NEG) Urine Ketones (Stick) Negativemg/dL (NEG) Urine Blood Negative (NEG) Urine Nitrite Negative (NEG) Urine Bilirubin Negative (NEG) Urine Urobilinogen Dipstick 0.2mg/dL (0.2 mg/dL) Urine Leukocyte Esterase Negative (NEG) Urine RBC Occ/HPF (0-2) Urine WBC 1-4/HPF (0-4) Urine Squamous Epithelial Cells Few/LPF Urine Renal Epithelial Cells Few/LPF Urine Amorphous Sediment Present/HPF Urine Bacteria Few/HPF (0-FEW) Laboratory Tests 04/13/16 07:10 Laboratory Tests 04/13/16 07:10 Course & Med Decision Making Course & Med Decision Making Pertinent Labs and Imaging studies reviewed. (See chart for details) Workup is unremarkable. Symptoms are improved. She is tolerating oral intake. Return precautions given. She understands and agrees with plan. Dragon Disclaimer Dragon Disclaimer This electronic medical record was generated, in whole or in part, using a voice recognition dictation system. Departure Departure Impression: Primary Impression: Nausea vomiting and diarrhea Disposition: HOME, SELF-CARE Condition: STABLE Referrals: ALEK HANLEY MD (PCP) Patient Instructions: Nausea and Vomiting, [id number] Additional Instructions: Take Zofran as needed for nausea. Follow-up with your primary care doctor. Return for any concerns. Scripts Ondansetron (Zofran Odt)4 Mg Tab.rapdis1 Tab SL Q8HRS #10 TAB Prov:Edilson KUMAR MD 04/13/16 Edilson KUMAR MD Apr 13, 2016 08:14
[2016-04-13] MEDS ORDERED: ONDA4TAB10 SL (08:16)
[2016-04-13 09:07] VITALS: BP 141/93
== END 2016-04-13 09:50 | disposition home or self-care (01) ==
LOC: ER 06:51
DX: R11.2 Nausea with vomiting, unspecified (principal); R19.7 Diarrhea, unspecified; R10.9 Unspecified abdominal pain; I25.10 Atherosclerotic heart disease of native coronary artery without angina pectoris; I50.9 Heart failure, unspecified; G89.29 Other chronic pain; I73.9 Peripheral vascular disease, unspecified; J43.9 Emphysema, unspecified; I25.2 Old myocardial infarction; Z90.49 Acquired absence of other specified parts of digestive tract; Z90.710 Acquired absence of both cervix and uterus; Z95.5 Presence of coronary angioplasty implant and graft; Z88.0 Allergy status to penicillin; Z88.8 Allergy status to other drugs, medicaments and biological substances
CPT/HCPCS: 36415; 80048; 80076; 81001; 83690; 85007; 85027; 96374; 96375; 99284; J2405; J3010

== ENCOUNTER 2016-05-10 22:25 | Inpatient (IN) | payer MEDICARE, OTHER ==
[~2016-05-10] VITALS: Ht 162.6 cm; Wt 87.2 kg
[~2016-05-10 22:25] MED LIST changes: +ONDA4TAB10 SL
[2016-05-10 22:47] LABS: BASO # 0.1 x10^3/uL (0.0-0.2); BASO % 2 % (0-3); EOS % 3 % (0-3); HEMATOCRIT 48.8 % (36.0-47.0); HEMOGLOBIN 15.2 g/dL (12.0-15.5); LYMPH # 1.3 x10^3/uL (1.0-4.8); LYMPH % 19 % (24-48); MEAN CORPUSCULAR HEMOGLOBIN 22 pg (25-35); MEAN CORPUSCULAR HGB CONC 31 g/dL (31-37); MEAN CORPUSCULAR VOLUME 72 fL (79-100); MONO % 6 % (0-9); NEUT % 71 % (31-73); PLATELET COUNT 341 x10^3/uL (140-400); RED BLOOD COUNT 6.83 x10^6/uL (3.50-5.40); RED CELL DISTRIBUTION WIDTH 23.4 % (11.5-14.5)
--- NOTE | 2016-05-10 22:58 | ACF ---
Admission Forms Criteria ABDOMINAL PAIN Clinical Indications for Admission to Inpatient Care (Place 'X' for any and all applicable criteria): Admission is indicated for ANY ONE of the following(1)(2)(3)(4)(5): [X]I. Inpatient admission required rather than observation care (Also use Abdominal Pain: Observation Care, as appropriate) because of ANY ONE of the following: [X]a) Severe pain requiring acute inpatient management [ ]b) Identification of etiology/finding that requires inpatient care (eg, aortic dissection, free air) [ ]c) Absent bowel sounds with complete ileus(6) [ ]d) Suspected toxic megacolon [ ]e) Severe electrolyte abnormalities requiring inpatient care [ ]f) High fever or infection requiring inpatient admission as indicated by ANY ONE of following(7)(8): [ ] i) Appropriate outpatient or observational care antimicrobial treatment unavailable, not effective, or not feasible [ ] ii) Documented bacteremia [ ] iii) Temperature > 104.9 degrees F (oral) [ ] iv) T >103.1 F (oral) or < 96.8 F(rectal) that does not respond to all emergency treatment measures [ ]g) Signs of intestinal obstruction [B] [ ]h) Hemodynamic instability [ ]i) IV fluid to replace significant ongoing losses (greater than 3 L/m2 per day) (12)(13) [ ]j) Percutaneous or open drainage (eg, abscess, biliary tract ) procedures [ ]k) Parenteral nutrition regimen that must be implemented on inpatient basis [ ]l) Other condition,treatment or monitoring requiring inpatient admission. [ ]II. Peritoneal signs present [ ]III. Surgery needed that cannot be performed on an ambulatory basis. [ ]IV. Evaluation requires patient to not eat or drink for extended period ( eg, more than 24 hours). [ ]V. Contraindications and/or Inappropriate clinical situations for Observational Care in patients with abdominal pain, when ANY ONE of the following is required: [ ]a) Thorough evaluation is required to prevent catastrophic events due to delays in diagnosing (e.g.Mesenteric ischemia) 1,3 [ ]b) Patient with severe pathology or with chronic symptoms unlikely to improve in the ED stay (3) [ ]. General contraindications and/or Inappropriate clinical situations for Observational Care in patients with abdominal pain, when ANY ONE of the following is required: [ ]a) Prediction of prolongation of LOS based on ANY ONE of the following may be considered as a contraindication for observational care 2, 3, 4, 5, 6, 7, 8, 9, 10, 11 [ ]i) Age > 65 yrs. [ ]ii) Patient arriving by ambulance [ ]iii) Patient with high acuity [ ]iv) Patient requiring vital sign monitoring [ ]v) Patient on IV medication [ ]b) Systolic blood pressures 180mmHg 3,12 [ ]c) Patient with altered mental status including delirium and other alteration of consciousness, (3) [ ]d) Patient whose discharge disposition will be to a senior care home or rehabilitation home should not be managed in Emergency Department Observation Unit. CMS rule requires 3 days hospital stay before such placement.3,13 [ ]e) Patient with failure to thrive due to broad array of etiologies 3,16,17 [ ]f) Inability to ambulate 3,14 Extended stay beyond goal length of stay may be needed for(2)(3): [ ]a) Persistent abdominal pain with suspected intra-abdominal process [ ]b) Diagnosed condition requiring continued stay (e.g., pancreatitis, complicated diverticulitis) [ ]c) Surgery (e.g., colectomy) The original [facility] content created by [employer] has been revised. The portions of the content which have been revised are identified through the use of italic text or in bold, and [facility] has neither reviewed nor approved the modified material.All other unmodified content is copyright [employer]. Please see references footnoted in the original [facility] edition 2016 Admission Criteria Met?: Yes YONI TORRES May 10, 2016 22:58
[2016-05-10] MEDS ORDERED: FENTANYL PF 100 MCG/2 ML VIAL. IV ONE (23:00)
[2016-05-10] MEDS ORDERED: IV NORMAL SALINE 1000ML BAG 500 ML IV ONE (23:00)
[2016-05-10] MEDS ORDERED: ONDANSETRON PF 4 MG/2 ML VIAL. IV ONE (23:00)
--- NOTE | 2016-05-10 23:04 | PHYS DOC ---
Past Medical History Past Medical History: Angina, CAD, CHF, COPD, Heart Disease, [place] Additional Past Medical Histor: PAD, Chronic back pain, emphysema, MULT CODE BLUE, CARD. CATH Past Surgical History: Angioplasty, Cholecystectomy, Hysterectomy Additional Past Surgical Histo: bilat leg stents, trach, aortic stent, ivc filter, feeding tube w/ removal Alcohol Use: None Drug Use: None Adult General Chief Complaint Chief Complaint: ABDOMINAL PAIN HPI HPI 60-year-old female who's trach dependent on her usual 10 L presenting with lower abdominal pain for the last week that is acutely worsened over the last day with some nausea but no vomiting. She states her stools have been loose but formed. She denies any blood in her stools. Patient just recently finished a course of Flagyl for an ongoing colitis by her primary doctor but states her symptoms have not improved. She also states she feels mildly dehydrated. She has history of significant cardiac disease CHF and COPD. Patient is fully alert and oriented and in no acute distress at this time localizing all of her pain to the lower abdominal area. She rates an 8 out of 10 on the pain scale. Review of Systems Review of Systems Constitutional: Denies fever or chills [] Eyes: Denies change in visual acuity, redness, or eye pain [] HENT: Denies nasal congestion or sore throat [] Respiratory: Denies cough or shortness of breath [] Cardiovascular: No additional information not addressed in HPI [] GI: Denies abdominal pain, nausea, vomiting, bloody stools or diarrhea [] : Denies dysuria or hematuria [] Musculoskeletal: Denies back pain or joint pain [] Integument: Denies rash or skin lesions [] Neurologic: Denies headache, focal weakness or sensory changes [] Endocrine: Denies polyuria or polydipsia [] Current Medications Current Medications Current Medications Medications (Trade) Dose Ordered Sig/[facility] Start Time Stop Time Status Last Admin Dose Admin Fentanyl Citrate (Fentanyl 2ml Vial) 50 mcg 1X ONCE 05/10/16 23:00 05/10/16 23:01 DC 05/10/16 23:10 50 MCG Info (Do NOT chart on this entry -- for MONITORING) 1 each PRN DAILY PRN 05/10/16 23:45 05/12/16 23:44 Iohexol (Omnipaque 300 Mg/ml) 75 ml 1X ONCE 05/11/16 00:00 05/11/16 00:01 DC Ondansetron HCl (Zofran) 4 mg 1X ONCE 05/10/16 23:00 05/10/16 23:01 DC 05/10/16 23:10 4 MG Sodium Chloride (Iv Sodium Chloride 0.9% 1000ml Bag) 500 ml @ 250 mls/hr 1X ONCE 05/10/16 23:00 05/11/16 00:59 DC 05/10/16 23:00 250 MLS/HR Allergies Allergies Allergies Coded Allergies Type Severity Reaction Last Updated Verified Penicillins Allergy Intermediate can tolerate cefepime 06/04/15 Yes barium sulfate Adverse Reaction Intermediate Nausea 06/04/15 Yes Physical Exam Physical Exam Constitutional: Well developed, well nourished, no acute distress, non-toxic appearance. [] HENT: Normocephalic, atraumatic, bilateral external ears normal, oropharynx moist, no oral exudates, nose normal. [] Eyes: PERRLA, EOMI, conjunctiva normal, no discharge. [] Neck: Normal range of motion, trach in place, no tenderness, supple, no stridor. [] Cardiovascular:Heart rate regular rhythm, no murmur [] Lungs & Thorax: Bilateral breath sounds clear to auscultation [] Abdomen: Bowel sounds normal, soft, lower abdominal tenderness, no masses, no pulsatile masses. [] Skin: Warm, dry, no erythema, no rash. [] Back: No tenderness, no CVA tenderness. [] Extremities: No tenderness, no cyanosis, no clubbing, ROM intact, no edema. [] Neurologic: Alert and oriented X 3, normal motor function, normal sensory function, no focal deficits noted. [] Psychologic: Affect normal, judgement normal, mood normal. [] Current Patient Data Vital Signs Vital Signs Date Time Temp Pulse Resp B/P Pulse Ox O2 Delivery O2 Flow Rate FiO2 05/10/16 22:33 97.9 83 20 145/103 90 Tracheal Collar 10 97.9 Lab Values Laboratory Tests Test 05/10/16 21:37 05/10/16 23:02 05/10/16 23:30 White Blood Count 7.0x10^3/uL (4.0-11.0) Red Blood Count 6.83x10^6/uL (3.50-5.40) H Hemoglobin 15.2g/dL (12.0-15.5) Hematocrit 48.8% (36.0-47.0) H Mean Corpuscular Volume 72fL (79-100) L Mean Corpuscular Hemoglobin 22pg (25-35) L Mean Corpuscular Hemoglobin Concent 31g/dL (31-37) Red Cell Distribution Width 23.4% (11.5-14.5) H Platelet Count 341x10^3/uL (140-400) Neutrophils (%) (Auto) 71% (31-73) Lymphocytes (%) (Auto) 19% (24-48) L Monocytes (%) (Auto) 6% (0-9) Eosinophils (%) (Auto) 3% (0-3) Basophils (%) (Auto) 2% (0-3) Neutrophils # (Auto) 5.0x10^3uL (1.8-7.7) Lymphocytes # (Auto) 1.3x10^3/uL (1.0-4.8) Monocytes # (Auto) 0.4x10^3/uL (0.0-1.1) Eosinophils # (Auto) 0.2x10^3/uL (0.0-0.7) Basophils # (Auto) 0.1x10^3/uL (0.0-0.2) Platelet Estimate Adequate (ADEQUATE) Polychromasia Slight Hypochromasia Slight Anisocytosis Mod Microcytosis Mod Troponin I Quantitative < 0.017ng/mL (0.000-0.055) Sodium Level 138mmol/L (136-145) Potassium Level 4.1mmol/L (3.5-5.1) Chloride Level 101mmol/L (98-107) Carbon Dioxide Level 27mmol/L (21-32) Anion Gap 10 (6-14) Blood Urea Nitrogen 13mg/dL (7-20) Creatinine 1.0mg/dL (0.6-1.0) Estimated GFR (Cockcroft-Gault) 56.2 BUN/Creatinine Ratio 13 (6-20) Glucose Level 100mg/dL (70-99) H Calcium Level 9.3mg/dL (8.5-10.1) Total Bilirubin 0.6mg/dL (0.2-1.0) Aspartate Amino Transferase (AST) 10U/L (15-37) L Alanine Aminotransferase (ALT) 12U/L (14-59) L Alkaline Phosphatase 53U/L (46-116) Total Protein 7.5g/dL (6.4-8.2) Albumin 3.4g/dL (3.4-5.0) Albumin/Globulin Ratio 0.8 (1.0-1.7) L Lipase 181U/L (73-393) Laboratory Tests 05/10/16 21:37 Laboratory Tests 05/10/16 23:30 EKG EKG EKG as interpreted by me shows a sinus rhythm with rate of 81 bpm. There is a leftward axis. There is a T-wave inversion to lead 3 and aVF. There are no obvious ischemic findings. This EKG does not meet STEMI criteria. Intervals are normal. There is no ectopy Radiology/Procedures Radiology/Procedures PROCEDURE CT of the abdomen and pelvis without contrast HISTORY Abdominal pain TECHNIQUE Noncontrast helical CT scanning of the abdomen and pelvis was performed. Without GI contrast, the sensitivity to detect GI tract pathology is decreased. Without IV contrast, the sensitivity to detect organ pathology is decreased. COMPARISON April 11, 2014 FINDINGS The liver is homogeneous in appearance on this noncontrast study and is normal in size. The spleen is homogeneous appearance on this noncontrast study and is normal in size. The pancreas is homogeneous appearance on this noncontrast study and is not enlarged. There has been prior cholecystectomy. [The right kidney is severely atrophic. The urinary bladder appears normal. There is an aorto bi-iliac endograft. The appendix is not identified. No focal aneurysmal dilatation of the abdominal aorta is seen. No enlarged abdominal or pelvic lymphadenopathy is seen. No free intraperitoneal fluid or free intraperitoneal air is seen. No obstructive bowel pattern or inflammatory changes are seen. [The small hiatal hernia was seen previously. Patchy opacities in lung bases were seen previously and could be chronic. There is an IVC filter in place. IMPRESSION [Stable appearance of the abdomen and pelvis. Electronically signed by: Bertin Rodriguez MD (May 11, 2016 01:33:56) DICTATED and SIGNED BY: BERTIN RODRIGUEZ III, MD DATE: 05/11/16 0133 CC: LORI XIE DO; ALEK HANLEY MD ~ Course & Med Decision Making Course & Med Decision Making Pertinent Labs and Imaging studies reviewed. (See chart for details) This is a 60-year-old female with ongoing lower abdominal tenderness despite finishing a course of Flagyl and will have full laboratory workup and given a small fluid bolus in light of her history of CHF. Patient will likely be admitted for her ongoing symptoms as they did not improve over the last week despite taking her oral antibiotics. Her laboratory workup was fairly unremarkable. Patient's pain was well- controlled while in the department after several doses of pain meds. A CT of her abdomen and pelvis did not reveal any acute abnormalities. Stool specimen was unable to be obtained. I discussed need to admit the patient with for her ongoing abdominal pain with the hospitalist, Dr. Hanley, who agreed to accept the patient for further evaluation and treatment. Dragon Disclaimer Dragon Disclaimer This electronic medical record was generated, in whole or in part, using a voice recognition dictation system. Departure Departure Impression: Primary Impression: Abdominal pain Disposition: ADMITTED INPATIENT Admitting Physician: Alek Hanley Condition: STABLE Referrals: ALEK HANLEY MD (PCP) LORI XIE DO May 10, 2016 23:04
[2016-05-10 23:13] LABS: PLT ESTIMATE ADEQUATE (ADEQUATE)
[2016-05-10 23:15] LABS: ANISOCYTOSIS MOD; MICROCYTOSIS MOD; POLYCHROMASIA SLIGHT
[2016-05-10 23:16] LABS: HYPOCHROMIA SLIGHT
[2016-05-10 23:43] LABS: CALCIUM 9.3 mg/dL (8.5-10.1); GFR 56.2; POTASSIUM 4.1 mmol/L (3.5-5.1)
[2016-05-10] MEDS ORDERED: CONTRAST GIVEN MC PRN (23:45)
[2016-05-10 23:49] LABS: ALBUMIN 3.4 g/dL (3.4-5.0); ALBUMIN/GLOBULIN RATIO 0.8 (1.0-1.7); TOTAL BILIRUBIN 0.6 mg/dL (0.2-1.0); TOTAL PROTEIN 7.5 g/dL (6.4-8.2)
[2016-05-11] MEDS: IOHEXOL 300 MG/ML 75 ML VIAL IV ONE (00:14)
[2016-05-11] MEDS ORDERED: ONDANSETRON PF 4 MG/2 ML VIAL. IV PRN (01:15)
[2016-05-11] MEDS ORDERED: FENTANYL PF 100 MCG/2 ML VIAL. IV PRN (01:15)
[2016-05-11] MEDS ORDERED: FENTANYL PF 100 MCG/2 ML VIAL. IV ONE (01:30)
--- NOTE | 2016-05-11 01:35 | RAD ---
PROCEDURE CT of the abdomen and pelvis without contrast HISTORY Abdominal pain TECHNIQUE Noncontrast helical CT scanning of the abdomen and pelvis was performed. Without GI contrast, the sensitivity to detect GI tract pathology is decreased. Without IV contrast, the sensitivity to detect organ pathology is decreased. COMPARISON April 11, 2014 FINDINGS The liver is homogeneous in appearance on this noncontrast study and is normal in size. The spleen is homogeneous appearance on this noncontrast study and is normal in size. The pancreas is homogeneous appearance on this noncontrast study and is not enlarged. There has been prior cholecystectomy. [The right kidney is severely atrophic. The urinary bladder appears normal. There is an aorto bi-iliac endograft. The appendix is not identified. No focal aneurysmal dilatation of the abdominal aorta is seen. No enlarged abdominal or pelvic lymphadenopathy is seen. No free intraperitoneal fluid or free intraperitoneal air is seen. No obstructive bowel pattern or inflammatory changes are seen. [The small hiatal hernia was seen previously. Patchy opacities in lung bases were seen previously and could be chronic. There is an IVC filter in place. IMPRESSION [Stable appearance of the abdomen and pelvis. Electronically signed by: Marc Aguilar MD (May 11, 2016 01:33:56)
[2016-05-11] MEDS: IV NORMAL SALINE 1000ML BAG 1,000 ML IV SCH ×2 (02:45→14:57)
[2016-05-11 02:57] VITALS: BP 138/91
[2016-05-11] MEDS ORDERED: AMLO10TA2 PO (03:19)
[2016-05-11] MEDS ORDERED: LISI10TA2 PO (03:19)
[2016-05-11] MEDS ORDERED: CLOP75TA PO (03:19)
[2016-05-11] MEDS ORDERED: POTA20TA82 PO (03:19)
[2016-05-11] MEDS ORDERED: ALBU2.5V5 NEB (03:19)
[2016-05-11] MEDS ORDERED: ASPI325T4 PO (03:19)
[2016-05-11] MEDS ORDERED: GABA600T PO (03:21)
[2016-05-11] MEDS ORDERED: CYCLOBENZAPRINE 10 MG TABLET. PO PRN (03:30)
[2016-05-11] MEDS: GABAPENTIN 300 MG CAPSULE. PO SCH ×6 (03:42→21:00)
--- NOTE | 2016-05-11 06:23 | EKG ---
[facility] [address] [place] [address] Test Date: 2016-05-10 Test Time: 22:34:21 Pat Name: RINKU MCCANN Department: Room: 526 1 Gender: F Corporate Secretary: : 1955 Requested By: LORI XIE Order Number: [id number] Reading MD: Jamey Cordero Measurements Intervals [place] Rate: 81 P: 34 FL: 164 QRS: 0 QRSD: 94 T: 15 QT: 382 QTc: 444 Interpretive Statements SINUS RHYTHM CONSISTENT WITH INFERIOR INFARCT PROBABLY OLD ABNORMAL ECG Electronically Signed On 05-12-2016 10:04:39 CDT by Jamey Cordero
[2016-05-11 07:54] VITALS: BP 120/85
--- NOTE | 2016-05-11 08:21 | PDOC ---
Provider Note Provider Note [id number] ALEK HANLEY MD May 11, 2016 08:21
[2016-05-11] MEDS ORDERED: LISINOPRIL 10 MG TABLET PO SCH (09:00)
[2016-05-11] MEDS ORDERED: PNEUMOCOCCAL VAX SCREEN BY RX. MC ONE (09:00)
[2016-05-11] MEDS ORDERED: PNEUMOC CONJ VACC 23-VALENT 0.5 ML VIAL. VAX IM ONE (09:00)
[2016-05-11] MEDS ORDERED: GABAPENTIN 300 MG CAPSULE. PO SCH (09:00)
[2016-05-11] MEDS: SPIRONOLACTONE 25 MG TABLET PO SCH (09:14)
[2016-05-11] MEDS: CLOPIDOGREL BISULFATE 75 MG TABLET PO SCH (09:15)
[2016-05-11] MEDS: PAROXETINE ER 12.5 MG TAB.ER.24H. PO SCH (09:15)
[2016-05-11] MEDS: PANTOPRAZOLE 40 MG TABLET.DR. PO SCH ×2 (09:16→18:10)
[2016-05-11] MEDS: FUROSEMIDE 80 MG TABLET. PO SCH (09:16)
[2016-05-11] MEDS: AMLODIPINE BESYLATE 10 MG TABLET. PO SCH (09:17)
[2016-05-11] MEDS: LEVOTHYROXINE 175 MCG TABLET PO SCH (09:17)
[2016-05-11] MEDS: LISINOPRIL 10 MG TABLET PO SCH (09:18)
[2016-05-11] MEDS: ASPIRIN CHEWABLE 81 MG TABLET. PO SCH (09:19)
[2016-05-11] MEDS: POTASSIUM CHLORIDE 20 MEQ TABLET.ER. PO SCH (09:20)
[2016-05-11] MEDS: ALPRAZOLAM 0.25 MG TABLET. PO SCH ×3 (09:20→20:59)
[2016-05-11] MEDS: OXYCODONE/APAP 7.5/325 TABLET. PO PRN ×2 (09:21→18:10)
--- NOTE | 2016-05-11 09:43 | HP ---
ADMIT DATE: 05/11/2016 CHIEF COMPLAINT: Abdominal pain and diarrhea. HISTORY OF PRESENT ILLNESS: A 60-year-old white female has had loose stools for about the last week. No blood, vomiting, fever, diarrhea, dysuria or other complaints. ER evaluation showed an unremarkable CT scan with normal laboratory studies and she was admitted for IV fluids and observation. She has taken some Flagyl recently, the reason for which is unclear, but no stool studies had been done for C. diff toxin recently to her knowledge. PAST MEDICAL HISTORY: Well documented in the old records. MEDICATIONS: Multiple medications listed per the chart. ALLERGIES: PENICILLIN. SOCIAL HISTORY: Heavy smoker, lives alone, nondrinker, disabled. FAMILY HISTORY: Unremarkable. REVIEW OF SYSTEMS: No other complaints. OBJECTIVE: ENT: All within normal limits. NECK: Tracheostomy in place. No bruits are heard. CARDIOVASCULAR: Regular rate. No irregular beat or tachycardia or murmur. ABDOMEN: Tender in the suprapubic and mildly in the left lower quadrant area. No guarding, masses or rebound. Bowel sounds are normal. EXTREMITIES: Decreased pedal pulses, 2+ clubbing. No joint or skin lesions. NEUROLOGIC: Physiologic. ASSESSMENT: Abdominal pain and loose stools. Must consider Clostridium Difficile colitis possibility given multiple antibiotics in the past, does not appeared to be ____ to consider diverticulitis and this was not seen on CT and less likely ischemic colitis given her relatively benign clinical appearance. PLAN: As ordered. ALEK HANLEY MD DR: YLNETTE/annie JOB#: [id number] / [id number]
[2016-05-11 11:28] VITALS: BP 120/81
[2016-05-11] MEDS: ALBUTEROL SULFATE 2.5 MG/3 ML NEBU. NEB SCH ×3 (11:48→20:12)
[2016-05-11 11:57] LABS: BILIRUBIN,URINE NEGATIVE (NEG); GLUCOSE,URINE NEGATIVE (NEG); NITRITE,URINE NEGATIVE (NEG); PROTEIN,URINE NEGATIVE (NEG-TRACE); UROBILINOGEN,URINE 0.2 mg/dL (0.2 mg/dL)
[2016-05-11 12:17] LABS: BACTERIA,URINE 0 /HPF (0-FEW); RBC,URINE RARE /HPF (0-2); SQUAMOUS EPITHELIAL CELL,UR FEW /LPF; WBC,URINE 0 /HPF (0-4)
[2016-05-11 15:00] VITALS: BP 119/77
[2016-05-11 15:50] VITALS: BP 121/67
[2016-05-11 19:00] VITALS: BP 118/74
[2016-05-11] MEDS: CYCLOBENZAPRINE 10 MG TABLET. PO PRN (19:48)
[2016-05-11] MEDS: traZODone 100 MG TABLET. PO SCH (20:59)
[2016-05-11] MEDS: AMITRIPTYLINE HCL 25 MG TABLET. PO SCH (20:59)
[2016-05-12] MEDS: OXYCODONE/APAP 7.5/325 TABLET. PO PRN ×3 (01:09→16:45)
[2016-05-12 03:00] VITALS: BP 115/79
[2016-05-12] MEDS: ALBUTEROL SULFATE 2.5 MG/3 ML NEBU. NEB SCH ×3 (07:04→18:26)
[2016-05-12] MEDS: LEVOTHYROXINE 175 MCG TABLET PO SCH (07:08)
--- NOTE | 2016-05-12 08:24 | PDOC ---
Provider Note Provider Note vss, no temp- no more diarrhea/stools/emesis- ct ok- labs ok- tender in LLQ/LUQ but no guarding- etiology of pain no t clear, at risk for ischemic injury re tobacco- check cbc/lactate again, gi rest , fluids- no sign of c diff re lack of stools ALEK HANLEY MD May 12, 2016 08:24
[2016-05-12 08:45] VITALS: BP 136/90
[2016-05-12] MEDS: PAROXETINE ER 12.5 MG TAB.ER.24H. PO SCH (09:14)
[2016-05-12] MEDS: CLOPIDOGREL BISULFATE 75 MG TABLET PO SCH (09:18)
[2016-05-12] MEDS: PANTOPRAZOLE 40 MG TABLET.DR. PO SCH ×2 (09:18→16:44)
[2016-05-12] MEDS: LISINOPRIL 10 MG TABLET PO SCH (09:18)
[2016-05-12] MEDS: GABAPENTIN 300 MG CAPSULE. PO SCH ×3 (09:19→20:33)
[2016-05-12] MEDS: ALPRAZOLAM 0.25 MG TABLET. PO SCH ×3 (09:19→20:33)
[2016-05-12] MEDS: AMLODIPINE BESYLATE 10 MG TABLET. PO SCH (09:19)
[2016-05-12] MEDS: POTASSIUM CHLORIDE 20 MEQ TABLET.ER. PO SCH (09:20)
[2016-05-12] MEDS: ASPIRIN CHEWABLE 81 MG TABLET. PO SCH (09:20)
[2016-05-12] MEDS: FUROSEMIDE 80 MG TABLET. PO SCH (09:20)
[2016-05-12] MEDS: SPIRONOLACTONE 25 MG TABLET PO SCH (09:20)
[2016-05-12 09:52] LABS: HEMATOCRIT 41.8 % (36.0-47.0); HEMOGLOBIN 12.7 g/dL (12.0-15.5); RED BLOOD COUNT 5.79 x10^6/uL (3.50-5.40); RED CELL DISTRIBUTION WIDTH 23.8 % (11.5-14.5); WHITE BLOOD COUNT 4.2 x10^3/uL (4.0-11.0)
[2016-05-12] MEDS: POTASSIUM CL 20MEQ D5-0.45NACL 1,000 ML IV SCH ×2 (10:11→22:59)
[2016-05-12 11:23] VITALS: BP 100/71
[2016-05-12] MEDS: ACETAMINOPHEN 500 MG TABLET PO PRN (12:25)
[2016-05-12] MEDS: CYCLOBENZAPRINE 10 MG TABLET. PO PRN (12:25)
[2016-05-12 14:43] VITALS: BP 90/63
[2016-05-12 19:00] VITALS: BP 93/66
[2016-05-12] MEDS: traZODone 100 MG TABLET. PO SCH (20:33)
[2016-05-12] MEDS: AMITRIPTYLINE HCL 25 MG TABLET. PO SCH (20:33)
[2016-05-12 23:00] VITALS: BP 107/69
[2016-05-13 03:14] VITALS: BP 105/71
[2016-05-13 04:01] VITALS: BP 105/71
[2016-05-13] MEDS: OXYCODONE/APAP 7.5/325 TABLET. PO PRN ×3 (04:06→21:12)
[2016-05-13] MEDS: LEVOTHYROXINE 175 MCG TABLET PO SCH (05:59)
[2016-05-13 07:00] VITALS: BP 107/69
[2016-05-13] MEDS: ALBUTEROL SULFATE 2.5 MG/3 ML NEBU. NEB SCH ×3 (07:08→19:29)
[2016-05-13] MEDS: PAROXETINE ER 12.5 MG TAB.ER.24H. PO SCH (08:10)
[2016-05-13] MEDS: GABAPENTIN 300 MG CAPSULE. PO SCH ×3 (08:11→20:23)
[2016-05-13] MEDS: LISINOPRIL 10 MG TABLET PO SCH (08:11)
[2016-05-13] MEDS: ALPRAZOLAM 0.25 MG TABLET. PO SCH ×3 (08:12→20:23)
[2016-05-13] MEDS: ASPIRIN CHEWABLE 81 MG TABLET. PO SCH (08:12)
[2016-05-13] MEDS: AMLODIPINE BESYLATE 10 MG TABLET. PO SCH (08:12)
[2016-05-13] MEDS: SPIRONOLACTONE 25 MG TABLET PO SCH (08:12)
[2016-05-13] MEDS: PANTOPRAZOLE 40 MG TABLET.DR. PO SCH ×2 (08:12→17:12)
[2016-05-13] MEDS: FUROSEMIDE 80 MG TABLET. PO SCH (08:13)
[2016-05-13] MEDS: CLOPIDOGREL BISULFATE 75 MG TABLET PO SCH (08:13)
[2016-05-13] MEDS: POTASSIUM CHLORIDE 20 MEQ TABLET.ER. PO SCH (08:13)
--- NOTE | 2016-05-13 08:45 | PDOC ---
Provider Note Provider Note continues to have L sided abd pain, no more stools at all- took flagyl from 04/16 to 04/26 for poss c diff, no more diarrhea since- NC ct was normal on admit, lactic acid ok, ? diverticultitis, or low level ischemic injury w/o blood- mar repeat ct w/ contrast ALEK HANLEY MD May 13, 2016 08:45
[2016-05-13] MEDS ORDERED: CONTRAST GIVEN MC PRN (09:00)
[2016-05-13] MEDS ORDERED: IOHEXOL 240 MG/ML 50ML VIAL. PO ONE (09:30)
[2016-05-13] MEDS ORDERED: IOHEXOL 300 MG/ML 75 ML VIAL IV ONE (09:30)
[2016-05-13] MEDS: IOHEXOL 300 MG/ML 75 ML VIAL IV ONE (10:24)
[2016-05-13 11:56] LABS: BASO # 0.1 x10^3/uL (0.0-0.2); BASO % 2 % (0-3); EOS % 6 % (0-3); LYMPH # 0.9 x10^3/uL (1.0-4.8); LYMPH % 19 % (24-48); MEAN CORPUSCULAR HEMOGLOBIN 22 pg (25-35); MEAN CORPUSCULAR HGB CONC 30 g/dL (31-37); MEAN CORPUSCULAR VOLUME 73 fL (79-100); MONO % 8 % (0-9); NEUT % 65 % (31-73); PLATELET COUNT 209 x10^3/uL (140-400); RED BLOOD COUNT 5.48 x10^6/uL (3.50-5.40); RED CELL DISTRIBUTION WIDTH 22.9 % (11.5-14.5); WHITE BLOOD COUNT 4.7 x10^3/uL (4.0-11.0)
[2016-05-13] MEDS: POTASSIUM CL 20MEQ D5-0.45NACL 1,000 ML IV SCH (12:09)
--- NOTE | 2016-05-13 14:44 | RAD ---
CT of the abdomen and pelvis with contrast, 05/13/2016: History: Left-sided pain Multidetector CT imaging was performed following oral and IV administration of contrast. Comparison is made to a study from 05/11/2016. Left lower lobe opacities have worsened. The appearance suggests dense consolidation and atelectasis. Moderate streaky right basilar opacities have also worsened. No definite pleural fluid is seen. The heart is enlarged with calcification of the coronary arteries. There is a moderate-sized hiatal hernia. The gallbladder is surgically absent. No hepatic abnormality is seen. The pancreas is unremarkable. The spleen is of normal size. The right kidney is atrophic. The kidneys show no evidence of obstruction. Vascular calcifications are present at the left renal hilum. An inferior vena cava filter is in place in the infrarenal location. There is an unchanged bifurcated aortoiliac stent graft in place. No recurrent aortic aneurysm is delineated. No abdominal or pelvic adenopathy is seen. The bladder is mildly distended. Colonic diverticula are present, most numerous in the sigmoid region. No paracolonic inflammatory process is seen. The bowel loops are not dilated. No free fluid or free air is evident in the abdomen or pelvis. There is a mild, old L3 vertebral body compression deformity. There are mild scattered degenerative changes in the spine. IMPRESSION: 1. Sigmoid diverticulosis. 2. Atrophic right kidney. 3. A bifurcated aortoiliac stent graft and and inferior vena cava filter are in place. 4. Moderate-sized hiatal hernia. 5. Coronary artery disease. 6. Worsening left lower lobe atelectasis and consolidation. 7. Increasing mild right basilar atelectasis/infiltrate. PQRS Compliance Statement: One or more of the following individualized dose reduction techniques were utilized for this examination: 1. Automated exposure control 2. Adjustment of the mA and/or kV according to patient size 3. Use of iterative reconstruction technique
[2016-05-13 15:00] VITALS: BP 102/67
[2016-05-13 19:00] VITALS: BP 102/70
[2016-05-13] MEDS: traZODone 100 MG TABLET. PO SCH (20:23)
[2016-05-13] MEDS: AMITRIPTYLINE HCL 25 MG TABLET. PO SCH (20:24)
[2016-05-13 23:00] VITALS: BP 106/68
[2016-05-14] MEDS: POTASSIUM CL 20MEQ D5-0.45NACL 1,000 ML IV SCH (00:13)
[2016-05-14 03:08] VITALS: BP 100/68
[2016-05-14] MEDS: LEVOTHYROXINE 175 MCG TABLET PO SCH (05:41)
[2016-05-14] MEDS: OXYCODONE/APAP 7.5/325 TABLET. PO PRN ×3 (05:42→20:28)
[2016-05-14 07:00] VITALS: BP 95/65
[2016-05-14] MEDS: ALBUTEROL SULFATE 2.5 MG/3 ML NEBU. NEB SCH (07:23)
[2016-05-14] MEDS: CLOPIDOGREL BISULFATE 75 MG TABLET PO SCH (08:11)
[2016-05-14] MEDS: ALPRAZOLAM 0.25 MG TABLET. PO SCH ×3 (08:11→20:28)
[2016-05-14] MEDS: FUROSEMIDE 80 MG TABLET. PO SCH (08:11)
[2016-05-14] MEDS: PANTOPRAZOLE 40 MG TABLET.DR. PO SCH ×2 (08:11→16:49)
[2016-05-14] MEDS: SPIRONOLACTONE 25 MG TABLET PO SCH (08:11)
[2016-05-14] MEDS: PAROXETINE ER 12.5 MG TAB.ER.24H. PO SCH (08:11)
[2016-05-14] MEDS: GABAPENTIN 300 MG CAPSULE. PO SCH ×3 (08:11→20:28)
[2016-05-14] MEDS: ASPIRIN CHEWABLE 81 MG TABLET. PO SCH (08:11)
[2016-05-14] MEDS: POTASSIUM CHLORIDE 20 MEQ TABLET.ER. PO SCH (08:12)
--- NOTE | 2016-05-14 08:59 | PDOC ---
Provider Note Provider Note vss, no temp, hog tender in L abd but ct clesr re same, more LLL infitrate seen- will add merrem re PA/vanc also, see if abd pain lessens - sed rate- adv ALEK Jimenez MD May 14, 2016 08:59
[2016-05-14] MEDS: AMLODIPINE BESYLATE 10 MG TABLET. PO SCH (09:00)
[2016-05-14] MEDS: LISINOPRIL 10 MG TABLET PO SCH (09:00)
[2016-05-14] MEDS: MEROPENEM 1 GM in IV NORMAL SALINE 100ML 100 ML IV SCH ×3 (09:38→20:28)
[2016-05-14 11:00] VITALS: BP 98/63
[2016-05-14] MEDS: IPRATRPIUM/ALBUTEROL 0.5/2.5MG 3 ML NEBU. NEB SCH ×3 (11:07→20:18)
[2016-05-14 15:00] VITALS: BP 105/77
[2016-05-14 19:00] VITALS: BP 128/75
[2016-05-14] MEDS: traZODone 100 MG TABLET. PO SCH (20:28)
[2016-05-14] MEDS: AMITRIPTYLINE HCL 25 MG TABLET. PO SCH (20:28)
[2016-05-14 23:00] VITALS: BP 109/70
[2016-05-15] MEDS: OXYCODONE/APAP 7.5/325 TABLET. PO PRN ×3 (04:19→18:26)
[2016-05-15] MEDS: MEROPENEM 1 GM in IV NORMAL SALINE 100ML 100 ML IV SCH ×3 (05:05→20:27)
[2016-05-15] MEDS: LEVOTHYROXINE 175 MCG TABLET PO SCH (05:28)
[2016-05-15 07:00] VITALS: BP 109/79
[2016-05-15] MEDS: IPRATRPIUM/ALBUTEROL 0.5/2.5MG 3 ML NEBU. NEB SCH ×4 (07:13→19:52)
[2016-05-15] MEDS: GABAPENTIN 300 MG CAPSULE. PO SCH ×3 (08:06→20:26)
[2016-05-15] MEDS: ACETAMINOPHEN 500 MG TABLET PO PRN (08:06)
[2016-05-15] MEDS: LISINOPRIL 10 MG TABLET PO SCH (08:07)
[2016-05-15] MEDS: AMLODIPINE BESYLATE 10 MG TABLET. PO SCH (08:07)
[2016-05-15] MEDS: SPIRONOLACTONE 25 MG TABLET PO SCH (08:08)
[2016-05-15] MEDS: PANTOPRAZOLE 40 MG TABLET.DR. PO SCH ×2 (08:08→16:27)
[2016-05-15] MEDS: POTASSIUM CHLORIDE 20 MEQ TABLET.ER. PO SCH (08:08)
[2016-05-15] MEDS: FUROSEMIDE 80 MG TABLET. PO SCH (08:08)
[2016-05-15] MEDS: CLOPIDOGREL BISULFATE 75 MG TABLET PO SCH (08:08)
[2016-05-15] MEDS: ASPIRIN CHEWABLE 81 MG TABLET. PO SCH (08:08)
[2016-05-15] MEDS: PAROXETINE ER 12.5 MG TAB.ER.24H. PO SCH (08:08)
[2016-05-15] MEDS: ALPRAZOLAM 0.25 MG TABLET. PO SCH ×3 (08:08→20:26)
--- NOTE | 2016-05-15 09:08 | PDOC ---
Provider Note Provider Note still has LLQ abd pain but no temp, new sxs- no more diarrhea- labs all ok- will cont merrem re LLL infiltrate , pulm consult, may need ct chest - do d- dimer ALEK HANLEY MD May 15, 2016 09:08
[2016-05-15 11:00] VITALS: BP 95/61
--- NOTE | 2016-05-15 14:39 | PDOC ---
Provider Note Provider Note dictated MARGOT MATTSON MD May 15, 2016 14:39
[2016-05-15 15:00] VITALS: BP 80/52
--- NOTE | 2016-05-15 15:11 | RAD ---
Bilateral lower extremity venous Doppler ultrasound History: Lower extremity pain. Comparison: None. Procedure: Color Doppler, spectral Doppler, and grayscale images are obtained with and without compression in the area of the common femoral vein, superficial femoral vein - femoral vein junction, main femoral vein (superficial femoral vein) and popliteal vein. Veins of the proximal calf are also imaged. Findings: There is normal duplex flow, color flow and compressibility of all visualized vein segments. No evidence of deep venous thrombosis is present. Impression: No evidence of lower extremity deep venous thrombosis.
--- NOTE | 2016-05-15 15:54 | CONS ---
DATE OF CONSULTATION: ATTENDING PHYSICIAN: Dr. Alek Blackburn. REASON FOR CONSULTATION: Abnormal CT chest, possible pneumonia. HISTORY OF PRESENT ILLNESS: The patient is a 60-year-old female with history of chronic respiratory failure on home oxygen at 10 liters. She has chronic tracheostomy and history of COPD with ongoing tobaccoism. She was brought into the hospital with complaint of diarrhea and abdominal pain. The patient's symptoms have been present for the last 3-[address] of the abdomen and pelvis which was reviewed by me and the lower sections of the abdomen and pelvis reveals that she has a consolidation/atelectasis in the left lower lobe. There is also some atelectasis in the right lower lobe as well. She has moderate sized hiatal hernia. She has sigmoid diverticulosis. Upon further questioning regarding a pulmonary status, she says she is not short of breath, no wheezing, no fever at home. She said she does have a cough with light yellow sputum production, which is usually chronic, but she thinks the color is more thicker now. She does not have any reported fever. Consultation requested for further evaluation and management. She continues to smoke half pack a day. PAST MEDICAL HISTORY: History of chronic obstructive airway disease, history of chronic respiratory failure on 10 liters of oxygen at home and history of chronic tracheostomy. History of admissions for CHF and pneumonia in the past. Other detailed history is well documented in my past consults. PAST SURGICAL HISTORY: Tracheostomy. ALLERGIES: PENICILLIN AND BARIUM SULFATE. CURRENT MEDICATIONS: Reviewed as listed in the [facility] including antibiotics, broad spectrum with meropenem. She is on DuoNeb. REVIEW OF SYSTEMS: Twelve-point system review was obtained. Pertinent positive discussed in my history of present illness, otherwise noncontributory. All systems that were negative were reviewed as well. SOCIAL HISTORY: Ongoing tobaccoism for at least 35 years. FAMILY HISTORY: Noncontributory to lungs. PHYSICAL EXAMINATION: VITAL SIGNS: Blood pressure is stable, pulse ox 96% on 10-12 liters, afebrile. HEENT: Sclerae nonicteric. NECK: Supple. LUNGS: Diminished breath sounds at the bases. CARDIOVASCULAR: Regular rate and rhythm. ABDOMEN: Soft, mildly tender, generalized. EXTREMITIES: With trace pitting edema. LABORATORY DATA: Reviewed. White cell count 4.7, hemoglobin 12.0, platelets 209. D-dimer is 1.85. BUN is 13, creatinine 1.0. IMPRESSION: 1. Abnormal CT chest with increased left lower lobe atelectasis/consolidation. Clinically, she lacks symptoms of pneumonia. Atelectasis may have increased because of her abdominal process. At this point, it is reasonable to cover for pneumonia until she makes clinical improvement. 2. Abdominal pain with diarrhea and sigmoid diverticulosis on CT abdomen. That is probably the likelihood etiology of her symptoms. 3. History of chronic obstructive pulmonary disease with chronic respiratory failure and chronic tracheostomy and continues to have ongoing tobaccoism. RECOMMENDATIONS: 1. Continue with present oxygen at 10-12 liters. 2. Continue with empiric antibiotic. 3. Nebulizer treatments. 4. Incentive spirometry. 5. Follow up chest x-rays and if there is no improvement, we may consider doing bronchoscopy. 6. Discussed with RN. We will follow along with you. Follow GI recommendations as well. MARGOT MATTSON MD DR: NIDHI/annie JOB#: [id number] / [id number] ALEK Gray MD
[2016-05-15] MEDS: CYCLOBENZAPRINE 10 MG TABLET. PO PRN (18:25)
[2016-05-15 19:00] VITALS: BP 84/52
[2016-05-15] MEDS: traZODone 100 MG TABLET. PO SCH (20:26)
[2016-05-15] MEDS: KETOROLAC TROMETHAMINE 30 MG/ML INJ. IV PRN (20:26)
[2016-05-15] MEDS: AMITRIPTYLINE HCL 25 MG TABLET. PO SCH (20:26)
[2016-05-15 22:54] VITALS: BP 80/59
[2016-05-15] MEDS ORDERED: OXYCODONE/APAP 7.5/325 TABLET. PO PRN (23:30)
[2016-05-16] VITALS (8 sets, daily range): BP systolic 75–104; BP diastolic 52–64
[2016-05-16] MEDS: LEVOTHYROXINE 175 MCG TABLET PO SCH (05:53)
[2016-05-16] MEDS: MEROPENEM 1 GM in IV NORMAL SALINE 100ML 100 ML IV SCH ×3 (05:53→20:53)
[2016-05-16] MEDS: PANTOPRAZOLE 40 MG TABLET.DR. PO SCH ×2 (07:50→16:21)
[2016-05-16] MEDS: GABAPENTIN 300 MG CAPSULE. PO SCH ×3 (07:51→20:48)
[2016-05-16] MEDS: POTASSIUM CHLORIDE 20 MEQ TABLET.ER. PO SCH (07:51)
[2016-05-16] MEDS: CLOPIDOGREL BISULFATE 75 MG TABLET PO SCH (07:51)
[2016-05-16] MEDS: PAROXETINE ER 12.5 MG TAB.ER.24H. PO SCH (07:51)
[2016-05-16] MEDS: ACETAMINOPHEN 500 MG TABLET PO PRN (07:51)
[2016-05-16] MEDS: ASPIRIN CHEWABLE 81 MG TABLET. PO SCH (07:51)
[2016-05-16] MEDS: ALPRAZOLAM 0.25 MG TABLET. PO SCH ×3 (07:51→20:48)
[2016-05-16] MEDS: IPRATRPIUM/ALBUTEROL 0.5/2.5MG 3 ML NEBU. NEB SCH ×4 (08:16→20:28)
[2016-05-16] MEDS: LISINOPRIL 10 MG TABLET PO SCH (09:00)
[2016-05-16] MEDS: SPIRONOLACTONE 25 MG TABLET PO SCH (09:00)
[2016-05-16] MEDS: FUROSEMIDE 80 MG TABLET. PO SCH (09:00)
[2016-05-16] MEDS: AMLODIPINE BESYLATE 10 MG TABLET. PO SCH (09:00)
--- NOTE | 2016-05-16 10:56 | PDOC ---
SUBJECTIVE Subjective c/o pain not able to take pain med due to low Bp, also constipated , breathing seems at base line OBJECTIVE Objective Bp low will stop Amlodipine Vital Signs Vital Signs Date Time Temp Pulse Resp B/P Pulse Ox O2 Delivery O2 Flow Rate FiO2 05/16/16 08:16 91 Tracheal Collar 10.0 05/16/16 08:00 Trach Collar 12.0 05/16/16 07:00 97.7 70 14 87/57 87 Tracheal Collar 12.0 97.7 05/16/16 05:56 75/55 05/16/16 04:29 84/52 90 05/16/16 02:49 97.9 71 18 77/54 87 Tracheal Collar 10.0 97.9 05/16/16 02:27 87 10.0 05/16/16 01:27 90 10.0 05/15/16 22:54 98.6 72 18 80/59 90 Tracheal Collar 10.0 98.6 05/15/16 20:00 Trach Collar 10.0 05/15/16 19:53 88 Tracheal Collar 10.0 05/15/16 19:26 90 15.0 05/15/16 19:00 98.1 78 18 84/52 88 Tracheal Collar 10.0 98.1 05/15/16 16:28 Tracheal Collar 15.0 05/15/16 15:00 97.5 74 14 80/52 90 Tracheal Collar 15.0 97.5 05/15/16 12:19 Tracheal Collar 05/15/16 12:19 93 Tracheal Collar 15.0 05/15/16 11:00 98.0 75 20 95/61 94 Tracheal Collar 12.0 98.0 I & O Intake and Output 05/16/16 07:00 Intake Total 2880 ml Output Total 3650 ml Balance -770 ml Intake Oral 2780 ml IV Total 100 ml Output Urine Total 3650 ml PHYSICAL EXAM Physical Exam lungs decrease BS heart RRR abd soft mild distention ext no edema ASSESSMENT/PLAN Assessment/Plan 1- low Bp will stop Amlodipine and decrease lasix 2. Abnormal CT chest with increased left lower lobe atelectasis/consolidation. 3. Abdominal pain with sigmoid diverticulosis on CT abdomen. constipation will start Miralax 4. History of chronic obstructive pulmonary disease with chronic respiratory failure and chronic tracheostomy 5. tobaccism. Problems: JAZMYN RICK MD May 16, 2016 10:56
--- NOTE | 2016-05-16 10:57 | PDOC ---
PULMONARY PROGRESS NOTES Subjective sob, better, has cough, nasal congestion, has abd pain Vitals Vital Signs Date Time Temp Pulse Resp B/P Pulse Ox O2 Delivery O2 Flow Rate FiO2 05/16/16 08:16 91 Tracheal Collar 10.0 05/16/16 07:00 97.7 70 14 87/57 97.7 ROS: No Nausea, No Chest Pain, No Increase Cough General: Alert, No acute distress HEENT: Other Lungs: Crackles Cardiovascular: S1, S2, Other Abdomen: Soft, Non-tender, Other (no mass) Neuro Exam: Alert Extremities: No Edema, Other Skin: Warm Labs Laboratory Tests Test 05/15/16 09:30 D-Dimer (Tete) 1.85ug/mlFEU (0.00-0.50) Procalcitonin < 0.10ng/mL (0.00-0.10) Medications Active Scripts Medications Dose Route/Sig Days Date Category Neurontin (Gabapentin) 600 Mg Tablet 600 Mg PO TID 05/11/16 Reported Potassium Chloride 20 Meq Tablet.er 20 Meq PO DAILY 05/11/16 Reported Albuterol Sulfate Neb Soln (Albuterol Sulfate) 2.5 Mg/3 Ml Vial.neb 2.5 Mg NEB TID 05/11/16 Reported Lisinopril 10 Mg Tablet 1 Tab PO DAILY 05/11/16 Reported Amlodipine Besylate 10 Mg Tablet 10 Mg PO DAILY 05/11/16 Reported Clopidogrel (Clopidogrel Bisulfate) 75 Mg Tablet 1 Tab PO DAILY 05/11/16 Reported Aspirin 325 Mg Tablet 1 Tab PO DAILY 05/11/16 Reported Furosemide 80 Mg Tablet 0.5 Tab PO DAILY 60 03/21/16 Rx Alprazolam 0.25 Mg Tablet 0.25 Mg PO TID 03/02/16 Reported Cyclobenzaprine Hcl 10 Mg Tablet 10 Mg PO BID PRN 03/02/16 Reported Lisinopril 10 Mg Tablet 10 Mg PO DAILY 03/02/16 Reported Trazodone Hcl 100 Mg Tablet 100 Mg PO HS 03/02/16 Reported Amitriptyline Hcl 25 Mg Tablet 25 Mg PO HS 03/02/16 Reported Spironolactone 25 Mg Tablet 1 Tab PO DAILY 02/20/16 Rx Acetaminophen 500 Mg Tablet 1 Tab PO PRN Q6HRS PRN 09/15/15 Reported Breo Ellipta 100-25 Mcg Inh (Fluticasone/Vilanterol) 1 Each Aer.pow.ba 1 Puff IH DAILY 09/15/15 Reported Percocet 7.5-325 Mg Tablet (Oxycodone/Acetaminophen) 1 Each Tablet 1 Tab PO PRN TID PRN 09/15/15 Reported Baclofen 10 Mg Tablet 10 Mg PO QHS 07/13/15 Reported Levothyroxine Sodium 175 Mcg Tablet 1 Tab PO DAILY 03/03/15 Rx Paxil Cr (Paroxetine Hcl) 12.5 Mg Tab.er.24h 25 Mg PO DAILY 10/31/14 Rx Protonix (Pantoprazole Sodium) 40 Mg Tablet 40 Mg PO BIDAC 10/31/14 Rx Impression . IMPRESSION: 1. Abnormal CT chest with increased left lower lobe atelectasis/consolidation. Clinically, she lacks symptoms of pneumonia. Atelectasis may have increased because of her abdominal process. At this point, it is reasonable to cover for pneumonia until she makes clinical improvement. 2. Abdominal pain with diarrhea and sigmoid diverticulosis on CT abdomen. That is probably the likelihood etiology of her symptoms. 3. History of chronic obstructive pulmonary disease with chronic respiratory failure and chronic tracheostomy and continues to have ongoing tobaccoism. 4. allergic rhinitis Plan . RECOMMENDATIONS: 1. titrate fio2 to keep sat 90% 2. Continue with empiric antibiotic. 3. Nebulizer treatments. 4. Incentive spirometry. 5. Follow up chest x-rays 6. stop smoking 7. add singulair 8. add ics (pulmicort) Discussed with RN, pt. We will follow along with you. Follow GI recommendations as well. NATE SHAH MD May 16, 2016 10:57
[2016-05-16] MEDS: KETOROLAC TROMETHAMINE 30 MG/ML INJ. IV PRN ×2 (11:04→20:48)
[2016-05-16] MEDS: POLYETHYLENE GLYCOL 3350 17 GM PACKET. PO SCH (11:04)
[2016-05-16] MEDS: BUDESONIDE 0.5 MG/2 ML NEBU. NEB SCH ×2 (11:48→20:28)
[2016-05-16] MEDS: OXYCODONE/APAP 5/325 TABLET. PO PRN (16:21)
[2016-05-16] MEDS: traZODone 100 MG TABLET. PO SCH (20:47)
[2016-05-16] MEDS: AMITRIPTYLINE HCL 25 MG TABLET. PO SCH (20:47)
[2016-05-16] MEDS: MONTELUKAST SODIUM 10 MG TABLET. PO SCH (20:48)
[2016-05-17 03:00] VITALS: BP 133/84
[2016-05-17] MEDS: OXYCODONE/APAP 5/325 TABLET. PO PRN ×3 (03:11→21:40)
[2016-05-17] MEDS: LEVOTHYROXINE 175 MCG TABLET PO SCH (06:03)
[2016-05-17] MEDS: MEROPENEM 1 GM in IV NORMAL SALINE 100ML 100 ML IV SCH ×3 (06:03→21:34)
[2016-05-17] MEDS: KETOROLAC TROMETHAMINE 30 MG/ML INJ. IV PRN ×2 (06:05→16:50)
[2016-05-17 07:00] VITALS: BP 97/68
--- NOTE | 2016-05-17 07:38 | PDOC ---
PULMONARY PROGRESS NOTES Subjective sob, better, has cough, better, has nasal congestion, still has abd pain Vitals Vital Signs Date Time Temp Pulse Resp B/P Pulse Ox O2 Delivery O2 Flow Rate FiO2 05/17/16 03:11 89 12.0 05/17/16 03:00 97.5 74 20 133/84 Tracheal Collar 97.5 ROS: No Nausea, No Chest Pain, No Increase Cough General: Alert, No acute distress HEENT: Other Lungs: Crackles Cardiovascular: S1, S2, Other Abdomen: Soft, Non-tender, Other (no mass) Neuro Exam: Alert Extremities: No Edema, Other Skin: Warm Labs Laboratory Tests Test 05/15/16 09:30 D-Dimer (Tete) 1.85ug/mlFEU (0.00-0.50) Procalcitonin < 0.10ng/mL (0.00-0.10) Medications Active Scripts Medications Dose Route/Sig Days Date Category Neurontin (Gabapentin) 600 Mg Tablet 600 Mg PO TID 05/11/16 Reported Potassium Chloride 20 Meq Tablet.er 20 Meq PO DAILY 05/11/16 Reported Albuterol Sulfate Neb Soln (Albuterol Sulfate) 2.5 Mg/3 Ml Vial.neb 2.5 Mg NEB TID 05/11/16 Reported Lisinopril 10 Mg Tablet 1 Tab PO DAILY 05/11/16 Reported Amlodipine Besylate 10 Mg Tablet 10 Mg PO DAILY 05/11/16 Reported Clopidogrel (Clopidogrel Bisulfate) 75 Mg Tablet 1 Tab PO DAILY 05/11/16 Reported Aspirin 325 Mg Tablet 1 Tab PO DAILY 05/11/16 Reported Furosemide 80 Mg Tablet 0.5 Tab PO DAILY 60 03/21/16 Rx Alprazolam 0.25 Mg Tablet 0.25 Mg PO TID 03/02/16 Reported Cyclobenzaprine Hcl 10 Mg Tablet 10 Mg PO BID PRN 03/02/16 Reported Lisinopril 10 Mg Tablet 10 Mg PO DAILY 03/02/16 Reported Trazodone Hcl 100 Mg Tablet 100 Mg PO HS 03/02/16 Reported Amitriptyline Hcl 25 Mg Tablet 25 Mg PO HS 03/02/16 Reported Spironolactone 25 Mg Tablet 1 Tab PO DAILY 02/20/16 Rx Acetaminophen 500 Mg Tablet 1 Tab PO PRN Q6HRS PRN 09/15/15 Reported Breo Ellipta 100-25 Mcg Inh (Fluticasone/Vilanterol) 1 Each Aer.pow.ba 1 Puff IH DAILY 09/15/15 Reported Percocet 7.5-325 Mg Tablet (Oxycodone/Acetaminophen) 1 Each Tablet 1 Tab PO PRN TID PRN 09/15/15 Reported Baclofen 10 Mg Tablet 10 Mg PO QHS 07/13/15 Reported Levothyroxine Sodium 175 Mcg Tablet 1 Tab PO DAILY 03/03/15 Rx Paxil Cr (Paroxetine Hcl) 12.5 Mg Tab.er.24h 25 Mg PO DAILY 10/31/14 Rx Protonix (Pantoprazole Sodium) 40 Mg Tablet 40 Mg PO BIDAC 10/31/14 Rx Impression . IMPRESSION: 1. Abnormal CT chest with increased left lower lobe atelectasis/consolidation. Clinically, she lacks symptoms of pneumonia. Atelectasis may have increased because of her abdominal process. At this point, it is reasonable to cover for pneumonia until she makes clinical improvement. 2. Abdominal pain with diarrhea and sigmoid diverticulosis on CT abdomen. That is probably the likelihood etiology of her symptoms. 3. History of chronic obstructive pulmonary disease with chronic respiratory failure and chronic tracheostomy and continues to have ongoing tobaccoism. 4. allergic rhinitis Plan . RECOMMENDATIONS: 1. titrate fio2 to keep sat 90% 2. Continue with empiric antibiotic. 3. Nebulizer treatments. 4. Incentive spirometry. 5. Follow up chest x-rays 6. stop smoking 7. singulair 8. ics (pulmicort) 9. cxr pa and lat Discussed with RN, pt. We will follow along with you. Follow GI recommendations as well. NATE SHAH MD May 17, 2016 07:38
[2016-05-17] MEDS: IPRATRPIUM/ALBUTEROL 0.5/2.5MG 3 ML NEBU. NEB SCH ×4 (07:44→18:18)
[2016-05-17] MEDS: BUDESONIDE 0.5 MG/2 ML NEBU. NEB SCH ×2 (07:44→18:18)
[2016-05-17] MEDS: POTASSIUM CHLORIDE 20 MEQ TABLET.ER. PO SCH (08:00)
[2016-05-17] MEDS: PANTOPRAZOLE 40 MG TABLET.DR. PO SCH ×2 (08:24→16:49)
[2016-05-17] MEDS: ASPIRIN CHEWABLE 81 MG TABLET. PO SCH (08:24)
[2016-05-17] MEDS: PAROXETINE ER 12.5 MG TAB.ER.24H. PO SCH (08:25)
[2016-05-17] MEDS: ALPRAZOLAM 0.25 MG TABLET. PO SCH ×3 (08:25→21:33)
[2016-05-17] MEDS: GABAPENTIN 300 MG CAPSULE. PO SCH ×3 (08:25→21:33)
[2016-05-17] MEDS: CLOPIDOGREL BISULFATE 75 MG TABLET PO SCH (08:25)
[2016-05-17] MEDS: POLYETHYLENE GLYCOL 3350 17 GM PACKET. PO SCH (08:27)
[2016-05-17] MEDS: CYCLOBENZAPRINE 10 MG TABLET. PO PRN ×2 (08:31→21:40)
[2016-05-17] MEDS: LISINOPRIL 10 MG TABLET PO SCH (09:00)
[2016-05-17] MEDS: SPIRONOLACTONE 25 MG TABLET PO SCH (09:00)
[2016-05-17 10:52] VITALS: BP 106/71
--- NOTE | 2016-05-17 13:17 | PDOC ---
SUBJECTIVE Subjective feels better today, still c/o generalized pain OBJECTIVE Objective Bp better Vital Signs Vital Signs Date Time Temp Pulse Resp B/P Pulse Ox O2 Delivery O2 Flow Rate FiO2 05/17/16 11:04 90 Tracheal Collar 10.0 05/17/16 10:52 97.9 81 18 106/71 94 Tracheal Collar 12.0 97.9 05/17/16 08:00 Trach Collar 10.0 05/17/16 07:45 91 Tracheal Collar 10.0 05/17/16 07:00 97.9 68 16 97/68 95 Tracheal Collar 12.0 97.9 05/17/16 03:11 89 12.0 05/17/16 03:00 97.5 74 20 133/84 92 Tracheal Collar 12.0 97.5 05/16/16 22:59 98.6 83 20 104/61 89 Tracheal Collar 12.0 98.6 05/16/16 20:31 90 Tracheal Collar 10.0 05/16/16 20:29 90 Tracheal Collar 10.0 05/16/16 20:00 Trach Collar 10.0 05/16/16 19:00 100.2 90 20 103/64 88 Tracheal Collar 12.0 100.2 05/16/16 17:57 Tracheal Collar 10.0 05/16/16 17:21 90 10.0 05/16/16 15:00 97.4 82 22 92/60 90 Tracheal Collar 12.0 97.4 I & O Intake and Output 05/17/16 07:00 Intake Total 2110 ml Output Total 900 ml Balance 1210 ml Intake Oral 2010 ml IV Total 100 ml Output Urine Total 900 ml # Voids 2 PHYSICAL EXAM Physical Exam lungs with better air movement and no wheezing today otherwise no change ASSESSMENT/PLAN Assessment/Plan 1. Abnormal CT chest with increased left lower lobe atelectasis/consolidation. 2. Abdominal pain with sigmoid diverticulosis on CT abdomen. better 3. History of chronic obstructive pulmonary disease with chronic respiratory failure and chronic tracheostomy 4- tobaccism. 5- Bp better today continue plans , Dr. Blackburn will resume care in AM Problems: JAZMYN RICK MD May 17, 2016 13:17
--- NOTE | 2016-05-17 14:38 | RAD ---
2 view CXR: Clinical indications: Cough. Pulmonary infiltrates. Comparison: March 23, 2016 chest x-ray.. Chest CT dated 05/17/2016. Findings: Chronic interstitial lung disease is again demonstrated. In the lateral view, posterior lung infiltrate is present. Bibasilar posterior lung infiltrates or seen on the previous chest CT. Comparing different modalities is difficult. No pleural effusion or pneumothorax is seen. Tracheostomy tube is again noted. A hiatal hernia is seen. The heart size and mediastinum are stable. Impression: Persistent posterior lower lobe lung infiltrate..
[2016-05-17 15:00] VITALS: BP 110/64
[2016-05-17 19:00] VITALS: BP 119/77
[2016-05-17] MEDS: MONTELUKAST SODIUM 10 MG TABLET. PO SCH (21:33)
[2016-05-17] MEDS: traZODone 100 MG TABLET. PO SCH (21:33)
[2016-05-17] MEDS: AMITRIPTYLINE HCL 25 MG TABLET. PO SCH (21:33)
[2016-05-17 23:00] VITALS: BP 126/85
[2016-05-18] MEDS: KETOROLAC TROMETHAMINE 30 MG/ML INJ. IV PRN ×3 (01:07→20:59)
[2016-05-18 03:00] VITALS: BP 115/73
[2016-05-18] MEDS: MEROPENEM 1 GM in IV NORMAL SALINE 100ML 100 ML IV SCH (05:09)
[2016-05-18 05:28] LABS: HEMOGLOBIN 10.7 g/dL (12.0-15.5); RED BLOOD COUNT 4.76 x10^6/uL (3.50-5.40); RED CELL DISTRIBUTION WIDTH 22.9 % (11.5-14.5); WHITE BLOOD COUNT 3.4 x10^3/uL (4.0-11.0)
[2016-05-18 05:56] LABS: CALCIUM 8.4 mg/dL (8.5-10.1); CREATININE 1.2 mg/dL (0.6-1.0); GFR 45.5; POTASSIUM 4.3 mmol/L (3.5-5.1)
[2016-05-18 07:40] VITALS: BP 123/81
[2016-05-18] MEDS: IPRATRPIUM/ALBUTEROL 0.5/2.5MG 3 ML NEBU. NEB SCH ×4 (07:47→21:14)
[2016-05-18] MEDS: BUDESONIDE 0.5 MG/2 ML NEBU. NEB SCH ×2 (07:47→20:00)
--- NOTE | 2016-05-18 08:10 | PDOC ---
Provider Note Provider Note afeb, no new sxs- feels Lsided pain is same- will change merrem to po levoflox, add miralax- hopefully home 1-2 d if pain lessens ALEK HANLEY MD May 18, 2016 08:10
[2016-05-18] MEDS: PANTOPRAZOLE 40 MG TABLET.DR. PO SCH ×2 (08:13→16:43)
[2016-05-18] MEDS: POTASSIUM CHLORIDE 20 MEQ TABLET.ER. PO SCH (08:13)
[2016-05-18] MEDS: LEVOTHYROXINE 175 MCG TABLET PO SCH (08:13)
[2016-05-18] MEDS: ASPIRIN CHEWABLE 81 MG TABLET. PO SCH (08:13)
[2016-05-18] MEDS: GABAPENTIN 300 MG CAPSULE. PO SCH ×3 (08:28→20:59)
[2016-05-18] MEDS: POLYETHYLENE GLYCOL 3350 17 GM PACKET. PO SCH (08:28)
[2016-05-18] MEDS: PAROXETINE ER 12.5 MG TAB.ER.24H. PO SCH (08:28)
[2016-05-18] MEDS: SPIRONOLACTONE 25 MG TABLET PO SCH (08:28)
[2016-05-18] MEDS: CLOPIDOGREL BISULFATE 75 MG TABLET PO SCH (08:29)
[2016-05-18] MEDS: LEVOFLOXACIN 500 MG TABLET PO SCH (08:29)
[2016-05-18] MEDS: OXYCODONE/APAP 5/325 TABLET. PO PRN ×2 (08:29→16:47)
[2016-05-18] MEDS: ALPRAZOLAM 0.25 MG TABLET. PO SCH ×3 (08:29→20:59)
[2016-05-18] MEDS: LISINOPRIL 10 MG TABLET PO SCH (08:30)
[2016-05-18 10:39] VITALS: BP 117/84
--- NOTE | 2016-05-18 14:21 | PDOC ---
PULMONARY PROGRESS NOTES Subjective pt less soa still abn pain Vitals Vital Signs Date Time Temp Pulse Resp B/P Pulse Ox O2 Delivery O2 Flow Rate FiO2 05/18/16 11:45 Tracheal Collar 10.0 05/18/16 10:39 97.6 78 18 117/84 92 97.6 ROS: No Nausea, No Chest Pain, No Increase Cough General: Alert, No acute distress HEENT: Other Lungs: Clear Cardiovascular: S1, S2, Other Abdomen: Soft, Non-tender, Other (no mass) Neuro Exam: Alert Extremities: No Edema, Other Skin: Warm Labs Laboratory Tests Test 05/18/16 04:30 White Blood Count 3.4x10^3/uL (4.0-11.0) Red Blood Count 4.76x10^6/uL (3.50-5.40) Hemoglobin 10.7g/dL (12.0-15.5) Hematocrit 35.0% (36.0-47.0) Mean Corpuscular Volume 74fL (79-100) Mean Corpuscular Hemoglobin 23pg (25-35) Mean Corpuscular Hemoglobin Concent 31g/dL (31-37) Red Cell Distribution Width 22.9% (11.5-14.5) Platelet Count 209x10^3/uL (140-400) Sodium Level 136mmol/L (136-145) Potassium Level 4.3mmol/L (3.5-5.1) Chloride Level 98mmol/L (98-107) Carbon Dioxide Level 29mmol/L (21-32) Anion Gap 9 (6-14) Blood Urea Nitrogen 33mg/dL (7-20) Creatinine 1.2mg/dL (0.6-1.0) Estimated GFR (Cockcroft-Gault) 45.5 Glucose Level 90mg/dL (70-99) Calcium Level 8.4mg/dL (8.5-10.1) Laboratory Tests Test 05/18/16 04:30 White Blood Count 3.4x10^3/uL (4.0-11.0) Red Blood Count 4.76x10^6/uL (3.50-5.40) Hemoglobin 10.7g/dL (12.0-15.5) Hematocrit 35.0% (36.0-47.0) Mean Corpuscular Volume 74fL (79-100) Mean Corpuscular Hemoglobin 23pg (25-35) Mean Corpuscular Hemoglobin Concent 31g/dL (31-37) Red Cell Distribution Width 22.9% (11.5-14.5) Platelet Count 209x10^3/uL (140-400) Sodium Level 136mmol/L (136-145) Potassium Level 4.3mmol/L (3.5-5.1) Chloride Level 98mmol/L (98-107) Carbon Dioxide Level 29mmol/L (21-32) Anion Gap 9 (6-14) Blood Urea Nitrogen 33mg/dL (7-20) Creatinine 1.2mg/dL (0.6-1.0) Estimated GFR (Cockcroft-Gault) 45.5 Glucose Level 90mg/dL (70-99) Calcium Level 8.4mg/dL (8.5-10.1) Medications Active Scripts Medications Dose Route/Sig Days Date Category Neurontin (Gabapentin) 600 Mg Tablet 600 Mg PO TID 05/11/16 Reported Potassium Chloride 20 Meq Tablet.er 20 Meq PO DAILY 05/11/16 Reported Albuterol Sulfate Neb Soln (Albuterol Sulfate) 2.5 Mg/3 Ml Vial.neb 2.5 Mg NEB TID 05/11/16 Reported Lisinopril 10 Mg Tablet 1 Tab PO DAILY 05/11/16 Reported Amlodipine Besylate 10 Mg Tablet 10 Mg PO DAILY 05/11/16 Reported Clopidogrel (Clopidogrel Bisulfate) 75 Mg Tablet 1 Tab PO DAILY 05/11/16 Reported Aspirin 325 Mg Tablet 1 Tab PO DAILY 05/11/16 Reported Furosemide 80 Mg Tablet 0.5 Tab PO DAILY 60 03/21/16 Rx Alprazolam 0.25 Mg Tablet 0.25 Mg PO TID 03/02/16 Reported Cyclobenzaprine Hcl 10 Mg Tablet 10 Mg PO BID PRN 03/02/16 Reported Lisinopril 10 Mg Tablet 10 Mg PO DAILY 03/02/16 Reported Trazodone Hcl 100 Mg Tablet 100 Mg PO HS 03/02/16 Reported Amitriptyline Hcl 25 Mg Tablet 25 Mg PO HS 03/02/16 Reported Spironolactone 25 Mg Tablet 1 Tab PO DAILY 02/20/16 Rx Acetaminophen 500 Mg Tablet 1 Tab PO PRN Q6HRS PRN 09/15/15 Reported Breo Ellipta 100-25 Mcg Inh (Fluticasone/Vilanterol) 1 Each Aer.pow.ba 1 Puff IH DAILY 09/15/15 Reported Percocet 7.5-325 Mg Tablet (Oxycodone/Acetaminophen) 1 Each Tablet 1 Tab PO PRN TID PRN 09/15/15 Reported Baclofen 10 Mg Tablet 10 Mg PO QHS 07/13/15 Reported Levothyroxine Sodium 175 Mcg Tablet 1 Tab PO DAILY 03/03/15 Rx Paxil Cr (Paroxetine Hcl) 12.5 Mg Tab.er.24h 25 Mg PO DAILY 10/31/14 Rx Protonix (Pantoprazole Sodium) 40 Mg Tablet 40 Mg PO BIDAC 10/31/14 Rx Impression . Chronic resp failure 1. Abnormal CT chest with increased left lower lobe atelectasis/consolidation. Clinically, she lacks symptoms of pneumonia. Atelectasis may have increased because of her abdominal process. 2. Abdominal pain with diarrhea and sigmoid diverticulosis on CT ABD 3. History of chronic obstructive pulmonary disease with chronic respiratory failure and chronic tracheostomy and continues to have ongoing tobaccoism. 4. allergic rhinitis Plan . improving will continue the same 1. titrate fio2 to keep sat 90% 2. Continue with empiric antibiotic. 3. Nebulizer treatments. 4. Incentive spirometry. 5. Follow up chest x-rays 6. stop smoking 7. CHRYSTAL Armendariz MD May 18, 2016 14:21
[2016-05-18 14:47] VITALS: BP 96/63
[2016-05-18 19:00] VITALS: BP 111/78
[2016-05-18] MEDS: CYCLOBENZAPRINE 10 MG TABLET. PO PRN (20:59)
[2016-05-18] MEDS: MONTELUKAST SODIUM 10 MG TABLET. PO SCH (20:59)
[2016-05-18] MEDS: AMITRIPTYLINE HCL 25 MG TABLET. PO SCH (20:59)
[2016-05-18] MEDS: traZODone 100 MG TABLET. PO SCH (20:59)
[2016-05-18 23:00] VITALS: BP 93/64
[2016-05-19] MEDS: OXYCODONE/APAP 5/325 TABLET. PO PRN ×3 (01:55→16:37)
[2016-05-19 03:00] VITALS: BP 98/62
[2016-05-19] MEDS: KETOROLAC TROMETHAMINE 30 MG/ML INJ. IV PRN ×3 (05:13→22:01)
[2016-05-19] MEDS: LEVOFLOXACIN 500 MG TABLET PO SCH (05:13)
[2016-05-19] MEDS: LEVOTHYROXINE 175 MCG TABLET PO SCH (05:14)
[2016-05-19] MEDS: PANTOPRAZOLE 40 MG TABLET.DR. PO SCH ×2 (05:14→16:34)
[2016-05-19 07:00] VITALS: BP 101/63
[2016-05-19] MEDS: IPRATRPIUM/ALBUTEROL 0.5/2.5MG 3 ML NEBU. NEB SCH ×4 (07:42→19:57)
--- NOTE | 2016-05-19 08:18 | PDOC ---
Provider Note Provider Note bp lower, no new sxs- still has LLQ pain and diffuse L sided tenderness- hb lower but no sign of bleeding despite asa/plavix- will hold acei re bp, repeat hb, consult gi to consider ? flex sig as she is at risk for ischemic colitis - no more diarrhea x 6 days, no lactic acidosis, fever , wbc ALEK HANLEY MD May 19, 2016 08:18
[2016-05-19] MEDS: CLOPIDOGREL BISULFATE 75 MG TABLET PO SCH (08:26)
[2016-05-19] MEDS: POLYETHYLENE GLYCOL 3350 17 GM PACKET. PO SCH (08:26)
[2016-05-19] MEDS: GABAPENTIN 300 MG CAPSULE. PO SCH ×3 (08:27→22:02)
[2016-05-19] MEDS: ASPIRIN CHEWABLE 81 MG TABLET. PO SCH (08:27)
[2016-05-19] MEDS: PAROXETINE ER 12.5 MG TAB.ER.24H. PO SCH (08:27)
[2016-05-19] MEDS: ALPRAZOLAM 0.25 MG TABLET. PO SCH ×3 (08:28→22:02)
[2016-05-19] MEDS: POTASSIUM CHLORIDE 20 MEQ TABLET.ER. PO SCH (08:28)
[2016-05-19] MEDS: SPIRONOLACTONE 25 MG TABLET PO SCH (08:28)
[2016-05-19 09:44] LABS: HEMATOCRIT 38.1 % (36.0-47.0); HEMOGLOBIN 11.6 g/dL (12.0-15.5); RED BLOOD COUNT 5.24 x10^6/uL (3.50-5.40); RED CELL DISTRIBUTION WIDTH 22.6 % (11.5-14.5); WHITE BLOOD COUNT 4.3 x10^3/uL (4.0-11.0)
[2016-05-19 11:00] VITALS: BP 97/67
[2016-05-19 15:00] VITALS: BP 100/68
--- NOTE | 2016-05-19 15:26 | PDOC2 ---
GI CONSULT Reason For Consult: Abd pain HPI: HPI: 60 y/o female w/ extensive PMH as below including chronic resp failure w/ permanent tracheostomy, admitted 05/11 w/ abdominal pain and diarrhea. Followed by pulm this admission for LLL consolidation, on empiric atbx. She relates that abd pain has been ongoing x 1 month. It is mostly lower and spread to the right. Began w/o precipitating events, denies aggravating or alleviating factors. Denies weight loss, has been eating normally until today when felt a little nauseated. GERD controlled w/ PPI BID. Since admission has actually not had diarrhea but instead felt constipation; finally had a BM this afternoon. Denies hematochezia, melena. No change in pain after stooling. CT A/P 05/13 noted sigmoid diverticulosis and hiatal hernia w/ additional findings below. GI consult requested re: possible flex sig, risk for ischemic colitis. Note on Plavix and ASA. Previous GI workup: Most recent (in this chart that I can see) EGD by Dr. Sanchez in 04/2014 showed hiatal hernia, reflux esophagitis, and no evidence of Mcmahon's esophagus. At that time is was recommended that she increased PPI to BID. It is noted that she had a PEG placed in 02/2013. Gastric erosions and reflux esophagitis were noted in 01/2013. Reports colonoscopy within 10 years revealing polyps. No record of this at our office, was perhaps performed by Dr. Luly Carter. PMH: PMH: GERD w/ h/o Mcmahon's esophagus, chronic resp failure w/ permanent tracheostomy , MIs w/ cardiac stents, CHF, PVD w/ peripheral stents, AAA stent, DVT w/ IVC filter, COPD, HTN, HLD, OA, DDD, hypothyroidism, chronic back pain, depression, appendectomy, cholecystectomy, hysterectomy, right CTR, eyes surgery, previous overdose on prescription narcotics, previous PEG tube placement/removal FH: Family History: No pertinent hx (denies GI cancers) Social History: Smoke: <1 pack per day ALCOHOL: none Drugs: None ROS: GEN: Denies fevers, chills, sweats HEENT: Denies blurred vision, sore throat CV: Denies chest pain RESP: +SOA GI: Per HPI : Denies hematuria, dysuria ENDO: Denies weight changes NEURO: Denies confusion, dizziness MSK: Denies weakness, joint pain/swelling SKIN: Denies jaundice, pruritus VItals: Vitals: Vital Signs Date Time Temp Pulse Resp B/P Pulse Ox O2 Delivery O2 Flow Rate FiO2 05/19/16 11:25 90 Tracheal Collar 10.0 05/19/16 11:00 98.1 56 97/67 98.1 05/19/16 07:00 16 Labs: Labs: Laboratory Tests Test 05/19/16 09:05 White Blood Count 4.3x10^3/uL (4.0-11.0) Red Blood Count 5.24x10^6/uL (3.50-5.40) Hemoglobin 11.6g/dL (12.0-15.5) Hematocrit 38.1% (36.0-47.0) Mean Corpuscular Volume 73fL (79-100) Mean Corpuscular Hemoglobin 22pg (25-35) Mean Corpuscular Hemoglobin Concent 31g/dL (31-37) Red Cell Distribution Width 22.6% (11.5-14.5) Platelet Count 212x10^3/uL (140-400) Allergies: Coded Allergies: Penicillins (Verified Allergy, Intermediate, can tolerate cefepime, ) barium sulfate (Verified Adverse Reaction, Intermediate, Nausea, 06/04/15) Medications: Please see EMR. Imaging: Imaging: CT A/P w/o contrast 05/11/16 IMPRESSION Stable appearance of the abdomen and pelvis. CT A/P w/ oral and IV contrast 05/13/16 IMPRESSION: 1. Sigmoid diverticulosis. 2. Atrophic right kidney. 3. A bifurcated aortoiliac stent graft and and inferior vena cava filter are in place. 4. Moderate-sized hiatal hernia. 5. Coronary artery disease. 6. Worsening left lower lobe atelectasis and consolidation. 7. Increasing mild right basilar atelectasis/infiltrate. LE US 05/15/16 Impression: No evidence of lower extremity deep venous thrombosis. CXR 05/17/16 Impression: Persistent posterior lower lobe lung infiltrate.. PE: GEN: NAD HEENT: PERRL LUNGS: trach, clear HEART: RRR ABD: BS+, suprapubic tenderness toward RLQ toward RUQ EXTREMITY: No edema SKIN: No rashes, no jaundice NEURO/PSYCH: A & O 3 A/P: A/P: Abd pain -lower by history, suprapubic to RLQ to RUQ on exam -began 1 month ago, no aggravating or alleviating factors -had some diarrhea prior to admission, then was constipated, stooled today -CTs as above unrevealing for acute GI issue COPD, chronic resp failure w/ perm trach, LLL consolidation GERD, h/o Mcmahon's esophagus -last EGD 2014: hiatal hernia, reflux esophagitis, and no evidence of Mcmahon's esophagus -on BID PPI CRC screen, h/o colon polyps -recalls colonoscopy within 10 years, not sure where performed (no records at our office) -- Will try treating constipation - ?diarrhea prior to admission overflow continence Had a stool today, will try Amitiza. Consider enemas if needed. SONALI PALOMO May 19, 2016 15:26
[2016-05-19] MEDS: LUBIPROSTONE 8 MCG CAPSULE PO SCH (16:34)
--- NOTE | 2016-05-19 17:13 | PDOC ---
PULMONARY PROGRESS NOTES Subjective pt less soa still abn pain Vitals Vital Signs Date Time Temp Pulse Resp B/P Pulse Ox O2 Delivery O2 Flow Rate FiO2 05/19/16 16:37 Tracheal Collar 10.0 05/19/16 15:00 98.4 58 16 100/68 92 98.4 ROS: No Nausea, No Chest Pain, No Increase Cough General: Alert, No acute distress HEENT: Other Lungs: Clear Cardiovascular: S1, S2, Other Abdomen: Soft, Non-tender, Other (no mass) Neuro Exam: Alert Extremities: No Edema, Other Skin: Warm Labs Laboratory Tests Test 05/18/16 04:30 05/19/16 09:05 White Blood Count 3.4x10^3/uL (4.0-11.0) 4.3x10^3/uL (4.0-11.0) Red Blood Count 4.76x10^6/uL (3.50-5.40) 5.24x10^6/uL (3.50-5.40) Hemoglobin 10.7g/dL (12.0-15.5) 11.6g/dL (12.0-15.5) Hematocrit 35.0% (36.0-47.0) 38.1% (36.0-47.0) Mean Corpuscular Volume 74fL (79-100) 73fL (79-100) Mean Corpuscular Hemoglobin 23pg (25-35) 22pg (25-35) Mean Corpuscular Hemoglobin Concent 31g/dL (31-37) 31g/dL (31-37) Red Cell Distribution Width 22.9% (11.5-14.5) 22.6% (11.5-14.5) Platelet Count 209x10^3/uL (140-400) 212x10^3/uL (140-400) Sodium Level 136mmol/L (136-145) Potassium Level 4.3mmol/L (3.5-5.1) Chloride Level 98mmol/L (98-107) Carbon Dioxide Level 29mmol/L (21-32) Anion Gap 9 (6-14) Blood Urea Nitrogen 33mg/dL (7-20) Creatinine 1.2mg/dL (0.6-1.0) Estimated GFR (Cockcroft-Gault) 45.5 Glucose Level 90mg/dL (70-99) Calcium Level 8.4mg/dL (8.5-10.1) Laboratory Tests Test 05/19/16 09:05 White Blood Count 4.3x10^3/uL (4.0-11.0) Red Blood Count 5.24x10^6/uL (3.50-5.40) Hemoglobin 11.6g/dL (12.0-15.5) Hematocrit 38.1% (36.0-47.0) Mean Corpuscular Volume 73fL (79-100) Mean Corpuscular Hemoglobin 22pg (25-35) Mean Corpuscular Hemoglobin Concent 31g/dL (31-37) Red Cell Distribution Width 22.6% (11.5-14.5) Platelet Count 212x10^3/uL (140-400) Medications Active Scripts Medications Dose Route/Sig Days Date Category Neurontin (Gabapentin) 600 Mg Tablet 600 Mg PO TID 05/11/16 Reported Potassium Chloride 20 Meq Tablet.er 20 Meq PO DAILY 05/11/16 Reported Albuterol Sulfate Neb Soln (Albuterol Sulfate) 2.5 Mg/3 Ml Vial.neb 2.5 Mg NEB TID 05/11/16 Reported Lisinopril 10 Mg Tablet 1 Tab PO DAILY 05/11/16 Reported Amlodipine Besylate 10 Mg Tablet 10 Mg PO DAILY 05/11/16 Reported Clopidogrel (Clopidogrel Bisulfate) 75 Mg Tablet 1 Tab PO DAILY 05/11/16 Reported Aspirin 325 Mg Tablet 1 Tab PO DAILY 05/11/16 Reported Furosemide 80 Mg Tablet 0.5 Tab PO DAILY 60 03/21/16 Rx Alprazolam 0.25 Mg Tablet 0.25 Mg PO TID 03/02/16 Reported Cyclobenzaprine Hcl 10 Mg Tablet 10 Mg PO BID PRN 03/02/16 Reported Lisinopril 10 Mg Tablet 10 Mg PO DAILY 03/02/16 Reported Trazodone Hcl 100 Mg Tablet 100 Mg PO HS 03/02/16 Reported Amitriptyline Hcl 25 Mg Tablet 25 Mg PO HS 03/02/16 Reported Spironolactone 25 Mg Tablet 1 Tab PO DAILY 02/20/16 Rx Acetaminophen 500 Mg Tablet 1 Tab PO PRN Q6HRS PRN 09/15/15 Reported Breo Ellipta 100-25 Mcg Inh (Fluticasone/Vilanterol) 1 Each Aer.pow.ba 1 Puff IH DAILY 09/15/15 Reported Percocet 7.5-325 Mg Tablet (Oxycodone/Acetaminophen) 1 Each Tablet 1 Tab PO PRN TID PRN 09/15/15 Reported Baclofen 10 Mg Tablet 10 Mg PO QHS 07/13/15 Reported Levothyroxine Sodium 175 Mcg Tablet 1 Tab PO DAILY 03/03/15 Rx Paxil Cr (Paroxetine Hcl) 12.5 Mg Tab.er.24h 25 Mg PO DAILY 10/31/14 Rx Protonix (Pantoprazole Sodium) 40 Mg Tablet 40 Mg PO BIDAC 10/31/14 Rx Impression . Chronic resp failure 1. Abnormal CT chest with increased left lower lobe atelectasis/consolidation. Clinically, she lacks symptoms of pneumonia. Atelectasis may have increased because of her abdominal process. 2. Abdominal pain with diarrhea and sigmoid diverticulosis on CT ABD 3. History of chronic obstructive pulmonary disease with chronic respiratory failure and chronic tracheostomy and continues to have ongoing tobaccoism. 4. allergic rhinitis Plan . needs more time to improve improving will continue the same 1. titrate fio2 to keep sat 90% 2. Continue with empiric antibiotic. 3. Nebulizer treatments. 4. Incentive spirometry. 5. Follow up chest x-rays 6. stop smoking 7. CHRYSTAL Armendariz MD May 19, 2016 17:13
[2016-05-19 19:10] VITALS: BP 112/70
[2016-05-19] MEDS ORDERED: ONDANSETRON ODT 4 MG TAB.RAPDIS. PO PRN (20:15)
[2016-05-19] MEDS: traZODone 100 MG TABLET. PO SCH (22:02)
[2016-05-19] MEDS: AMITRIPTYLINE HCL 25 MG TABLET. PO SCH (22:02)
[2016-05-19] MEDS: MONTELUKAST SODIUM 10 MG TABLET. PO SCH (22:05)
[2016-05-19 23:34] VITALS: BP 96/65
[2016-05-20 03:51] VITALS: BP 92/64
[2016-05-20] MEDS: LEVOFLOXACIN 500 MG TABLET PO SCH (06:00)
[2016-05-20] MEDS: KETOROLAC TROMETHAMINE 30 MG/ML INJ. IV PRN ×2 (06:15→14:20)
[2016-05-20] MEDS: LEVOTHYROXINE 175 MCG TABLET PO SCH (06:15)
[2016-05-20 07:00] VITALS: BP 113/70
[2016-05-20] MEDS: IPRATRPIUM/ALBUTEROL 0.5/2.5MG 3 ML NEBU. NEB SCH ×3 (07:44→15:57)
[2016-05-20] MEDS: LUBIPROSTONE 8 MCG CAPSULE PO SCH (08:00)
[2016-05-20] MEDS: GABAPENTIN 300 MG CAPSULE. PO SCH ×2 (08:15→14:19)
[2016-05-20] MEDS: ALPRAZOLAM 0.25 MG TABLET. PO SCH ×2 (08:15→14:19)
[2016-05-20] MEDS: PAROXETINE ER 12.5 MG TAB.ER.24H. PO SCH (08:15)
[2016-05-20] MEDS: ASPIRIN CHEWABLE 81 MG TABLET. PO SCH (08:15)
[2016-05-20] MEDS: POLYETHYLENE GLYCOL 3350 17 GM PACKET. PO SCH (08:15)
[2016-05-20] MEDS: CLOPIDOGREL BISULFATE 75 MG TABLET PO SCH (08:15)
[2016-05-20] MEDS: SPIRONOLACTONE 25 MG TABLET PO SCH (08:16)
[2016-05-20] MEDS: POTASSIUM CHLORIDE 20 MEQ TABLET.ER. PO SCH (08:16)
[2016-05-20] MEDS: PANTOPRAZOLE 40 MG TABLET.DR. PO SCH (08:16)
--- NOTE | 2016-05-20 08:17 | DISCH ---
DISCHARGE INSTRUCTIONS Condition on Discharge Condition on Discharge: Stable Activity After Discharge Activity Instructions for Disc: No restrictions Diet after Discharge Diet after Discharge: Low Sodium 4 gm Follow-Up Follow up with: as scheduled ALEK HANLEY MD May 20, 2016 08:17
[2016-05-20] MEDS: OXYCODONE/APAP 5/325 TABLET. PO PRN (08:19)
--- NOTE | 2016-05-20 08:21 | PDOC ---
Provider Note Provider Note [id number] ALEK HANLEY MD May 20, 2016 08:21
--- NOTE | 2016-05-20 09:09 | DS ---
DATE OF DISCHARGE: 05/20/2016 HOSPITAL SUMMARY: A 60-year-old white female presented with ongoing diarrhea, left lower quadrant pain, cough and low grade fever. CBC was unremarkable. Chemistry profile was normal. Procalcitonin and sed rate were normal as well as lactic acid levels. Urine was clear as well. CT scan of the abdomen and pelvis x 2 showed no acute change or any obvious cause for abdominal pain. The right kidney is atrophic, which is chronic. Chest x-ray showed left lower lobe infiltrate as to the CT scan. There was some mild improvement toward the end of the hospital stay on the plain film. She was treated with IV meropenem and oral Levaquin for the respiratory symptoms, but the abdominal pain did not improve and was started on MiraLax despite the fact that she had had constipation as an outpatient. MiraLax and Amitiza were given. She had large stools a day prior to dismissal and her abdominal pain seems to be less and she is able to be followed as an outpatient at this point. FINAL DIAGNOSES: 1. Abdominal pain, likely secondary to chronic constipation. 2. Left lower lobe pneumonia and secondary atelectasis. 3. Oxygen dependent end-stage chronic obstructive pulmonary disease. OPERATIONS, PROCEDURES, COMPLICATIONS: None. CONSULTATIONS: Dr. Cheek, Dr. Ortiz. DISPOSITION: No more antibiotics were given at this time. She will start MiraLax 2 capsules daily for chronic use as she does take oxycodone at home. Rest of home meds remain the same. She is to continue her meds for her cardiomyopathy, coronary artery disease state and follow up as scheduled in the office. Prognosis is poor given her chronic multiple medical problems and tobacco use. ALEK HANLEY MD DR: LYNETTE/annie JOB#: [id number] / [id number]
[2016-05-20 11:00] VITALS: BP 107/69
--- NOTE | 2016-05-20 12:14 | PDOC ---
Subjective: Subjective: Pain about the same. Has had two more stools. Objective: Objective: Per RN - DC today. Vital Signs: Vital Signs Date Time Temp Pulse Resp B/P Pulse Ox O2 Delivery O2 Flow Rate FiO2 05/20/16 11:18 Tracheal Collar 10.0 05/20/16 07:44 93 05/20/16 07:00 97.7 71 19 113/70 97.7 PE: GEN: NAD LUNGS: trach HEART: RRR ABD: suprapubic/RLQ tenderness NEURO/PSYCH: A & O 3 A/P: Lower abd pain - stable -began 1 month ago, no aggravating or alleviating factors -associated w/ constipation -CTs unrevealing for acute GI issue -reports colonoscopy w/i 10 years GERD, h/o Mcmahon's esophagus -last EGD 2014: hiatal hernia, reflux esophagitis, and no evidence of Mcmahon's esophagus -on BID PPI -- Increased risk for colonoscopy w/ resp issues. Note plans for DC. Note Amitiza was discontinued - in this case would try Miralax BID. Follow-up w/ GI for ongoing pain/constipation. SONALI PALOMO May 20, 2016 12:14
[2016-05-20] MEDS ORDERED: POLYETHYLENE GLYCOL 3350 17 GM PACKET. PO SCH (21:00)
== END 2016-05-20 17:00 | disposition home health service (06) | DRG 207 ==
LOC: ER 22:25 → 5 NORTH 05-11 00:46
PROVIDERS: ADMIT Family Medicine; ATTEND Family Medicine
PROC: 5A1955Z Respiratory Ventilation, Greater than 96 Consecutive Hours (ICD-10-PCS; principal; 2016-05-10)
DX: J18.9 Pneumonia, unspecified organism (principal); J96.10 Chronic respiratory failure, unspecified whether with hypoxia or hypercapnia; J98.11 Atelectasis; I42.9 Cardiomyopathy, unspecified; E03.9 Hypothyroidism, unspecified; E78.5 Hyperlipidemia, unspecified; E86.0 Dehydration; F17.200 Nicotine dependence, unspecified, uncomplicated; I11.0 Hypertensive heart disease with heart failure; I25.10 Atherosclerotic heart disease of native coronary artery without angina pectoris; J44.9 Chronic obstructive pulmonary disease, unspecified; F32.9 Major depressive disorder, single episode, unspecified; G89.29 Other chronic pain; I50.9 Heart failure, unspecified; I73.9 Peripheral vascular disease, unspecified; J30.9 Allergic rhinitis, unspecified; K21.0 Gastro-esophageal reflux disease with esophagitis; K22.70 Barrett's esophagus without dysplasia; K52.9 Noninfective gastroenteritis and colitis, unspecified; K57.30 Diverticulosis of large intestine without perforation or abscess without bleeding; K58.9 Irritable bowel syndrome, unspecified; Z87.01 Personal history of pneumonia (recurrent); Z93.0 Tracheostomy status; Z95.5 Presence of coronary angioplasty implant and graft; Z99.81 Dependence on supplemental oxygen
CPT/HCPCS: 36415; 71020; 74176; 74177; 80048; 80053; 81001; 83605; 83690; 84145; 84484; 85007; 85027; 85379; 85651; 87641; 90732; 93005; 93970; 94640; 94760; 96374; 96375; J1885; J2185; J2405; J3010; J7030; J7620; Q0162; Q9966; Q9967; 99285-25

== ENCOUNTER 2016-06-09 17:36 | Emergency (ER) | payer MEDICARE, OTHER ==
[~2016-06-09] VITALS: Ht 162.6 cm; Wt 80.7 kg
[~2016-06-09 17:36] MED LIST changes: +ALBU2.5V5 NEB; +ASPI325T4 PO; +CLOP75TA PO; +GABA600T PO; -PRAS10TA4 PO; +PRAS10TA9 PO
[2016-06-09] MEDS ORDERED: oxyCODONE/APAP 5/325 1 TAB TABLET PO ONE (18:00)
[2016-06-09] MEDS ORDERED: IPRATRPIUM/ALBUTEROL 0.5/2.5MG 3 ML NEBU. NEB ONE (18:00)
[2016-06-09] MEDS ORDERED: ONDANSETRON PF 4 MG/2 ML VIAL. IV ONE (18:00)
[2016-06-09 18:13] VITALS: BP 166/100
[2016-06-09 18:15] LABS: BILIRUBIN,URINE NEGATIVE (NEG); GLUCOSE,URINE NEGATIVE (NEG); NITRITE,URINE NEGATIVE (NEG); PH,URINE 7.5; PROTEIN,URINE 30 mg/dL (NEG-TRACE)
[2016-06-09 18:17] LABS: CALCIUM 9.4 mg/dL (8.5-10.1); CREATININE 0.9 mg/dL (0.6-1.0); GFR 63.4; POTASSIUM 3.9 mmol/L (3.5-5.1)
[2016-06-09 18:24] LABS: BACTERIA,URINE FEW /HPF (0-FEW); RBC,URINE 0 /HPF (0-2); SQUAMOUS EPITHELIAL CELL,UR FEW /LPF; WBC,URINE 0 /HPF (0-4)
[2016-06-09] MEDS ORDERED: ONDA4TAB10 SL (18:38)
--- NOTE | 2016-06-09 18:38 | PHYS DOC ---
Past Medical History Past Medical History: Angina, CAD, CHF, COPD, Heart Disease, [place] Additional Past Medical Histor: PAD, Chronic back pain, emphysema, MULT CODE BLUE, CARD. CATH, COLITIS Past Surgical History: Angioplasty, Cholecystectomy, Hysterectomy Additional Past Surgical Histo: bilat leg stents, trach, aortic stent, ivc filter, feeding tube w/ removal Alcohol Use: None Drug Use: None Adult General Chief Complaint Chief Complaint: SHORTNESS OF BREATH HPI HPI Patient is a 60 year old female with frequent visits to the emergency department who presents with lower abdominal pain associated with nausea, vomiting, and diarrhea that is nonbloody and nonbilious. States last episode of emesis was this morning and she has tolerated oral intake since then. She notes pain to the lower central abdomen that is constant, mild, achy in nature. States she ran out of her antiemetics at home, so she came here for evaluation. She denies dysuria, hematuria, urinary frequency, fever or chills. She also notes chronic left chest pain and chronic back pain that are unchanged since prior evaluations. She states she is slightly short of breath due to chronic COPD because at this time for a breathing treatment that she has not had for hours because she has been away from home. Review of Systems Review of Systems Constitutional: Denies fever or chills [] Eyes: Denies change in visual acuity, redness, or eye pain [] HENT: Denies nasal congestion or sore throat [] Respiratory: Denies cough [] Cardiovascular: No additional information not addressed in HPI [] GI: Denies bloody stools or bloody emesis [] : Denies dysuria or hematuria [] Musculoskeletal: Denies back pain or joint pain [] Integument: Denies rash or skin lesions [] Neurologic: Denies headache, focal weakness or sensory changes [] Endocrine: Denies polyuria or polydipsia [] Current Medications Current Medications Current Medications Medications (Trade) Dose Ordered Sig/Emmett Start Time Stop Time Status Last Admin Dose Admin Albuterol/ Ipratropium (Duoneb) 3 ml 1X ONCE 06/09/16 18:00 06/09/16 18:01 DC 06/09/16 18:16 3 ML Ondansetron HCl (Zofran) 4 mg 1X ONCE 06/09/16 18:00 06/09/16 18:01 DC 06/09/16 18:20 4 MG Oxycodone/ Acetaminophen (Percocet 5/325) 1 tab 1X ONCE 06/09/16 18:00 06/09/16 18:01 DC 06/09/16 18:22 1 TAB Allergies Allergies Allergies Coded Allergies Type Severity Reaction Last Updated Verified Penicillins Allergy Intermediate can tolerate cefepime 06/04/15 Yes barium sulfate Adverse Reaction Intermediate Nausea 06/04/15 Yes Physical Exam Physical Exam Constitutional: Well developed, well nourished, no acute distress, non-toxic appearance. [] HENT: Normocephalic, atraumatic, bilateral external ears normal, oropharynx moist, nose normal. [] Eyes: PERRLA, EOMI. [] Neck: Normal range of motion, supple.Midline trachea [] Cardiovascular:Heart rate regular rhythm [] Lungs & Thorax: Minimal bilateral wheezing, normal respiratory effort, speaking in long sentences [] Abdomen: Bowel sounds normal, soft, no tenderness. [] Skin: Warm, dry, no erythema, no rash. [] Back: Normal range of motion. [] Extremities: No tenderness, ROM intact, no edema. [] Neurologic: Alert and oriented X 3, normal motor function, normal sensory function, no focal deficits noted. [] Psychologic: Affect normal, judgement normal, mood normal. [] Current Patient Data Vital Signs Vital Signs Date Time Temp Pulse Resp B/P Pulse Ox O2 Delivery O2 Flow Rate FiO2 06/09/16 18:22 20 92 Tracheal Collar 10.0 06/09/16 17:40 98.0 84 164/113 98.0 Lab Values Laboratory Tests Test 06/09/16 17:55 06/09/16 18:00 Sodium Level 137mmol/L (136-145) Potassium Level 3.9mmol/L (3.5-5.1) Chloride Level 102mmol/L (98-107) Carbon Dioxide Level 26mmol/L (21-32) Anion Gap 9 (6-14) Blood Urea Nitrogen 11mg/dL (7-20) Creatinine 0.9mg/dL (0.6-1.0) Estimated GFR (Cockcroft-Gault) 63.4 Glucose Level 100mg/dL (70-99) H Calcium Level 9.4mg/dL (8.5-10.1) Troponin I Quantitative 0.033ng/mL (0.000-0.055) Urine Collection Type Unknown Urine Color Yellow Urine Clarity Clear Urine pH 7.5 Urine Specific Turrell 1.010 Urine Protein 30mg/dL (NEG-TRACE) Urine Glucose (UA) Negativemg/dL (NEG) Urine Ketones (Stick) Negativemg/dL (NEG) Urine Blood Negative (NEG) Urine Nitrite Negative (NEG) Urine Bilirubin Negative (NEG) Urine Urobilinogen Dipstick 1.0mg/dL (0.2 mg/dL) Urine Leukocyte Esterase Negative (NEG) Urine RBC 0/HPF (0-2) Urine WBC 0/HPF (0-4) Urine Squamous Epithelial Cells Few/LPF Urine Bacteria Few/HPF (0-FEW) Laboratory Tests 06/09/16 17:55 EKG EKG EKG as interpreted by me as normal sinus rhythm, rate 80, no ST-T changes, normal intervals, no ectopy Course & Med Decision Making Course & Med Decision Making Pertinent Labs and Imaging studies reviewed. (See chart for details) Laboratory evaluation is unremarkable. Her symptoms are controlled at this time. Return precautions given. She understands and agrees with plan. Dragon Disclaimer Dragon Disclaimer This electronic medical record was generated, in whole or in part, using a voice recognition dictation system. Departure Departure Impression: Primary Impression: Nausea vomiting and diarrhea Additional Impressions: Abdominal pain Chronic back pain Chronic chest pain Disposition: 01 HOME, SELF-CARE Condition: STABLE Referrals: ALEK HANLEY MD (PCP) Patient Instructions: Nausea and Vomiting, [id number] Additional Instructions: Take Zofran as needed for nausea. Follow-up with your primary care doctor. Return for any concerns. Scripts Ondansetron (Zofran Odt)4 Mg Tab.rapdis1 Tab SL Q8HRS #10 TAB Prov:Edilson KUMAR MD 06/09/16 Problem Qualifiers Additional Impressions: Abdominal pain Abdominal location: lower abdomen, unspecified Qualified Code: R10.30 - Lower abdominal pain, unspecified Chronic back pain Back pain location: back pain in unspecified location Back pain laterality: unspecified Qualified Code: M54.9 - Dorsalgia, unspecified Edilson KUMAR MD June 09, 2016 18:38
--- NOTE | 2016-06-10 06:46 | EKG ---
[facility] [address] [place] [address] Test Date: 2016-06-09 Test Time: 17:46:19 Pat Name: RINKU MCCANN Department: Room: Gender: F Phone Technician: : [id number] Requested By: Edilson KUMAR Order Number: [id number] Reading MD: Umu Tolliver Measurements Intervals [place] Rate: 80 P: 31 GA: 164 QRS: -18 QRSD: 100 T: -10 QT: 400 QTc: 465 Interpretive Statements SINUS RHYTHM LEFT ATRIAL ABNORMALITY LEFTWARD AXIS QRS(T) CONTOUR ABNORMALITY CONSISTENT WITH INFERIOR INFARCT AGE UNDETERMINED T ABNORMALITY IN ANTEROSEPTAL LEADS Electronically Signed On 06-10-2016 20:45:35 CDT by Umu Tolliver
== END 2016-06-09 19:11 | disposition home or self-care (01) ==
LOC: ER 17:36
DX: R11.2 Nausea with vomiting, unspecified (principal); R19.7 Diarrhea, unspecified; R10.30 Lower abdominal pain, unspecified; G89.29 Other chronic pain; R07.89 Other chest pain; M54.9 Dorsalgia, unspecified; J44.9 Chronic obstructive pulmonary disease, unspecified; I25.10 Atherosclerotic heart disease of native coronary artery without angina pectoris; I50.9 Heart failure, unspecified; I25.2 Old myocardial infarction; Z95.5 Presence of coronary angioplasty implant and graft; Z90.49 Acquired absence of other specified parts of digestive tract; Z90.710 Acquired absence of both cervix and uterus; Z88.0 Allergy status to penicillin; Z88.2 Allergy status to sulfonamides
CPT/HCPCS: 36415; 80048; 81001; 84484; 93005; 94640; 96374; 99285; J2405; J7620

== ENCOUNTER 2016-06-10 21:12 | Emergency (ER) | payer MEDICARE, OTHER ==
[~2016-06-10] VITALS: Ht 162.6 cm; Wt 80.7 kg
--- NOTE | 2016-06-10 21:18 | PHYS DOC ---
Past Medical History Past Medical History: Angina, CAD, CHF, COPD, Heart Disease, [place] Additional Past Medical Histor: PAD, Chronic back pain, emphysema, MULT CODE BLUE, CARD. CATH, COLITIS Past Surgical History: Angioplasty, Cholecystectomy, Hysterectomy Additional Past Surgical Histo: bilat leg stents, trach, aortic stent, ivc filter, feeding tube w/ removal Alcohol Use: None Drug Use: None Adult General Chief Complaint Chief Complaint: ABDOMINAL PAIN HPI HPI Patient is a 60 year old female brought in by EMS for evaluation of abdominal pain that has been going on since this morning. Patient says it is epigastric and can radiate down lower in makes her nauseated and she says she has thrown up once but she denies any diarrhea fevers chills dysuria or hematuria. Patient appears to have abdominal pain issues that she has received several CT scans in the past several months. She has a trach in place but she denies any worsening shortness of breath. She reports having a cholecystectomy and hysterectomy otherwise no other abdominal surgeries. Review of Systems Review of Systems Constitutional: Denies fever or chills [] Eyes: Denies change in visual acuity, redness, or eye pain [] HENT: Denies nasal congestion or sore throat [] Respiratory: Denies cough or shortness of breath [] Cardiovascular: No additional information not addressed in HPI [] GI: + abdominal pain, nausea, vomiting. No bloody stools or diarrhea [] : Denies dysuria or hematuria [] Musculoskeletal: Denies back pain or joint pain [] Integument: Denies rash or skin lesions [] Neurologic: Denies headache, focal weakness or sensory changes [] Current Medications Current Medications Current Medications Medications (Trade) Dose Ordered Sig/Emmett Start Time Stop Time Status Last Admin Dose Admin Info (Do NOT chart on this entry -- for MONITORING) 1 each PRN DAILY PRN 06/10/16 21:45 06/12/16 21:44 Iohexol (Omnipaque 300 Mg/ml) 75 ml 1X ONCE 06/10/16 21:45 06/10/16 21:46 DC 06/10/16 21:58 75 ML Morphine Sulfate 5 mg 1X ONCE 06/10/16 22:45 06/10/16 22:46 DC Multi-Ingredient Mouthwash/Gargle (Gi Cocktail Single Dose) 15 ml 1X ONCE 06/10/16 21:30 06/10/16 21:31 DC 06/10/16 21:32 15 ML Ondansetron HCl (Zofran) 8 mg 1X ONCE 06/10/16 21:30 06/10/16 21:31 DC 06/10/16 21:35 8 MG Pantoprazole Sodium (Protonix Vial) 40 mg 1X ONCE 06/10/16 21:30 06/10/16 21:31 DC 06/10/16 21:35 40 MG Allergies Allergies Allergies Coded Allergies Type Severity Reaction Last Updated Verified Penicillins Allergy Intermediate can tolerate cefepime 06/04/15 Yes barium sulfate Adverse Reaction Intermediate Nausea 06/04/15 Yes Physical Exam Physical Exam Constitutional: Well developed, well nourished, no acute distress, non-toxic appearance. [] HENT: Normocephalic, atraumatic, bilateral external ears normal, oropharynx moist, no oral exudates, nose normal. [] Eyes: PERRLA, EOMI, conjunctiva normal, no discharge. [] Neck: Normal range of motion, no tenderness, supple, no stridor. [] Cardiovascular:Heart rate regular rhythm, no murmur [] Lungs & Thorax: Bilateral breath sounds clear to auscultation [] Abdomen: Bowel sounds normal, soft, + epigastric and lower abdominal tenderness , No rebound or guarding. no masses, no pulsatile masses. [] Skin: Warm, dry, no erythema, no rash. [] Back: No tenderness, no CVA tenderness. [] Extremities: No tenderness, no cyanosis, no clubbing, ROM intact, no edema. [] Neurologic: Alert and oriented X 3, normal motor function, normal sensory function, no focal deficits noted. [] Current Patient Data Vital Signs Vital Signs Date Time Temp Pulse Resp B/P Pulse Ox O2 Delivery O2 Flow Rate FiO2 06/10/16 21:42 20 06/10/16 21:20 98.6 84 168/115 92 Tracheal Collar 10 98.6 Lab Values Laboratory Tests Test 06/10/16 21:24 06/10/16 21:30 White Blood Count 6.6x10^3/uL (4.0-11.0) Red Blood Count 5.95x10^6/uL (3.50-5.40) H Hemoglobin 13.6g/dL (12.0-15.5) Hematocrit 44.0% (36.0-47.0) Mean Corpuscular Volume 74fL (79-100) L Mean Corpuscular Hemoglobin 23pg (25-35) L Mean Corpuscular Hemoglobin Concent 31g/dL (31-37) Red Cell Distribution Width 21.5% (11.5-14.5) H Platelet Count 266x10^3/uL (140-400) Neutrophils (%) (Auto) 70% (31-73) Lymphocytes (%) (Auto) 17% (24-48) L Monocytes (%) (Auto) 7% (0-9) Eosinophils (%) (Auto) 5% (0-3) H Basophils (%) (Auto) 1% (0-3) Neutrophils # (Auto) 4.6x10^3uL (1.8-7.7) Lymphocytes # (Auto) 1.1x10^3/uL (1.0-4.8) Monocytes # (Auto) 0.4x10^3/uL (0.0-1.1) Eosinophils # (Auto) 0.3x10^3/uL (0.0-0.7) Basophils # (Auto) 0.1x10^3/uL (0.0-0.2) Platelet Estimate Adequate (ADEQUATE) Hypochromasia Mod Poikilocytosis Slight Anisocytosis Mod Microcytosis Slight Ovalocytes Few Prothrombin Time 14.3SEC (11.7-14.0) H Prothrombin Time INR 1.2 (0.8-1.1) H PTT 31SEC (24-38) Sodium Level 140mmol/L (136-145) Potassium Level 3.8mmol/L (3.5-5.1) Chloride Level 101mmol/L (98-107) Carbon Dioxide Level 27mmol/L (21-32) Anion Gap 12 (6-14) Blood Urea Nitrogen 12mg/dL (7-20) Creatinine 1.1mg/dL (0.6-1.0) H Estimated GFR (Cockcroft-Gault) 50.3 BUN/Creatinine Ratio 11 (6-20) Glucose Level 106mg/dL (70-99) H Calcium Level 9.4mg/dL (8.5-10.1) Magnesium Level 1.8mg/dL (1.8-2.4) Total Bilirubin 0.6mg/dL (0.2-1.0) Aspartate Amino Transferase (AST) 15U/L (15-37) Alanine Aminotransferase (ALT) 13U/L (14-59) L Alkaline Phosphatase 61U/L (46-116) Troponin I Quantitative 0.031ng/mL (0.000-0.055) QM-Wgj-R-Type Natriuretic Peptide 95596jd/mL (0-124) H Total Protein 7.6g/dL (6.4-8.2) Albumin 3.8g/dL (3.4-5.0) Albumin/Globulin Ratio 1.0 (1.0-1.7) Lipase 118U/L (73-393) Urine Collection Type U cath Urine Color Yellow Urine Clarity Clear Urine pH 7.0 Urine Specific Agency 1.020 Urine Protein 100mg/dL (NEG-TRACE) Urine Glucose (UA) Negativemg/dL (NEG) Urine Ketones (Stick) Negativemg/dL (NEG) Urine Blood Negative (NEG) Urine Nitrite Negative (NEG) Urine Bilirubin Negative (NEG) Urine Urobilinogen Dipstick 1.0mg/dL (0.2 mg/dL) Urine Leukocyte Esterase Negative (NEG) Urine RBC 0/HPF (0-2) Urine WBC Occ/HPF (0-4) Urine Renal Epithelial Cells Occ/LPF Urine Bacteria 0/HPF (0-FEW) Urine Mucus Slight/LPF Laboratory Tests 06/10/16 21:24 Laboratory Tests 06/10/16 21:24 EKG EKG Normal sinus rhythm at 82 beats per minutes with leftward axis no obvious ST elevation or depression with inverted T waves in 3 and aVF and flattened T waves in V5 and V6 Radiology/Procedures Radiology/Procedures PROCEDURE CT study of the abdomen and pelvis with contrast HISTORY Severe epigastric pain for 2 days. TECHNIQUE After IV infusion of 75 milliliters of Omnipaque 300, helical CT scanning of the abdomen and pelvis was performed. No GI contrast was administered. This may decrease the sensitivity to detect GI tract pathology. One or more of the following individualized dose reduction techniques were utilized for this study: 1. Automated exposure control 2. Adjustment of the mA and/or kV according to patient size 3. Use of iterative reconstruction technique COMPARISON May 13, 2016. FINDINGS The liver and spleen and pancreas are homogeneous. The gallbladder is surgically absent. No extrahepatic biliary ductal dilatation is seen. Small left adrenal nodule is stable and may represent an adenoma. 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 No renal mass or hydronephrosis or hydroureter is seen on either side. An endoluminal aortic stent graft is present. No enlarging abdominal aortic aneurysm is seen from the prior study. No new abdominal or pelvic lymphadenopathy is seen. IVC filter is in place. Urinary bladder is not abnormally distended. Colonic diverticulosis is seen most severely involving the sigmoid colon. No pericolonic inflammatory change is evident. The terminal ileum is unremarkable. Appendix is not visualized. There is a small hiatal hernia present. No free air or free fluid or inflammatory change is seen. There has been improvement in the bibasilar lung infiltrates from the prior study. Residual infiltrates are still present however. No osteolytic process is seen. There is a moderate compression fracture of L3 which is stable. IMPRESSION No acute abnormality of the abdomen or pelvis is seen. Improving bibasilar lung infiltrates. Stable compression fracture of L3. Electronically signed by: Shavon Woodruff MD (June 10, 2016 22:27:19) DICTATED and SIGNED BY: SHAVON WOODRUFF MD DATE: 06/10/162226 Course & Med Decision Making Course & Med Decision Making Patient with nonspecific upper abdominal pain. She received full workup including cardiac GI and CT and everything came back at or near her baseline and there is no acute findings. Patient's pain is improved and her repeat abdominal exam is benign with no surgical findings. Patient will be discharged as there is no acute findings and she appears well. She was told to follow with GI doctor as she could have an ulcer or other chronic etiology for her abdominal pain. Patient is aware and agreeable with plan for discharge and verbalized understanding of the need for short-term follow-up in the strict ER return precautions discussed, worsening pain or fevers vomiting or other general concerns. Dragon Disclaimer Dragon Disclaimer This electronic medical record was generated, in whole or in part, using a voice recognition dictation system. Departure Departure Impression: Primary Impression: Abdominal pain Disposition: HOME, SELF-CARE Condition: GOOD Referrals: LORI RABAGO MD Patient Instructions: Abdominal Pain (Nonspecific) Additional Instructions: SUPPLEMENT WITH TUMS AND MAALOX FOR YOUR PAIN. FOLLOW WITH THE GI DOCTOR. THANK YOU! Problem Qualifiers Primary Impression: Abdominal pain Abdominal location: generalized Qualified Code: R10.84 - Generalized abdominal pain MARYA,ALEK M DO June 10, 2016 21:18
[2016-06-10] MEDS ORDERED: PANTOPRAZOLE IV PUSH 40 MG VIAL. IVP ONE (21:30)
[2016-06-10] MEDS ORDERED: LIDO:MAALOX:DONNATAL 1:1:1 15 ML SINGLE DOSE SWSW ONE (21:30)
[2016-06-10] MEDS ORDERED: ONDANSETRON PF 4 MG/2 ML VIAL. IV ONE (21:30)
[2016-06-10] MEDS ORDERED: MORPHINE SULFATE 10 MG/ML VIAL. IV ONE ×2 (21:30→22:45)
[2016-06-10 21:32] LABS: BASO # 0.1 x10^3/uL (0.0-0.2); BASO % 1 % (0-3); EOS % 5 % (0-3); HEMOGLOBIN 13.6 g/dL (12.0-15.5); LYMPH # 1.1 x10^3/uL (1.0-4.8); LYMPH % 17 % (24-48); MEAN CORPUSCULAR HEMOGLOBIN 23 pg (25-35); MEAN CORPUSCULAR HGB CONC 31 g/dL (31-37); MEAN CORPUSCULAR VOLUME 74 fL (79-100); MONO % 7 % (0-9); NEUT % 70 % (31-73); PLATELET COUNT 266 x10^3/uL (140-400); RED BLOOD COUNT 5.95 x10^6/uL (3.50-5.40); RED CELL DISTRIBUTION WIDTH 21.5 % (11.5-14.5); WHITE BLOOD COUNT 6.6 x10^3/uL (4.0-11.0)
[2016-06-10 21:40] LABS: INR 1.2 (0.8-1.1); PROTHROMBIN TIME PATIENT 14.3 SEC (11.7-14.0)
[2016-06-10] MEDS ORDERED: IOHEXOL 300 MG/ML 75 ML VIAL IV ONE (21:45)
[2016-06-10] MEDS ORDERED: CONTRAST GIVEN MC PRN (21:45)
[2016-06-10 21:46] LABS: BILIRUBIN,URINE NEGATIVE (NEG); GLUCOSE,URINE NEGATIVE (NEG); NITRITE,URINE NEGATIVE (NEG); PROTEIN,URINE 100 mg/dL (NEG-TRACE)
[2016-06-10 21:48] LABS: CALCIUM 9.4 mg/dL (8.5-10.1); CREATININE 1.1 mg/dL (0.6-1.0); GFR 50.3; POTASSIUM 3.8 mmol/L (3.5-5.1)
[2016-06-10 21:52] LABS: ALBUMIN 3.8 g/dL (3.4-5.0); MAGNESIUM 1.8 mg/dL (1.8-2.4); TOTAL BILIRUBIN 0.6 mg/dL (0.2-1.0); TOTAL PROTEIN 7.6 g/dL (6.4-8.2)
[2016-06-10 21:54] LABS: BACTERIA,URINE 0 /HPF (0-FEW); RBC,URINE 0 /HPF (0-2); WBC,URINE OCC /HPF (0-4)
[2016-06-10 21:56] LABS: PLT ESTIMATE ADEQUATE (ADEQUATE)
[2016-06-10 21:57] LABS: ANISOCYTOSIS MOD; HYPOCHROMIA MOD; MICROCYTOSIS SLIGHT; OVALOCYTES FEW; POIKILOCYTOSIS SLIGHT
--- NOTE | 2016-06-10 22:29 | RAD ---
PROCEDURE CT study of the abdomen and pelvis with contrast HISTORY Severe epigastric pain for 2 days. TECHNIQUE After IV infusion of 75 milliliters of Omnipaque 300, helical CT scanning of the abdomen and pelvis was performed. No GI contrast was administered. This may decrease the sensitivity to detect GI tract pathology. One or more of the following individualized dose reduction techniques were utilized for this study: 1. Automated exposure control 2. Adjustment of the mA and/or kV according to patient size 3. Use of iterative reconstruction technique COMPARISON May 13, 2016. FINDINGS The liver and spleen and pancreas are homogeneous. The gallbladder is surgically absent. No extrahepatic biliary ductal dilatation is seen. Small left adrenal nodule is stable and may represent an adenoma. 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 No renal mass or hydronephrosis or hydroureter is seen on either side. An endoluminal aortic stent graft is present. No enlarging abdominal aortic aneurysm is seen from the prior study. No new abdominal or pelvic lymphadenopathy is seen. IVC filter is in place. Urinary bladder is not abnormally distended. Colonic diverticulosis is seen most severely involving the sigmoid colon. No pericolonic inflammatory change is evident. The terminal ileum is unremarkable. Appendix is not visualized. There is a small hiatal hernia present. No free air or free fluid or inflammatory change is seen. There has been improvement in the bibasilar lung infiltrates from the prior study. Residual infiltrates are still present however. No osteolytic process is seen. There is a moderate compression fracture of L3 which is stable. IMPRESSION No acute abnormality of the abdomen or pelvis is seen. Improving bibasilar lung infiltrates. Stable compression fracture of L3. Electronically signed by: Carlito Woodruff MD (June 10, 2016 22:27:19)
[2016-06-10 23:45] VITALS: BP 136/100
--- NOTE | 2016-06-11 06:48 | EKG ---
[facility] [address] [place] [address] Test Date: 2016-06-10 Test Time: 21:34:10 Pat Name: RINKU MCCANN Department: Room: Gender: F Nipple Maker: : [id number] Requested By: ALEK MALHOTRA Order Number: [id number] Reading MD: Umu Tolliver Measurements Intervals [place] Rate: 82 P: 28 WI: 168 QRS: -8 QRSD: 96 T: 0 QT: 426 QTc: 501 Interpretive Statements SINUS RHYTHM LEFT ATRIAL ABNORMALITY LEFTWARD AXIS QRS(T) CONTOUR ABNORMALITY CONSISTENT WITH INFERIOR INFARCT AGE UNDETERMINED Electronically Signed On 06-14-2016 17:36:21 CDT by Umu Tolliver
== END 2016-06-11 00:24 | disposition home or self-care (01) ==
LOC: ER 21:12
DX: R10.84 Generalized abdominal pain (principal); I25.10 Atherosclerotic heart disease of native coronary artery without angina pectoris; I25.2 Old myocardial infarction; G89.29 Other chronic pain; I50.9 Heart failure, unspecified; J44.9 Chronic obstructive pulmonary disease, unspecified; Z90.49 Acquired absence of other specified parts of digestive tract; Z90.710 Acquired absence of both cervix and uterus; Z88.0 Allergy status to penicillin; Z88.8 Allergy status to other drugs, medicaments and biological substances
CPT/HCPCS: 36415; 74177; 80053; 81001; 83690; 83735; 83880; 84484; 85007; 85027; 85610; 85730; 93005; 96374; 96375; 96376; 99285; C9113; J2270; J2405; Q9967

== ENCOUNTER 2016-07-12 01:52 | Emergency (ER) | payer MEDICARE, OTHER ==
[~2016-07-12] VITALS: Ht 162.6 cm; Wt 83.5 kg
[2016-07-12] MEDS ORDERED: oxyCODONE/APAP 5/325 1 TAB TABLET PO ONE (02:30)
[2016-07-12 02:43] LABS: BASO # 0.1 x10^3/uL (0.0-0.2); BASO % 2 % (0-3); EOS % 5 % (0-3); HEMATOCRIT 39.2 % (36.0-47.0); HEMOGLOBIN 12.7 g/dL (12.0-15.5); LYMPH # 1.4 x10^3/uL (1.0-4.8); LYMPH % 27 % (24-48); MEAN CORPUSCULAR HEMOGLOBIN 24 pg (25-35); MEAN CORPUSCULAR HGB CONC 33 g/dL (31-37); MEAN CORPUSCULAR VOLUME 72 fL (79-100); MONO % 8 % (0-9); NEUT % 58 % (31-73); PLATELET COUNT 289 x10^3/uL (140-400); RED BLOOD COUNT 5.43 x10^6/uL (3.50-5.40); WHITE BLOOD COUNT 5.2 x10^3/uL (4.0-11.0)
[2016-07-12] MEDS ORDERED: ONDANSETRON PF 4 MG/2 ML VIAL. IV ONE (03:00)
[2016-07-12] MEDS ORDERED: fentaNYL PF VIAL 100 MCG/2 ML VIAL IV ONE ×2 (03:00→05:15)
[2016-07-12] MEDS ORDERED: IOHEXOL 300 MG/ML 75 ML VIAL IV ONE (03:00)
[2016-07-12] MEDS ORDERED: CONTRAST GIVEN MC PRN (03:00)
[2016-07-12 03:37] LABS: CALCIUM 9.3 mg/dL (8.5-10.1); CREATININE 1.1 mg/dL (0.6-1.0); GFR 50.3; POTASSIUM 3.4 mmol/L (3.5-5.1)
[2016-07-12 03:42] LABS: ALBUMIN 3.5 g/dL (3.4-5.0); ALBUMIN/GLOBULIN RATIO 0.8 (1.0-1.7); TOTAL BILIRUBIN 0.4 mg/dL (0.2-1.0); TOTAL PROTEIN 7.8 g/dL (6.4-8.2)
[2016-07-12 04:58] VITALS: BP 165/108
--- NOTE | 2016-07-12 05:07 | RAD ---
CT abdomen and pelvis with contrast: Reason for examination: Diffuse abdominal pain for one week. Helical images were obtained through the abdomen and pelvis with intravenous administration of 60 cc Omnipaque 300. Reconstruction was performed in sagittal and coronal planes. Exposure: One or more of the following individualized dose reduction techniques were utilized for this examination: 1. Automated exposure control 2. Adjustment of the mA and/or kV according to patient size 3. Use of iterative reconstruction technique. There is some bandlike densities consistent with atelectasis at the left lung base and some dependent atelectasis bilaterally. The heart size is normal with no pericardial effusion. There is a moderate sized hiatal hernia present. No focal abnormality seen at the liver. The gallbladder is surgically absent. No abnormalities seen at the pancreas or spleen. Left adrenal gland continues to be slightly prominent but this is unchanged. The abdominal aorta shows aortobiiliac stent grafts present. IVC filter is present. The right kidney is atrophic but shows no mass or hydronephrosis. The left kidney shows no mass, hydronephrosis, renal calculi or obstructive uropathy. There are diverticuli in the sigmoid colon but no evidence of diverticulitis. Visualized amount of fecal material colon. The intestinal tract shows no evidence of bowel obstruction. There is moderate compression deformity of the L3 vertebral body which is stable. No acute bony abnormalities are seen. No abnormality seen in the bladder or vaginal cuff. IMPRESSION: Moderate-sized hiatal hernia. Discoid atelectasis at the left lung base. Atrophic right kidney. Nodularity to the left adrenal gland which is stable. Large amount of fecal material in the colon. No bowel obstruction evident. Stable L3 compression deformity. Electronically signed by: Chelita Morales MD (07/12/2016 5:04 AM)
[2016-07-12] MEDS ORDERED: METHYLNALTREXONE 12 MG/0.6 ML VIAL. SQ ONE (06:15)
[2016-07-12] MEDS ORDERED: BENZ100C PO (06:47)
[2016-07-12] MEDS ORDERED: LEVO750T31 PO (06:47)
--- NOTE | 2016-07-12 06:47 | PHYS DOC ---
Past Medical History Past Medical History: Angina, CAD, CHF, COPD, Heart Disease, [place] Additional Past Medical Histor: PAD, Chronic back pain, emphysema, MULT CODE BLUE, CARD. CATH, COLITIS Past Surgical History: Angioplasty, Cholecystectomy, Hysterectomy Additional Past Surgical Histo: bilat leg stents, trach, aortic stent, ivc filter, feeding tube w/ removal Alcohol Use: None Drug Use: None Adult General Chief Complaint Chief Complaint: HEMATEMESIS/VOMITING BLOOD HPI HPI 60 yo female presenting with decrease in bowel movements for the past week with some mild generalized abdominal pain. She denies any nausea or vomiting. She denies any significant chest pain or SOB. Pt has been taking miralax with minimal relief. She also complains of a mild blood-tinged cough. Review of Systems Review of Systems Constitutional: Denies fever or chills [] Eyes: Denies change in visual acuity, redness, or eye pain [] HENT: Denies nasal congestion or sore throat [] Respiratory: Denies cough or shortness of breath [] Cardiovascular: No additional information not addressed in HPI [] GI: Has abdominal pain, denies nausea, denies vomiting, denies bloody stools or diarrhea [] : Denies dysuria or hematuria [] Musculoskeletal: Denies back pain or joint pain [] Integument: Denies rash or skin lesions [] Neurologic: Denies headache, focal weakness or sensory changes [] Endocrine: Denies polyuria or polydipsia [] Current Medications Current Medications Current Medications Medications (Trade) Dose Ordered Sig/Emmett Start Time Stop Time Status Last Admin Dose Admin Fentanyl Citrate (Fentanyl 2ml Vial) 50 mcg 1X ONCE 07/12/16 05:15 07/12/16 05:16 DC 07/12/16 05:27 50 MCG Info (Do NOT chart on this entry -- for MONITORING) 1 each PRN DAILY PRN 07/12/16 03:00 07/12/16 07:08 DC Iohexol (Omnipaque 300 Mg/ml) 75 ml 1X ONCE 07/12/16 03:00 07/12/16 03:01 DC 07/12/16 03:00 60 ML Methylnaltrexone Chandler (Relistor) 12 mg 1X ONCE 07/12/16 06:15 07/12/16 06:16 DC 07/12/16 06:19 12 MG Ondansetron HCl (Zofran) 4 mg 1X ONCE 07/12/16 03:00 07/12/16 03:01 DC 07/12/16 03:12 4 MG Oxycodone/ Acetaminophen (Percocet 5/325) 2 tab 1X ONCE 07/12/16 02:30 07/12/16 02:34 DC Allergies Allergies Allergies Coded Allergies Type Severity Reaction Last Updated Verified Penicillins Allergy Intermediate can tolerate cefepime 06/04/15 Yes barium sulfate Adverse Reaction Intermediate Nausea 06/04/15 Yes Physical Exam Physical Exam Constitutional: Well developed, well nourished, no acute distress, non-toxic appearance. [] HENT: Normocephalic, atraumatic, bilateral external ears normal, oropharynx moist, no oral exudates, nose normal. [] Eyes: PERRLA, EOMI, conjunctiva normal, no discharge. [] Neck: Normal range of motion, no tenderness, supple, no stridor. [] Cardiovascular:Heart rate regular rhythm, no murmur [] Lungs & Thorax: Bilateral breath sounds clear to auscultation [] Abdomen: Bowel sounds normal, soft, mild generalized tenderness, no masses, no pulsatile masses. [] Skin: Warm, dry, no erythema, no rash. [] Back: No tenderness, no CVA tenderness. [] Extremities: No tenderness, no cyanosis, no clubbing, ROM intact, no edema. [] Neurologic: Alert and oriented X 3, normal motor function, normal sensory function, no focal deficits noted. [] Psychologic: Affect normal, judgement normal, mood normal. [] Current Patient Data Vital Signs Vital Signs Date Time Temp Pulse Resp B/P (MAP) Pulse Ox O2 Delivery O2 Flow Rate FiO2 07/12/16 05:27 16 93 Tracheal Collar 10.0 07/12/16 04:58 78 165/108 (127) 07/12/16 02:15 99.1 99.1 Lab Values Laboratory Tests Test 07/12/16 02:20 07/12/16 03:05 White Blood Count 5.2 x10^3/uL (4.0-11.0) Red Blood Count 5.43 x10^6/uL (3.50-5.40) H Hemoglobin 12.7 g/dL (12.0-15.5) Hematocrit 39.2 % (36.0-47.0) Mean Corpuscular Volume 72 fL (79-100) L Mean Corpuscular Hemoglobin 24 pg (25-35) L Mean Corpuscular Hemoglobin Concent 33 g/dL (31-37) Red Cell Distribution Width 21.0 % (11.5-14.5) H Platelet Count 289 x10^3/uL (140-400) Neutrophils (%) (Auto) 58 % (31-73) Lymphocytes (%) (Auto) 27 % (24-48) Monocytes (%) (Auto) 8 % (0-9) Eosinophils (%) (Auto) 5 % (0-3) H Basophils (%) (Auto) 2 % (0-3) Neutrophils # (Auto) 3.0 x10^3uL (1.8-7.7) Lymphocytes # (Auto) 1.4 x10^3/uL (1.0-4.8) Monocytes # (Auto) 0.4 x10^3/uL (0.0-1.1) Eosinophils # (Auto) 0.3 x10^3/uL (0.0-0.7) Basophils # (Auto) 0.1 x10^3/uL (0.0-0.2) Sodium Level 139 mmol/L (136-145) Potassium Level 3.4 mmol/L (3.5-5.1) L Chloride Level 99 mmol/L (98-107) Carbon Dioxide Level 30 mmol/L (21-32) Anion Gap 10 (6-14) Blood Urea Nitrogen 15 mg/dL (7-20) Creatinine 1.1 mg/dL (0.6-1.0) H Estimated GFR (Cockcroft-Gault) 50.3 BUN/Creatinine Ratio 14 (6-20) Glucose Level 104 mg/dL (70-99) H Calcium Level 9.3 mg/dL (8.5-10.1) Total Bilirubin 0.4 mg/dL (0.2-1.0) Aspartate Amino Transferase (AST) 14 U/L (15-37) L Alanine Aminotransferase (ALT) 6 U/L (14-59) L Alkaline Phosphatase 58 U/L (46-116) Total Protein 7.8 g/dL (6.4-8.2) Albumin 3.5 g/dL (3.4-5.0) Albumin/Globulin Ratio 0.8 (1.0-1.7) L Lipase 155 U/L (73-393) Laboratory Tests 07/12/16 02:20 Laboratory Tests 07/12/16 03:05 EKG EKG EKG as interpreted by me shows a this rhythm with rate of 77 bpm. There is a leftward axis. There is no acute injury pattern seen. Radiology/Procedures Radiology/Procedures Indication: Coughing up blood. Time of exam 0 to 36 hours. Correlation is made with prior chest from 07/06/2016. Tracheostomy tube has tip above the vito. Heart size is stable. There are interstitial changes in both lungs, which may be chronic. There has been improved aeration of both bases when compared with prior study. The mid and upper lung sanchez are clear. No pneumothorax is seen. Impression: Interstitial changes with improved aeration of both bases when compared with exam from 07/06/2016. CT abdomen and pelvis with contrast: Reason for examination: Diffuse abdominal pain for one week. Helical images were obtained through the abdomen and pelvis with intravenous administration of 60 cc Omnipaque 300. Reconstruction was performed in sagittal and coronal planes. Exposure: One or more of the following individualized dose reduction techniques were utilized for this examination: 1. Automated exposure control 2. Adjustment of the mA and/or kV according to patient size 3. Use of iterative reconstruction technique. There is some bandlike densities consistent with atelectasis at the left lung base and some dependent atelectasis bilaterally. The heart size is normal with no pericardial effusion. There is a moderate sized hiatal hernia present. No focal abnormality seen at the liver. The gallbladder is surgically absent. No abnormalities seen at the pancreas or spleen. Left adrenal gland continues to be slightly prominent but this is unchanged. The abdominal aorta shows aortobiiliac stent grafts present. IVC filter is present. The right kidney is atrophic but shows no mass or hydronephrosis. The left kidney shows no mass, hydronephrosis, renal calculi or obstructive uropathy. There are diverticuli in the sigmoid colon but no evidence of diverticulitis. Visualized amount of fecal material colon. The intestinal tract shows no evidence of bowel obstruction. There is moderate compression deformity of the L3 vertebral body which is stable. No acute bony abnormalities are seen. No abnormality seen in the bladder or vaginal cuff. IMPRESSION: Moderate-sized hiatal hernia. Discoid atelectasis at the left lung base. Atrophic right kidney. Nodularity to the left adrenal gland which is stable. Large amount of fecal material in the colon. No bowel obstruction evident. Stable L3 compression deformity. Course & Med Decision Making Course & Med Decision Making Pertinent Labs and Imaging studies reviewed. (See chart for details) 60 yo female who presented with some mild blood tinged sputum and cough and decrease in bowel movements had a full laboratory workup that did not reveal any acute abnormalities. Her CT of the abdomen/pelvis did not reveal any acute abnormalities. Pt successfully had a bowel movement with enema and a dose of Relistor. I counseled her that she is to double her miralax dose for the next few days. Pt is very agreeable with this plan and left the department feeling much improved. Her chest film was unremarkable and her cough is likely related to a bronchitis. Dragon Disclaimer Dragon Disclaimer This electronic medical record was generated, in whole or in part, using a voice recognition dictation system. Departure Departure Impression: Primary Impression: Cough Additional Impression: Constipation Disposition: 01 HOME, SELF-CARE Admitting Physician: Other Condition: STABLE Referrals: ALEK HANLEY MD (PCP) Patient Instructions: Constipation, Adult, [id number], Cough, Adult, Easy-to- Read Additional Instructions: Please take your miralax twice daily until your bowels regulate. Follow up with your blood donor unit assistant for your cough and take your medications as prescribed. Return to the ER if you develop any worsening of your symptoms. Scripts Benzonatate (TESSALON PERLE) 100 Mg Capsule 100 MG PO TID Y for COUGH, #15 CAP Prov: LORI XIE DO 07/12/16 Levofloxacin (LEVAQUIN) 750 Mg Tablet 1 TAB PO DAILY, #5 TAB Prov: LORI XIE DO 07/12/16 Problem Qualifiers LORI XIE DO Jul 12, 2016 06:47
--- NOTE | 2016-07-12 07:35 | RAD ---
Indication: Coughing up blood. Time of exam 0 to 36 hours. Correlation is made with prior chest from 07/06/2016. Tracheostomy tube has tip above the vito. Heart size is stable. There are interstitial changes in both lungs, which may be chronic. There has been improved aeration of both bases when compared with prior study. The mid and upper lung sanchez are clear. No pneumothorax is seen. Impression: Interstitial changes with improved aeration of both bases when compared with exam from 07/06/2016.
--- NOTE | 2016-07-12 07:55 | EKG ---
[facility] [address] [place] [address] Test Date: 2016-07-12 Test Time: 04:50:31 Pat Name: RINKU MCCANN Department: Room: Gender: F [employer] Operator: : 1955 Requested By: LORI XIE Order Number: [id number] Reading MD: Scotty Rosas Measurements Intervals [place] Rate: 77 P: -10 [place]: 150 QRS: -20 QRSD: 96 T: 0 QT: 418 QTc: 475 Interpretive Statements SINUS RHYTHM LEFT ATRIAL ABNORMALITY LEFTWARD AXIS QRS(T) CONTOUR ABNORMALITY CONSISTENT WITH INFERIOR INFARCT AGE UNDETERMINED RI6.01 Unconfirmed report Compared to ECG 07/06/2016 06:29:29 Atrial abnormality now present Left-axis deviation now present Myocardial infarct finding still present Electronically Signed On 07-15-2016 9:51:22 CDT by Scotty Rosas
[2016-07-14] MEDS ORDERED: OXYC-244 PO (21:03)
== END 2016-07-12 07:05 | disposition home or self-care (01) ==
LOC: ER 01:52
DX: R04.2 Hemoptysis (principal); K59.00 Constipation, unspecified; I50.9 Heart failure, unspecified; I25.10 Atherosclerotic heart disease of native coronary artery without angina pectoris; I25.2 Old myocardial infarction; I73.9 Peripheral vascular disease, unspecified; G89.29 Other chronic pain; J43.9 Emphysema, unspecified; Z90.49 Acquired absence of other specified parts of digestive tract; Z90.710 Acquired absence of both cervix and uterus; Z95.5 Presence of coronary angioplasty implant and graft; Z95.1 Presence of aortocoronary bypass graft; Z95.828 Presence of other vascular implants and grafts; Z88.0 Allergy status to penicillin; Z88.8 Allergy status to other drugs, medicaments and biological substances
CPT/HCPCS: 36415; 71010; 74177; 80053; 83690; 85027; 93005; 96372; 96374; 96375; 96376; 99285; J2212; J2405; J3010; Q9967

== ENCOUNTER 2016-07-13 20:02 | Emergency (ER) | payer MEDICARE, OTHER ==
[~2016-07-13 20:02] MED LIST changes: +ASPI-630 PO; -ASPI325T4 PO; +ASPI325T8 PO; -ASPI81TA2 PO; +BENZ100C PO; -ERGO500012 PO; +ERGO500027 PO; -LEVO500T38 PO; +LEVO500T59 PO; -OXYC-244 PO; +OXYC-327 PO; +PARO25TA11 PO; -PARO25TA9 PO
[2016-07-13] MEDS ORDERED: oxyCODONE/APAP 5/325 1 TAB TABLET PO ONE (20:30)
[2016-07-13 21:05] VITALS: BP 175/108
--- NOTE | 2016-07-13 22:21 | PHYS DOC ---
Past Medical History Past Medical History: Angina, CAD, CHF, COPD, Heart Disease, [place] Additional Past Medical Histor: PAD, Chronic back pain, emphysema, MULT CODE BLUE, CARD. CATH, COLITIS Past Surgical History: Angioplasty, Cholecystectomy, Hysterectomy Additional Past Surgical Histo: bilat leg stents, trach, aortic stent, ivc filter, feeding tube w/ removal Alcohol Use: None Drug Use: None Adult General Chief Complaint Chief Complaint: BACK PAIN OR INJURY HPI HPI Patient is a 60 year old female presenting to the emergency department for left posterior back pain rib pain and right knee pain status post fall shortly prior to arrival. She says that she was trying to ambulate and felt her legs weak and then she tripped over a step and fell backwards. Patient is in no obvious distress and she denies any head neck chest abdomen or other extremity pain. She is in no obvious distress with normal vital signs. Review of Systems Review of Systems Constitutional: Denies fever or chills [] Eyes: Denies change in visual acuity, redness, or eye pain [] HENT: Denies nasal congestion or sore throat [] Respiratory: Denies cough or shortness of breath [] Cardiovascular: No additional information not addressed in HPI [] GI: Denies abdominal pain, nausea, vomiting, bloody stools or diarrhea [] : Denies dysuria or hematuria [] Musculoskeletal: + back and joint pain [] Integument: Denies rash or skin lesions [] Neurologic: Denies headache, focal weakness or sensory changes [] Current Medications Current Medications Current Medications Medications (Trade) Dose Ordered Sig/Emmett Start Time Stop Time Status Last Admin Dose Admin Hydromorphone HCl (Dilaudid) 1 mg 1X STAT 07/13/16 23:32 07/13/16 23:33 UNV Oxycodone/ Acetaminophen (Percocet 5/325) 2 tab 1X ONCE 07/13/16 20:30 07/13/16 20:31 DC 07/13/16 20:48 2 TAB Allergies Allergies Allergies Coded Allergies Type Severity Reaction Last Updated Verified Penicillins Allergy Intermediate can tolerate cefepime 06/04/15 Yes barium sulfate Adverse Reaction Intermediate Nausea 06/04/15 Yes Physical Exam Physical Exam Constitutional: Well developed, well nourished, no acute distress, non-toxic appearance. [] HENT: Normocephalic, atraumatic, bilateral external ears normal, oropharynx moist, no oral exudates, nose normal. [] Eyes: PERRLA, EOMI, conjunctiva normal, no discharge. [] Neck: Normal range of motion, no tenderness, supple, no stridor. [] Cardiovascular:Heart rate regular rhythm, no murmur [] Lungs & Thorax: Bilateral breath sounds clear to auscultation [] Abdomen: Bowel sounds normal, soft, no tenderness, no masses, no pulsatile masses. [] Skin: Warm, dry, no erythema, no rash. [] Back: Positive left thoracic paraspinal tenderness to palpation. No midline tenderness to palpation. Extremities: Right knee painful to palpation however no obvious swelling or deformity. Neurologic: Alert and oriented X 3, normal motor function, normal sensory function, no focal deficits noted. [] Current Patient Data Vital Signs Vital Signs Date Time Temp Pulse Resp B/P (MAP) Pulse Ox O2 Delivery O2 Flow Rate FiO2 07/13/16 21:05 80 18 175/108 (130) 96 Room Air 07/13/16 20:05 97.6 97.6 EKG EKG [] Radiology/Procedures Radiology/Procedures Right knee x-ray shows no obvious fracture dislocation or other soft tissue abnormality. Chest and rib XR shows no fracture, dislocation, PTX, opacity. There is small effusion on L lung. Course & Med Decision Making Course & Med Decision Making Patient with traumatic back and knee pain. X-rays appear unremarkable except she has small effusion on her left chest but no obvious abnormalities on exam. Patient observed for 4 hours and she feels much better. Patient has repeat normal vital signs and she is in no obvious respiratory distress such she'll be discharged in stable condition. Patient aware and agreeable with plan for discharge and verbalized understanding of the need for short-term follow-up and strict ER return precautions discussed including worsening pain shortness of breath or other general concerns. Dragon Disclaimer Dragon Disclaimer This electronic medical record was generated, in whole or in part, using a voice recognition dictation system. Departure Departure Impression: Primary Impression: Strain of thoracic region Additional Impression: Right knee sprain Disposition: HOME, SELF-CARE Condition: GOOD Referrals: ALEK HANLEY MD (PCP) Patient Instructions: Rib Contusion Problem Qualifiers Primary Impression: Strain of thoracic region Encounter type: initial encounter Qualified Codes: S29.019A - Strain of muscle and tendon of unspecified wall of thorax, initial encounter ALEK MALHOTRA DO Jul 13, 2016 22:21
[2016-07-13] MEDS ORDERED: HYDROmorphone 2 MG/ML VIAL IM ONE (23:55)
--- NOTE | 2016-07-14 02:00 | RAD ---
PA chest and left rib series 4 views: Reason for examination: Fell today hitting left-side ribs. Comparison is made to previous chest dated 09/14/2015. Endotracheal tube remains in place. Heart and mediastinum are unchanged. Lung sanchez show no acute congestion, infiltrates or pleural effusions. 4 views of the ribs show presence of a fracture laterally at the fourth, fifth and sixth ribs. IMPRESSION: No acute cardiopulmonary disease. Fractures laterally at the fourth, fifth and sixth left ribs. Electronically signed by: Chelita Morales MD (07/14/2016 1:57 AM)
--- NOTE | 2016-07-14 08:21 | RAD ---
Indication fall, pain. AP oblique and lateral views of the right knee were obtained. No acute or significant bony finding is seen. Vascular calcification is noted.
[2016-07-14] MEDS ORDERED: OXYC-327 PO (21:03)
[2016-07-14] MEDS ORDERED: ONDA4TAB10 SL (21:03)
== END 2016-07-14 00:15 | disposition home or self-care (01) ==
LOC: ER 20:02
DX: S29.012A Strain of muscle and tendon of back wall of thorax, initial encounter (principal); S83.91XA Sprain of unspecified site of right knee, initial encounter; I25.10 Atherosclerotic heart disease of native coronary artery without angina pectoris; I50.9 Heart failure, unspecified; I25.2 Old myocardial infarction; I73.9 Peripheral vascular disease, unspecified; G89.29 Other chronic pain; J43.9 Emphysema, unspecified; Z95.5 Presence of coronary angioplasty implant and graft; Z95.1 Presence of aortocoronary bypass graft; Z88.0 Allergy status to penicillin; Z90.49 Acquired absence of other specified parts of digestive tract; Z90.710 Acquired absence of both cervix and uterus; Z88.8 Allergy status to other drugs, medicaments and biological substances; Z95.828 Presence of other vascular implants and grafts; W01.0XXA Fall on same level from slipping, tripping and stumbling without subsequent striking against object, initial encounter; Y93.89 Activity, other specified; Y92.89 Other specified places as the place of occurrence of the external cause; Y99.8 Other external cause status
CPT/HCPCS: 71101; 73562; 96372; 99284; J1170

== ENCOUNTER 2016-07-14 19:09 | Emergency (ER) | payer MEDICARE, OTHER ==
[~2016-07-14] VITALS: Ht 172.7 cm; Wt 83.5 kg
[2016-07-14] MEDS ORDERED: IV NORMAL SALINE 1000ML BAG 1,000 ML IV SCH (19:19)
[2016-07-14 19:34] LABS: BASO # 0.1 x10^3/uL (0.0-0.2); BASO % 3 % (0-3); EOS % 4 % (0-3); HEMATOCRIT 40.3 % (36.0-47.0); HEMOGLOBIN 12.7 g/dL (12.0-15.5); LYMPH # 0.8 x10^3/uL (1.0-4.8); LYMPH % 19 % (24-48); MEAN CORPUSCULAR HEMOGLOBIN 23 pg (25-35); MEAN CORPUSCULAR HGB CONC 32 g/dL (31-37); MEAN CORPUSCULAR VOLUME 74 fL (79-100); MONO % 7 % (0-9); NEUT % 67 % (31-73); PLATELET COUNT 285 x10^3/uL (140-400); RED BLOOD COUNT 5.45 x10^6/uL (3.50-5.40); RED CELL DISTRIBUTION WIDTH 21.2 % (11.5-14.5); WHITE BLOOD COUNT 4.5 x10^3/uL (4.0-11.0)
[2016-07-14 19:43] LABS: INR 1.1 (0.8-1.1); PROTHROMBIN TIME PATIENT 13.5 SEC (11.7-14.0)
--- NOTE | 2016-07-14 19:43 | PHYS DOC ---
Past Medical History Past Medical History: Angina, CAD, CHF, COPD, Heart Disease, [place] Additional Past Medical Histor: PAD, Chronic back pain, emphysema, MULT CODE BLUE, CARD. CATH, COLITIS Past Surgical History: Angioplasty, Cholecystectomy, Hysterectomy Additional Past Surgical Histo: bilat leg stents, trach, aortic stent, ivc filter, feeding tube w/ removal Alcohol Use: None Drug Use: None Adult General Chief Complaint Chief Complaint: NAUSEA/VOMITING/DIARRHA HPI HPI Patient is a 60 year old female who presents with nausea vomiting and loose stools. She states that today she's been vomiting so much she can't keep her oral Zofran down and her medications. She's been having some loose stools but she had a history of constipation and she states she's had about 6 loose stools today without any blood. She denies any shortness of breath fevers chills or chest pain. He was having abdominal pain which she states is the same constant pain should the having for months at her primary care physician knows about. She states nothing is different about her abdominal discomfort. She is having back pain but she states is because she fell yesterday and was seen here and was told she didn't have any fractures on her x-rays. Review of Systems Review of Systems Constitutional: Denies fever or chills [] Eyes: Denies change in visual acuity, redness, or eye pain [] HENT: Denies nasal congestion or sore throat [] Respiratory: Denies cough or shortness of breath [] Cardiovascular: No additional information not addressed in HPI [] GI: Denies bloody stools or diarrhea, positive for abdominal pain, nausea, vomiting : Denies dysuria or hematuria [] Musculoskeletal: Denies back pain or joint pain [] Integument: Denies rash or skin lesions [] Neurologic: Denies headache, focal weakness or sensory changes [] Endocrine: Denies polyuria or polydipsia [] Current Medications Current Medications Current Medications Medications (Trade) Dose Ordered Sig/Emmett Start Time Stop Time Status Last Admin Dose Admin Fentanyl Citrate (Fentanyl 2ml Vial) 25 mcg PRN Q15MIN PRN 07/14/16 20:15 07/15/16 20:14 07/14/16 20:55 25 MCG Promethazine HCl 25 mg/Sodium Chloride 51 ml @ 101 mls/hr 1X ONCE 07/14/16 20:15 07/14/16 20:45 DC 07/14/16 20:25 101 MLS/HR Sodium Chloride 1,000 ml @ 1,000 mls/hr Q1H 07/14/16 19:19 07/14/16 20:18 DC 07/14/16 19:44 1,000 MLS/HR Allergies Allergies Allergies Coded Allergies Type Severity Reaction Last Updated Verified Penicillins Allergy Intermediate can tolerate cefepime 06/04/15 Yes barium sulfate Adverse Reaction Intermediate Nausea 06/04/15 Yes Physical Exam Physical Exam Constitutional: Well developed, well nourished, no acute distress, non-toxic appearance. [] HENT: Normocephalic, atraumatic, bilateral external ears normal, oropharynx moist, no oral exudates, nose normal. [] Eyes: PERRLA, EOMI, conjunctiva normal, no discharge. [] Neck: Normal range of motion, no tenderness, supple, no stridor. [] Cardiovascular:Heart rate regular rhythm, no murmur [] Lungs & Thorax: Bilateral breath sounds clear to auscultation [] Abdomen: Bowel sounds normal, soft, mild tenderness palpation, no rebound or guarding, no masses, no pulsatile masses. [] Skin: Warm, dry, no erythema, no rash. [] Back: No tenderness, no CVA tenderness. [] Extremities: No tenderness, no cyanosis, no clubbing, ROM intact, no edema. [] Neurologic: Alert and oriented X 3, normal motor function, normal sensory function, no focal deficits noted. [] Psychologic: Affect normal, judgement normal, mood normal. [] Current Patient Data Vital Signs Vital Signs Date Time Temp Pulse Resp B/P (MAP) Pulse Ox O2 Delivery O2 Flow Rate FiO2 07/14/16 20:55 24 07/14/16 19:10 98.6 79 178/103 (128) 94 Tracheal Collar 10.0 98.6 Lab Values Laboratory Tests Test 07/14/16 19:25 07/14/16 20:02 White Blood Count 4.5 x10^3/uL (4.0-11.0) Red Blood Count 5.45 x10^6/uL (3.50-5.40) H Hemoglobin 12.7 g/dL (12.0-15.5) Hematocrit 40.3 % (36.0-47.0) Mean Corpuscular Volume 74 fL (79-100) L Mean Corpuscular Hemoglobin 23 pg (25-35) L Mean Corpuscular Hemoglobin Concent 32 g/dL (31-37) Red Cell Distribution Width 21.2 % (11.5-14.5) H Platelet Count 285 x10^3/uL (140-400) Neutrophils (%) (Auto) 67 % (31-73) Lymphocytes (%) (Auto) 19 % (24-48) L Monocytes (%) (Auto) 7 % (0-9) Eosinophils (%) (Auto) 4 % (0-3) H Basophils (%) (Auto) 3 % (0-3) Neutrophils # (Auto) 3.0 x10^3uL (1.8-7.7) Lymphocytes # (Auto) 0.8 x10^3/uL (1.0-4.8) L Monocytes # (Auto) 0.3 x10^3/uL (0.0-1.1) Eosinophils # (Auto) 0.2 x10^3/uL (0.0-0.7) Basophils # (Auto) 0.1 x10^3/uL (0.0-0.2) Platelet Estimate Adequate (ADEQUATE) Giant Platelets Occ Polychromasia Slight Hypochromasia Slight Anisocytosis Mod Microcytosis Slight Prothrombin Time 13.5 SEC (11.7-14.0) Prothrombin Time INR 1.1 (0.8-1.1) Sodium Level 135 mmol/L (136-145) L Potassium Level 3.6 mmol/L (3.5-5.1) Chloride Level 99 mmol/L (98-107) Carbon Dioxide Level 29 mmol/L (21-32) Anion Gap 7 (6-14) Blood Urea Nitrogen 10 mg/dL (7-20) Creatinine 1.1 mg/dL (0.6-1.0) H Estimated GFR (Cockcroft-Gault) 50.3 Glucose Level 106 mg/dL (70-99) H Calcium Level 8.7 mg/dL (8.5-10.1) Magnesium Level 2.2 mg/dL (1.8-2.4) Total Bilirubin 0.7 mg/dL (0.2-1.0) Direct Bilirubin 0.1 mg/dL (0.0-0.2) Aspartate Amino Transferase (AST) 16 U/L (15-37) Alanine Aminotransferase (ALT) 17 U/L (14-59) Alkaline Phosphatase 62 U/L (46-116) Creatine Kinase 128 U/L (26-192) Creatine Kinase MB (Mass) 3.4 ng/mL (0.0-3.6) Creatine Kinase MB Relative Index 2.7 % (0-4) Troponin I Quantitative < 0.017 ng/mL (0.000-0.055) IT-Gmu-A-Type Natriuretic Peptide 7917 pg/mL (0-124) H Total Protein 7.7 g/dL (6.4-8.2) Albumin 3.6 g/dL (3.4-5.0) Lipase 95 U/L (73-393) Urine Collection Type U cath Urine Color Yellow Urine Clarity Clear Urine pH 7.0 Urine Specific [place] 1.010 Urine Protein Negative mg/dL (NEG-TRACE) Urine Glucose (UA) Negative mg/dL (NEG) Urine Ketones (Stick) Negative mg/dL (NEG) Urine Blood Negative (NEG) Urine Nitrite Negative (NEG) Urine Bilirubin Negative (NEG) Urine Urobilinogen Dipstick 1.0 mg/dL (0.2 mg/dL) Urine Leukocyte Esterase Negative (NEG) Urine RBC 0 /HPF (0-2) Urine WBC 0 /HPF (0-4) Urine Renal Epithelial Cells Few /LPF Urine Bacteria 0 /HPF (0-FEW) Urine Mucus Slight /LPF Urine Opiates Screen Pos (NEG) Urine Methadone Screen Neg (NEG) Urine Barbiturates Neg (NEG) Urine Phencyclidine Screen Neg (NEG) Urine Amphetamine/Methamphetamine Neg (NEG) Urine Benzodiazepines Screen Neg (NEG) Urine Cocaine Screen Neg (NEG) Urine Cannabinoids Screen Neg (NEG) Urine Ethyl Alcohol Neg (NEG) Laboratory Tests 07/14/16 19:25 Laboratory Tests 07/14/16 19:25 EKG EKG EKG shows normal sinus with a rate of [address] elevations, T-wave inversions noted in leads 3, left axis deviation, QTC 479 ms, as interpreted by me. Radiology/Procedures Radiology/Procedures View chest x-ray did not show any focal consolidations, bony abnormalities or pneumothorax, as interpreted by me. Impressions: Nausea, vomiting Course & Med Decision Making Course & Med Decision Making Pertinent Labs and Imaging studies reviewed. (See chart for details) Labs, EKG, chest x-ray did not show acute abnormalities. Patient felt better with Phenergan and states she's been out of her pain meds and she took the last one today and she ran out because she was taken x-ray was today and Throwing them up. She got 17.5 oxycodone prior to being discharged and I have written her prescription for 10 more since she's given her prescription filled on Wednesday. She's also be discharged with Zofran 4 mg ODT to take when she's nauseated. I spoke with Dr. Prakash Blackburn who is agreeable to plan. The patient also agrees the plan is being discharged in stable condition at this time. Dragon Disclaimer Dragon Disclaimer This electronic medical record was generated, in whole or in part, using a voice recognition dictation system. Departure Departure Impression: Primary Impression: Nausea & vomiting Disposition: 01 HOME, SELF-CARE Condition: STABLE Referrals: PRAKASH BLACKBURN MD (PCP) Patient Instructions: Nausea and Vomiting Additional Instructions: Your vitals and lab work did not show any acute abnormalities. Your being discharged home. Your being discharged with prescription of oxycodone and Zofran. Please follow the instructions on the prescription condition. Return ER for severe pain, uncontrolled nausea vomiting, or other concerns. Scripts Oxycodone/Apap 7.5-325 (PERCOCET 7.5-325 MG TABLET) 1 Each Tablet 1 TAB PO TID Y for PAIN, #10 TAB Prov: FREDI SALDAÑA MD 07/14/16 Ondansetron (ZOFRAN ODT) 4 Mg Tab.rapdis 1 TAB SL Q8HRS Y for NAUSEA, #10 TAB Prov: FREDI SALDAÑA MD 07/14/16 Problem Qualifiers Primary Impression: Nausea & vomiting Vomiting type: unspecified Vomiting Intractability: non-intractable Qualified Codes: R11.2 - Nausea with vomiting, unspecified FREDI SALDAÑA MD Jul 14, 2016 19:43
[2016-07-14 19:47] LABS: CALCIUM 8.7 mg/dL (8.5-10.1); CREATININE 1.1 mg/dL (0.6-1.0); GFR 50.3; POTASSIUM 3.6 mmol/L (3.5-5.1)
[2016-07-14 19:53] LABS: ALBUMIN 3.6 g/dL (3.4-5.0); DIRECT BILIRUBIN 0.1 mg/dL (0.0-0.2); MAGNESIUM 2.2 mg/dL (1.8-2.4); TOTAL BILIRUBIN 0.7 mg/dL (0.2-1.0); TOTAL PROTEIN 7.7 g/dL (6.4-8.2)
[2016-07-14 19:59] LABS: CKMB MASS 3.4 ng/mL (0.0-3.6)
[2016-07-14] MEDS ORDERED: PROMETHAZINE 25 MG in IV NORMAL SALINE 50ML 50 ML IV ONE (20:15)
[2016-07-14 20:18] LABS: BARBITURATES NEG (NEG); BENZODIAZEPINES NEG (NEG); CANNABINOIDS NEG (NEG); COCAINE NEG (NEG); METHADONE NEG (NEG); OPIATES POS (NEG); PHENCYCLIDINE NEG (NEG)
[2016-07-14 20:22] LABS: BILIRUBIN,URINE NEGATIVE (NEG); GLUCOSE,URINE NEGATIVE (NEG); NITRITE,URINE NEGATIVE (NEG); PROTEIN,URINE NEGATIVE (NEG-TRACE)
[2016-07-14] MEDS: fentaNYL PF VIAL 100 MCG/2 ML VIAL IV PRN ×2 (20:24→20:55)
[2016-07-14 20:33] LABS: BACTERIA,URINE 0 /HPF (0-FEW); RBC,URINE 0 /HPF (0-2); WBC,URINE 0 /HPF (0-4)
[2016-07-14 20:43] LABS: PLT ESTIMATE ADEQUATE (ADEQUATE)
[2016-07-14 20:44] LABS: HYPOCHROMIA SLIGHT
[2016-07-14 20:45] LABS: ANISOCYTOSIS MOD; MICROCYTOSIS SLIGHT; POLYCHROMASIA SLIGHT
[2016-07-14] MEDS ORDERED: OXYC-327 PO (21:03)
[2016-07-14] MEDS ORDERED: ONDA4TAB10 SL (21:03)
[2016-07-14 21:40] VITALS: BP 153/92
[2016-07-14] MEDS ORDERED: oxyCODONE/APAP 7.5/325 1 TAB TABLET PO ONE (21:45)
--- NOTE | 2016-07-15 06:33 | EKG ---
[facility] [address] [place] [address] Test Date: 2016-07-14 Test Time: 19:34:51 Pat Name: RINKU MCCANN Department: Room: Gender: F [employer]er: : 1955 Requested By: FREDI SALDAÑA Order Number: [id number] Reading MD: Umu Tolliver Measurements Intervals [place] Rate: 71 P: 36 [place]: 188 QRS: -18 QRSD: 96 T: 2 QT: 436 QTc: 479 Interpretive Statements SINUS RHYTHM LEFTWARD AXIS QRS(T) CONTOUR ABNORMALITY CONSISTENT WITH INFERIOR INFARCT AGE UNDETERMINED Electronically Signed On 07-18-2016 18:28:36 CDT by Umu Tolliver
--- NOTE | 2016-07-15 08:17 | RAD ---
Indication fall, pain. A single view of the chest was obtained. Comparison is made to an examination yesterday. Known fractures involving left ribs are not well representing on this image. There are probable background changes of emphysema or fibrosis. There is some volume loss at the left lung base likely reflecting atelectasis similar to the previous exam. There may be a tiny left pleural effusion. There is no pneumothorax. Tracheostomy tube is noted. IMPRESSION: Modest volume loss at the left lung base likely reflecting atelectasis, similar to the previous exam
== END 2016-07-14 22:22 | disposition home or self-care (01) ==
LOC: ER 19:09
DX: R11.2 Nausea with vomiting, unspecified (principal); R19.7 Diarrhea, unspecified; R10.9 Unspecified abdominal pain; I50.9 Heart failure, unspecified; G89.29 Other chronic pain; J43.9 Emphysema, unspecified; I25.2 Old myocardial infarction; I25.10 Atherosclerotic heart disease of native coronary artery without angina pectoris; I73.9 Peripheral vascular disease, unspecified; Z90.710 Acquired absence of both cervix and uterus; Z90.49 Acquired absence of other specified parts of digestive tract; Z95.5 Presence of coronary angioplasty implant and graft; Z88.0 Allergy status to penicillin; Z88.2 Allergy status to sulfonamides
CPT/HCPCS: 36415; 51701; 71010; 80048; 80076; 80305; 80320; 81001; 82553; 83690; 83735; 83880; 84484; 85007; 85027; 85610; 93005; 96361; 96365; 96375; 96376; 99285; J2550; J3010; J7030; G0480; G0481